=== PATIENT | female | born 1950 | race Caucasian/White ===

== ENCOUNTER 2019-09-24 10:23 | Outpatient (CLI) | payer MEDICARE, SELFPAY | END 2019-09-24 10:24 | disposition home or self-care (01) | LOC: ANHSURGERY 10:26 | PROVIDERS: PCP Internal Medicine; Visit Provider Urology | DX: N30.10 Interstitial cystitis (chronic) without hematuria (principal) | CPT/HCPCS: 87086; 87088 ==

== ENCOUNTER 2019-09-30 00:21 | Outpatient (CLI) | payer MEDICARE, SELFPAY ==
[2019-09-30 17:43] LABS: SARS-CoV-2 RNA PCR Negative
== END 2019-09-30 00:22 | disposition home or self-care (01) ==
LOC: ANHCOVIDDT 00:22
PROVIDERS: Visit Provider Urology
DX: Z01.818 Encounter for other preprocedural examination (principal); Z11.59 Encounter for screening for other viral diseases
CPT/HCPCS: 87635; C9803; U0003

== ENCOUNTER 2019-10-02 00:59 | Day surgery (SDC) | payer MEDICARE, SELFPAY ==
[2019-09-22 13:19] VITALS: BMI 44.9
[2019-10-02 07:16] VITALS: BP 134/63; PULSE 82; RESP 20; TEMP 36.8; O2SAT 99
--- NOTE | 2019-10-02 07:19 | WPDHPUPDATE1 ---
History and Physical Update Update Date/Time: 10/02/19 07:19 History and Physical has been reviewed, including an updated exam of the patient. There are NO changes in the patient's condition. Risks, benefits, and alternatives have been discussed and questions answered. Patient agrees to proceed with procedure.
[2019-10-02] MEDS: LACTATED RINGERS 1,000 ML 30 ML IV CONT (07:45)
--- NOTE | 2019-10-02 07:49 | P.PNAN_ITS ---
Anes - Initial Pre Proc Eval Procedure: Operation Date: 10/02/19 09:00 Proposed Procedures p Cystoscopy Bladder Biopsy With Steroid Injection - Damián Fox MD Date/Time: 10/02/19 07:49 Surgeon: Damián Fox MD Pre Op Diagnosis: Og's Ulcer Patient Data Age: 69 Gender: F Height: 5 ft Weight: 106.3 kg Last Vital Signs Temp 98.2 F 10/02/19 07:16 Pulse 82 10/02/19 07:16 Resp 20 10/02/19 07:16 BP 134/63 10/02/19 07:16 Pulse Ox 99 10/02/19 07:16 Allergies Allergy/AdvReac Type Severity Reaction Status Date / Time propoxyphene Allergy Mild Nausea Verified 10/02/19 07:28 cefdinir AdvReac Intermediate DIZZINESS, Verified 10/02/19 07:28 DIARRHEA ciprofloxacin AdvReac Mild Muscle Pain Verified 10/02/19 07:28 Home Medications Medication Instructions Recorded Confirmed Type antiarthritic combination no.2 900 900 mg PO DAILY 03/25/19 10/02/19 History mg tablet cyclobenzaprine 10 mg tablet 10 mg PO .hs PRN tablet 03/25/19 10/02/19 History fexofenadine 180 mg tablet 180 mg PO DAILY 03/25/19 10/02/19 History levothyroxine 50 mcg tablet 50 mcg PO DAILY 03/25/19 10/02/19 History mirabegron 50 mg tablet,extended 50 mg PO DAILY 03/25/19 10/02/19 History release 24 hr naproxen 500 mg tablet 500 mg PO BID #180 tablet 05/01/19 10/02/19 Rx Patient hx anesthesia problems: none Family hx anesthesia problems: none [facility] Past Medical History Medical History (Updated 10/02/19 @ 07:49 by Jack Garcia MD) Gastro-esophageal reflux disease without esophagitis Hypothyroidism Morbid obesity Social History Social History Smoking status: Never smoker Second hand tobacco smoke exposure: No Alcohol intake: never Anes - Eval Final PreProcedure Day of Procedure 10/02/19 07:49 Patient weight: morbidly obese Heart: regular rate and rhythm Lungs: clear to auscultation Airway: Mallampati scale class III Neurological: alert and oriented Last oral intake: >/= 8 hours ASA classification: III Emergent: no Anesthetic plan: proceed Anesthesia type and monitoring: general LMA and standard monitoring Informed Consent: The patient's anesthetic plan and its attendant risks and benefits were discussed with the patient/family/POA. Questions were solicited and answers provided to the satisfaction of the patient/family/POA.
[2019-10-02] MEDS: MIDAZOLAM HCL 2 MG/2 ML VIAL 1 MG IV PUSH (07:55)
[2019-10-02] MEDS: levoFLOXacin 500 MG/D5W 100 ML 500 MG/100 ML BAG 100 MG IVPB (08:21)
--- NOTE | 2019-10-02 08:21 | WPDHPUPDATE1 ---
History and Physical Update Update Date/Time: 10/02/19 08:21 History and Physical has been reviewed, including an updated exam of the patient. There are NO changes in the patient's condition. Risks, benefits, and alternatives have been discussed and questions answered. Patient agrees to proceed with procedure. Will perform a bladder bx as well
[2019-10-02] MEDS: LIDOCAINE HCL 2% GEL UROJET 10 ML PKG MUCOUS MEM (08:38)
[2019-10-02] MEDS: TRIAMCINOLONE ACET INJ 40 MG/ML VIAL IM (08:39)
--- NOTE | 2019-10-02 08:55 | PM.PROC ---
Procedure Note - Detailed Date of procedure: 10/02/19 Pre-op diagnosis: Og's Ulcer Hunner's ulcer Post-op diagnosis: same Procedure performed: Cystoscopy with bladder biopsy and injection of steroid Description of procedure: After anesthesia was induced the patient was correctly identified and informed consent was obtained. They are placed in the dorsal lithotomy position. There prepped and draped in a sterile fashion. A time-out performed. I performed cystoscopy. She had a very dysmorphic bladder. It was diffusely reddened. There were intense spots of reddened areas and Hunner's ulcers on the posterior wall. She has evidence of a duplicated system on the left with wide open ureters consistent with reflux. I was unable to identify the ureter on the right. I biopsied the area of Hunner's ulceration on the posterior wall the bladder remote from the ureteral orifices. This was biopsied was fulgurated. I then injected Kenalog at a dose of 40 milligrams/mL. I injected 5 cc total. There was minimal bleeding from the injection sites. The bladder was examined under low insufflation pressures and there was no active bleeding. The bladder was drained. The awakened and transferred to the PACU in stable condition. Implants: None Anesthesia: MAC Surgeon: Damián Fox MD Estimated blood loss (mL): 5 Drains: No Packing: No Pathology: yes (Bladder biopsy) Complications: No immediate complications Condition: stable Disposition: PACU
[2019-10-02 09:00] VITALS: BP 90/55; PULSE 94; RESP 18; O2SAT 94
[2019-10-02 09:30] VITALS: BP 119/65; PULSE 78; RESP 14
[2019-10-02 10:00] VITALS: BP 149/66; PULSE 73; RESP 14
== END 2019-10-02 10:05 | disposition home or self-care (01) ==
PROVIDERS: Visit Provider Urology
PROC: 0TBB8ZX Excision of Bladder, Via Natural or Artificial Opening Endoscopic, Diagnostic (ICD-10-PCS; CPT 52204; principal; 2019-10-02 09:00)
DX: N30.10 Interstitial cystitis (chronic) without hematuria (principal); K21.9 Gastro-esophageal reflux disease without esophagitis; E03.9 Hypothyroidism, unspecified; E66.01 Morbid (severe) obesity due to excess calories; Z68.42 Body mass index [BMI] 45.0-49.9, adult
CPT/HCPCS: 52204; 52283; 87635; 88305; A9270; C9803; J1956; J2250; J2704; J3301; J7120; U0003

== ENCOUNTER → 2020-08-19 13:12 | Outpatient (CLI) | payer MEDICARE, SELFPAY ==
--- NOTE | ~2020-08-19 | MM_ITS ---
EXAMINATION: MM screening ceferino BI w vitaly HISTORY: Screening mammogram TECHNIQUE: Craniocaudal and mediolateral oblique 3-D tomosynthesis images were obtained and synthetic 2-D images were generated. CAD analysis was submitted and interpreted. COMPARISON: 03/03/2019, 10/21/2018, 03/17/2018, 02/27/2018 BREAST PARENCHYMAL COMPOSITION: There are scattered areas of fibroglandular density. FINDINGS: Scattered benign-appearing calcifications are present. There is no evidence of suspicious m ass, calcification, or architectural distortion to suggest malignancy in either breast. There has bee n no suspicious interval change. IMPRESSION: 1. No mammographic evidence of malignancy. 2. Recommend routine screening mammography in one year. BI-RADS Category 2: Benign finding(s). Reviewed, dictated and finalized at location A.
== END ==
PROVIDERS: PCP Internal Medicine; Visit Provider Internal Medicine
DX: Z12.31 Encounter for screening mammogram for malignant neoplasm of breast (principal)
CPT/HCPCS: 77063; 77067

== ENCOUNTER → 2020-11-15 13:39 | Outpatient (CLI) | payer MEDICARE, SELFPAY ==
--- NOTE | ~2020-11-15 | XR_ITS ---
XR knee RT 3V DATE: 11/15/2020 15:30 INDICATION: Right knee pain TECHNIQUE: Ai and standing AP and lateral views COMPARISON: None FINDINGS: There is diffuse osteopenia. There is severe tricompartment osteoarthritis. Prominent periarticular spurring is noted in all 3 com partments. There is virtual obliteration of medial lateral compartment joint spaces. There is promine nt lateral subluxation at the femoral tibial joint. No fracture or dislocation or significant joint effusion is evident. No periosteal reaction or bone d estruction. IMPRESSION: Severe tricompartment osteoarthritis Prominent lateral subluxation of the femoral tibial joint Osteopenia Reviewed, dictated and finalized at location A.
--- NOTE | ~2020-11-15 | XR_ITS ---
XR knee LT 3V DATE: 11/15/2020 15:30 INDICATION: Right knee pain TECHNIQUE: [place] and standing AP and lateral views COMPARISON: None FINDINGS: There is severe tricompartment osteoarthritic arthritis, most pronounced at the medial comp artment with virtual obliteration of the joint spaces and eburnation of the apposing articular surfac es of the femoral condyle and medial tibial plateau. There is lateral subluxation at the femoral tibi al joint. There is varus deformity of the knee. There is prominent periarticular spurring at the patellofemoral compartment and lateral compartment. Diffuse osteopenia. No fracture or dislocation is evident. Mild to moderate knee joint effusion is suggested. No periosteal reaction or bone destruction. No radiopaque intra-articular loose body or chondrocalcinosis is detected. IMPRESSION: Severe tricompartment osteoarthritis Diffuse osteopenia Joint effusion Reviewed, dictated and finalized at location A.
== END ==
PROVIDERS: PCP Internal Medicine; Visit Provider Internal Medicine
DX: M85.861 Other specified disorders of bone density and structure, right lower leg (principal); M17.0 Bilateral primary osteoarthritis of knee; M85.862 Other specified disorders of bone density and structure, left lower leg
CPT/HCPCS: 73562

== ENCOUNTER 2020-12-15 10:20 | Outpatient (CLI) | payer MEDICARE, SELFPAY | END 2020-12-15 10:21 | disposition home or self-care (01) | LOC: ANHSURGERY 10:22 | PROVIDERS: PCP Internal Medicine; Visit Provider Urology | DX: N30.10 Interstitial cystitis (chronic) without hematuria (principal) | CPT/HCPCS: 87077; 87086; 87088; 87186 ==

== ENCOUNTER 2020-12-23 00:19 | Day surgery (SDC) | payer MEDICARE, SELFPAY ==
[2020-12-09 15:55] VITALS: BMI 44.3
--- NOTE | 2020-12-18 18:37 | P.HP_ITS ---
H&P: HPI History of Present Illness Date/Time: 12/18/20 18:37 70 yo with recurrent Hunner's ulcers Chief Complaint: Hunner Ulcer Review of Systems Review of Systems: All systems reviewed & are unremarkable except as noted in HPI and below [facility] Past Medical History Medical History (Updated 12/18/20 @ 18:39 by Damián Fox MD) Abnormal mammogram of left breast Eosinophilic cystitis Gastro-esophageal reflux disease without esophagitis History of recurrent UTI (urinary tract infection) Hunner's ulcer Hyperglycemia Hypothyroidism Iron deficiency anemia Morbid obesity Obesity Surgical History Surgical History (Updated 11/24/20 @ 09:53 by Hayley Miller MA) History of cholecystectomy History of hysterectomy History of meniscectomy of left knee History of meniscectomy of right knee Family History Family History Mother Hypertension Family history of diabetes mellitus in first degree relative Father Patient's father is , Onset Age: 93 Family history of respiratory disorder Social History Social History Smoking status: Never smoker Second hand tobacco smoke exposure: No Alcohol intake: never Spiritual care concerns: No Meds Home Medications and Allergies Home Medications Medication Instructions Recorded Confirmed Type antiarthritic combination no.2 900 900 mg PO DAILY 03/25/19 12/09/20 History mg tablet fexofenadine 180 mg tablet 180 mg PO DAILY 03/25/19 12/09/20 History naproxen 500 mg tablet 500 mg PO BID #180 tablet 09/02/20 12/09/20 Rx levothyroxine 50 mcg tablet 50 mcg PO DAILY #90 tablet 11/14/20 12/09/20 Rx [id number]-[id number] 333 mg-133 1 tablet PO BID tablet 11/24/20 12/09/20 History mg-5 mg tablet magnesium 250 mg tablet 250 mg PO DAILY 11/24/20 12/09/20 History potassium chloride 10 mEq 10 meq PO DAILY 11/24/20 12/09/20 History capsule,extended release Allergies Allergy/AdvReac Type Severity Reaction Status Date / Time propoxyphene Allergy Mild Nausea Verified 12/09/20 15:35 cefdinir AdvReac Intermediate DIZZINESS, Verified 12/09/20 15:35 DIARRHEA ciprofloxacin AdvReac Mild Muscle Pain Verified 12/09/20 15:35 Exam Const: General: cooperative and healthy appearing HENMT: Head: normal to inspection Eyes: General: appearance normal, both eyes and all related structures Neck: Neck: normal visual inspection Resp: Effort & Inspection: normal respiratory effort and able to speak in complete sentences : General: Yes bimanual renal exam normal bilaterally Skin: General skin exam: normal color Assessment and Plan Assessment and plan (1) Hunner's ulcer: Code(s): N30.10 - Interstitial cystitis (chronic) without hematuria Status: Acute Assessment and Plan: cysto/biopsy/steroid injection
--- NOTE | 2020-12-22 11:56 | WPDANESEPPF ---
Anes - Initial Pre Proc Eval Procedure: Operation Date: 12/23/20 08:15 Proposed Procedures p Cystoscopy, Bladder Biopsy with Steroid Injection - Damián Fox MD Date/Time: 12/22/20 11:56 Surgeon: Damián Fox MD Pre Op Diagnosis: hunners ulcer Patient Data Age: 70 Gender: F Height: 1.52 m Weight: 102.98 kg Allergies Allergy/AdvReac Type Severity Reaction Status Date / Time propoxyphene Allergy Mild Nausea Verified 12/23/20 06:55 cefdinir AdvReac Intermediate DIZZINESS, Verified 12/23/20 06:55 DIARRHEA ciprofloxacin AdvReac Mild Muscle Pain Verified 12/23/20 06:55 Home Medications Medication Instructions Recorded Confirmed Type antiarthritic combination no.2 900 900 mg PO DAILY 03/25/19 12/23/20 History mg tablet fexofenadine 180 mg tablet 180 mg PO DAILY 03/25/19 12/23/20 History naproxen 500 mg tablet 500 mg PO BID #180 tablet 09/02/20 12/23/20 Rx levothyroxine 50 mcg tablet 50 mcg PO DAILY #90 tablet 11/14/20 12/23/20 Rx pxseirp-dlkvmtkwq-kgoy 333 mg-133 1 tablet PO BID tablet 11/24/20 12/23/20 History mg-5 mg tablet magnesium 250 mg tablet 250 mg PO DAILY 11/24/20 12/23/20 History potassium chloride 10 mEq 10 meq PO DAILY 11/24/20 12/23/20 History capsule,extended release amoxicillin-pot clavulanate 1 tablet PO BID 12/23/20 12/23/20 History tramadol 50 mg PO Q6H PRN #10 tablet 12/23/20 Rx Patient hx anesthesia problems: none Family hx anesthesia problems: none [facility] Past Medical History Medical History (Updated 12/18/20 @ 18:39 by Damián Fox MD) Abnormal mammogram of left breast Eosinophilic cystitis Gastro-esophageal reflux disease without esophagitis History of recurrent UTI (urinary tract infection) Hunner's ulcer Hyperglycemia Hypothyroidism Iron deficiency anemia Morbid obesity Obesity Surgical History Surgical History (Updated 11/24/20 @ 09:53 by Hayley Miller MA) History of cholecystectomy History of hysterectomy History of meniscectomy of left knee History of meniscectomy of right knee Family History Family History Mother Hypertension Family history of diabetes mellitus in first degree relative Father Patient's father is , Onset Age: 93 Family history of respiratory disorder Social History Social History Smoking status: Never smoker Second hand tobacco smoke exposure: No Alcohol intake: never Living arrangements: with family Spiritual care concerns: No Anes - Eval Final PreProcedure Day of Procedure 12/22/20 11:56 Patient weight: morbidly obese Heart: regular rate and rhythm Lungs: clear to auscultation and normal air movement Airway: Mallampati scale class II Neurological: alert and oriented Last oral intake: >/= 8 hours ASA classification: III Emergent: no Anesthetic plan: proceed Anesthesia type and monitoring: general GIVS and standard monitoring Informed Consent: The patient's anesthetic plan and its attendant risks and benefits were discussed with the patient/family/POA. Questions were solicited and answers provided to the satisfaction of the patient/family/POA.
[2020-12-23 06:37] VITALS: BP 146/75; PULSE 81; RESP 16; TEMP 36.6; O2SAT 99
[2020-12-23] MEDS: LACTATED RINGERS 1,000 ML 30 ML IV CONT (07:10)
--- NOTE | 2020-12-23 07:22 | WPDHPUPDATE1 ---
History and Physical Update Update Date/Time: 12/23/20 07:22 History and Physical has been reviewed, including an updated exam of the patient. There are NO changes in the patient's condition. Risks, benefits, and alternatives have been discussed and questions answered. Patient agrees to proceed with procedure.
[2020-12-23] MEDS: TRIAMCINOLONE ACET INJ 40 MG/ML VIAL 200 MG XX (08:33)
[2020-12-23] MEDS: LIDOCAINE HCL 2% GEL UROJET 10 ML PKG MUCOUS MEM (08:36)
--- NOTE | 2020-12-23 08:44 | W.PM.PROC2 ---
Procedure Note - Detailed Date of Procedure 12/23/20 Pre-op Diagnosis hunners ulcer Post-op Diagnosis same Procedure Performed Cystoscopy, bladder biopsy, injection of steroid Surgeon Damián Fox MD Anesthesia MAC Indications She has recurrent Hunner's ulcer variety interstitial cystitis. 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 Signs of vesicoureteral reflux Description of Procedure She was correctly identified. Informed consent obtained. She from the operating room. She was given MAC anesthesia. She was prepped and draped in a sterile fashion. She was on appropriate antibiotics. A time-out performed. Examination of her bladder revealed multiple areas of Hunner's ulceration on the back wall of her bladder. She had a complete duplication on the left with signs of reflux. A single ureteral orifice on the right. I biopsy 1 of these inflamed areas. I generously fulgurated all ulcers. I injected Kenalog. 200 mg total into the ulcerated areas. I again performed a full your a judge of the ulcerated areas. There was no bleeding under low insufflation pressures. She was awakened and transferred to PACU in stable condition. Estimated Blood Loss 1 Drains No Packing No Pathology yes (Bladder biopsy) Complications No immediate complications Condition stable Disposition PACU
[2020-12-23 08:46] VITALS: BP 111/63; PULSE 71; RESP 16; O2SAT 99
[2020-12-23 09:00] VITALS: BP 137/59; PULSE 80; RESP 16
[2020-12-23 09:15] VITALS: BP 136/80; PULSE 75; RESP 16
== END 2020-12-23 09:28 | disposition home or self-care (01) ==
PROVIDERS: PCP Internal Medicine; Visit Provider Urology
PROC: 0TBB8ZX Excision of Bladder, Via Natural or Artificial Opening Endoscopic, Diagnostic (ICD-10-PCS; CPT 52204; principal; 2020-12-23 08:15)
DX: N30.10 Interstitial cystitis (chronic) without hematuria (principal); E03.9 Hypothyroidism, unspecified; R73.9 Hyperglycemia, unspecified; D50.9 Iron deficiency anemia, unspecified; E66.9 Obesity, unspecified; Z68.41 Body mass index [BMI] 40.0-44.9, adult
CPT/HCPCS: 52204; 52283; 88305; A9270; J1100; J2405; J2704; J3010; J3301; J7120

== ENCOUNTER 2021-02-02 10:48 | Inpatient (IN) | payer MEDICARE, SELFPAY ==
[2021-02-02] VITALS (43 sets, daily range): BP systolic 98–140; BP diastolic 47–84; PULSE 82–100; RESP 13–19; TEMP 36.4–37; O2SAT 93–100
--- NOTE | ~2021-02-02 | US_ITS ---
EXAMINATION: US renal BI DATE: 02/03/2021 14:31 INDICATION: Acute kidney injury. TECHNIQUE: Multiple ultrasound grayscale images of the kidneys were obtained. COMPARISON: CT abdomen and pelvis 02/02/2021 FINDINGS: The right kidney measures 10.5 x 3.7 x 5.1 cm. The left kidney measures 9.9 x 4.8 x 6.5 cm. The left kidney is not well-visualized. The kidneys demonstrate normal parenchymal echogenicity. There is mode rate right and mild left hydronephrosis. The bladder is normal. IMPRESSION: 1. Moderate right and mild left hydronephrosis. Normal kidney sizes. Reviewed, dictated and finalized at location A.
--- NOTE | ~2021-02-02 | CT_ITS ---
EXAMINATION: CT abdomen pelvis wo con DATE: 02/02/2021 14:21 INDICATION: Abdominal pain. Bladder infection. Hematuria. TECHNIQUE: Computed tomography (CT) of the abdomen and pelvis was performed without intravenous contr ast. Automated exposure control and iterative reconstruction technique were employed. Exam dose: 148 0.87 mGy-cm total exam DLP. COMPARISON: 11/03/2018 left retrograde pyelogram 10/08/2018 CT abdomen pelvis FINDINGS: There is focal atelectasis at the base of the middle lobe with air bronchograms. There is d iscoid atelectasis and/or scarring of both lower lobes. Cardiomegaly. No pericardial or pleural effusion. Small sliding hiatal hernia. 2.1 x 2.9 cm right adrenal hypoattenuating lesion with attenuation of approximately -2 [place] uni ts, likely an adrenal adenoma. Normal morphology of the left adrenal gland. Status post cholecystectomy. No bile duct or pancreatic duct dilatation. No hepatic, splenic, pancreatic space-occupying mass lesion. Moderately prominent right hydroureteronephrosis without any apparent obstructing urinary tract calcu vernon Mild left hydronephrosis. Probable left renal 2.8 cm cyst. Additional left or right cysts or mass lesions are difficult to excl ude on this limited noncontrast examination. Normal caliber of the abdominal aorta. No intraperitoneal or retroperitoneal or pelvic mass lesion or adenopathy. There is mild free fluid in the anterior lower abdomen and pelvis. There is moderate diffuse thickening of the urinary bladder wall. Status post hysterectomy. No bowel obstruction or intraperitoneal free air. Small fat-containing umbilical hernia. Scoliosis and prominent degenerative changes of the thoracic and lumbar spine. Grade 2 anterolisthesis at L4-5 due to degenerative change at the apophyseal joints. There is severe degenerative disc disease of the lumbar interspaces, sparing L5-S1. IMPRESSION: Nonspecific mild free fluid in the lower anterior abdomen and pelvis Status post hysterectomy Moderate diffuse thickening of the urinary bladder wall, consistent with clinical history of bladder infection Bilateral hydronephrosis, greater on the right, without obstructing calculus Probable left renal 2.8 cm cyst. Additional renal cyst or mass lesion on either side is not definitiv bay excluded on this limited noncontrast examination. Focal atelectasis at the base of the middle lobe and discoid atelectasis and/or scarring of both lowe r lobes Cardiomegaly Small sliding hiatal hernia 2.1 x 2.9 cm right adrenal adenoma Status post cholecystectomy Reviewed, dictated and finalized at [facility]. Reviewed, dictated and finalized at [facility]. IMPRESSION: Nonspecific mild free fluid in the lower anterior abdomen and pelv is Status post hysterectomy Moderate diffuse thickening of the urinary bladder wall, consistent with clinic al history of bladder infection Bilateral hydronephrosis, greater on the right, without obstructing calculus Probable left renal 2.8 cm cyst. Additional renal cyst or mass lesion on either side is not definitively excluded on this limited noncontrast examination. Focal atelectasis at the base of the middle lobe and discoid atelectasis and/or scarring of both lower lobes Cardiomegaly Small sliding hiatal hernia 2.1 x 2.9 cm right adrenal adenoma Status post cholecystectomy
--- NOTE | ~2021-02-02 | XR_ITS ---
EXAMINATION: XR chest 1V portable DATE: 02/07/2021 10:19 INDICATION: Leukocytosis. TECHNIQUE: A single frontal view of the chest was obtained. COMPARISON: CT abdomen and pelvis 02/02/21 FINDINGS: There is mild atelectasis in the lower lung zones. There is mild scarring at the lung apice s. No pleural effusion or pneumothorax. Cardiomegaly is noted. IMPRESSION: 1. Mild atelectasis in the lower lung zones. 2. Cardiomegaly. Reviewed, dictated and finalized at [facility].
[2021-02-02 12:03] LABS: Hematocrit 29.7 % (37.0-47.0); Hemoglobin 8.8 g/dL (12.0-15.0); Mean Corpuscular HGB Conc 29.6 g/dl (32-36); Mean Corpuscular Volume 81.1 fl (80-100); Mean Platelet Volume 9.7 fl (7.4-10.4); Platelet Count Result 258 k/mm3 (150-375); Red Blood Count 3.66 M/mm3 (4.2-5.4); White Blood Count 11.5 K/mm3 (4.5-10.0)
[2021-02-02 12:25] LABS: Band Neutrophils Percent 24 % (0-6); Eosinophils Absolute Manual 0.11 K/mm3 (0.02-0.5); Eosinophils Percent Manual 1 % (0-4); Lymphocytes Absolute Manual 0.23 K/mm3 (1.1-4.5); Monocytes Absolute Manual 0.11 K/mm3 (0.1-0.90); Monocytes Percent Manual 1 % (3-9); Neutrophils Absolute Manual 11.04 K/mm3 (1.7-7.2); Neutrophils Percent Manual 72 % (46-73); Total Cells Counted 100
[2021-02-02 12:26] LABS: Burr Cells 1+ (NORMAL); Ovalocytes 1+ (NORMAL); Platelet Estimate Adequate (Adequate)
[2021-02-02 13:14] LABS: Alanine Aminotransferase 20 U/L (4-35); Albumin Level 3.3 g/dL (3.5-5.1); Alkaline Phosphatase 149 U/L (38-126); Anion Gap 13 mmol/L (8-16); Aspartate Amino Transferase 28 U/L (14-36); Bilirubin,Total 1.1 mg/dL (0.2-1.3); Blood Urea Nitrogen 62 mg/dL (7-17); Calcium 9.2 mg/dL (8.4-10.2); Carbon Dioxide 18 mmol/L (22-30); Chloride 103 mmol/L (98-107); Estimated CRCL calculation 14 ml/min; Estimated Glomerular Filt Rate 12; Glucose 123 mg/dL (65-110); Lipase 291 U/L (23-300); Potassium 4.7 mmol/L (3.4-5.0); Sodium 134 mmol/L (137-145)
[2021-02-02 14:30] LABS: Add Urine Microscopic? YES; Appearance Urine Turbid (Clear); Bacteria Urine 3+ /hpf; Bilirubin Urine Negative (Negative); Blood Urine 2+ (Negative); Color Urine Amber (Yellow); Glucose Urine UA Negative (Negative); Ketones Urine Negative (Negative); Leukocyte Esterase Ur 2+ LEU/UL (Negative); Mucus Urine Heavy /lpf; Nitrate Urine Positive (Negative); Protein Urine 3+ mg/dL (Negative); RBC Urine >75 /hpf (0-2); Specific Grav Ur 1.012 (1.001-1.035); Squamous Epithelial Cell Urine Many /hpf (Few); WBC Urine >75 /hpf
--- NOTE | 2021-02-02 15:59 | ED.ABDPAIN ---
HPI - Abdominal Pain General Chief Complaint: Abdominal Pain Stated Complaint: abd pain Time Seen by Provider: 02/02/21 11:34 Source: patient and family Mode of arrival: ambulatory Limitations: no limitations History of Present Illness HPI narrative: 70-year-old with a history of Hunner ulcer on the bladder here with complaints of abdominal pain with some nausea for past few days. Patient states that she was on vacation few days ago distracted and started having abdominal pain. While she was on vacation she started having blood in the urine which is nothing uncommon for her. She states she sees Dr. Fox for her bladder problems. Patient states that she barely drinks water when she is out of town. No history of fever or chills. She denies any vomiting or diarrhea. MD elicited complaint: abdominal pain Pertinent past history: none Onset (ago): day(s) (1) Pain Consistency: constant Location: epigastric Quality: aching Radiation: LUQ and epigastric Migration to: no migration Relieving factors: nothing Related Data Home Medications Medication Instructions Recorded Confirmed antiarthritic combination no.2 900 900 mg PO DAILY 03/25/19 12/23/20 mg tablet fexofenadine 180 mg tablet 180 mg PO DAILY 03/25/19 12/23/20 [id number]-[id number] 333 mg-133 1 tablet PO BID tablet 11/24/20 12/23/20 mg-5 mg tablet magnesium 250 mg tablet 250 mg PO DAILY 11/24/20 12/23/20 potassium chloride 10 mEq 10 meq PO DAILY 11/24/20 12/23/20 capsule,extended release amoxicillin-pot clavulanate 1 tablet PO BID 12/23/20 12/23/20 Allergies Allergy/AdvReac Type Severity Reaction Status Date / Time propoxyphene Allergy Mild Nausea Verified 02/02/21 11:31 cefdinir AdvReac Intermediate DIZZINESS, Verified 02/02/21 11:31 DIARRHEA ciprofloxacin AdvReac Mild Muscle Pain Verified 02/02/21 11:31 Review of Systems Review of Systems: All systems reviewed & are unremarkable except as noted in HPI and below Constitutional: Constitutional: Reports no additional constitutional complaints Eyes: Eyes: Reports no additional eye complaints ENT: Reports system reviewed and no additional complaints, except as documented Cardiovascular: Cardiovascular: Reports no additional cardiovascular complaints Respiratory: Respiratory: Reports no additional respiratory complaints Gastrointestinal: Gastrointestinal: Reports as per HPI Musculoskeletal: Musculoskeletal: Reports no additional musculoskeletal complaints PMFSH Past Medical History Medical History Abnormal mammogram of left breast Eosinophilic cystitis Gastro-esophageal reflux disease without esophagitis History of recurrent UTI (urinary tract infection) Hunner's ulcer Hyperglycemia Hypothyroidism Iron deficiency anemia Morbid obesity Obesity Surgical History Surgical History History of cholecystectomy History of hysterectomy History of meniscectomy of left knee History of meniscectomy of right knee Family History Family History Mother Hypertension Family history of diabetes mellitus in first degree relative Father Patient's father is , Onset Age: 93 Family history of respiratory disorder Social History Social History Smoking status: Never smoker Second hand tobacco smoke exposure: No Alcohol intake: never Spiritual care concerns: No Exam Narrative: GENERAL: Well-appearing, well-nourished, pale and in no acute distress. HEAD: Normocephalic, atraumatic. EYES: PERRLA and EOMI. NECK: Supple. CHEST: Clear to auscultation. No respiratory distress. HEART: Regular rate and rhythm. No murmur heard. Normal peripheral pulses. ABDOMEN: Soft, tende in the epigastric area and LUQ , nondistended, normal active bowel sounds. EXTREMITIES: Nor
[2021-02-02] MEDS: SODIUM CHLORIDE 0.9% IV 1,000 ML 150 ML IV CONT (16:20)
--- NOTE | 2021-02-02 17:59 | PM.IMHP ---
H&P: HPI History of Present Illness Date/Time: 02/02/21 17:59 this is a 70-year-old female patient who has a history of having frequent UTIs with hunners ulcer in the bladder. The patient came in today with complaints of abdominal pain and nausea for the last several days. She is also somewhat confused. The patient recently went on vacation to [facility] and she was barely drinking any water while she was out of town. No fever chills. The patient stated that she saw her doctor on Saturday and was diagnosed with the UTI and was started on Macrobid. The patient stated she is very fatigued today and is having difficulty concentrating. Her daughter was at the bedside helping her with the questions. White count 11.5. H&H is 8.8 and 29.7 which appears to be her baseline. She was positive for UTI. Patient denies any history of any kidney problems only bladder problems. Today her BUN was 62 and creatinine is 3.8 with a GFR of 12. Abdominal pelvis CT was read as Nonspecific mild free fluid in the lower anterior abdomen and pelvis Status post hysterectomy Moderate diffuse thickening of the urinary bladder wall, consistent with clinical history of bladder infection Bilateral hydronephrosis, greater on the right, without obstructing calculus Probable left renal 2.8 cm cyst. Additional renal cyst or mass lesion on either side is not definitively excluded on this limited noncontrast examination. Focal atelectasis at the base of the middle lobe and discoid atelectasis and/or scarring of both lower lobes Cardiomegaly Small sliding hiatal hernia 2.1 x 2.9 cm right adrenal adenoma Status post cholecystectomy The patient was started on Primaxin and IV fluids. The patient is being admitted to observation status on the date of service of 02/02/2021 Chief Complaint: Abdominal pain Review of Systems Review of Systems: All systems reviewed & are unremarkable except as noted in HPI and below Constitutional: Constitutional: Reports as per HPI and Reports no additional constitutional complaints Eyes: Eyes: Reports as per HPI and Reports no additional eye complaints ENT: Reports system reviewed and no additional complaints, except as documented and Reports Normal hearing present Cardiovascular: Cardiovascular: Reports no additional cardiovascular complaints Respiratory: Respiratory: Reports no additional respiratory complaints and Reports no additional respiratory complaints Gastrointestinal: Gastrointestinal: Reports as per HPI and Reports no additional gastrointestinal complaints Musculoskeletal: Musculoskeletal: Reports no additional musculoskeletal complaints Integumentary/Breasts: Skin/Breast: Reports system reviewed and no additional complaints, except as docu and Reports as per HPI Neurologic: Reports system reviewed and no additional complaints, except as documented, Reports as per HPI and Reports Normal hearing present Psychiatric: Psychiatric: Reports no additional psychiatric complaints and Reports as per HPI Endocrine: Endocrine: Reports no additional endocrine complaints Hematologic/Lymphatic: Hematologic/Lymphatic: Reports no additional hematologic/lymphatic complaints Allergic/Immunologic: Allergic/Immunologic: Reports no additional allergic/immunologic complaints [facility] Past Medical History Medical History Abnormal mammogram of left breast Eosinophilic cystitis Gastro-esophageal reflux disease without esophagitis History of recurrent UTI (urinary tract infection) Hunner's ulcer Hyperglycemia Hypothyroidism Iron deficiency anemia Morbid obesity Obesity Surgical History Surgical History History of cholecystectomy History of hysterectomy History of meniscectomy of left knee History of meniscectomy of right knee Family History Family History Mother Hypertension
[2021-02-02] MEDS: MORPHINE SULFATE (*CRX) 4 MG/ML INJ IV PUSH (18:28)
--- NOTE | 2021-02-02 19:59 | ADMGEN ---
This patient, Candace Eid, was admitted to [facility] Surg Room 311-01. Patient/family oriented to hospital policies and general routines including ID bracelet, bed and alarms, visiting hours, pain management, procedures, bathroom and other care routines, personal items, smoking policy, room service/diet, and visiting hours. Information on how to activate the Rapid Response Team has been discussed. Patient/Family are encouraged to report perceived risks to care and to ask questions if they do not understand what they are told or what they should do.
[2021-02-02] MEDS: SODIUM CHLORIDE 0.9% IV 1,000 ML 125 ML IV CONT (20:00)
[2021-02-03 01:13] VITALS: PULSE 79; O2SAT 94
[2021-02-03] MEDS: SODIUM CHLORIDE 0.9% IV 1,000 ML 75 ML IV CONT (02:38)
[2021-02-03 06:00] VITALS: BP 111/53; PULSE 93; RESP 16; TEMP 36.3; O2SAT 94
[2021-02-03 06:52] LABS: Basophils Absolute Auto 0.1 K/mm3 (0.0-0.1); Basophils Percent Auto 0.8 % (0.2-1.2); Eosinophils Percent Auto 0.2 % (0-4.4); Hematocrit 26.2 % (37.0-47.0); Hemoglobin 7.9 g/dL (12.0-15.0); Immature Granulocyte Absolute 0.14 K/mm3 (0.00-0.031); Immature Granulocyte Percent A 1.4 % (0-0.5); Lymphocytes Absolute Auto 0.32 K/mm3 (0.9-3.2); Lymphocytes Percent Auto 3.2 % (18.3-44.2); Mean Corpuscular HGB Conc 30.2 g/dl (32-36); Mean Corpuscular Hemoglobin 24.2 pg (26-34); Mean Corpuscular Volume 80.1 fl (80-100); Mean Platelet Volume 9.1 fl (7.4-10.4); Monocytes Absolute Auto 0.3 K/mm3 (0.1-0.6); Monocytes Percent Auto 2.7 % (2.6-8.5); Neutrophils Absolute Auto 9.1 K/mm3 (1.3-6.7); Neutrophils Percent Auto 91.7 % (45.5-73.1); Platelet Count Result 217 k/mm3 (150-375); Red Blood Count 3.27 M/mm3 (4.2-5.4); Red Cell Distribution Width 18.1 % (11.5-14.5)
[2021-02-03] MEDS: LEVOTHYROXINE SODIUM 50 MCG TABLET PO (06:54)
[2021-02-03 07:07] LABS: Anion Gap 11 mmol/L (8-16); Blood Urea Nitrogen 69 mg/dL (7-17); Calcium 8.6 mg/dL (8.4-10.2); Carbon Dioxide 17 mmol/L (22-30); Chloride 106 mmol/L (98-107); Estimated CRCL calculation 15 ml/min; Estimated Glomerular Filt Rate 13; Glucose 111 mg/dL (65-110); Lactate Dehydrogenase 395 U/L (313-618); Magnesium 2.2 mg/dL (1.6-2.3); Potassium 5.1 mmol/L (3.4-5.0); Sodium 134 mmol/L (137-145)
[2021-02-03] MEDS: LORATADINE 10 MG TABLET PO (09:20)
[2021-02-03] MEDS: MAGNESIUM OXIDE 200 MG TABLET PO (09:20)
[2021-02-03 10:37] VITALS: BMI 47.7
--- NOTE | 2021-02-03 12:37 | WPDURCON ---
Assessment and Plan Assessment and plan (1) Hunner's ulcer: Code(s): N30.10 - Interstitial cystitis (chronic) without hematuria Status: Acute Assessment and Plan: Managed in the office with steroid injections via Cystscope by Dr. Fox. (2) MARIBEL (acute kidney injury): Code(s): N17.9 - Acute kidney failure, unspecified Status: Acute Assessment and Plan: Baseline creatinine is unknown as there are no previous labs to compare to. Would recommend obtaining previous labs from PCP if any available. It is likely that her creatinine is chronically elevated d/t chronic hydronephrosis. (3) UTI (urinary tract infection): Code(s): N39.0 - Urinary tract infection, site not specified Status: Acute Assessment and Plan: Continue IV antibiotics, tailor to culture results. (4) Hydronephrosis: Code(s): N13.30 - Unspecified hydronephrosis Status: Acute Assessment and Plan: This is a chronic condition, which as been worked up by our group in the recent past. She has Vesicoureteral reflux and a dysfunctional bladder d/t Hunner's Ulcers. No intervention is needed. Ok to discharge home when clinically stable. Urology Consult Note HPI Date Seen: 02/03/21 Requesting Physician: Angel Chisholm MD Primary Care Provider: Porter Aggarwal DO Consult Narrative Narrative: Candace Eid is a 70 year old female who was seen in the ER yesterday for acute onset, nausea, confusion, abdominal pain and gross hematuria that developed over a week ago but has worsened. She was seen in the office on 01/31/2021 by myself for a UTI, her UA at that time suggested a UTI, therefore she was treated empirically with Nitrofurantoin, her culture is still pending. She is a longtime patient of Dr. Fox'guy with a history of UTI's, gross hematuria associated with Hunner's Ulcers in her bladder and chronic bilateral hydronephrosis. Her WBC is improved to 10 today, creatinine is also slightly improved today to 3.6. She had a non contrast CT showing Moderate diffuse thickening of the urinary bladder wall, consistent with clinical history of bladder infection, Bilateral hydronephrosis, greater on the right, without obstructing calculus, a probable left renal 2.8 cm cyst. She has a urine and blood culture pending at this time. She is afebrile and otherwise stable, pain is more controlled today. Review of Systems Cardiovascular: Cardiovascular: Denies chest pain Respiratory: Respiratory: Reports no additional respiratory complaints Gastrointestinal: Gastrointestinal: Denies abdominal pain, Denies nausea and Denies vomiting Genitourinary: Genitourinary: Reports hematuria, Reports dysuria and Reports urinary urgency [facility] Past Medical History Medical History Abnormal mammogram of left breast Eosinophilic cystitis Gastro-esophageal reflux disease without esophagitis History of recurrent UTI (urinary tract infection) Hunner's ulcer Hyperglycemia Hypothyroidism Iron deficiency anemia Morbid obesity Obesity Surgical History Surgical History History of cholecystectomy History of hysterectomy History of meniscectomy of left knee History of meniscectomy of right knee Family History Family History Mother Hypertension Family history of diabetes mellitus in first degree relative Father Patient's father is , Onset Age: 93 Family history of respiratory disorder Social History Social History Social History: The patient is and lives with her and her mother who is in her 90s. Her is a durable power immigration attorney for healthcare. Patient is a full code. 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 Patient is lifelong nonsmoker. No alcohol
[2021-02-03 14:00] VITALS: BP 107/49; PULSE 99; RESP 16; TEMP 36.3; O2SAT 96
--- NOTE | 2021-02-03 14:15 | PM.CNNEP ---
Assessment and Plan Assessment and plan (1) MARIBEL (acute kidney injury): Code(s): N17.9 - Acute kidney failure, unspecified Status: Acute Assessment and Plan: the patient has a h igher than baseline creatinine. she has hydronephrosis. to see about whether this is significant or not. she has pyuria. not sure if this is chronic from her IC or acute from a UTI. she did get macrobid but this doesn't work well lwith low gfr so she is on imipenem now. this could affect the kidneys as well. she could be dehydrated. she is getting ivfs. she was on naprosyn which can make renal issues worse with dehydration. GN is unlikely in this clinical scenario but will keep it in mind. AIN is unlikely since she wasnt on any new meds will check ultrasound and urine 'lytes. (2) Stage 3b chronic kidney disease: Code(s): N18.32 - Chronic kidney disease, stage 3b Status: Acute Assessment and Plan: etiology unclear. possibly due to recurrent obstruction? will evaluate lab marks. (3) Anemia: Qualifiers: Anemia type: iron deficiency Iron deficiency anemia type: unspecified iron deficiency Qualified Code(s): D50.9 - Iron deficiency anemia, unspecified Code(s): D64.9 - Anemia, unspecified Status: Acute Assessment and Plan: hb is low. will start epo. n o need for iron since she is on atbs. (4) Hunner's ulcer: Code(s): N30.10 - Interstitial cystitis (chronic) without hematuria Status: Acute Assessment and Plan: per (5) Arthritis of both knees: Code(s): M17.0 - Bilateral primary osteoarthritis of knee Status: Acute Assessment and Plan: stay away from NSAIDs (6) Hypothyroidism: Code(s): E03.9 - Hypothyroidism, unspecified Status: Acute Assessment and Plan: on supplement History of Present Illness Reason for Consult Consult date: 02/03/21 Chief Complaint Chief complaint: maribel History of Present Illness Narrative: aCndace is a very p[leasant 70 yo female with interstitial cystitis,Gastro-esophageal reflux disease without esophagitis,History of recurrent UTI (urinary tract infection),Hunner's ulcer,Hyperglycemia,Hypothyroidism, andCKD with a baseline creatinine of 1.7, Iron deficiency anemia. She was in [place] and had hematuria and mild flank and abdominal pain. she drove home and the sx progressed. She saw her PCP who gave h er macrobid. then she became confused so she came to the ER. In the ER she was evaluated. her urine had blood and wbcs. she was cultured, admitted, and given antibiotics and fluids. Her creatinine was higher than baseline on admission so a renal consult was requested. she has a history of UTI, obstruction , and interstitial cystitis. she has baseline CKD but the patient is not aware of this. she has never seen a regulatory lead. she denies diabetes or hypertension . Review of Systems Constitutional: Constitutional: Reports no additional constitutional complaints Eyes: Eyes: Reports no additional eye complaints ENT: Reports system reviewed and no additional complaints, except as documented Cardiovascular: Cardiovascular: Reports no additional cardiovascular complaints Respiratory: Respiratory: Reports no additional respiratory complaints Gastrointestinal: Gastrointestinal: Reports no additional gastrointestinal complaints Genitourinary: Genitourinary: Reports no additional female genitourinary complaints Musculoskeletal: Musculoskeletal: Reports no additional musculoskeletal complaints Integumentary/Breasts: Skin/Breast: Reports system reviewed and no additional complaints, except as docu Neurologic: Reports system reviewed and no additional complaints, except as documented Psychiatric: Psychiatric: Reports no additional psychiatric complaints Endocrine: Endocrine: Reports no additional endocrine complaints PMFSH Past Medical History Medical History (Update
[2021-02-03 16:00] LABS: Creatine Kinase 136 U/L (30-135)
[2021-02-03 16:17] LABS: Parathyroid Intact 40.8 pg/mL (7.5-53.5)
--- NOTE | 2021-02-03 16:40 | PM.IMPN ---
Progress Note: A&P Assessment and Plan (1) MARIBEL (acute kidney injury): Code(s): N17.9 - Acute kidney failure, unspecified Status: Acute Assessment and Plan: CT abdomen with bilateral hydronephrosis noted right more than left baseline creatinine around 1.6 currently at 3.8 on gentle IV fluids 0 might need to hold this off Urology consultation Nephrology already on board Avoid nephrotoxic medicine (2) UTI (urinary tract infection): Code(s): N39.0 - Urinary tract infection, site not specified Status: Acute Assessment and Plan: The patient stated that she was taking Macrobid since Saturday. However her urine is still positive for UTI. The patient's last culture in November was resistant to Macrobid. The patient was started on Primaxin. Urine and blood cultures are pending (3) Hypothyroidism: Code(s): E03.9 - Hypothyroidism, unspecified Status: Acute Assessment and Plan: Check thyroid level and continue levothyroxine. (4) Hunner's ulcer: Code(s): N30.10 - Interstitial cystitis (chronic) without hematuria Status: Acute Assessment and Plan: The patient sees urology for this. She had a cystoscopy with a biopsy and injection of steroid Neurology consultation again (5) Anemia: Qualifiers: Anemia type: iron deficiency Iron deficiency anemia type: unspecified iron deficiency Qualified Code(s): D50.9 - Iron deficiency anemia, unspecified Code(s): D64.9 - Anemia, unspecified Status: Acute Assessment and Plan: Appears to be stable continue to monitor. Subjective Date/time seen: 02/03/21 16:40 Interval history: HPI:this is a 70-year-old female patient who has a history of having frequent UTIs with hunners ulcer in the bladder. The patient came in today with complaints of abdominal pain and nausea for the last several days. She is also somewhat confused. The patient recently went on vacation to [facility] and she was barely drinking any water while she was out of town. No fever chills. The patient stated that she saw her doctor on Saturday and was diagnosed with the UTI and was started on Macrobid. The patient stated she is very fatigued today and is having difficulty concentrating. Her daughter was at the bedside helping her with the questions. White count 11.5. H&H is 8.8 and 29.7 which appears to be her baseline. She was positive for UTI. Patient denies any history of any kidney problems only bladder problems. Today her BUN was 62 and creatinine is 3.8 with a GFR of 12. Abdominal pelvis CT was read as Nonspecific mild free fluid in the lower anterior abdomen and pelvis Status post hysterectomy Moderate diffuse thickening of the urinary bladder wall, consistent with clinical history of bladder infection Bilateral hydronephrosis, greater on the right, without obstructing calculus Probable left renal 2.8 cm cyst. Additional renal cyst or mass lesion on either side is not definitively excluded on this limited noncontrast examination. Focal atelectasis at the base of the middle lobe and discoid atelectasis and/or scarring of both lower lobes Cardiomegaly Small sliding hiatal hernia 2.1 x 2.9 cm right adrenal adenoma Status post cholecystectomy The patient was started on Primaxin and IV fluids. The patient is being admitted to observation status on the date of service of 02/02/2021 Interval history: Continues to remain confused but feels somewhat better she states. Denies any fever or chills. She states she is not bleeding in her urine any more today. Denies any abdominal pain Review of Systems Review of Systems: All systems reviewed & are unremarkable except as noted in HPI and below Exam Narrative: GENERAL: The patient is well developed, not in acute distress slightly confused HEENT: Nonicteric sclerae, PERRLA, EOMI. Oropharynx clear. Moist mucous membranes. Conjunctivae appear well perfused. CHEST: Chest wall is nontender.
[2021-02-03 16:51] LABS: Complement C3 122 mg/dL (88-165)
[2021-02-03 16:55] LABS: Erythrocyte Sedimentation Rate > 140 mm/hr (0-20)
[2021-02-03] MEDS: EPOETIN ALFA-EPBX 10,000 UNITS/ML VIAL 10000 UNITS SUB-Q (17:04)
[2021-02-03 17:34] LABS: Creatinine Urine 29.1 mg/dL; Total Protein Urine Random 186 mg/dL; Ur Ttl Prot Creatinine Ratio 6.39 mg/mg (0-0.20)
[2021-02-03 18:09] LABS: Sodium Urine Random 73 meq/L
[2021-02-03 19:12] LABS: Creatine Kinase 134 U/L (30-135)
[2021-02-03 20:00] VITALS: PULSE 99; RESP 16; O2SAT 96
[2021-02-03 22:00] VITALS: BP 117/60; PULSE 88; RESP 20; TEMP 36.7; O2SAT 97
[2021-02-04] MEDS: SODIUM CHLORIDE 0.9% IV 1,000 ML 75 ML IV CONT ×2 (00:17→15:59)
[2021-02-04] MEDS: LEVOTHYROXINE SODIUM 50 MCG TABLET PO (05:13)
[2021-02-04 06:00] VITALS: BP 110/55; PULSE 83; RESP 20; TEMP 36.9; O2SAT 98
[2021-02-04 06:26] LABS: Basophils Percent Auto 0.2 % (0.2-1.2); Eosinophils Absolute Auto 0.1 K/mm3 (0-0.3); Eosinophils Percent Auto 0.7 % (0-4.4); Hematocrit 24.6 % (37.0-47.0); Hemoglobin 7.5 g/dL (12.0-15.0); Immature Granulocyte Absolute 0.48 K/mm3 (0.00-0.031); Lymphocytes Absolute Auto 0.41 K/mm3 (0.9-3.2); Lymphocytes Percent Auto 3.5 % (18.3-44.2); Mean Corpuscular HGB Conc 30.5 g/dl (32-36); Mean Corpuscular Hemoglobin 23.7 pg (26-34); Mean Corpuscular Volume 77.6 fl (80-100); Mean Platelet Volume 9.1 fl (7.4-10.4); Monocytes Absolute Auto 0.3 K/mm3 (0.1-0.6); Monocytes Percent Auto 2.7 % (2.6-8.5); Neutrophils Absolute Auto 10.6 K/mm3 (1.3-6.7); Neutrophils Percent Auto 88.9 % (45.5-73.1); Platelet Count Result 226 k/mm3 (150-375); Red Blood Count 3.17 M/mm3 (4.2-5.4); Red Cell Distribution Width 17.9 % (11.5-14.5); White Blood Count 11.9 K/mm3 (4.5-10.0)
[2021-02-04 06:56] LABS: Alanine Aminotransferase 15 U/L (4-35); Albumin Level 2.6 g/dL (3.5-5.1); Alkaline Phosphatase 118 U/L (38-126); Anion Gap 11 mmol/L (8-16); Aspartate Amino Transferase 28 U/L (14-36); Blood Urea Nitrogen 81 mg/dL (7-17); Calcium 8.3 mg/dL (8.4-10.2); Carbon Dioxide 16 mmol/L (22-30); Chloride 108 mmol/L (98-107); Estimated CRCL calculation 19 ml/min; Estimated Glomerular Filt Rate 16; Glucose 111 mg/dL (65-110); Phosphorus 5.5 mg/dL (2.5-4.5); Sodium 135 mmol/L (137-145)
[2021-02-04 07:43] LABS: Burr Cells 1+ (NORMAL); Hypochromasia 1+ (NORMAL); Ovalocytes 1+ (NORMAL); Platelet Estimate Adequate (Adequate)
[2021-02-04] MEDS: MAGNESIUM OXIDE 200 MG TABLET PO (09:08)
[2021-02-04] MEDS: LORATADINE 10 MG TABLET PO (09:09)
--- NOTE | 2021-02-04 11:22 | PM.PNNEP ---
Progress Note: A&P Assessment and Plan (1) MARIBEL (acute kidney injury): Code(s): N17.9 - Acute kidney failure, unspecified Status: Acute Assessment and Plan: the patient has a higher than baseline creatinine. Urine electrolytes non pre renal she has hydronephrosis. Urology felt that this was chronic. Etiology most likely related to infection and dehydration as well as being on Naprosyn as an outpatient. she has pyuria. Her cultures are positive. She is on imipenem. She is off her Naprosyn. she is getting ivfs. Her creatinine is improving. Her bicarbonate level is still low. Will add bicarb tablets (2) Stage 3b chronic kidney disease: Code(s): N18.32 - Chronic kidney disease, stage 3b Status: Acute Assessment and Plan: etiology unclear. possibly due to recurrent obstruction? Baseline creatinine is 1.7. Evaluation underway (3) Anemia: Qualifiers: Anemia type: iron deficiency Iron deficiency anemia type: unspecified iron deficiency Qualified Code(s): D50.9 - Iron deficiency anemia, unspecified Code(s): D64.9 - Anemia, unspecified Status: Acute Assessment and Plan: hb is low. On epo. n o need for iron since she is on atbs. (4) Hunner's ulcer: Code(s): N30.10 - Interstitial cystitis (chronic) without hematuria Status: Acute Assessment and Plan: per (5) Arthritis of both knees: Code(s): M17.0 - Bilateral primary osteoarthritis of knee Status: Acute Assessment and Plan: stay away from NSAIDs (6) Hypothyroidism: Code(s): E03.9 - Hypothyroidism, unspecified Status: Acute Assessment and Plan: on supplement Subjective Date/time seen: 02/04/21 11:22 Interval history: Candace feels much better today but not 100%. Her mentation is much better today. She denies chest pain or shortness of breath. Review of Systems Cardiovascular: Cardiovascular: Reports no additional cardiovascular complaints Respiratory: Respiratory: Reports no additional respiratory complaints Gastrointestinal: Gastrointestinal: Reports no additional gastrointestinal complaints Genitourinary: Genitourinary: Reports no additional female genitourinary complaints Exam Narrative: WDWN in NAD skin no rash head ncat lungs clear cor reg no rub abd BS+ nontender and soft ext trace edema. Objective Data Vital Signs Vital Signs: Vital Signs - 24 hr 02/03/21 14:00 02/03/21 20:00 02/03/21 22:00 Temperature 36.3 C L 36.7 C Pulse Rate 99 99 88 Respiratory Rate 16 16 20 Blood Pressure 107/49 L 117/60 Pulse Oximetry 96 96 97 02/04/21 06:00 Temperature 36.9 C Pulse Rate 83 Respiratory Rate 20 Blood Pressure 110/55 L Pulse Oximetry 98 Intake/Output Intake/Output: Intake & Output 02/01/21 02/02/21 02/03/21 02/04/21 23:59 23:59 23:59 23:59 Intake Total 100 1820 500 Output Total 350 1900 Balance 100 1470 -1400 Meds/Results Medications: Active Medications Generic Name Dose Route Start Last Admin Trade Name Freq PRN Reason Stop Dose Admin Acetaminophen 650 mg 02/02/21 15:13 Acetaminophen 325 Mg Tablet PO Q4H PRN Mild Pain (1-3) or Fever Epoetin Dmitriy-epbx 10,000 units 02/03/21 14:35 02/03/21 17:04 Epoetin Dmitriy-Epbx 10,000 Units/Ml Vial SUB-Q 10,000 units MoWeFr@0900 AZAEL Administration Imipenem/Cilastatin Sodium 200 100 mls @ 300 mls/hr 02/03/21 00:00 02/04/21 05:09 mg/ Dextrose IVPB 125 mls/hr Q6HR AZAEL Administration Sodium Chloride 1,000 mls @ 75 mls/hr 02/03/21 01:15 02/04/21 00:17 Normal Saline Iv IV CONT 75 mls/hr .[id number] AZAEL Administration Levothyroxine Sodium 50 mcg 02/03/21 06:30 02/04/21 05:13 Levothyroxine Sodium 50 Mcg Tablet PO 50 mcg DAILY@0630 AZAEL Administration Loratadine 10 mg 02/03/21 09:00 02/04/21 09:09 Loratadine 10 Mg Tablet PO 10 mg QAM AZAEL Administration Magnesium
--- NOTE | 2021-02-04 13:45 | PM.IMPN ---
Progress Note: A&P Assessment and Plan (1) MARIBEL (acute kidney injury): Code(s): N17.9 - Acute kidney failure, unspecified Status: Acute Assessment and Plan: CT abdomen with bilateral hydronephrosis noted right more than left baseline creatinine around 1.6 currently at 3.8 on gentle IV fluids 0 might need to hold this off Urology consultation appreciate the recommendation apparently hydronephrosis bilateral is chronic finding Nephrology already on board Avoid nephrotoxic medicine Renal failure has been improving down to 2.9 today with lower extremity swelling will slow down her fluid to 50 cc an hour (2) UTI (urinary tract infection): Code(s): N39.0 - Urinary tract infection, site not specified Status: Acute Assessment and Plan: The patient stated that she was taking Macrobid since Saturday. However her urine is still positive for UTI. The patient's last culture in November was resistant to Macrobid. The patient was started on Primaxin. Urine culture is positive for E coli sensitive to ceftriaxone Will switch her Primaxin to ceftriaxone She had allergy listed to cefdinir however does not think she has allergy listed to cefdinir but experience more of side effect Discussed with her and will start ceftriaxone (3) Hypothyroidism: Code(s): E03.9 - Hypothyroidism, unspecified Status: Acute Assessment and Plan: Thyroid level normal and continue levothyroxine. (4) Hunner's ulcer: Code(s): N30.10 - Interstitial cystitis (chronic) without hematuria Status: Acute Assessment and Plan: The patient sees urology for this. She had a cystoscopy with a biopsy and injection of steroid Urology consultation again appreciate the recommendation (5) Anemia: Qualifiers: Anemia type: iron deficiency Iron deficiency anemia type: unspecified iron deficiency Qualified Code(s): D50.9 - Iron deficiency anemia, unspecified Code(s): D64.9 - Anemia, unspecified Status: Acute Assessment and Plan: Appears to be stable continue to monitor. Continue to monitor Subjective Date/time seen: 02/04/21 13:45 Interval history: HPI:this is a 70-year-old female patient who has a history of having frequent UTIs with hunners ulcer in the bladder. The patient came in today with complaints of abdominal pain and nausea for the last several days. She is also somewhat confused. The patient recently went on vacation to [place] and she was barely drinking any water while she was out of town. No fever chills. The patient stated that she saw her doctor on Saturday and was diagnosed with the UTI and was started on Macrobid. The patient stated she is very fatigued today and is having difficulty concentrating. Her daughter was at the bedside helping her with the questions. White count 11.5. H&H is 8.8 and 29.7 which appears to be her baseline. She was positive for UTI. Patient denies any history of any kidney problems only bladder problems. Today her BUN was 62 and creatinine is 3.8 with a GFR of 12. Abdominal pelvis CT was read as Nonspecific mild free fluid in the lower anterior abdomen and pelvis Status post hysterectomy Moderate diffuse thickening of the urinary bladder wall, consistent with clinical history of bladder infection Bilateral hydronephrosis, greater on the right, without obstructing calculus Probable left renal 2.8 cm cyst. Additional renal cyst or mass lesion on either side is not definitively excluded on this limited noncontrast examination. Focal atelectasis at the base of the middle lobe and discoid atelectasis and/or scarring of both lower lobes Cardiomegaly Small sliding hiatal hernia 2.1 x 2.9 cm right adrenal adenoma Status post cholecystectomy The patient was started on Primaxin and IV fluids. The patient is being admitted to observation status on the date of service of 02/02/2021 Interval history: No overnight events. She states she is much more wit
[2021-02-04 14:00] VITALS: BP 106/44; PULSE 87; RESP 20; TEMP 36.9; O2SAT 96
--- NOTE | 2021-02-04 15:20 | PCOTNOTE ---
Attempted occupational therapy evaluation, patient declined at this time and wants to try tomorrow, patient states, PT did not go well and I do not have the strength right now. Will attempt again on 02/05.
[2021-02-04] MEDS: SODIUM BICARBONATE TAB 650 MG TABLET 1300 MG PO (16:01)
[2021-02-04] MEDS: DOCUSATE SODIUM 100 MG CAPSULE PO (20:23)
[2021-02-04 20:30] VITALS: PULSE 87; RESP 18; O2SAT 97
[2021-02-04 22:00] VITALS: BP 112/59; PULSE 87; RESP 18; TEMP 36.6; O2SAT 97
[2021-02-04] MEDS: traMADol HCL (*CRX) 50 MG TABLET PO (22:47)
[2021-02-05 06:00] VITALS: BP 136/64; PULSE 79; RESP 18; TEMP 36.3; O2SAT 99
[2021-02-05 06:23] LABS: Basophils Absolute Auto 0.1 K/mm3 (0.0-0.1); Basophils Percent Auto 0.7 % (0.2-1.2); Eosinophils Absolute Auto 0.2 K/mm3 (0-0.3); Hematocrit 25.2 % (37.0-47.0); Hemoglobin 7.8 g/dL (12.0-15.0); Immature Granulocyte Absolute 1.22 K/mm3 (0.00-0.031); Lymphocytes Absolute Auto 0.56 K/mm3 (0.9-3.2); Lymphocytes Percent Auto 3.7 % (18.3-44.2); Mean Corpuscular Hemoglobin 24.5 pg (26-34); Mean Platelet Volume 9.6 fl (7.4-10.4); Monocytes Absolute Auto 0.5 K/mm3 (0.1-0.6); Monocytes Percent Auto 2.9 % (2.6-8.5); Neutrophils Absolute Auto 12.8 K/mm3 (1.3-6.7); Neutrophils Percent Auto 83.7 % (45.5-73.1); Nucleated Red Blood Cells Perc 0.1 % (0.0-0.2); Platelet Count Result 230 k/mm3 (150-375); Red Blood Count 3.19 M/mm3 (4.2-5.4); Red Cell Distribution Width 17.9 % (11.5-14.5); White Blood Count 15.3 K/mm3 (4.5-10.0)
[2021-02-05 06:37] LABS: Albumin Level 2.6 g/dL (3.5-5.1); Anion Gap 5 mmol/L (8-16); Blood Urea Nitrogen 73 mg/dL (7-17); Calcium 8.5 mg/dL (8.4-10.2); Carbon Dioxide 17 mmol/L (22-30); Chloride 110 mmol/L (98-107); Estimated CRCL calculation 21 ml/min; Estimated Glomerular Filt Rate 18; Glucose 107 mg/dL (65-110); Phosphorus 4.1 mg/dL (2.5-4.5); Potassium 4.4 mmol/L (3.4-5.0); Sodium 132 mmol/L (137-145)
[2021-02-05] MEDS: LEVOTHYROXINE SODIUM 50 MCG TABLET PO (06:39)
[2021-02-05 08:10] VITALS: BMI 10.0
[2021-02-05] MEDS: polyethylene glycoL 3350 17 GM POWD.PACK PO (09:43)
[2021-02-05] MEDS: MAGNESIUM OXIDE 200 MG TABLET PO (09:44)
[2021-02-05] MEDS: SODIUM BICARBONATE TAB 650 MG TABLET 1300 MG PO ×2 (09:44→17:45)
[2021-02-05] MEDS: LORATADINE 10 MG TABLET PO (09:44)
[2021-02-05] MEDS: DOCUSATE SODIUM 100 MG CAPSULE PO ×2 (09:44→20:26)
--- NOTE | 2021-02-05 13:00 | PM.PNNEP ---
Progress Note: A&P Assessment and Plan (1) MARIBEL (acute kidney injury): Code(s): N17.9 - Acute kidney failure, unspecified Status: Acute Assessment and Plan: the patient has a higher than baseline creatinine. Urine electrolytes non pre renal she has hydronephrosis. Urology felt that this was chronic. Etiology most likely related to infection and dehydration as well as being on Naprosyn as an outpatient. she has pyuria. Her cultures are positive. She is on imipenem. She is off her Naprosyn. Her creatinine is improving. She is eating well so I think we can stop her IV fluid (2) Stage 3b chronic kidney disease: Code(s): N18.32 - Chronic kidney disease, stage 3b Status: Acute Assessment and Plan: etiology unclear. possibly due to recurrent obstruction? Baseline creatinine is 1.7. Evaluation underway (3) Anemia: Qualifiers: Anemia type: iron deficiency Iron deficiency anemia type: unspecified iron deficiency Qualified Code(s): D50.9 - Iron deficiency anemia, unspecified Code(s): D64.9 - Anemia, unspecified Status: Acute Assessment and Plan: hb is low. On epo. no need for iron since she is on atbs. (4) Hunner's ulcer: Code(s): N30.10 - Interstitial cystitis (chronic) without hematuria Status: Acute Assessment and Plan: per (5) Arthritis of both knees: Code(s): M17.0 - Bilateral primary osteoarthritis of knee Status: Acute Assessment and Plan: stay away from NSAIDs (6) Hypothyroidism: Code(s): E03.9 - Hypothyroidism, unspecified Status: Acute Assessment and Plan: on supplement Subjective Date/time seen: 02/05/21 13:00 Interval history: Candace feels much better today Eating well. Exam Narrative: WDWN in NAD skin no rash head ncat lungs clear cor reg no rub abd BS+ nontender and soft ext trace edema. Objective Data Vital Signs Vital Signs: Vital Signs - 24 hr 02/04/21 14:00 02/04/21 20:30 02/04/21 22:00 Temperature 36.9 C 36.6 C Pulse Rate 87 87 87 Respiratory Rate 20 18 18 Blood Pressure 106/44 L 112/59 L Pulse Oximetry 96 97 97 02/05/21 06:00 Temperature 36.3 C L Pulse Rate 79 Respiratory Rate 18 Blood Pressure 136/64 Pulse Oximetry 99 Intake/Output Intake/Output: Intake & Output 02/02/21 02/03/21 02/04/21 02/05/21 23:59 23:59 23:59 23:59 Intake Total 100 1820 2250 770 Output Total 350 4200 1650 Balance 100 5753 -5975 -352 Meds/Results Medications: Active Medications Generic Name Dose Route Start Last Admin Trade Name Freq PRN Reason Stop Dose Admin Acetaminophen 650 mg 02/02/21 15:13 Acetaminophen 325 Mg Tablet PO Q4H PRN Mild Pain (1-3) or Fever Docusate Sodium 100 mg 02/04/21 21:00 02/05/21 09:44 Docusate Sodium 100 Mg Capsule PO 100 mg Q12HR AZAEL Administration Epoetin Dmitriy-epbx 10,000 units 02/03/21 14:35 02/03/21 17:04 Epoetin Dmitriy-Epbx 10,000 Units/Ml Vial SUB-Q 10,000 units MoWeFr@0900 AZAEL Administration Sodium Chloride 1,000 mls @ 50 mls/hr 02/03/21 01:15 02/04/21 15:59 Normal Saline Iv IV CONT 75 mls/hr .Q20H AZAEL Administration Ceftriaxone Sodium/Dextrose 1 gm in 50 mls @ 100 mls/hr 02/04/21 14:00 02/04/21 15:05 Rocephin 1 Gm/D5w 50 Ml IVPB Infused Q24H AZAEL Infusion Levothyroxine Sodium 50 mcg 02/03/21 06:30 02/05/21 06:39 Levothyroxine Sodium 50 Mcg Tablet PO 50 mcg DAILY@0630 AZAEL Administration Loratadine 10 mg 02/03/21 09:00 02/05/21 09:44 Loratadine 10 Mg Tablet PO 10 mg QAM AZAEL Administration Magnesium Oxide 200 mg 02/03/21 09:00 02/05/21 09:44 Magnesium Oxide 200 Mg Tablet PO 200 mg DAILY AZAEL Administration Morphine Sulfate 4 mg 02/02/21 15:13 Morphine Sulfate (*Crx) 4 Mg/Ml Inj IV PUSH Q2H PRN Pain Rated 7-10 Ondansetron HCl 4 mg 02/02/21 15:13 Ondansetron Inj 4 Mg/2 Ml Vial IV PUS
[2021-02-05 14:00] VITALS: BP 127/58; PULSE 96; RESP 20; TEMP 37.1; O2SAT 96
--- NOTE | 2021-02-05 14:11 | PM.IMPN ---
Progress Note: A&P Assessment and Plan (1) MARIBEL (acute kidney injury): Code(s): N17.9 - Acute kidney failure, unspecified Status: Acute Assessment and Plan: CT abdomen with bilateral hydronephrosis noted right more than left baseline creatinine around 1.6 currently at 3.8 on gentle IV fluids 0 might need to hold this off Urology consultation appreciate the recommendation apparently hydronephrosis bilateral is chronic finding Nephrology already on board Avoid nephrotoxic medicine Renal failure slowly improving down to to 2.6 today admission creatinine of 3.8 baseline creatinine of 1.6 Stop IV fluid today (2) UTI (urinary tract infection): Code(s): N39.0 - Urinary tract infection, site not specified Status: Acute Assessment and Plan: The patient stated that she was taking Macrobid since Saturday. However her urine is still positive for UTI. The patient's last culture in November was resistant to Macrobid. The patient was started on Primaxin. Urine culture is positive for E coli sensitive to ceftriaxone Will switch her Primaxin to ceftriaxone She had allergy listed to cefdinir however does not think she has allergy listed to cefdinir but experience more of side effect Discussed with her and will start ceftriaxone Continue ceftriaxone leukocytosis noted will keep an eye on it and recheck tomorrow (3) Hypothyroidism: Code(s): E03.9 - Hypothyroidism, unspecified Status: Acute Assessment and Plan: Thyroid level normal and continue levothyroxine. (4) Hunner's ulcer: Code(s): N30.10 - Interstitial cystitis (chronic) without hematuria Status: Acute Assessment and Plan: The patient sees urology for this. She had a cystoscopy with a biopsy and injection of steroid Urology consultation again appreciate the recommendation (5) Anemia: Qualifiers: Anemia type: iron deficiency Iron deficiency anemia type: unspecified iron deficiency Qualified Code(s): D50.9 - Iron deficiency anemia, unspecified Code(s): D64.9 - Anemia, unspecified Status: Acute Assessment and Plan: Appears to be stable continue to monitor. Continue to monitor Subjective Date/time seen: 02/05/21 14:11 Interval history: HPI:this is a 70-year-old female patient who has a history of having frequent UTIs with hunners ulcer in the bladder. The patient came in today with complaints of abdominal pain and nausea for the last several days. She is also somewhat confused. The patient recently went on vacation to [facility] and she was barely drinking any water while she was out of town. No fever chills. The patient stated that she saw her doctor on Saturday and was diagnosed with the UTI and was started on Macrobid. The patient stated she is very fatigued today and is having difficulty concentrating. Her daughter was at the bedside helping her with the questions. White count 11.5. H&H is 8.8 and 29.7 which appears to be her baseline. She was positive for UTI. Patient denies any history of any kidney problems only bladder problems. Today her BUN was 62 and creatinine is 3.8 with a GFR of 12. Abdominal pelvis CT was read as Nonspecific mild free fluid in the lower anterior abdomen and pelvis Status post hysterectomy Moderate diffuse thickening of the urinary bladder wall, consistent with clinical history of bladder infection Bilateral hydronephrosis, greater on the right, without obstructing calculus Probable left renal 2.8 cm cyst. Additional renal cyst or mass lesion on either side is not definitively excluded on this limited noncontrast examination. Focal atelectasis at the base of the middle lobe and discoid atelectasis and/or scarring of both lower lobes Cardiomegaly Small sliding hiatal hernia 2.1 x 2.9 cm right adrenal adenoma Status post cholecystectomy The patient was started on Primaxin and IV fluids. The patient is being admitted to observation status on the date of service
[2021-02-05 20:40] VITALS: PULSE 77; RESP 18; O2SAT 95
[2021-02-05 21:27] VITALS: BP 98/37; PULSE 77; RESP 18; TEMP 36; O2SAT 95
[2021-02-06] MEDS: traMADol HCL (*CRX) 50 MG TABLET PO (00:52)
[2021-02-06 06:00] VITALS: BP 135/65; PULSE 86; RESP 18; TEMP 36.4; O2SAT 96
[2021-02-06] MEDS: LEVOTHYROXINE SODIUM 50 MCG TABLET PO (06:13)
[2021-02-06 06:26] LABS: Hematocrit 23.7 % (37.0-47.0); Hemoglobin 7.3 g/dL (12.0-15.0); Mean Corpuscular HGB Conc 30.8 g/dl (32-36); Mean Corpuscular Hemoglobin 23.8 pg (26-34); Mean Corpuscular Volume 77.2 fl (80-100); Mean Platelet Volume 9.1 fl (7.4-10.4); Platelet Count Result 258 k/mm3 (150-375); Red Blood Count 3.07 M/mm3 (4.2-5.4); Red Cell Distribution Width 17.5 % (11.5-14.5); White Blood Count 14.6 K/mm3 (4.5-10.0)
[2021-02-06 06:28] LABS: Anion Gap 8 mmol/L (8-16); Blood Urea Nitrogen 64 mg/dL (7-17); Calcium 8.4 mg/dL (8.4-10.2); Carbon Dioxide 19 mmol/L (22-30); Chloride 110 mmol/L (98-107); Estimated CRCL calculation 30 ml/min; Estimated Glomerular Filt Rate 28; Glucose 106 mg/dL (65-110); Magnesium 2.2 mg/dL (1.6-2.3); Potassium 4.1 mmol/L (3.4-5.0); Sodium 137 mmol/L (137-145)
[2021-02-06 06:34] LABS: Albumin Level 2.6 g/dL (3.5-5.1); Anion Gap 9 mmol/L (8-16); Blood Urea Nitrogen 65 mg/dL (7-17); Calcium 8.3 mg/dL (8.4-10.2); Carbon Dioxide 18 mmol/L (22-30); Chloride 110 mmol/L (98-107); Estimated CRCL calculation 30 ml/min; Estimated Glomerular Filt Rate 28; Glucose 105 mg/dL (65-110); Phosphorus 3.6 mg/dL (2.5-4.5); Potassium 4.1 mmol/L (3.4-5.0); Sodium 137 mmol/L (137-145)
--- NOTE | 2021-02-06 08:20 | WPDUROPN2 ---
Progress Note: A&P Assessment and Plan (1) Hydronephrosis: Code(s): N13.30 - Unspecified hydronephrosis Status: Acute Assessment and Plan: Not obstructive. This is due to bilateral reflux from a dysfunctional bladder. Okay to remove catheter before discharge (2) MARIBEL (acute kidney injury): Code(s): N17.9 - Acute kidney failure, unspecified Status: Acute Assessment and Plan: Improving (3) UTI (urinary tract infection): Code(s): N39.0 - Urinary tract infection, site not specified Status: Acute Assessment and Plan: Treat with culture specific antibiotics Subjective Subjective Date/Time Seen: 02/06/21 08:20 Feeling much better. Creatinine has improved. Urine culture shows E coli. Exam Narrative: She is in no acute distress. She appears comfortable. Christian catheter is in place. Objective Data Vital Signs Vital Signs: Vital Signs - 24 hr 02/05/21 14:00 02/05/21 20:40 02/05/21 21:27 Temperature 98.7 F 96.8 F L Pulse Rate 96 77 77 Respiratory Rate 20 18 18 Blood Pressure 127/58 L 98/37 L Pulse Oximetry 96 95 95 02/06/21 06:00 Temperature 97.6 F Pulse Rate 86 Respiratory Rate 18 Blood Pressure 135/65 Pulse Oximetry 96 Intake/Output Intake/Output: Intake & Output 02/03/21 02/04/21 02/05/21 02/06/21 23:59 23:59 23:59 23:59 Intake Total 1820 2250 2060 300 Output Total 350 4200 3725 1600 Balance 0200 1950 -4085 -1300 Meds/Results Medications: Active Medications Generic Name Dose Route Start Last Admin Trade Name Freq PRN Reason Stop Dose Admin Acetaminophen 650 mg 02/02/21 15:13 Acetaminophen 325 Mg Tablet PO Q4H PRN Mild Pain (1-3) or Fever Docusate Sodium 100 mg 02/04/21 21:00 02/05/21 20:26 Docusate Sodium 100 Mg Capsule PO 100 mg Q12HR AZAEL Administration Epoetin Dmitriy-epbx 10,000 units 02/03/21 14:35 02/03/21 17:04 Epoetin Dmitriy-Epbx 10,000 Units/Ml Vial SUB-Q 10,000 units MoWeFr@0900 AZAEL Administration Ceftriaxone Sodium/Dextrose 1 gm in 50 mls @ 100 mls/hr 02/04/21 14:00 02/05/21 14:05 Rocephin 1 Gm/D5w 50 Ml IVPB Infused Q24H AZAEL Infusion Levothyroxine Sodium 50 mcg 02/03/21 06:30 02/06/21 06:13 Levothyroxine Sodium 50 Mcg Tablet PO 50 mcg DAILY@0630 AZAEL Administration Loratadine 10 mg 02/03/21 09:00 02/05/21 09:44 Loratadine 10 Mg Tablet PO 10 mg QAM AZAEL Administration Magnesium Oxide 200 mg 02/03/21 09:00 02/05/21 09:44 Magnesium Oxide 200 Mg Tablet PO 200 mg DAILY AZAEL Administration Morphine Sulfate 4 mg 02/02/21 15:13 Morphine Sulfate (*Crx) 4 Mg/Ml Inj IV PUSH Q2H PRN Pain Rated 7-10 Ondansetron HCl 4 mg 02/02/21 15:13 Ondansetron Inj 4 Mg/2 Ml Vial IV PUSH Q4H PRN Nausea Polyethylene Glycol 17 gm 02/04/21 12:25 02/05/21 09:43 Polyethylene Glycol 3350 17 Gm Powd.Pack PO 17 gm DAILY PRN Administration Constipation Sodium Bicarbonate 1,300 mg 02/04/21 17:00 02/05/21 17:45 Sodium Bicarbonate Tab 650 Mg Tablet PO 1,300 mg BID AZAEL Administration Tramadol HCl 50 mg 02/02/21 21:59 02/06/21 00:52 Tramadol Hcl (*Crx) 50 Mg Tablet PO 50 mg Q6H PRN Administration Pain Rated 4-6 Radiology Results: ITS Impressions Abdomen/Pelvis CT 02/02/21 14:28 IMPRESSION: Nonspecific mild free fluid in the lower anterior abdomen and pelvis Status post hysterectomy Moderate diffuse thickening of the urinary bladder wall, consistent with clinical history of bladder infection Bilateral hydronephrosis, greater on the right, without obstructing calculus Probable left renal 2.8 cm cyst. Additional renal cyst or mass lesion on either side is not definitively excluded on this limited noncontrast examination. Focal atelectasis at the base of the middle lobe and discoid atelectasis and/or scarring of both lower lobes Cardiomegaly Small sliding hiatal hernia 2.1 x 2.9 cm right adrena
[2021-02-06] MEDS: SODIUM BICARBONATE TAB 650 MG TABLET 1300 MG PO ×2 (09:00→17:15)
[2021-02-06] MEDS: EPOETIN ALFA-EPBX 10,000 UNITS/ML VIAL 10000 UNITS SUB-Q (09:00)
[2021-02-06] MEDS: polyethylene glycoL 3350 17 GM POWD.PACK PO (09:00)
[2021-02-06] MEDS: DOCUSATE SODIUM 100 MG CAPSULE PO ×2 (09:00→20:18)
[2021-02-06] MEDS: LORATADINE 10 MG TABLET PO (09:01)
[2021-02-06] MEDS: MAGNESIUM OXIDE 200 MG TABLET PO (09:01)
--- NOTE | 2021-02-06 12:46 | PM.IMPN ---
Progress Note: A&P Assessment and Plan (1) MARIBEL (acute kidney injury): Code(s): N17.9 - Acute kidney failure, unspecified Status: Acute Assessment and Plan: CT abdomen with bilateral hydronephrosis noted right more than left baseline creatinine around 1.6 currently at 3.8 on gentle IV fluids 0 might need to hold this off Urology consultation appreciate the recommendation apparently hydronephrosis bilateral is chronic finding Nephrology already on board Avoid nephrotoxic medicine Renal failure slowly improving down to to 2.6 today admission creatinine of 3.8 baseline creatinine of 1.6 Stopped IV fluid 02/05/2021 Creatinine continues to improve down to 1.8 almost at baseline. (2) UTI (urinary tract infection): Code(s): N39.0 - Urinary tract infection, site not specified Status: Acute Assessment and Plan: The patient stated that she was taking Macrobid since Saturday. However her urine is still positive for UTI. The patient's last culture in November was resistant to Macrobid. The patient was started on Primaxin. Urine culture is positive for E coli sensitive to ceftriaxone Will switch her Primaxin to ceftriaxone She had allergy listed to cefdinir however does not think she has allergy listed to cefdinir but experience more of side effect Discussed with her and will start ceftriaxone Continue ceftriaxone leukocytosis noted will keep an eye on it and recheck tomorrow New ceftriaxone while inpatient switch it to oral if still needs at the time of discharge Will remove Christian catheter today (3) Hypothyroidism: Code(s): E03.9 - Hypothyroidism, unspecified Status: Acute Assessment and Plan: Thyroid level normal and continue levothyroxine. (4) Hunner's ulcer: Code(s): N30.10 - Interstitial cystitis (chronic) without hematuria Status: Acute Assessment and Plan: The patient sees urology for this. She had a cystoscopy with a biopsy and injection of steroid Urology consultation again appreciate the recommendation (5) Anemia: Qualifiers: Anemia type: iron deficiency Iron deficiency anemia type: unspecified iron deficiency Qualified Code(s): D50.9 - Iron deficiency anemia, unspecified Code(s): D64.9 - Anemia, unspecified Status: Acute Assessment and Plan: Appears to be stable continue to monitor. Continue to monitor No acute signs of bleeding. Continue to monitor Additional Plan Deconditioning from all above has but also takes care of their mom. Discussed rehab placement reviewed PT OT reviewed notes and evaluation. Suggested she may need short-term rehabilitation. Will consult care coordination for hospital placement loss he is not thrilled about this she is open to this option in touch which he needs. Advised continue to working with physical therapy here to gain some of the strength back. # Lower extremity edema some of these are chronic will give Juan Jose christianson Subjective Date/time seen: 02/06/21 12:46 Interval history: HPI:this is a 70-year-old female patient who has a history of having frequent UTIs with hunners ulcer in the bladder. The patient came in today with complaints of abdominal pain and nausea for the last several days. She is also somewhat confused. The patient recently went on vacation to [facility] and she was barely drinking any water while she was out of town. No fever chills. The patient stated that she saw her doctor on Saturday and was diagnosed with the UTI and was started on Macrobid. The patient stated she is very fatigued today and is having difficulty concentrating. Her daughter was at the bedside helping her with the questions. White count 11.5. H&H is 8.8 and 29.7 which appears to be her baseline. She was positive for UTI. Patient denies any history of any kidney problems only bladder problems. Today her BUN was 62 and creatinine is 3.8 with a GFR of 12. Abdominal pelvis CT was read as Nonspecific mild
[2021-02-06 14:00] VITALS: BP 130/74; PULSE 85; RESP 18; TEMP 36.7; O2SAT 98
--- NOTE | 2021-02-06 15:35 | PM.PNNEP ---
Progress Note: A&P Assessment and Plan (1) MARIBEL (acute kidney injury): Code(s): N17.9 - Acute kidney failure, unspecified Status: Acute Assessment and Plan: multifactorial etiology: - infection - deyhydration - outpatient NSAID use imaging noted (chronic changes, no acute findings) urine electrolytes non-prenal continue supportive therapy (2) Stage 3b chronic kidney disease: Code(s): N18.32 - Chronic kidney disease, stage 3b Status: Acute Assessment and Plan: etiology not clear but suspect due to recurrent obstruction(?) baseline creatinien runs around 1.7mg/dl (3) Anemia: Qualifiers: Anemia type: iron deficiency Iron deficiency anemia type: unspecified iron deficiency Qualified Code(s): D50.9 - Iron deficiency anemia, unspecified Code(s): D64.9 - Anemia, unspecified Status: Acute Assessment and Plan: H/H low on Epogen follow trend (4) Hunner's ulcer: Code(s): N30.10 - Interstitial cystitis (chronic) without hematuria Status: Acute Assessment and Plan: therapy/treatment as per Urology continue supportive therapy Will continue to follow. Subjective Date/time seen: 02/06/21 15:35 Chart reviewed - assuming care from Dr. Farley; no apparent distress voiced on my visit; no issues/events overnight or earlier this AM; no apparent distress noted. Exam Narrative: General: WD/WN female in NAD Heart: normal S1 and S2; no rub Lungs: clear to auscultation Abdomen: soft, nontender, nondistended, positive bowel sounds Extremities: no cyanosis or clubbing; trace - 1+edema Skin: warm and dry Objective Data Vital Signs Vital Signs: Vital Signs - 24 hr 02/05/21 20:40 02/05/21 21:27 02/06/21 06:00 Temperature 36.0 C L 36.4 C Pulse Rate 77 77 86 Respiratory Rate 18 18 18 Blood Pressure 98/37 L 135/65 Pulse Oximetry 95 95 96 02/06/21 14:00 Temperature 36.7 C Pulse Rate 85 Respiratory Rate 18 Blood Pressure 130/74 Pulse Oximetry 98 Intake/Output Intake/Output: Intake & Output 02/03/21 02/04/21 02/05/21 02/06/21 23:59 23:59 23:59 23:59 Intake Total 1820 2250 2059 2019 Output Total 350 4200 3724 4000 Balance 1470 -1950 -1665 -1980 Meds/Results Medications: Active Medications Generic Name Dose Route Start Last Admin Trade Name Freq PRN Reason Stop Dose Admin Acetaminophen 650 mg 02/02/21 15:13 Acetaminophen 325 Mg Tablet PO Q4H PRN Mild Pain (1-3) or Fever Docusate Sodium 100 mg 02/04/21 21:00 02/06/21 09:00 Docusate Sodium 100 Mg Capsule PO 100 mg Q12HR AZAEL Administration Epoetin Dmitriy-epbx 10,000 units 02/03/21 14:35 02/06/21 09:00 Epoetin Dmitriy-Epbx 10,000 Units/Ml Vial SUB-Q 10,000 units MoWeFr@0900 AZAEL Administration Ceftriaxone Sodium/Dextrose 1 gm in 50 mls @ 100 mls/hr 02/04/21 14:00 02/06/21 15:05 Rocephin 1 Gm/D5w 50 Ml IVPB Infused Q24H AZAEL Infusion Levothyroxine Sodium 50 mcg 02/03/21 06:30 02/06/21 06:13 Levothyroxine Sodium 50 Mcg Tablet PO 50 mcg DAILY@0630 AZAEL Administration Loratadine 10 mg 02/03/21 09:00 02/06/21 09:01 Loratadine 10 Mg Tablet PO 10 mg QAM AZAEL Administration Magnesium Oxide 200 mg 02/03/21 09:00 02/06/21 09:01 Magnesium Oxide 200 Mg Tablet PO 200 mg DAILY AZAEL Administration Morphine Sulfate 4 mg 02/02/21 15:13 Morphine Sulfate (*Crx) 4 Mg/Ml Inj IV PUSH Q2H PRN Pain Rated 7-10 Ondansetron HCl 4 mg 02/02/21 15:13 Ondansetron Inj 4 Mg/2 Ml Vial IV PUSH Q4H PRN Nausea Polyethylene Glycol 17 gm 02/04/21 12:25 02/06/21 09:00 Polyethylene Glycol 3350 17 Gm Powd.Pack PO 17 gm DAILY PRN Administration Constipation Sodium Bicarbonate 1,300 mg 02/04/21 17:00 02/06/21 17:15 Sodium Bicarbonate Tab 650 Mg Tablet PO 1,300 mg BID AZAEL Administration Tramadol HCl 50 mg
--- NOTE | 2021-02-06 15:35 | P.PNNP_ITS ---
Progress Note: A&P Assessment and Plan (1) MARIBEL (acute kidney injury): Code(s): N17.9 - Acute kidney failure, unspecified Status: Acute Assessment and Plan: * multifactorial etiology: - infection - deyhydration - outpatient NSAID use * imaging noted (chronic changes, no acute findings) * urine electrolytes non-prenal * continue supportive therapy (2) Stage 3b chronic kidney disease: Code(s): N18.32 - Chronic kidney disease, stage 3b Status: Acute Assessment and Plan: * etiology not clear but suspect due to recurrent obstruction(?) * baseline creatinien runs around 1.7mg/dl (3) Anemia: Qualifiers: Anemia type: iron deficiency Iron deficiency anemia type: unspecified iron deficiency Qualified Code(s): D50.9 - Iron deficiency anemia, unspecified Code(s): D64.9 - Anemia, unspecified Status: Acute Assessment and Plan: * H/H low * on Epogen * follow trend (4) Hunner's ulcer: Code(s): N30.10 - Interstitial cystitis (chronic) without hematuria Status: Acute Assessment and Plan: * therapy/treatment as per Urology * continue supportive therapy Will continue to follow. Subjective Date/time seen: 02/06/21 15:35 Chart reviewed - assuming care from Dr. Farley; no apparent distress voiced on my visit; no issues/events overnight or earlier this AM; no apparent distress noted. Exam Narrative: General: WD/WN female in NAD Heart: normal S1 and S2; no rub Lungs: clear to auscultation Abdomen: soft, nontender, nondistended, positive bowel sounds Extremities: no cyanosis or clubbing; trace - 1+edema Skin: warm and dry Objective Data Vital Signs Vital Signs: Vital Signs - 24 hr 02/05/21 20:40 02/05/21 21:27 02/06/21 06:00 Temperature 36.0 C L 36.4 C Pulse Rate 77 77 86 Respiratory Rate 18 18 18 Blood Pressure 98/37 L 135/65 Pulse Oximetry 95 95 96 02/06/21 14:00 Temperature 36.7 C Pulse Rate 85 Respiratory Rate 18 Blood Pressure 130/74 Pulse Oximetry 98 Intake/Output Intake/Output: Intake & Output 02/03/21 02/04/21 02/05/21 02/06/21 23:59 23:59 23:59 23:59 Intake Total 1820 2250 2059 2019 Output Total 350 4200 3724 4000 Balance 5968 -3903 -1665 -0144 Meds/Results Medications: Active Medications Generic Name Dose Route Start Last Admin Trade Name Freq PRN Reason Stop Dose Admin Acetaminophen 650 mg 02/02/21 15:13 Acetaminophen 325 Mg Tablet PO Q4H PRN Mild Pain (1-3) or Fever Docusate Sodium 100 mg 02/04/21 21:00 02/06/21 09:00 Docusate Sodium 100 Mg Capsule PO 100 mg Q12HR [facility] Administration Epoetin Dmitriy-epbx 10,000 units 02/03/21 14:35 02/06/21 09:00 Epoetin Dmitriy-Epbx 10,000 Units/Ml Vial SUB-Q 10,000 units MoWeFr@0900 [facility] Administration Ceftriaxone Sodium/Dextrose 1 gm in 50 mls @ 100 mls/hr 02/04/21 14:00 03/19 15:05 Rocephin 1 Gm/D5w 50 Ml IVPB Infused Q24H [facility] Infusion Levothyroxine Sodium 50 mcg 02/03/21 06:30 02/06/21 06:13 Levothyroxine Sodium 50 Mcg Tablet PO 50 mcg DAILY@0630 [facility] Administratio
[2021-02-06 20:15] VITALS: PULSE 85; RESP 20; O2SAT 98
[2021-02-06] MEDS: ACETAMINOPHEN 325 MG TABLET 650 MG PO (20:21)
[2021-02-06 21:29] VITALS: BP 118/52; PULSE 94; RESP 18; TEMP 36.6; O2SAT 98
[2021-02-07] MEDS: LEVOTHYROXINE SODIUM 50 MCG TABLET PO (05:41)
[2021-02-07 06:00] VITALS: BP 103/53; PULSE 89; RESP 18; TEMP 36.4; O2SAT 99
[2021-02-07 06:48] LABS: Anion Gap 10 mmol/L (8-16); Blood Urea Nitrogen 58 mg/dL (7-17); Calcium 8.5 mg/dL (8.4-10.2); Carbon Dioxide 20 mmol/L (22-30); Chloride 107 mmol/L (98-107); Estimated CRCL calculation 30 ml/min; Estimated Glomerular Filt Rate 28; Glucose 148 mg/dL (65-110); Potassium 4.2 mmol/L (3.4-5.0); Sodium 137 mmol/L (137-145)
[2021-02-07 06:49] LABS: Hematocrit 25.6 % (37.0-47.0); Hemoglobin 7.8 g/dL (12.0-15.0); Mean Corpuscular HGB Conc 30.5 g/dl (32-36); Mean Corpuscular Hemoglobin 23.4 pg (26-34); Mean Corpuscular Volume 76.6 fl (80-100); Mean Platelet Volume 9.2 fl (7.4-10.4); Platelet Count Result 299 k/mm3 (150-375); Red Blood Count 3.34 M/mm3 (4.2-5.4); Red Cell Distribution Width 17.3 % (11.5-14.5)
[2021-02-07] MEDS: MAGNESIUM OXIDE 200 MG TABLET PO (08:19)
[2021-02-07] MEDS: SODIUM BICARBONATE TAB 650 MG TABLET 1300 MG PO ×2 (08:19→16:14)
[2021-02-07] MEDS: LORATADINE 10 MG TABLET PO (08:20)
[2021-02-07] MEDS: DOCUSATE SODIUM 100 MG CAPSULE PO ×2 (08:20→20:29)
[2021-02-07 08:34] LABS: Anisocytosis 2+ (NORMAL); Atypical Lymphocytes Present; Band Neutrophils Percent 28 % (0-6); Lymphocytes Absolute Manual 1.38 K/mm3 (1.1-4.5); Metamyelocytes Percent 2 %; Monocytes Absolute Manual 0.92 K/mm3 (0.1-0.90); Monocytes Percent Manual 4 % (3-9); Myelocytes Percent 1 %; Neutrophils Absolute Manual 20.01 K/mm3 (1.7-7.2); Neutrophils Percent Manual 59 % (46-73); Platelet Estimate Adequate (Adequate); Poikilocytosis 1+ (NORMAL); Total Cells Counted 100
--- NOTE | 2021-02-07 09:35 | PM.DS ---
DS: Admitting Diagnosis Discharge Date 02/07/2021 Admitting Diagnosis Confusion DS: Discharge Diagnosis Discharge Diagnosis (1) MARIBEL (acute kidney injury): Code(s): N17.9 - Acute kidney failure, unspecified Status: Acute Assessment and Plan: baseline creatinine around 1.6 admission creatinine of 3.8 started on gentle IV fluids CT abdomen with bilateral hydronephrosis noted right more than left Urology consultation appreciate the recommendation apparently hydronephrosis bilateral is chronic finding Nephrology consulted Avoid nephrotoxic medications particularly NSAIDs. She has been on naproxen at home on a regular basis which was discontinued on admission. Renal failure continue to improve down to 1.8 at the time of discharge which is not far away from her baseline. (2) UTI (urinary tract infection): Code(s): N39.0 - Urinary tract infection, site not specified Status: Acute Assessment and Plan: The patient stated that she was taking Macrobid since Saturday. However her urine was still positive for UTI. The patient's last culture in November was resistant to Macrobid. The patient was started on Primaxin on admission. Urine culture is positive for E coli sensitive to ceftriaxone Was switched to ceftriaxone during the rest of the hospital course. This is switch to cephalexin at the time of discharge for 3 more days. She had allergy listed to cefdinir however does not think she has allergy listed to cefdinir but experience more of side effect Discussed with her started on cephalexin for in which she tolerated okay (3) Hypothyroidism: Code(s): E03.9 - Hypothyroidism, unspecified Status: Acute Assessment and Plan: Thyroid level normal and continue levothyroxine. (4) Hunner's ulcer: Code(s): N30.10 - Interstitial cystitis (chronic) without hematuria Status: Acute Assessment and Plan: The patient sees urology for this. She had a cystoscopy with a biopsy and injection of steroid Urology consultation again appreciate the recommendation (5) Anemia: Qualifiers: Anemia type: iron deficiency Iron deficiency anemia type: unspecified iron deficiency Qualified Code(s): D50.9 - Iron deficiency anemia, unspecified Code(s): D64.9 - Anemia, unspecified Status: Acute Assessment and Plan: Appears to be stable continue to monitor. Continue to monitor No acute signs of bleeding. Continue to monitor (6) Physical deconditioning: Code(s): R53.81 - Other malaise Status: Acute Assessment and Plan: Evaluated by the PT OT and suggested she needs did further rehabilitation. riprap worker was consulted and arrangements were made for her to go to a rehabilitation center from here. DS: Summary Hospital Course Hospital Course: See above Time Spent with Patient Time attestation: Total time spent providing and/or coordinating discharge services: 45 minutes Exam Narrative: GENERAL: The patient is well developed, not in acute distress less confused today HEENT: Nonicteric sclerae, PERRLA, EOMI. Oropharynx clear. Moist mucous membranes. Conjunctivae appear well perfused. CHEST: Chest wall is nontender. HEART: Regular rate and rhythm without murmur, rubs, or gallops LUNGS: Clear to auscultation bilaterally. no respiratory distress ABDOMEN: Soft, positive bowel sounds, tender lower abdomen, no organomegaly. SKIN: No rash, no excessive bruising, petechiae, or purpura. NEUROLOGIC: Cranial nerves II-XII intact, alert and oriented x 3, no gross motor deficits but confused at times EXTREMITIES: no, cyanosis or clubbing, bilateral lower extremity edema noted 1 to 2+ which is chronic DS: Data Data Completed and Pending Labs on day of discharge: Labs from last 24 hours 02/07/21 02/07/21 05:49 05:49 WBC 23.0 H RBC 3.34 L Hgb 7.8 L Hct 25.6 L MCV 76.6 L MCH 23.4 L MCHC 30.5 L RDW 17.3 H Plt Count 299 MPV 9.2 Immatu
--- NOTE | 2021-02-07 09:47 | PM.IMPN ---
Progress Note: A&P Assessment and Plan (1) MARIBEL (acute kidney injury): Code(s): N17.9 - Acute kidney failure, unspecified Status: Acute Assessment and Plan: baseline creatinine around 1.6 admission creatinine of 3.8 started on gentle IV fluids CT abdomen with bilateral hydronephrosis noted right more than left Urology consultation appreciate the recommendation apparently hydronephrosis bilateral is chronic finding Nephrology consulted Avoid nephrotoxic medications particularly NSAIDs. She has been on naproxen at home on a regular basis which was discontinued on admission. Renal failure continue to improve down to 1.8 at the time of discharge which is not far away from her baseline. (2) UTI (urinary tract infection): Code(s): N39.0 - Urinary tract infection, site not specified Status: Acute Assessment and Plan: The patient stated that she was taking Macrobid since Saturday. However her urine was still positive for UTI. The patient's last culture in November was resistant to Macrobid. The patient was started on Primaxin on admission. Urine culture is positive for E coli sensitive to ceftriaxone Was switched to ceftriaxone during the rest of the hospital course. This is switch to cephalexin at the time of discharge for 3 more days. However leukocytosis worsened and hence held discharge. Will further evaluate with repeat blood culture urinalysis and chest x-ray She had allergy listed to cefdinir however does not think she has allergy listed to cefdinir but experience more of side effect Discussed with her started on ceftriaxone which she tolerated okay (3) Hypothyroidism: Code(s): E03.9 - Hypothyroidism, unspecified Status: Acute Assessment and Plan: Thyroid level normal and continue levothyroxine. (4) Hunner's ulcer: Code(s): N30.10 - Interstitial cystitis (chronic) without hematuria Status: Acute Assessment and Plan: The patient sees urology for this. She had a cystoscopy with a biopsy and injection of steroid Urology consultation again appreciate the recommendation (5) Anemia: Qualifiers: Anemia type: iron deficiency Iron deficiency anemia type: unspecified iron deficiency Qualified Code(s): D50.9 - Iron deficiency anemia, unspecified Code(s): D64.9 - Anemia, unspecified Status: Acute Assessment and Plan: Appears to be stable continue to monitor. Continue to monitor No acute signs of bleeding. Continue to monitor (6) Physical deconditioning: Code(s): R53.81 - Other malaise Status: Acute Assessment and Plan: Evaluated by the PT OT and suggested she needs did further rehabilitation. long term care social worker was consulted and arrangements were made for her to go to a rehabilitation center from here. (7) Leukocytosis: Code(s): D72.829 - Elevated white blood cell count, unspecified Status: Acute Assessment and Plan: Worsened today recheck labs Panculture Additional Plan # Deconditioning from all above has but also takes care of their mom. Discussed rehab placement reviewed PT OT reviewed notes and evaluation. Suggested she may need short-term rehabilitation. Will consult care coordination for hospital placement loss he is not thrilled about this she is open to this option in touch which he needs. Advised continue to working with physical therapy here to gain some of the strength back. Rehabilitation at discharge # Lower extremity edema some of these are chronic will give Juan Jose christianson Subjective Date/time seen: 02/07/21 09:47 Interval history: HPI:this is a 70-year-old female patient who has a history of having frequent UTIs with hunners ulcer in the bladder. The patient came in today with complaints of abdominal pain and nausea for the last several days. She is also somewhat confused. The patient recently went on vacation to [place] [facility] and she was barely drinking any water while she was
[2021-02-07 10:32] LABS: Hematocrit 27.1 % (37.0-47.0); Hemoglobin 8.3 g/dL (12.0-15.0); Mean Corpuscular HGB Conc 30.6 g/dl (32-36); Mean Corpuscular Hemoglobin 24.1 pg (26-34); Mean Corpuscular Volume 78.8 fl (80-100); Mean Platelet Volume 9.5 fl (7.4-10.4); Platelet Count Result 308 k/mm3 (150-375); Red Blood Count 3.44 M/mm3 (4.2-5.4); Red Cell Distribution Width 17.4 % (11.5-14.5); White Blood Count 26.4 K/mm3 (4.5-10.0)
--- NOTE | 2021-02-07 10:38 | PM.PNNEP ---
Progress Note: A&P Assessment and Plan (1) MARIBEL (acute kidney injury): Code(s): N17.9 - Acute kidney failure, unspecified Status: Acute Assessment and Plan: multifactorial etiology: - infection - deyhydration - outpatient NSAID use imaging noted (chronic changes, no acute findings) urine electrolytes non-prenal continue supportive therapy (2) Stage 3b chronic kidney disease: Code(s): N18.32 - Chronic kidney disease, stage 3b Status: Acute Assessment and Plan: etiology not clear but suspect due to recurrent obstruction(?) baseline creatinine runs around 1.7mg/dl (3) Anemia: Qualifiers: Anemia type: iron deficiency Iron deficiency anemia type: unspecified iron deficiency Qualified Code(s): D50.9 - Iron deficiency anemia, unspecified Code(s): D64.9 - Anemia, unspecified Status: Acute Assessment and Plan: H/H low on Epogen while hospitalized follow trend (4) Hunner's ulcer: Code(s): N30.10 - Interstitial cystitis (chronic) without hematuria Status: Acute Assessment and Plan: therapy/treatment as per Urology continue supportive therapy Will continue to follow. Subjective Date/time seen: 02/07/21 10:38 Appears to be doing reasonably well at the time of my visit; no issues/events overnight or earlier this morning; hoping for discharge today; no other acute complaints voiced at this time. Exam Narrative: General: WD/WN female in NAD Heart: normal S1 and S2; no rub Lungs: clear to auscultation Abdomen: soft, nontender, nondistended, positive bowel sounds Extremities: no cyanosis or clubbing; trace - 1+edema Skin: warm and intact Objective Data Vital Signs Vital Signs: Vital Signs Temp Pulse Resp BP Pulse Ox 02/07/21 06:00 36.4 C 89 18 103/53 L 99 02/06/21 21:29 36.6 C 94 18 118/52 L 98 02/06/21 20:15 85 20 98 02/06/21 14:00 36.7 C 85 18 130/74 98 Intake/Output Intake/Output: Intake & Output 02/04/21 02/05/21 02/06/21 02/07/21 23:59 23:59 23:59 23:59 Intake Total 2250 2060 2140 890 Output Total 4200 3725 4000 450 Balance -1950 -1665 -1860 440 Meds/Results Medications: Active Medications Generic Name Dose Route Start Last Admin Trade Name Freq PRN Reason Stop Dose Admin Acetaminophen 650 mg 02/02/21 15:13 02/06/21 20:21 Acetaminophen 325 Mg Tablet PO 650 mg Q4H PRN Administration Mild Pain (1-3) or Fever Docusate Sodium 100 mg 02/04/21 21:00 02/07/21 08:20 Docusate Sodium 100 Mg Capsule PO 100 mg Q12HR AZAEL Administration Epoetin Dmitriy-epbx 10,000 units 02/03/21 14:35 02/06/21 09:00 Epoetin Dmitriy-Epbx 10,000 Units/Ml Vial SUB-Q 10,000 units MoWeFr@0900 AZAEL Administration Ceftriaxone Sodium/Dextrose 1 gm in 50 mls @ 100 mls/hr 02/04/21 14:00 02/06/21 15:05 Rocephin 1 Gm/D5w 50 Ml IVPB Infused Q24H AZAEL Infusion Levothyroxine Sodium 50 mcg 02/03/21 06:30 02/07/21 05:41 Levothyroxine Sodium 50 Mcg Tablet PO 50 mcg DAILY@0630 AZAEL Administration Loratadine 10 mg 02/03/21 09:00 02/07/21 08:20 Loratadine 10 Mg Tablet PO 10 mg QAM AZAEL Administration Magnesium Oxide 200 mg 02/03/21 09:00 02/07/21 08:19 Magnesium Oxide 200 Mg Tablet PO 200 mg DAILY AZAEL Administration Morphine Sulfate 4 mg 02/02/21 15:13 Morphine Sulfate (*Crx) 4 Mg/Ml Inj IV PUSH Q2H PRN Pain Rated 7-10 Ondansetron HCl 4 mg 02/02/21 15:13 Ondansetron Inj 4 Mg/2 Ml Vial IV PUSH Q4H PRN Nausea Polyethylene Glycol 17 gm 02/04/21 12:25 02/06/21 09:00 Polyethylene Glycol 3350 17 Gm Powd.Pack PO 17 gm DAILY PRN Administration Constipation Sodium Bicarbonate 1,300 mg 02/04/21 17:00 02/07/21 08:19 Sodium Bicarbonate Tab 650 Mg Tablet PO 1,300 mg BID AZAEL Administration Tramadol HCl 50 mg 02/02/21 21:59 02/06/21 00:
[2021-02-07 10:58] LABS: Band Neutrophils Percent 14 % (0-6); Lymphocytes Absolute Manual 0.26 K/mm3 (1.1-4.5); Metamyelocytes Percent 5 %; Monocytes Absolute Manual 0.26 K/mm3 (0.1-0.90); Monocytes Percent Manual 1 % (3-9); Myelocytes Percent 1 %; Neutrophils Absolute Manual 24.28 K/mm3 (1.7-7.2); Neutrophils Percent Manual 78 % (46-73); Total Cells Counted 100
[2021-02-07 10:59] LABS: Large Platelets Present; Platelet Estimate Adequate (Adequate)
[2021-02-07 11:00] LABS: Anisocytosis 1+ (NORMAL); Ovalocytes 1+ (NORMAL)
[2021-02-07 11:01] LABS: Hypochromasia 1+ (NORMAL)
[2021-02-07 14:00] VITALS: BP 106/61; PULSE 90; RESP 16; TEMP 36.4; O2SAT 99
[2021-02-07 14:13] LABS: Complement Total CH50 >60 U/mL (31-60)
[2021-02-07 14:17] LABS: Kappa\\Lambda Light Chains 1.75 (0.26-1.65); Lambda Light Chain 26.9 mg/L (5.7-26.3)
[2021-02-07 21:19] LABS: Add Urine Microscopic? YES; Appearance Urine Cloudy (Clear); Bacteria Urine 1+ /hpf; Bilirubin Urine Negative (Negative); Blood Urine 3+ (Negative); Color Urine Yellow (Yellow); Glucose Urine UA 1+ mg/dL (Negative); Ketones Urine Negative (Negative); Leukocyte Esterase Ur 3+ LEU/UL (NEGATIVE); Nitrate Urine Negative (Negative); Protein Urine 2+ mg/dL (Negative); RBC Urine >75 /hpf (0-2); Specific Grav Ur 1.013 (1.001-1.035); Squamous Epithelial Cell Urine Many /hpf (Few); Urobilinogen Urine Negative mg/dL (<2.0); WBC Urine >75 /hpf (0-3)
[2021-02-07 22:00] VITALS: BP 115/55; PULSE 88; RESP 18; TEMP 37; O2SAT 99
[2021-02-08 05:58] VITALS: BP 100/57; PULSE 87; RESP 16; TEMP 36.8; O2SAT 97
[2021-02-08] MEDS: LEVOTHYROXINE SODIUM 50 MCG TABLET PO (06:02)
[2021-02-08 06:24] LABS: Hemoglobin 7.2 g/dL (12.0-15.0); Mean Corpuscular HGB Conc 31.3 g/dl (32-36); Mean Corpuscular Hemoglobin 24.2 pg (26-34); Mean Corpuscular Volume 77.4 fl (80-100); Mean Platelet Volume 9.6 fl (7.4-10.4); Platelet Count Result 329 k/mm3 (150-375); Red Blood Count 2.97 M/mm3 (4.2-5.4); White Blood Count 25.5 K/mm3 (4.5-10.0)
[2021-02-08 06:50] LABS: Anion Gap 7 mmol/L (8-16); Blood Urea Nitrogen 67 mg/dL (7-17); Calcium 8.4 mg/dL (8.4-10.2); Carbon Dioxide 21 mmol/L (22-30); Chloride 106 mmol/L (98-107); Estimated CRCL calculation 27 ml/min; Estimated Glomerular Filt Rate 25; Glucose 122 mg/dL (65-110); Potassium 4.2 mmol/L (3.4-5.0); Sodium 134 mmol/L (137-145)
[2021-02-08 07:27] LABS: Band Neutrophils Percent 23 % (0-6); Monocytes Absolute Manual 0.51 K/mm3 (0.1-0.90); Monocytes Percent Manual 2 % (3-9); Neutrophils Absolute Manual 24.99 K/mm3 (1.7-7.2); Neutrophils Percent Manual 75 % (46-73); Platelet Estimate Adequate (Adequate); Total Cells Counted 100
--- NOTE | 2021-02-08 09:26 | PM.IMPN ---
Progress Note: A&P Assessment and Plan (1) MARIBEL (acute kidney injury): Code(s): N17.9 - Acute kidney failure, unspecified Status: Acute Assessment and Plan: baseline creatinine around 1.6 admission creatinine of 3.8 started on gentle IV fluids CT abdomen with bilateral hydronephrosis noted right more than left Urology consultation appreciate the recommendation apparently hydronephrosis bilateral is chronic finding Nephrology consulted Avoid nephrotoxic medications particularly NSAIDs. She has been on naproxen at home on a regular basis which was discontinued on admission. Renal failure continue to improve down to 1.8 at the time of discharge which is not far away from her baseline. (2) UTI (urinary tract infection): Code(s): N39.0 - Urinary tract infection, site not specified Status: Acute Assessment and Plan: The patient stated that she was taking Macrobid since Saturday. However her urine was still positive for UTI. The patient's last culture in November was resistant to Macrobid. The patient was started on Primaxin on admission. Urine culture is positive for E coli sensitive to ceftriaxone Was switched to ceftriaxone during the rest of the hospital course. This is switch to cephalexin at the time of discharge for 3 more days. However leukocytosis worsened and hence held discharge. Will further evaluate with repeat blood culture urinalysis and chest x-ray She had allergy listed to cefdinir however does not think she has allergy listed to cefdinir but experience more of side effect Discussed with her started on ceftriaxone which she tolerated okay (3) Hypothyroidism: Code(s): E03.9 - Hypothyroidism, unspecified Status: Acute Assessment and Plan: Thyroid level normal and continue levothyroxine. (4) Hunner's ulcer: Code(s): N30.10 - Interstitial cystitis (chronic) without hematuria Status: Acute Assessment and Plan: The patient sees urology for this. She had a cystoscopy with a biopsy and injection of steroid Urology consultation again appreciate the recommendation (5) Anemia: Qualifiers: Anemia type: iron deficiency Iron deficiency anemia type: unspecified iron deficiency Qualified Code(s): D50.9 - Iron deficiency anemia, unspecified Code(s): D64.9 - Anemia, unspecified Status: Acute Assessment and Plan: Appears to be stable continue to monitor. Continue to monitor No acute signs of bleeding. Continue to monitor (6) Physical deconditioning: Code(s): R53.81 - Other malaise Status: Acute Assessment and Plan: Evaluated by the PT OT and suggested she needs did further rehabilitation. bull gang worker was consulted and arrangements were made for her to go to a rehabilitation center from here. (7) Leukocytosis: Code(s): D72.829 - Elevated white blood cell count, unspecified Status: Acute Assessment and Plan: Worsened today recheck labs Panculture Additional Plan Planning D/c yesterday however hgb 7.2. Noted she is chronically anemic. Plan for early am discharge so long as hgb holds. Subjective Date/time seen: 02/08/21 09:26 resting comfortably. asking when she can go home. Review of Systems Review of Systems: All systems reviewed & are unremarkable except as noted in HPI and below Exam Const: General: no acute distress Neck: Neck: no JVD Resp: Effort & Inspection: normal respiratory effort Auscultation: clear to auscultation bilaterally Cardio: Rate: regular rate Rhythm: regular rhythm GI: GI Palp: Yes Soft to palpation and No Tenderness to palpation present (GI) Objective Data Vital Signs Vital Signs: Vital Signs - 24 hr 02/07/21 14:00 02/07/21 22:00 02/08/21 05:58 Temperature 97.5 F L 98.6 F 98.2 F Pulse Rate 90 88 87 Respiratory Rate 16 18 16 Blood Pressure 106/61 115/55 L 100/57 L Pulse Oximetry 99 99 97 Intake/Output Intake/Output: Intake & Output
[2021-02-08] MEDS: MAGNESIUM OXIDE 200 MG TABLET PO (09:42)
[2021-02-08] MEDS: LORATADINE 10 MG TABLET PO (09:42)
[2021-02-08] MEDS: EPOETIN ALFA-EPBX 10,000 UNITS/ML VIAL 10000 UNITS SUB-Q (09:42)
[2021-02-08] MEDS: SODIUM BICARBONATE TAB 650 MG TABLET 1300 MG PO ×2 (09:42→17:09)
[2021-02-08] MEDS: DOCUSATE SODIUM 100 MG CAPSULE PO ×2 (09:42→20:39)
[2021-02-08 14:00] VITALS: BP 115/57; PULSE 92; RESP 18; TEMP 37; O2SAT 100
--- NOTE | 2021-02-08 16:51 | PM.PNNEP ---
Progress Note: A&P Assessment and Plan (1) MARIBEL (acute kidney injury): Code(s): N17.9 - Acute kidney failure, unspecified Status: Acute Assessment and Plan: multifactorial etiology: - infection - deyhydration - outpatient NSAID use imaging noted (chronic changes, no acute findings) urine electrolytes non-prenal continue supportive therapy (2) Stage 3b chronic kidney disease: Code(s): N18.32 - Chronic kidney disease, stage 3b Status: Acute Assessment and Plan: etiology not clear but suspect due to recurrent obstruction(?) baseline creatinine runs around 1.7mg/dl (3) UTI (urinary tract infection): Code(s): N39.0 - Urinary tract infection, site not specified Status: Acute Assessment and Plan: urine culture with E.coli was on imipenem but then switched to ceftriaxone given elevated WBC, switched back to imipenem follow repeat cultures (4) Anemia: Qualifiers: Anemia type: iron deficiency Iron deficiency anemia type: unspecified iron deficiency Qualified Code(s): D50.9 - Iron deficiency anemia, unspecified Code(s): D64.9 - Anemia, unspecified Status: Acute Assessment and Plan: H/H low on Epogen while hospitalized follow trend (5) Hunner's ulcer: Code(s): N30.10 - Interstitial cystitis (chronic) without hematuria Status: Acute Assessment and Plan: therapy/treatment as per Urology continue supportive therapy Will continue to follow. Subjective Date/time seen: 02/08/21 16:51 Discharge held due to concerning leukocytosis; anxious about discharge but was hoping to go to rehab; no other acute issues or problems voiced at the time of my visit. Exam Narrative: General: WD/WN female in NAD Heart: normal S1 and S2; no rub Lungs: clear to auscultation Abdomen: soft, nontender, nondistended, positive bowel sounds Extremities: no cyanosis or clubbing; trace - 1+edema Skin: warm and intact Objective Data Vital Signs Vital Signs: Vital Signs Temp Pulse Resp BP Pulse Ox 02/08/21 14:00 37.0 C 92 18 115/57 L 100 02/08/21 05:58 36.8 C 87 16 100/57 L 97 02/07/21 22:00 37.0 C 88 18 115/55 L 99 Intake/Output Intake/Output: Intake & Output 02/05/21 02/06/21 02/07/21 02/08/21 23:59 23:59 23:59 23:59 Intake Total 2060 2140 2120 850 Output Total 3725 4000 450 Balance -1665 -1860 1670 850 Meds/Results Medications: Active Medications Generic Name Dose Route Start Last Admin Trade Name Freq PRN Reason Stop Dose Admin Acetaminophen 650 mg 02/02/21 15:13 02/06/21 20:21 Acetaminophen 325 Mg Tablet PO 650 mg Q4H PRN Administration Mild Pain (1-3) or Fever Docusate Sodium 100 mg 02/04/21 21:00 02/08/21 09:42 Docusate Sodium 100 Mg Capsule PO 100 mg Q12HR AZAEL Administration Epoetin Dmitriy-epbx 10,000 units 02/03/21 14:35 02/08/21 09:42 Epoetin Dmitriy-Epbx 10,000 Units/Ml Vial SUB-Q 10,000 units MoWeFr@0900 AZAEL Administration Imipenem/Cilastatin Sodium 250 100 mls @ 300 mls/hr 02/07/21 13:00 02/08/21 17:09 mg/ Dextrose IVPB 300 mls/hr Q6HR AZAEL Administration Levothyroxine Sodium 50 mcg 02/03/21 06:30 02/08/21 06:02 Levothyroxine Sodium 50 Mcg Tablet PO 50 mcg DAILY@0630 AZAEL Administration Loratadine 10 mg 02/03/21 09:00 02/08/21 09:42 Loratadine 10 Mg Tablet PO 10 mg QAM AZAEL Administration Magnesium Oxide 200 mg 02/03/21 09:00 02/08/21 09:42 Magnesium Oxide 200 Mg Tablet PO 200 mg DAILY AZAEL Administration Morphine Sulfate 4 mg 02/02/21 15:13 Morphine Sulfate (*Crx) 4 Mg/Ml Inj IV PUSH Q2H PRN Pain Rated 7-10 Ondansetron HCl 4 mg 02/02/21 15:13 Ondansetron Inj 4 Mg/2 Ml Vial IV PUSH Q4H PRN Nausea Polyethylene Glycol 17 gm 02/04/21 12:25 02/06/21 09:00 Polyethylene Glycol 3350 17 Gm Powd.Pack P
[2021-02-08 22:00] VITALS: BP 107/55; PULSE 92; RESP 18; TEMP 36.4; O2SAT 99
[2021-02-09] MEDS: LEVOTHYROXINE SODIUM 50 MCG TABLET PO (05:33)
[2021-02-09 06:00] VITALS: BP 121/54; PULSE 80; RESP 20; TEMP 36.6; O2SAT 99
[2021-02-09 06:43] LABS: Basophils Absolute Auto 0.1 K/mm3 (0.0-0.1); Basophils Percent Auto 0.4 % (0.2-1.2); Eosinophils Absolute Auto 0.1 K/mm3 (0-0.3); Eosinophils Percent Auto 0.3 % (0-4.4); Hematocrit 24.5 % (37.0-47.0); Hemoglobin 7.4 g/dL (12.0-15.0); Immature Granulocyte Absolute 1.96 K/mm3 (0.00-0.031); Immature Granulocyte Percent A 7.2 % (0-0.5); Lymphocytes Absolute Auto 1.04 K/mm3 (0.9-3.2); Lymphocytes Percent Auto 3.8 % (18.3-44.2); Mean Corpuscular HGB Conc 30.2 g/dl (32-36); Mean Corpuscular Hemoglobin 24.1 pg (26-34); Mean Corpuscular Volume 79.8 fl (80-100); Mean Platelet Volume 9.5 fl (7.4-10.4); Monocytes Absolute Auto 0.5 K/mm3 (0.1-0.6); Monocytes Percent Auto 1.9 % (2.6-8.5); Neutrophils Absolute Auto 23.7 K/mm3 (1.3-6.7); Neutrophils Percent Auto 86.4 % (45.5-73.1); Nucleated Red Blood Cells Perc 0.1 % (0.0-0.2); Platelet Count Result 389 k/mm3 (150-375); Red Blood Count 3.07 M/mm3 (4.2-5.4); Red Cell Distribution Width 17.5 % (11.5-14.5); White Blood Count 27.4 K/mm3 (4.5-10.0)
[2021-02-09 07:24] LABS: Alanine Aminotransferase 13 U/L (4-35); Albumin Level 2.7 g/dL (3.5-5.1); Alkaline Phosphatase 228 U/L (38-126); Anion Gap 10 mmol/L (8-16); Aspartate Amino Transferase 22 U/L (14-36); Bilirubin,Total 0.9 mg/dL (0.2-1.3); Blood Urea Nitrogen 78 mg/dL (7-17); Calcium 8.4 mg/dL (8.4-10.2); Carbon Dioxide 20 mmol/L (22-30); Chloride 101 mmol/L (98-107); Estimated CRCL calculation 21 ml/min; Estimated Glomerular Filt Rate 18; Glucose 129 mg/dL (65-110); Magnesium 2.1 mg/dL (1.6-2.3); Phosphorus 5.2 mg/dL (2.5-4.5); Potassium 4.5 mmol/L (3.4-5.0); Sodium 131 mmol/L (137-145)
[2021-02-09 07:44] LABS: Platelet Estimate Adequate (Adequate)
[2021-02-09 07:45] LABS: Anisocytosis 2+ (NORMAL); Hypochromasia 1+ (NORMAL); Macrocytosis 1+ (NORMAL)
[2021-02-09 08:00] VITALS: PULSE 80; RESP 20; O2SAT 99
--- NOTE | 2021-02-09 09:01 | PM.IMPN ---
Progress Note: A&P Assessment and Plan (1) MARIBEL (acute kidney injury): Code(s): N17.9 - Acute kidney failure, unspecified Status: Acute Assessment and Plan: baseline creatinine around 1.6-2 CT abdomen with bilateral hydronephrosis noted right more than left Urology consultation appreciate the recommendation apparently hydronephrosis bilateral is chronic finding Nephrology consulted Avoid nephrotoxic medications particularly NSAIDs. She has been on naproxen at home on a regular basis which was discontinued on admission. Renal failure continue to improve down to 1.8 at the time of discharge which is not far away from her baseline. (2) UTI (urinary tract infection): Code(s): N39.0 - Urinary tract infection, site not specified Status: Acute Assessment and Plan: The patient stated that she was taking Macrobid since Saturday. However her urine was still positive for UTI. The patient's last culture in November was resistant to Macrobid. The patient was started on Primaxin on admission. Urine culture is positive for E coli sensitive to ceftriaxone Was switched to ceftriaxone during the rest of the hospital course. This is switch to cephalexin at the time of discharge for 3 more days. However leukocytosis worsened and hence held discharge. Will further evaluate with repeat blood culture urinalysis and chest x-ray She had allergy listed to cefdinir however does not think she has allergy listed to cefdinir but experience more of side effect Discussed with her started on ceftriaxone which she tolerated okay (3) Hypothyroidism: Code(s): E03.9 - Hypothyroidism, unspecified Status: Acute Assessment and Plan: Thyroid level normal and continue levothyroxine. (4) Hunner's ulcer: Code(s): N30.10 - Interstitial cystitis (chronic) without hematuria Status: Acute Assessment and Plan: The patient sees urology for this. She had a cystoscopy with a biopsy and injection of steroid Urology consultation again appreciate the recommendation (5) Anemia: Qualifiers: Anemia type: iron deficiency Iron deficiency anemia type: unspecified iron deficiency Qualified Code(s): D50.9 - Iron deficiency anemia, unspecified Code(s): D64.9 - Anemia, unspecified Status: Acute Assessment and Plan: Appears to be stable continue to monitor. Continue to monitor No acute signs of bleeding. Continue to monitor (6) Physical deconditioning: Code(s): R53.81 - Other malaise Status: Acute Assessment and Plan: Evaluated by the PT OT and suggested she needs did further rehabilitation. sheet metal layout worker was consulted and arrangements were made for her to go to a rehabilitation center from here. (7) Leukocytosis: Code(s): D72.829 - Elevated white blood cell count, unspecified Status: Acute Assessment and Plan: Worsened today recheck labs Panculture Additional Plan MARIBEL on CKD: Cr runs around 1.6-2, but 2.6 now, she is not eating and bun/cr ratio greater than 20, indicating prerenal. Will start infusion IVF at 100/hr. Leukocytosis worsening to 27.4, 25.5 yesterday. Patient not spiking fevers, or exhibiting any other infectious symptoms. Not clear where this leukocytosis is coming from. Continue Imipenem. Trend in AM, if still going up, may need ID on board. No signs of line infection, pneumonia. Detailed PE today looking for ulcers, none identified. Anemia related to ACKD, chronic and stable. trend and transfuse as necessary. Was hoping for discharge today, but leukocytosis and MARIBEL heading in wrong direction - will likely have to keep patient admitted another day. Time Spent With Patient Time with patient: less than 15 minutes Subjective Date/time seen: 02/09/21 09:01 no acute complaints resting comfortably no fevers or chills Review of Systems Review of Systems: All systems reviewed & are unremarkable except as noted in HPI and below Exam
[2021-02-09] MEDS: LORATADINE 10 MG TABLET PO (10:34)
[2021-02-09] MEDS: SODIUM BICARBONATE TAB 650 MG TABLET 1300 MG PO ×2 (10:34→16:58)
[2021-02-09] MEDS: MAGNESIUM OXIDE 200 MG TABLET PO (10:34)
[2021-02-09 10:45] VITALS: BP 132/72; O2SAT 99
--- NOTE | 2021-02-09 11:22 | PCOTNOTE ---
Attempted OT treatment, patient reports having pain in stomach and not feeling well, will attempt at later time, RN notified
--- NOTE | 2021-02-09 13:00 | P.PNNP_ITS ---
Progress Note: A&P Assessment and Plan (1) MARIBEL (acute kidney injury): Code(s): N17.9 - Acute kidney failure, unspecified Status: Acute Assessment and Plan: * creatinine rising again.... * multifactorial etiology with regard to initial insult: - infection - deyhydration - outpatient NSAID use * imaging noted (chronic changes, no acute findings) * urine electrolytes non-prenal * due to infection again (elevated WBC)? * continue supportive therapy (2) Stage 3b chronic kidney disease: Code(s): N18.32 - Chronic kidney disease, stage 3b Status: Acute Assessment and Plan: * etiology not clear but suspect due to recurrent obstruction(?) * baseline creatinine runs around 1.7mg/dl (3) UTI (urinary tract infection): Code(s): N39.0 - Urinary tract infection, site not specified Status: Acute Assessment and Plan: * urine culture with E.coli * was on imipenem but then switched to ceftriaxone * given elevated WBC, switched back to imipenem * follow repeat cultures (4) Anemia: Qualifiers: Anemia type: iron deficiency Iron deficiency anemia type: unspecified iron deficiency Qualified Code(s): D50.9 - Iron deficiency anemia, unspecified Code(s): D64.9 - Anemia, unspecified Status: Acute Assessment and Plan: * H/H low * on Epogen while hospitalized * follow trend (5) Hunner's ulcer: Code(s): N30.10 - Interstitial cystitis (chronic) without hematuria Status: Acute Assessment and Plan: * therapy/treatment as per Urology * continue supportive therapy Will continue to follow. Subjective Date/time seen: 02/09/21 13:00 No apparent distress voiced at time; still with elevated WBC and now creatinine starting to rise again; no issues/events overnight or earlier this morning; no other complaints or concerns to report. Exam Narrative: General: WD/WN female in NAD Heart: normal S1 and S2; no rub Lungs: clear to auscultation Abdomen: soft, nontender, nondistended, positive bowel sounds Extremities: no cyanosis or clubbing; trace - 1+edema Skin: warm and intact Objective Data Vital Signs Vital Signs: Vital Signs Temp Pulse Resp BP Pulse Ox 02/09/21 10:45 132/72 99 02/09/21 08:00 80 20 99 02/09/21 06:00 36.6 C 80 20 121/54 L 99 02/08/21 22:00 36.4 C 92 18 107/55 L 99 02/08/21 14:00 37.0 C 92 18 115/57 L 100 Intake/Output Intake/Output: Intake & Output 02/06/21 02/07/21 02/08/21 02/09/21 23:59 23:59 23:59 23:59 Intake Total 2140 2119 2049 600 Output Total 4000 450 200 Balance -1860 1670 2049 400 Meds/Results Medications: Active Medications Generic Name Dose Route Start Last Admin Trade Name Freq PRN Reason Stop Dose Admin Acetaminophen 650 mg 02/02/21 15:13 02/06/21 20:21 Acetaminophen 325 Mg Tablet PO 650 mg Q4H PRN Administration Mild Pain (1-3) or Fever Docusate Sodium 100 mg 02/04/21 21:00 02/09/21 10:35 Docusate Sodium 100 Mg Capsule PO Not Given Q12HR [facility] Epoetin Dmitriy-epbx 10,000 units 02/03/21 14:35 02/08/21 09:42 Epoetin Dmitriy-Epbx 10,000 Units/Ml Vial SUB-Q 10,000 units
--- NOTE | 2021-02-09 13:00 | PM.PNNEP ---
Progress Note: A&P Assessment and Plan (1) MARIBEL (acute kidney injury): Code(s): N17.9 - Acute kidney failure, unspecified Status: Acute Assessment and Plan: creatinine rising again.... multifactorial etiology with regard to initial insult: - infection - deyhydration - outpatient NSAID use imaging noted (chronic changes, no acute findings) urine electrolytes non-prenal due to infection again (elevated WBC)? continue supportive therapy (2) Stage 3b chronic kidney disease: Code(s): N18.32 - Chronic kidney disease, stage 3b Status: Acute Assessment and Plan: etiology not clear but suspect due to recurrent obstruction(?) baseline creatinine runs around 1.7mg/dl (3) UTI (urinary tract infection): Code(s): N39.0 - Urinary tract infection, site not specified Status: Acute Assessment and Plan: urine culture with E.coli was on imipenem but then switched to ceftriaxone given elevated WBC, switched back to imipenem follow repeat cultures (4) Anemia: Qualifiers: Anemia type: iron deficiency Iron deficiency anemia type: unspecified iron deficiency Qualified Code(s): D50.9 - Iron deficiency anemia, unspecified Code(s): D64.9 - Anemia, unspecified Status: Acute Assessment and Plan: H/H low on Epogen while hospitalized follow trend (5) Hunner's ulcer: Code(s): N30.10 - Interstitial cystitis (chronic) without hematuria Status: Acute Assessment and Plan: therapy/treatment as per Urology continue supportive therapy Will continue to follow. Subjective Date/time seen: 02/09/21 13:00 No apparent distress voiced at time; still with elevated WBC and now creatinine starting to rise again; no issues/events overnight or earlier this morning; no other complaints or concerns to report. Exam Narrative: General: WD/WN female in NAD Heart: normal S1 and S2; no rub Lungs: clear to auscultation Abdomen: soft, nontender, nondistended, positive bowel sounds Extremities: no cyanosis or clubbing; trace - 1+edema Skin: warm and intact Objective Data Vital Signs Vital Signs: Vital Signs Temp Pulse Resp BP Pulse Ox 02/09/21 10:45 132/72 99 02/09/21 08:00 80 20 99 02/09/21 06:00 36.6 C 80 20 121/54 L 99 02/08/21 22:00 36.4 C 92 18 107/55 L 99 02/08/21 14:00 37.0 C 92 18 115/57 L 100 Intake/Output Intake/Output: Intake & Output 02/06/21 02/07/21 02/08/21 02/09/21 23:59 23:59 23:59 23:59 Intake Total 2140 2120 2050 600 Output Total 4000 450 200 Balance -1860 1670 2050 400 Meds/Results Medications: Active Medications Generic Name Dose Route Start Last Admin Trade Name Freq PRN Reason Stop Dose Admin Acetaminophen 650 mg 02/02/21 15:13 02/06/21 20:21 Acetaminophen 325 Mg Tablet PO 650 mg Q4H PRN Administration Mild Pain (1-3) or Fever Docusate Sodium 100 mg 02/04/21 21:00 02/09/21 10:35 Docusate Sodium 100 Mg Capsule PO Not Given Q12HR [facility] Epoetin Dmitriy-epbx 10,000 units 02/03/21 14:35 02/08/21 09:42 Epoetin Dmitriy-Epbx 10,000 Units/Ml Vial SUB-Q 10,000 units MoWeFr@0900 AZAEL Administration Imipenem/Cilastatin Sodium 250 100 mls @ 300 mls/hr 02/07/21 13:00 02/09/21 12:23 mg/ Dextrose IVPB 300 mls/hr Q6HR AZAEL Administration Levothyroxine Sodium 50 mcg 02/03/21 06:30 02/09/21 05:33 Levothyroxine Sodium 50 Mcg Tablet PO 50 mcg DAILY@0630 AZAEL Administration Loratadine 10 mg 02/03/21 09:00 02/09/21 10:34 Loratadine 10 Mg Tablet PO 10 mg QAM AZAEL Administration Magnesium Oxide 200 mg 02/03/21 09:00 02/09/21 10:34 Magnesium Oxide 200 Mg Tablet PO 200 mg DAILY AZAEL Administration Morphine Sulfate 4 mg 02/02/21 15:13 Morphine Sulfate (*Crx) 4 Mg/Ml Inj IV PUSH Q2H PRN Pain Rated 7-10 Ondansetron HCl 4 mg 02/02/21 15:1
[2021-02-09 14:00] VITALS: BP 103/59; PULSE 99; RESP 18; TEMP 35.6; O2SAT 98
[2021-02-09] MEDS: traMADol HCL (*CRX) 50 MG TABLET PO ×2 (14:53→21:50)
[2021-02-09] MEDS: SODIUM CHLORIDE 0.9% IV 250 ML 100 ML IV CONT (14:53)
[2021-02-09 20:00] VITALS: PULSE 87; RESP 18; O2SAT 98
[2021-02-09] MEDS: DOCUSATE SODIUM 100 MG CAPSULE PO (21:44)
[2021-02-09 21:53] VITALS: BP 117/56; PULSE 87; RESP 18; TEMP 36.6; O2SAT 98
[2021-02-10] VITALS (10 sets, daily range): BP systolic 107–115; BP diastolic 54–65; PULSE 74–97; RESP 12–18; TEMP 36.3–36.7; O2SAT 94–100
[2021-02-10] MEDS: LEVOTHYROXINE SODIUM 50 MCG TABLET PO (06:29)
[2021-02-10 07:12] LABS: Mean Corpuscular HGB Conc 30.5 g/dl (32-36); Mean Corpuscular Hemoglobin 23.8 pg (26-34); Mean Platelet Volume 9.3 fl (7.4-10.4); Platelet Count Result 431 k/mm3 (150-375); Red Blood Count 2.82 M/mm3 (4.2-5.4); Red Cell Distribution Width 17.3 % (11.5-14.5); White Blood Count 25.4 K/mm3 (4.5-10.0)
[2021-02-10 07:42] LABS: Alanine Aminotransferase 12 U/L (4-35); Albumin Level 2.6 g/dL (3.5-5.1); Alkaline Phosphatase 255 U/L (38-126); Anion Gap 12 mmol/L (8-16); Aspartate Amino Transferase 27 U/L (14-36); Blood Urea Nitrogen 89 mg/dL (7-17); Calcium 8.3 mg/dL (8.4-10.2); Carbon Dioxide 18 mmol/L (22-30); Chloride 101 mmol/L (98-107); Estimated CRCL calculation 18 ml/min; Estimated Glomerular Filt Rate 15; Glucose 93 mg/dL (65-110); Magnesium 2.2 mg/dL (1.6-2.3); Phosphorus 6.5 mg/dL (2.5-4.5); Potassium 4.9 mmol/L (3.4-5.0); Sodium 131 mmol/L (137-145)
[2021-02-10 07:43] LABS: Hemoglobin 6.7 g/dL (12.0-15.0)
--- NOTE | 2021-02-10 08:09 | PM.IMPN ---
Progress Note: A&P Assessment and Plan (1) MARIBEL (acute kidney injury): Code(s): N17.9 - Acute kidney failure, unspecified Status: Acute Assessment and Plan: baseline creatinine around 1.6-2 CT abdomen with bilateral hydronephrosis noted right more than left Urology consultation appreciate the recommendation apparently hydronephrosis bilateral is chronic finding Nephrology consulted Avoid nephrotoxic medications particularly NSAIDs. She has been on naproxen at home on a regular basis which was discontinued on admission. Renal failure continue to improve down to 1.8 at the time of discharge which is not far away from her baseline. (2) UTI (urinary tract infection): Code(s): N39.0 - Urinary tract infection, site not specified Status: Acute Assessment and Plan: The patient stated that she was taking Macrobid since Saturday. However her urine was still positive for UTI. The patient's last culture in November was resistant to Macrobid. The patient was started on Primaxin on admission. Urine culture is positive for E coli sensitive to ceftriaxone Was switched to ceftriaxone during the rest of the hospital course. This is switch to cephalexin at the time of discharge for 3 more days. However leukocytosis worsened and hence held discharge. Will further evaluate with repeat blood culture urinalysis and chest x-ray She had allergy listed to cefdinir however does not think she has allergy listed to cefdinir but experience more of side effect Discussed with her started on ceftriaxone which she tolerated okay (3) Hypothyroidism: Code(s): E03.9 - Hypothyroidism, unspecified Status: Acute Assessment and Plan: Thyroid level normal and continue levothyroxine. (4) Hunner's ulcer: Code(s): N30.10 - Interstitial cystitis (chronic) without hematuria Status: Acute Assessment and Plan: The patient sees urology for this. She had a cystoscopy with a biopsy and injection of steroid Urology consultation again appreciate the recommendation (5) Anemia: Qualifiers: Anemia type: iron deficiency Iron deficiency anemia type: unspecified iron deficiency Qualified Code(s): D50.9 - Iron deficiency anemia, unspecified Code(s): D64.9 - Anemia, unspecified Status: Acute Assessment and Plan: Appears to be stable continue to monitor. Continue to monitor No acute signs of bleeding. Continue to monitor (6) Physical deconditioning: Code(s): R53.81 - Other malaise Status: Acute Assessment and Plan: Evaluated by the PT OT and suggested she needs did further rehabilitation. railroad worker was consulted and arrangements were made for her to go to a rehabilitation center from here. (7) Leukocytosis: Code(s): D72.829 - Elevated white blood cell count, unspecified Status: Acute Assessment and Plan: Worsened today recheck labs Panculture Additional Plan hgb dropped to 6.7 today - acute on chronic microcytic anemia; will need to transfuse one unit, and will discuss all possible sources of bleed with her Cr inc from 2.6 to 3. Continue IV hydration, obtain urine electrolytes. May need neuro consult if still cr still elevated. WBC count 25 despite broad spectrum abx for uti. As discussed in yesterday's note, no other obvious signs of infection. Will consult ID to help identify persistent leukocytosis cause. Subjective Date/time seen: 02/10/21 08:09 no acute complaints resting comfortably anxious about why lab values are not improving Review of Systems Review of Systems: All systems reviewed & are unremarkable except as noted in HPI and below Exam Const: General: no acute distress Neck: Neck: no JVD Resp: Effort & Inspection: normal respiratory effort Auscultation: clear to auscultation bilaterally Cardio: Rate: regular rate Rhythm: regular rhythm GI: GI Palp: Yes Soft to palpation and No Tenderness to palpation present
--- NOTE | 2021-02-10 08:10 | PC.NURSE ---
I received a call from Rebecca requesting an update on pt's status. I updated her on pt's labs which are trending in the wrong direction; and, that pt will not be discharged today as she most likely will be receiving a blood transfusion. Rebecca asked if I would call her this afternoon if there are any further updates.
[2021-02-10] MEDS: DOCUSATE SODIUM 100 MG CAPSULE PO ×2 (08:49→20:46)
[2021-02-10] MEDS: SODIUM CHLORIDE 0.9% IV 1,000 ML 100 ML IV CONT ×2 (08:49→17:46)
[2021-02-10] MEDS: LORATADINE 10 MG TABLET PO (08:49)
[2021-02-10] MEDS: SODIUM BICARBONATE TAB 650 MG TABLET 1300 MG PO ×2 (08:49→17:46)
[2021-02-10] MEDS: MAGNESIUM OXIDE 200 MG TABLET PO (08:49)
[2021-02-10] MEDS: EPOETIN ALFA-EPBX 10,000 UNITS/ML VIAL 10000 UNITS SUB-Q (09:15)
[2021-02-10 09:45] LABS: Band Neutrophils Percent 1 % (0-6); Lymphocytes Absolute Manual 0.25 K/mm3 (1.1-4.5); Monocytes Absolute Manual 0.25 K/mm3 (0.1-0.90); Monocytes Percent Manual 1 % (3-9); Neutrophils Absolute Manual 24.89 K/mm3 (1.7-7.2); Neutrophils Percent Manual 97 % (46-73); Platelet Estimate Increased (Adequate); Total Cells Counted 100
[2021-02-10 09:46] LABS: Hypochromasia 2+ (NORMAL); Ovalocytes 2+ (NORMAL)
--- NOTE | 2021-02-10 12:28 | P.PNNP_ITS ---
Progress Note: A&P Assessment and Plan (1) MARIBEL (acute kidney injury): Code(s): N17.9 - Acute kidney failure, unspecified Status: Acute Assessment and Plan: * creatinine rising again.... * multifactorial etiology with regard to initial insult: - infection - deyhydration - outpatient NSAID use * imaging noted (chronic changes, no acute findings) * urine electrolytes non-prenal * due to infection again (elevated WBC)? -- possible ATN? - Infectious Disease consultation * continue supportive therapy (2) Stage 3b chronic kidney disease: Code(s): N18.32 - Chronic kidney disease, stage 3b Status: Acute Assessment and Plan: * etiology not clear but suspect due to recurrent obstruction(?) * baseline creatinine runs around 1.7mg/dl (3) UTI (urinary tract infection): Code(s): N39.0 - Urinary tract infection, site not specified Status: Acute Assessment and Plan: * urine culture with E.coli * was on imipenem but then switched to ceftriaxone * given elevated WBC, switched back to imipenem * as WBC persists - Infectious Disease consulted * follow repeat cultures (4) Anemia: Qualifiers: Anemia type: iron deficiency Iron deficiency anemia type: unspecified iron deficiency Qualified Code(s): D50.9 - Iron deficiency anemia, unspecified Code(s): D64.9 - Anemia, unspecified Status: Acute Assessment and Plan: * H/H low and worsening as noted by AM labs * on Epogen while hospitalized * PRBC transfusion today * follow trend (5) Hunner's ulcer: Code(s): N30.10 - Interstitial cystitis (chronic) without hematuria Status: Acute Assessment and Plan: * therapy/treatment as per Urology * continue supportive therapy Will continue to follow. Subjective Date/time seen: 02/10/21 12:28 Despite current interventions, creatinine continues to worsen and WBC remains elevated; she is quite concerned/anxious about the fact her labs are not improving (if not worsening); no other issues/events overnight or earlier this morning. Exam Narrative: General: WD/WN female in NAD Heart: normal S1 and S2; no rub Lungs: clear to auscultation Abdomen: soft, nontender, nondistended, positive bowel sounds Extremities: no cyanosis or clubbing; trace - 1+edema Skin: no rash or nodules Objective Data Vital Signs Vital Signs: Vital Signs Temp Pulse Resp BP Pulse Ox 02/10/21 05:45 36.3 C L 74 18 107/59 L 96 02/09/21 21:53 36.6 C 87 18 117/56 L 98 02/09/21 20:00 87 18 98 02/09/21 14:00 35.6 C L 99 18 103/59 L 98 Intake/Output Intake/Output: Intake & Output 02/07/21 02/08/21 02/09/21 02/10/21 23:59 23:59 23:59 23:59 Intake Total 2119 2049 1650 1430 Output Total 450 200 Balance 1670 0 1450 1430 Meds/Results Medications: Active Medications Generic Name Dose Route Start Last Admin Trade Name Wesq PRN Reason Stop Dose Admin Acetaminophen 650 mg 02/02/21 15:13 02/06/21 20:21 Acetaminophen 325 Mg Tablet PO 650 mg Q4H PRN Administration Mild Pain (1-3) or Fever Docusate Sodium 100 mg 02/04/21 21:00 02/10/21 08:49 Docusate Sodium 100 Mg Capsule
--- NOTE | 2021-02-10 12:28 | PM.PNNEP ---
Progress Note: A&P Assessment and Plan (1) MARIBEL (acute kidney injury): Code(s): N17.9 - Acute kidney failure, unspecified Status: Acute Assessment and Plan: creatinine rising again.... multifactorial etiology with regard to initial insult: - infection - deyhydration - outpatient NSAID use imaging noted (chronic changes, no acute findings) urine electrolytes non-prenal due to infection again (elevated WBC)? -- possible ATN? - Infectious Disease consultation continue supportive therapy (2) Stage 3b chronic kidney disease: Code(s): N18.32 - Chronic kidney disease, stage 3b Status: Acute Assessment and Plan: etiology not clear but suspect due to recurrent obstruction(?) baseline creatinine runs around 1.7mg/dl (3) UTI (urinary tract infection): Code(s): N39.0 - Urinary tract infection, site not specified Status: Acute Assessment and Plan: urine culture with E.coli was on imipenem but then switched to ceftriaxone given elevated WBC, switched back to imipenem as WBC persists - Infectious Disease consulted follow repeat cultures (4) Anemia: Qualifiers: Anemia type: iron deficiency Iron deficiency anemia type: unspecified iron deficiency Qualified Code(s): D50.9 - Iron deficiency anemia, unspecified Code(s): D64.9 - Anemia, unspecified Status: Acute Assessment and Plan: H/H low and worsening as noted by AM labs on Epogen while hospitalized PRBC transfusion today follow trend (5) Hunner's ulcer: Code(s): N30.10 - Interstitial cystitis (chronic) without hematuria Status: Acute Assessment and Plan: therapy/treatment as per Urology continue supportive therapy Will continue to follow. Subjective Date/time seen: 02/10/21 12:28 Despite current interventions, creatinine continues to worsen and WBC remains elevated; she is quite concerned/anxious about the fact her labs are not improving (if not worsening); no other issues/events overnight or earlier this morning. Exam Narrative: General: WD/WN female in NAD Heart: normal S1 and S2; no rub Lungs: clear to auscultation Abdomen: soft, nontender, nondistended, positive bowel sounds Extremities: no cyanosis or clubbing; trace - 1+edema Skin: no rash or nodules Objective Data Vital Signs Vital Signs: Vital Signs Temp Pulse Resp BP Pulse Ox 02/10/21 05:45 36.3 C L 74 18 107/59 L 96 02/09/21 21:53 36.6 C 87 18 117/56 L 98 02/09/21 20:00 87 18 98 02/09/21 14:00 35.6 C L 99 18 103/59 L 98 Intake/Output Intake/Output: Intake & Output 02/07/21 02/08/21 02/09/21 02/10/21 23:59 23:59 23:59 23:59 Intake Total 2119 2049 1650 1430 Output Total 450 200 Balance 1670 0 1450 1430 Meds/Results Medications: Active Medications Generic Name Dose Route Start Last Admin Trade Name Freq PRN Reason Stop Dose Admin Acetaminophen 650 mg 02/02/21 15:13 02/06/21 20:21 Acetaminophen 325 Mg Tablet PO 650 mg Q4H PRN Administration Mild Pain (1-3) or Fever Docusate Sodium 100 mg 02/04/21 21:00 02/10/21 08:49 Docusate Sodium 100 Mg Capsule PO 100 mg Q12HR AZAEL Administration Epoetin Dmitriy-epbx 10,000 units 02/03/21 14:35 02/10/21 09:15 Epoetin Dmitriy-Epbx 10,000 Units/Ml Vial SUB-Q 10,000 units MoWeFr@0900 AZAEL Administration Sodium Chloride 250 mls @ 30 mls/hr 02/10/21 09:12 Normal Saline Iv IV CONT 02/10/21 17:31 .Q8H20M STA Imipenem/Cilastatin Sodium 250 100 mls @ 300 mls/hr 02/07/21 13:00 02/10/21 13:20 mg/ Dextrose IVPB 300 mls/hr Q6HR AZAEL Administration Sodium Chloride 1,000 mls @ 100 mls/hr 02/09/21 18:45 02/10/21 13:23 Normal Saline Iv IV CONT 0 mls/hr .Q10H AZAEL Infusion Levothyroxine Sodium 50 mcg 02/03/21 06:30 02/10/21 06:29 Levothyroxine Sodium 50 Mcg Tablet PO 50
--- NOTE | 2021-02-10 13:49 | WPDUROPN2 ---
Progress Note: A&P Assessment and Plan (1) Stage 3b chronic kidney disease: Code(s): N18.32 - Chronic kidney disease, stage 3b Status: Acute (2) Hunner's ulcer: Code(s): N30.10 - Interstitial cystitis (chronic) without hematuria Status: Acute (3) Hydronephrosis: Code(s): N13.30 - Unspecified hydronephrosis Status: Acute Assessment and Plan: Hydronephrosis is non-obstructive -> due to bilat. vesicoureteral reflux. Discussed with pt. - willing to have catheter placed to see if optimizing drainage/eliminating reflux helps with renal function. Subjective Subjective Date/Time Seen: 02/10/21 13:49 No specific complaints, just tired of being in hospital. Regression in creat. last 2 days noted. Review of Systems Cardiovascular: Cardiovascular: Denies chest pain, Denies lightheadedness, Denies palpitations and Denies dyspnea Respiratory: Respiratory: Denies dyspnea Gastrointestinal: Gastrointestinal: Denies diarrhea, Denies nausea and Denies vomiting Genitourinary: Genitourinary: Denies hematuria and Denies dysuria Endocrine: Endocrine: Denies palpitations Exam Const: General: no acute distress Resp: Effort & Inspection: normal respiratory effort GI: Inspection: non-distended GI Palp: No abdominal tenderness and No Guarding due to palpation present (GI) Auscultation: normal bowel sounds Objective Data Vital Signs Vital Signs: Vital Signs - 24 hr 02/09/21 14:00 02/09/21 20:00 02/09/21 21:53 Temperature 96.1 F L 97.8 F Pulse Rate 99 87 87 Respiratory Rate 18 18 18 Blood Pressure 103/59 L 117/56 L Pulse Oximetry 98 98 98 02/10/21 05:45 Temperature 97.3 F L Pulse Rate 74 Respiratory Rate 18 Blood Pressure 107/59 L Pulse Oximetry 96 Intake/Output Intake/Output: Intake & Output 02/07/21 02/08/21 02/09/21 02/10/21 23:59 23:59 23:59 23:59 Intake Total 2119 2049 1650 1430 Output Total 450 200 Balance 1670 0 1450 1430 Meds/Results Medications: Active Medications Generic Name Dose Route Start Last Admin Trade Name Freq PRN Reason Stop Dose Admin Acetaminophen 650 mg 02/02/21 15:13 02/06/21 20:21 Acetaminophen 325 Mg Tablet PO 650 mg Q4H PRN Administration Mild Pain (1-3) or Fever Docusate Sodium 100 mg 02/04/21 21:00 02/10/21 08:49 Docusate Sodium 100 Mg Capsule PO 100 mg Q12HR AZAEL Administration Epoetin Dmitriy-epbx 10,000 units 02/03/21 14:35 02/10/21 09:15 Epoetin Dmitriy-Epbx 10,000 Units/Ml Vial SUB-Q 10,000 units MoWeFr@0900 AZAEL Administration Sodium Chloride 250 mls @ 30 mls/hr 02/10/21 09:12 Normal Saline Iv IV CONT 02/10/21 17:31 .Q8H20M STA Imipenem/Cilastatin Sodium 250 100 mls @ 300 mls/hr 02/07/21 13:00 02/10/21 13:20 mg/ Dextrose IVPB 300 mls/hr Q6HR AZAEL Administration Sodium Chloride 1,000 mls @ 100 mls/hr 02/09/21 18:45 02/10/21 13:23 Normal Saline Iv IV CONT 0 mls/hr .Q10H AZAEL Infusion Levothyroxine Sodium 50 mcg 02/03/21 06:30 02/10/21 06:29 Levothyroxine Sodium 50 Mcg Tablet PO 50 mcg DAILY@0630 AZAEL Administration Loratadine 10 mg 02/03/21 09:00 02/10/21 08:49 Loratadine 10 Mg Tablet PO 10 mg QAM AZEAL Administration Magnesium Oxide 200 mg 02/03/21 09:00 02/10/21 08:49 Magnesium Oxide 200 Mg Tablet PO 200 mg DAILY AZAEL Administration Morphine Sulfate 4 mg 02/02/21 15:13 Morphine Sulfate (*Crx) 4 Mg/Ml Inj IV PUSH Q2H PRN Pain Rated 7-10 Ondansetron HCl 4 mg 02/02/21 15:13 Ondansetron Inj 4 Mg/2 Ml Vial IV PUSH Q4H PRN Nausea Polyethylene Glycol 17 gm 02/04/21 12:25 02/06/21 09:00 Polyethylene Glycol 3350 17 Gm Powd.Pack PO 17 gm DAILY PRN Administration Constipation Sodium Bicarbonate 1,300 mg 02/04/21 17:00 02/10/21 08:49 Sodium Bicarbonate Tab 650 Mg Tablet PO 1,300 mg BID AZAEL Administration Tramadol HCl 50 mg 02/02/21 21:59 02/09/21 21:50 Tra
--- NOTE | 2021-02-10 16:28 | WPDINFPN2 ---
Progress Note: A&P Assessment and Plan (1) Leukocytosis: Code(s): D72.829 - Elevated white blood cell count, unspecified Status: Acute Assessment and Plan: 1. Leukocytosis, no current infection identified. I think more likely reactive, e.g., acute blood loss 2. Chronic iron deficiency anemia, no explanation as to cause 3. Recent UTI, microbiologic cure 4. Interstitial cystitis 5. Antibiotic intolerances REC She has a new Christian (indication not available) and will send for new UA reflex culture. No empiric antibiotic. Follow WBC over time, getting blood now. Needs further investigation as to cause of her iron deficiency anemia. Persistent leukocytosis after hgb rises should lead to repeat CT of abdomen and pelvis, and would also add chest. Subjective Date/time seen: 02/10/21 16:28 Objective Data Vital Signs Vital Signs: Vital Signs - 24 hr 02/09/21 20:00 02/09/21 21:53 02/10/21 05:45 Temperature 36.6 C 36.3 C L Pulse Rate 87 87 74 Respiratory Rate 18 18 18 Blood Pressure 117/56 L 107/59 L Pulse Oximetry 98 98 96 02/10/21 14:00 02/10/21 14:50 02/10/21 15:08 Temperature 36.7 C 36.7 C 36.7 C Pulse Rate 89 91 91 Respiratory Rate 12 18 18 Blood Pressure 110/60 109/59 L 108/57 L Pulse Oximetry 98 98 98 02/10/21 16:08 Temperature 36.7 C Pulse Rate 92 Respiratory Rate 18 Blood Pressure 110/54 L Pulse Oximetry 100 Intake/Output Intake/Output: Intake & Output 02/07/21 02/08/21 02/09/21 02/10/21 23:59 23:59 23:59 23:59 Intake Total 2119 2049 1650 1890 Output Total 450 200 Balance 1669 2049 1450 1890 Meds/Results Medications: Active Medications Generic Name Dose Route Start Last Admin Trade Name Freq PRN Reason Stop Dose Admin Acetaminophen 650 mg 02/02/21 15:13 02/06/21 20:21 Acetaminophen 325 Mg Tablet PO 650 mg Q4H PRN Administration Mild Pain (1-3) or Fever Docusate Sodium 100 mg 02/04/21 21:00 02/10/21 08:49 Docusate Sodium 100 Mg Capsule PO 100 mg Q12HR AZAEL Administration Epoetin Dmitriy-epbx 10,000 units 02/03/21 14:35 02/10/21 09:15 Epoetin Dmitriy-Epbx 10,000 Units/Ml Vial SUB-Q 10,000 units MoWeFr@0900 AZAEL Administration Sodium Chloride 250 mls @ 30 mls/hr 02/10/21 09:12 Normal Saline Iv IV CONT 02/10/21 17:31 .Q8H20M STA Imipenem/Cilastatin Sodium 250 100 mls @ 300 mls/hr 02/07/21 13:00 02/10/21 13:45 mg/ Dextrose IVPB Infused Q6HR AZAEL Infusion Sodium Chloride 1,000 mls @ 100 mls/hr 02/09/21 18:45 02/10/21 13:23 Normal Saline Iv IV CONT 0 mls/hr .Q10H AZAEL Infusion Levothyroxine Sodium 50 mcg 02/03/21 06:30 02/10/21 06:29 Levothyroxine Sodium 50 Mcg Tablet PO 50 mcg DAILY@0630 AZAEL Administration Loratadine 10 mg 02/03/21 09:00 02/10/21 08:49 Loratadine 10 Mg Tablet PO 10 mg QAM AZAEL Administration Magnesium Oxide 200 mg 02/03/21 09:00 02/10/21 08:49 Magnesium Oxide 200 Mg Tablet PO 200 mg DAILY AZAEL Administration Morphine Sulfate 4 mg 02/02/21 15:13 Morphine Sulfate (*Crx) 4 Mg/Ml Inj IV PUSH Q2H PRN Pain Rated 7-10 Ondansetron HCl 4 mg 02/02/21 15:13 Ondansetron Inj 4 Mg/2 Ml Vial IV PUSH Q4H PRN Nausea Polyethylene Glycol 17 gm 02/04/21 12:25 02/06/21 09:00 Polyethylene Glycol 3350 17 Gm Powd.Pack PO 17 gm DAILY PRN Administration Constipation Sodium Bicarbonate 1,300 mg 02/04/21 17:00 02/10/21 08:49 Sodium Bicarbonate Tab 650 Mg Tablet PO 1,300 mg BID AZAEL Administration Tramadol HCl 50 mg 02/02/21 21:59 02/09/21 21:50 Tramadol Hcl (*Crx) 50 Mg Tablet PO 50 mg Q6H PRN Administration Pain Rated 4-6 Radiology Results: ITS Impressions Abdomen/Pelvis CT 02/02/21 14:28 IMPRESSION: Nonspecific mild free fluid in the lower anterior abdomen and pelvis Status post hysterectomy Moderate diffuse thickening of the urinary bladder wall, consistent with clinical history of bladder infecti
[2021-02-10 17:24] LABS: Mean Corpuscular HGB Conc 30.4 g/dl (32-36); Mean Corpuscular Hemoglobin 25.3 pg (26-34); Mean Corpuscular Volume 83.4 fl (80-100); Mean Platelet Volume 9.1 fl (7.4-10.4); Platelet Count Result 291 k/mm3 (150-375); Red Blood Count 2.17 M/mm3 (4.2-5.4); Red Cell Distribution Width 18.7 % (11.5-14.5); White Blood Count 18.8 K/mm3 (4.5-10.0)
[2021-02-10 17:31] LABS: Alanine Aminotransferase 8 U/L (4-35); Albumin Level 1.6 g/dL (3.5-5.1); Alkaline Phosphatase 179 U/L (38-126); Anion Gap 6 mmol/L (8-16); Aspartate Amino Transferase 17 U/L (14-36); Bilirubin,Total 0.6 mg/dL (0.2-1.3); Blood Urea Nitrogen 62 mg/dL (7-17); Calcium 5.1 mg/dL (8.4-10.2); Carbon Dioxide 13 mmol/L (22-30); Chloride 117 mmol/L (98-107); Estimated CRCL calculation 27 ml/min; Estimated Glomerular Filt Rate 25; Glucose 70 mg/dL (65-110); Potassium 3.1 mmol/L (3.4-5.0); Sodium 136 mmol/L (137-145)
[2021-02-10 18:18] LABS: Add Urine Microscopic? YES; Appearance Urine Turbid (Clear); Bacteria Urine 3+ /hpf; Bilirubin Urine Negative (Negative); Blood Urine 3+ (Negative); Color Urine Yellow (Yellow); Glucose Urine UA 1+ mg/dL (Negative); Ketones Urine Trace mg/dL (Negative); Leukocyte Esterase Ur 3+ LEU/UL (Negative); Nitrate Urine Negative (Negative); Protein Urine 2+ mg/dL (Negative); RBC Urine >75 /hpf (0-2); Specific Grav Ur 1.013 (1.001-1.035); WBC Clumps Urine Present /HPF; WBC Urine >75 /hpf
[2021-02-10 18:39] LABS: Hematocrit 18.1 % (37.0-47.0); Hemoglobin 5.5 g/dL (12.0-15.0)
[2021-02-10 18:46] LABS: Band Neutrophils Percent 5 % (0-6); Lymphocytes Absolute Manual 0.56 K/mm3 (1.1-4.5); Monocytes Absolute Manual 0.37 K/mm3 (0.1-0.90); Monocytes Percent Manual 2 % (3-9); Neutrophils Absolute Manual 17.86 K/mm3 (1.7-7.2); Neutrophils Percent Manual 90 % (46-73); Total Cells Counted 100
[2021-02-10 18:48] LABS: Burr Cells 1+ (NORMAL); Ovalocytes 1+ (NORMAL); Platelet Estimate Adequate (Adequate)
--- NOTE | 2021-02-10 19:44 | PC.NURSE ---
Pt's daughters called claiming to want an update. However, immediately upon answering the phone, they informed me that a friend of their brother knows about ICU therefore they know that pt is not receiving adequate care and they want her transferred to [facility] immediately. I informed that is their perrogative but they will be hard pressed to find an available bed to which the one sister stated, oh, I thought we could just have one if we said we wanted to transfer her. she was not being sarcastic about it. I answered the remaining questions including providing them with the lab values that they requested. During this time, they informed me that no doctors have come to see their mother in 9 days, and the infectious disease doctor removed her from antibiotics. Additionally, they informed me that she was not receiving nursing care and was being left alone all of the time. I informed them that several doctors have come to see her with multiple doctors seeing her today alone and that I personally spent most of the day in her room with her taking care of her today to which they replied, Oh, I didn't know.
--- NOTE | 2021-02-10 21:41 | CONS_ITS ---
DATE OF CONSULTATION: 02/10/2021 REASON FOR CONSULTATION: Leukocytosis. HISTORY OF PRESENT ILLNESS: 70-year-old female with interstitial cystitis, eosinophilic variety, biopsy-proven. She has received 3 Kenalog injections into the bladder since diagnosis with symptomatic relief for up to a year. The patient is on no systemic immunosuppressants at home and has not received any acutely in recent weeks. She also has been on no antibiotics in recent weeks for any purpose. She reports to me past UTIs, but the full details on diagnostic certainty are not available. While on vacation, she developed abdominal pain with nausea. She had a urine specimen collected 2 days prior to admission, which was abnormal and was started on nitrofurantoin, had fatigue and presented to the emergency room on February 02 and was admitted. She has been on imipenem followed by ceftriaxone followed by oral antibiotics changed back to imipenem 3 days ago, and consultation requested today. She has not required any operative intervention while here. Her hospital course has been complicated by acute renal failure in the setting of chronic renal insufficiency, anemia. She has just had a Christian catheter placed. Yesterday, she developed new onset of pain over the right clavicle, radiation down the right anterior chest and into the mid paraspinous area bilaterally. No aggravating or relieving factors. ALLERGIES: CEFDINIR CAUSED DIZZINESS AND DIARRHEA. CIPROFLOXACIN, MYALGIAS. PROPOXYPHENE, NAUSEA. PRESENT MEDICATIONS: List reviewed. No immunosuppressants. HABITS: Nonsmoker. No alcohol. Illicit drugs, marijuana. PAST MEDICAL HISTORY: In addition to the above, chronic iron deficiency anemia. She has had upper and lower endoscopy which were apparently normal, done about 2 years ago. She is unaware of any further investigation as to cause of her iron deficiency anemia, has never received iron injections. She has had bilateral meniscus surgery in the knees, hysterectomy, cholecystectomy, stage 3 chronic renal insufficiency, obesity, hypothyroidism, GERD, abnormal mammogram. Details are not listed in the record. REVIEW OF SYSTEMS: I reviewed her past CBCs, which do not indicate chronic leukocytosis. Her hemoglobin is typically between 8 and 9 as an outpatient. She bruises easily while here in the hospital. She has had some malaise and weakness, dyspnea on exertion while here. Appetite fair. 14-point review otherwise negative. FAMILY HISTORY: Diabetes, hypertension, respiratory disease. SOCIAL HISTORY: She is . Does not work outside the home. Lives locally. Four children. PHYSICAL EXAMINATION: GENERAL: Elderly female, appears younger than her actual age. No acute distress. VITAL SIGNS: 110/54, 92, 18, 100% on room air, afebrile. Since arrival, she has been afebrile. SKIN: Ecchymoses consistent with phlebotomy and superficial trauma. Does not appear to have pathologic ecchymoses. Elsewhere, skin is warm and dry. She has no rashes. She has some mild stasis erythema over the left distal tibia area. NODES: She has no axillary, cervical, or occipital adenopathy. EENT: Conjunctivae are normal. Pupils equal, round, reactive to light. The oropharynx, oral mucosa normal. Teeth in good repair. NECK: No masses, thyromegaly or meningismus. LUNGS: Clear to auscultation and percussion. BACK: No CVAT. CARDIAC: Regular rate and rhythm. No murmur, gallop, or rub. ABDOMEN: No mass, distention, tenderness, or organomegaly. She has no ascites. She has normal bowel sounds. No bruits. She has a new Christian catheter draining clear yellow urine. EXTREMITIES: 1+ nonpitting edema, distal ankles. No clubbing. No cyanosis. She has no venous varicosities. No evidence of cellulitis.
[2021-02-10] MEDS: SODIUM CHLORIDE 0.9% IV 250 ML 30 ML IV CONT (22:01)
[2021-02-10] MEDS: traMADol HCL (*CRX) 50 MG TABLET PO (23:30)
[2021-02-11 00:42] VITALS: BP 118/66; PULSE 88; RESP 18; TEMP 36.7; O2SAT 100
[2021-02-11 03:34] LABS: Hematocrit 27.7 % (37.0-47.0); Hemoglobin 8.6 g/dL (12.0-15.0); Mean Corpuscular Hemoglobin 25.4 pg (26-34); Mean Corpuscular Volume 81.7 fl (80-100); Mean Platelet Volume 8.7 fl (7.4-10.4); Platelet Count Result 420 k/mm3 (150-375); Red Blood Count 3.39 M/mm3 (4.2-5.4); Red Cell Distribution Width 18.3 % (11.5-14.5); White Blood Count 17.2 K/mm3 (4.5-10.0)
[2021-02-11 03:55] LABS: Alanine Aminotransferase 11 U/L (4-35); Albumin Level 2.6 g/dL (3.5-5.1); Alkaline Phosphatase 292 U/L (38-126); Anion Gap 12 mmol/L (8-16); Aspartate Amino Transferase 35 U/L (14-36); Blood Urea Nitrogen 77 mg/dL (7-17); Calcium 8.2 mg/dL (8.4-10.2); Carbon Dioxide 18 mmol/L (22-30); Chloride 105 mmol/L (98-107); Estimated CRCL calculation 20 ml/min; Estimated Glomerular Filt Rate 17; Glucose 93 mg/dL (65-110); Magnesium 2.2 mg/dL (1.6-2.3); Phosphorus 5.8 mg/dL (2.5-4.5); Potassium 4.3 mmol/L (3.4-5.0); Sodium 135 mmol/L (137-145)
[2021-02-11 05:31] VITALS: BP 121/56; PULSE 83; RESP 18; TEMP 36.4; O2SAT 97
[2021-02-11] MEDS: LEVOTHYROXINE SODIUM 50 MCG TABLET PO (06:13)
[2021-02-11 06:21] LABS: Anisocytosis 1+ (NORMAL); Band Neutrophils Percent 6 % (0-6); Eosinophils Absolute Manual 0.51 K/mm3 (0.02-0.5); Eosinophils Percent Manual 3 % (0-4); Hypochromasia 2+ (NORMAL); Lymphocytes Absolute Manual 1.03 K/mm3 (1.1-4.5); Monocytes Absolute Manual 0.51 K/mm3 (0.1-0.90); Monocytes Percent Manual 3 % (3-9); Neutrophils Absolute Manual 15.13 K/mm3 (1.7-7.2); Neutrophils Percent Manual 82 % (46-73); Platelet Estimate Increased (Adequate); Total Cells Counted 100
[2021-02-11 06:22] LABS: Ovalocytes 1+ (NORMAL)
--- NOTE | 2021-02-11 09:05 | PM.IMPN ---
Progress Note: A&P Assessment and Plan (1) MARIBEL (acute kidney injury): Code(s): N17.9 - Acute kidney failure, unspecified Status: Acute Assessment and Plan: baseline creatinine around 1.6-2 CT abdomen with bilateral hydronephrosis noted right more than left Urology consultation appreciate the recommendation apparently hydronephrosis bilateral is chronic finding Nephrology consulted Avoid nephrotoxic medications particularly NSAIDs. She has been on naproxen at home on a regular basis which was discontinued on admission. Renal failure continue to improve down to 1.8 at the time of discharge which is not far away from her baseline. (2) UTI (urinary tract infection): Code(s): N39.0 - Urinary tract infection, site not specified Status: Acute Assessment and Plan: The patient stated that she was taking Macrobid since Saturday. However her urine was still positive for UTI. The patient's last culture in November was resistant to Macrobid. The patient was started on Primaxin on admission. Urine culture is positive for E coli sensitive to ceftriaxone Was switched to ceftriaxone during the rest of the hospital course. This is switch to cephalexin at the time of discharge for 3 more days. However leukocytosis worsened and hence held discharge. Will further evaluate with repeat blood culture urinalysis and chest x-ray She had allergy listed to cefdinir however does not think she has allergy listed to cefdinir but experience more of side effect Discussed with her started on ceftriaxone which she tolerated okay (3) Hypothyroidism: Code(s): E03.9 - Hypothyroidism, unspecified Status: Acute Assessment and Plan: Thyroid level normal and continue levothyroxine. (4) Hunner's ulcer: Code(s): N30.10 - Interstitial cystitis (chronic) without hematuria Status: Acute Assessment and Plan: The patient sees urology for this. She had a cystoscopy with a biopsy and injection of steroid Urology consultation again appreciate the recommendation (5) Anemia: Qualifiers: Anemia type: iron deficiency Iron deficiency anemia type: unspecified iron deficiency Qualified Code(s): D50.9 - Iron deficiency anemia, unspecified Code(s): D64.9 - Anemia, unspecified Status: Acute Assessment and Plan: Appears to be stable continue to monitor. Continue to monitor No acute signs of bleeding. Continue to monitor (6) Physical deconditioning: Code(s): R53.81 - Other malaise Status: Acute Assessment and Plan: Evaluated by the PT OT and suggested she needs did further rehabilitation. cardroom worker was consulted and arrangements were made for her to go to a rehabilitation center from here. (7) Leukocytosis: Code(s): D72.829 - Elevated white blood cell count, unspecified Status: Acute Assessment and Plan: Worsened today recheck labs Panculture Additional Plan Acute on chronic normocytic anemia: now at baseline, but not clear why she had that acute drop in hemoglobin to 5.5-6.5 on 02/10. No external bleeding. May need GI evaluation. Postrenal MARIBEL on CKD 3B: bilateral vesicoureteral reflux, hydronephrosis, seen by urology, agreed to catheter placement. Possible ATN per nephrology. Continue IV hydration. WBC count down to 17 following blood transfusion. ID service saw her yesterday, believe this is largely reactive to anemia. Will therefor no longer continue empiric antibiotics for UTI. If persistently high following resolution of hemoglobin, would need CT abdomen/pelvis in addition to Chest CT. Noted family considering transfer for higher level of care. Will discuss reasons with them and then possibly initiate transfer. Time Spent With Patient Time with patient: less than 15 minutes Subjective Date/time seen: 02/11/21 09:05 patient has no objective complaints, willing to stay a few days, and wants to consider leaving Saturday. Review of Syste
[2021-02-11] MEDS: SODIUM CHLORIDE 0.9% IV 1,000 ML 100 ML IV CONT ×2 (10:14→21:58)
[2021-02-11] MEDS: SODIUM BICARBONATE TAB 650 MG TABLET 1300 MG PO ×2 (10:15→16:38)
[2021-02-11] MEDS: DOCUSATE SODIUM 100 MG CAPSULE PO (10:15)
[2021-02-11] MEDS: LORATADINE 10 MG TABLET PO (10:15)
[2021-02-11] MEDS: MAGNESIUM OXIDE 200 MG TABLET PO (10:15)
--- NOTE | 2021-02-11 10:26 | PC.NURSE ---
while doing an assessment of pt, she stated that she feels stronger today. She also was encouraged by the improvement in her lab values.
--- NOTE | 2021-02-11 12:24 | P.PNNP_ITS ---
Progress Note: A&P Assessment and Plan (1) MARIBEL (acute kidney injury): Code(s): N17.9 - Acute kidney failure, unspecified Status: Acute Assessment and Plan: * improvememt noted by AM labs along with stable/good urine output - due to new copeland catheter placement it would seem * multifactorial etiology with regard to initial insult: - infection - deyhydration - outpatient NSAID use * imaging noted (chronic changes, no acute findings) * urine electrolytes non-prenal * continue supportive therapy (2) Stage 3b chronic kidney disease: Code(s): N18.32 - Chronic kidney disease, stage 3b Status: Acute Assessment and Plan: * etiology not clear but suspect due to recurrent obstruction(?) * baseline creatinine runs around 1.7mg/dl (3) UTI (urinary tract infection): Code(s): N39.0 - Urinary tract infection, site not specified Status: Acute Assessment and Plan: * urine culture with E.coli * was on imipenem but then switched to ceftriaxone * given elevated WBC, switched back to imipenem * as WBC persists - Infectious Disease recommendations noted - WBC better today * follow repeat cultures (4) Anemia: Qualifiers: Anemia type: iron deficiency Iron deficiency anemia type: unspecified iron deficiency Qualified Code(s): D50.9 - Iron deficiency anemia, unspecified Code(s): D64.9 - Anemia, unspecified Status: Acute Assessment and Plan: * H/H better s/p PRBC transfusion * on Epogen while hospitalized * PRBC transfusion on 02/10/21 * follow trend of H/H (5) Hunner's ulcer: Code(s): N30.10 - Interstitial cystitis (chronic) without hematuria Status: Acute Assessment and Plan: * therapy/treatment as per Urology * continue supportive therapy Will continue to follow. Subjective Date/time seen: 02/11/21 12:24 In better spirits given improvement in her labs this AM; Urology replaced copeland catheter yesterday afternoon with resultant improvement in urine output as well as renal function/creatinine; no apparent distress noted; hoping for discharge soon. Exam Narrative: General: WD/WN female in NAD Heart: normal S1 and S2; no rub Lungs: clear to auscultation Abdomen: soft, nontender, nondistended, positive bowel sounds Extremities: no cyanosis or clubbing; trace edema Skin: warm and dry Objective Data Vital Signs Vital Signs: Vital Signs Temp Pulse Resp BP Pulse Ox 02/11/21 05:31 36.4 C 83 18 121/56 L 97 02/11/21 00:42 36.7 C 88 18 118/66 100 02/10/21 23:42 36.4 C 97 16 112/62 94 02/10/21 22:42 36.7 C 83 16 108/56 L 98 02/10/21 22:22 36.6 C 84 16 107/65 98 02/10/21 22:00 36.4 C L 87 18 115/58 L 99 02/10/21 19:50 83 16 98 02/10/21 16:08 36.7 C 92 18 110/54 L 100 Intake/Output Intake/Output: Intake & Output 02/08/21 02/09/21 02/10/21 02/11/21 23:59 23:59 23:59 23:59 Intake Total 2050 1650 4480 1770 Output Total 200 2400 Balance 2050 1450 4480 -630 Meds/Results Medications: Active Medications Generic Name Dose Route Start Last Admin Trade Name Freq PRN Reason Stop Dose Admin Acetaminophen 650 mg
--- NOTE | 2021-02-11 12:24 | PM.PNNEP ---
Progress Note: A&P Assessment and Plan (1) MARIBEL (acute kidney injury): Code(s): N17.9 - Acute kidney failure, unspecified Status: Acute Assessment and Plan: improvememt noted by AM labs along with stable/good urine output - due to new copeland catheter placement it would seem multifactorial etiology with regard to initial insult: - infection - deyhydration - outpatient NSAID use imaging noted (chronic changes, no acute findings) urine electrolytes non-prenal continue supportive therapy (2) Stage 3b chronic kidney disease: Code(s): N18.32 - Chronic kidney disease, stage 3b Status: Acute Assessment and Plan: etiology not clear but suspect due to recurrent obstruction(?) baseline creatinine runs around 1.7mg/dl (3) UTI (urinary tract infection): Code(s): N39.0 - Urinary tract infection, site not specified Status: Acute Assessment and Plan: urine culture with E.coli was on imipenem but then switched to ceftriaxone given elevated WBC, switched back to imipenem as WBC persists - Infectious Disease recommendations noted - WBC better today follow repeat cultures (4) Anemia: Qualifiers: Anemia type: iron deficiency Iron deficiency anemia type: unspecified iron deficiency Qualified Code(s): D50.9 - Iron deficiency anemia, unspecified Code(s): D64.9 - Anemia, unspecified Status: Acute Assessment and Plan: H/H better s/p PRBC transfusion on Epogen while hospitalized PRBC transfusion on 02/10/21 follow trend of H/H (5) Hunner's ulcer: Code(s): N30.10 - Interstitial cystitis (chronic) without hematuria Status: Acute Assessment and Plan: therapy/treatment as per Urology continue supportive therapy Will continue to follow. Subjective Date/time seen: 02/11/21 12:24 In better spirits given improvement in her labs this AM; Urology replaced copeland catheter yesterday afternoon with resultant improvement in urine output as well as renal function/creatinine; no apparent distress noted; hoping for discharge soon. Exam Narrative: General: WD/WN female in NAD Heart: normal S1 and S2; no rub Lungs: clear to auscultation Abdomen: soft, nontender, nondistended, positive bowel sounds Extremities: no cyanosis or clubbing; trace edema Skin: warm and dry Objective Data Vital Signs Vital Signs: Vital Signs Temp Pulse Resp BP Pulse Ox 02/11/21 05:31 36.4 C 83 18 121/56 L 97 02/11/21 00:42 36.7 C 88 18 118/66 100 02/10/21 23:42 36.4 C 97 16 112/62 94 02/10/21 22:42 36.7 C 83 16 108/56 L 98 02/10/21 22:22 36.6 C 84 16 107/65 98 02/10/21 22:00 36.4 C L 87 18 115/58 L 99 02/10/21 19:50 83 16 98 02/10/21 16:08 36.7 C 92 18 110/54 L 100 Intake/Output Intake/Output: Intake & Output 02/08/21 02/09/21 02/10/21 02/11/21 23:59 23:59 23:59 23:59 Intake Total 2050 1650 4480 1770 Output Total 200 2400 Balance 2050 1450 4480 -630 Meds/Results Medications: Active Medications Generic Name Dose Route Start Last Admin Trade Name Freq PRN Reason Stop Dose Admin Acetaminophen 650 mg 02/02/21 15:13 02/06/21 20:21 Acetaminophen 325 Mg Tablet PO 650 mg Q4H PRN Administration Mild Pain (1-3) or Fever Benzocaine 1 lozenge 02/11/21 06:00 Benzocaine/Menthol (*Bkc) 18 Ea Lozenge PO PRN PRN Sore Throat Docusate Sodium 100 mg 02/04/21 21:00 02/11/21 10:15 Docusate Sodium 100 Mg Capsule PO 100 mg Q12HR AZAEL Administration Epoetin Dmitriy-epbx 10,000 units 02/03/21 14:35 02/10/21 09:15 Epoetin Dmitriy-Epbx 10,000 Units/Ml Vial SUB-Q 10,000 units MoWeFr@0900 AZAEL Administration Sodium Chloride 1,000 mls @ 100 mls/hr 02/09/21 18:45 02/11/21 10:14 Normal Saline Iv IV CONT 100 mls/hr .Q10H AZAEL Administration Levothyroxine Sodium
--- NOTE | 2021-02-11 14:22 | PC.NURSE ---
Pt's daughter, Rebecca, called asking for an update on pt's status. I answered her questions. She apologized for her sister's rude behavior last night towards me. I assured her that I, and everyone else, was doing our best to care for her mother and would continue to do so. She stated that the pt does not want to transfer at this time therefore she and her sister will hold off on pushing for a transfer right now.
[2021-02-11 16:08] VITALS: BP 145/92; PULSE 75; RESP 16; TEMP 36.9; O2SAT 100
[2021-02-11 19:22] LABS: Albumin 22 %; Measured Kappa Chains 3.39 mg/dL (<2.00); Measured Lambda Chains 1.86 mg/dL (<2.00); Pro/Creat Ratio 3735 mg/g creat (<=114); Total Kappa Chains 105.09 mg/24 h; Total Lambda Chains 57.66 mg/24 h
[2021-02-11 20:00] VITALS: PULSE 75; RESP 16; O2SAT 100
[2021-02-11 22:00] VITALS: BP 123/63; PULSE 104; RESP 16; TEMP 36.5; O2SAT 97
[2021-02-12 06:00] VITALS: BP 135/72; PULSE 87; RESP 20; TEMP 36.4; O2SAT 98
[2021-02-12] MEDS: LEVOTHYROXINE SODIUM 50 MCG TABLET PO (06:16)
[2021-02-12 06:37] LABS: Basophils Absolute Auto 0.1 K/mm3 (0.0-0.1); Basophils Percent Auto 0.6 % (0.2-1.2); Eosinophils Absolute Auto 0.2 K/mm3 (0-0.3); Eosinophils Percent Auto 1.5 % (0-4.4); Hematocrit 28.4 % (37.0-47.0); Hemoglobin 8.9 g/dL (12.0-15.0); Immature Granulocyte Absolute 0.67 K/mm3 (0.00-0.031); Immature Granulocyte Percent A 5.3 % (0-0.5); Lymphocytes Absolute Auto 0.76 K/mm3 (0.9-3.2); Mean Corpuscular HGB Conc 31.3 g/dl (32-36); Mean Corpuscular Hemoglobin 25.5 pg (26-34); Mean Corpuscular Volume 81.4 fl (80-100); Mean Platelet Volume 8.9 fl (7.4-10.4); Monocytes Absolute Auto 0.6 K/mm3 (0.1-0.6); Neutrophils Absolute Auto 10.4 K/mm3 (1.3-6.7); Neutrophils Percent Auto 81.6 % (45.5-73.1); Nucleated Red Blood Cells Absolute Auto 0.1 K/mm3 (0.0-0.012); Nucleated Red Blood Cells Perc 0.4 % (0.0-0.2); Platelet Count Result 478 k/mm3 (150-375); Red Blood Count 3.49 M/mm3 (4.2-5.4); Red Cell Distribution Width 18.3 % (11.5-14.5); White Blood Count 12.7 K/mm3 (4.5-10.0)
[2021-02-12] MEDS: SODIUM CHLORIDE 0.9% IV 1,000 ML 100 ML IV CONT ×2 (06:45→17:21)
[2021-02-12 07:00] LABS: Alanine Aminotransferase 9 U/L (4-35); Albumin Level 2.5 g/dL (3.5-5.1); Alkaline Phosphatase 276 U/L (38-126); Anion Gap 9 mmol/L (8-16); Aspartate Amino Transferase 23 U/L (14-36); Bilirubin,Total 0.7 mg/dL (0.2-1.3); Blood Urea Nitrogen 44 mg/dL (7-17); Calcium 8.2 mg/dL (8.4-10.2); Carbon Dioxide 18 mmol/L (22-30); Chloride 111 mmol/L (98-107); Estimated CRCL calculation 36 ml/min; Estimated Glomerular Filt Rate 34; Glucose 108 mg/dL (65-110); Magnesium 2.1 mg/dL (1.6-2.3); Phosphorus 3.9 mg/dL (2.5-4.5); Potassium 3.7 mmol/L (3.4-5.0); Sodium 138 mmol/L (137-145)
[2021-02-12 07:30] LABS: Band Neutrophils Percent 5 % (0-6); Eosinophils Absolute Manual 0.12 K/mm3 (0.02-0.5); Eosinophils Percent Manual 1 % (0-4); Lymphocytes Absolute Manual 1.14 K/mm3 (1.1-4.5); Monocytes Percent Manual 4 % (3-9); Neutrophils Absolute Manual 10.92 K/mm3 (1.7-7.2); Neutrophils Percent Manual 81 % (46-73); Platelet Estimate Adequate (Adequate); Total Cells Counted 100
[2021-02-12 07:32] LABS: Crenated RBC 1+ (NORMAL); Ovalocytes 1+ (NORMAL)
[2021-02-12] MEDS: MAGNESIUM OXIDE 200 MG TABLET PO (08:15)
[2021-02-12] MEDS: SODIUM BICARBONATE TAB 650 MG TABLET 1300 MG PO ×2 (08:15→16:43)
[2021-02-12] MEDS: LORATADINE 10 MG TABLET PO (08:16)
--- NOTE | 2021-02-12 09:02 | PM.IMPN ---
Progress Note: A&P Assessment and Plan (1) MARIBEL (acute kidney injury): Code(s): N17.9 - Acute kidney failure, unspecified Status: Acute Assessment and Plan: baseline creatinine around 1.6-2 CT abdomen with bilateral hydronephrosis noted right more than left Urology consultation appreciate the recommendation apparently hydronephrosis bilateral is chronic finding Nephrology consulted Avoid nephrotoxic medications particularly NSAIDs. She has been on naproxen at home on a regular basis which was discontinued on admission. Renal failure continue to improve down to 1.8 at the time of discharge which is not far away from her baseline. (2) UTI (urinary tract infection): Code(s): N39.0 - Urinary tract infection, site not specified Status: Acute Assessment and Plan: The patient stated that she was taking Macrobid since Saturday. However her urine was still positive for UTI. The patient's last culture in November was resistant to Macrobid. The patient was started on Primaxin on admission. Urine culture is positive for E coli sensitive to ceftriaxone Was switched to ceftriaxone during the rest of the hospital course. This is switch to cephalexin at the time of discharge for 3 more days. However leukocytosis worsened and hence held discharge. Will further evaluate with repeat blood culture urinalysis and chest x-ray She had allergy listed to cefdinir however does not think she has allergy listed to cefdinir but experience more of side effect Discussed with her started on ceftriaxone which she tolerated okay (3) Hypothyroidism: Code(s): E03.9 - Hypothyroidism, unspecified Status: Acute Assessment and Plan: Thyroid level normal and continue levothyroxine. (4) Hunner's ulcer: Code(s): N30.10 - Interstitial cystitis (chronic) without hematuria Status: Acute Assessment and Plan: The patient sees urology for this. She had a cystoscopy with a biopsy and injection of steroid Urology consultation again appreciate the recommendation (5) Anemia: Qualifiers: Anemia type: iron deficiency Iron deficiency anemia type: unspecified iron deficiency Qualified Code(s): D50.9 - Iron deficiency anemia, unspecified Code(s): D64.9 - Anemia, unspecified Status: Acute Assessment and Plan: Appears to be stable continue to monitor. Continue to monitor No acute signs of bleeding. Continue to monitor (6) Physical deconditioning: Code(s): R53.81 - Other malaise Status: Acute Assessment and Plan: Evaluated by the PT OT and suggested she needs did further rehabilitation. hired worker was consulted and arrangements were made for her to go to a rehabilitation center from here. (7) Leukocytosis: Code(s): D72.829 - Elevated white blood cell count, unspecified Status: Acute Assessment and Plan: Worsened today recheck labs Panculture Additional Plan Acute on chronic normocytic anemia: now at baseline, but not clear why she had that acute drop in hemoglobin to 5.5-6.5 on 02/10. No external bleeding. May need GI evaluation. Iron studies indicate she is not likely to beenefit from IV iron. Postrenal MARIBEL on CKD 3B: bilateral vesicoureteral reflux, hydronephrosis, seen by urology, agreed to catheter placement. Possible ATN per nephrology. Continue IV hydration. Improved close to baseline at this time. [place] acidosis probably related to CKD. Leukocytosis down to 12.7 today. ID service believes this is largely reactive to anemia. Will therefor no longer continue empiric antibiotics for UTI. If persistently high following resolution of hemoglobin, would need CT abdomen/pelvis in addition to Chest CT. Family and patient amenable to keeping patient until Saturday. Subjective Date/time seen: 02/12/21 09:02 no acute complaints, agreeable to staying in hospital till saturday to see if symptoms improve Review of Systems Review of Systems: All
[2021-02-12 10:11] LABS: Immature Reticulocyte Fraction 41.1 % (3.0-15.9); Reticulocyte Hemoglobin Conten 25.4 pg (28.2-35.7); Reticulocyte Percent 1.96 % (0.7-4.3); Reticulocytes Absolute 0.07 B/L (32.2-175.7)
--- NOTE | 2021-02-12 10:17 | P.PNNP_ITS ---
Progress Note: A&P Assessment and Plan (1) MARIBEL (acute kidney injury): Code(s): N17.9 - Acute kidney failure, unspecified Status: Acute Assessment and Plan: * improvememt noted in last 24 - 48 hours along with stable/good urine output - due to new copeland catheter placement done on 02/10/21 it would seem * multifactorial etiology with regard to initial insult: - infection - deyhydration - outpatient NSAID use * imaging noted (chronic changes, no acute findings) * urine electrolytes non-prenal * continue supportive therapy (2) Stage 3b chronic kidney disease: Code(s): N18.32 - Chronic kidney disease, stage 3b Status: Acute Assessment and Plan: * etiology not clear but suspect due to recurrent obstruction(?) * baseline creatinine runs around 1.7mg/dl (3) UTI (urinary tract infection): Code(s): N39.0 - Urinary tract infection, site not specified Status: Acute Assessment and Plan: * urine culture with E.coli * received adequate treatment * Infectious Disease recommendations noted - WBC better today * follow repeat cultures (4) Anemia: Qualifiers: Anemia type: iron deficiency Iron deficiency anemia type: unspecified iron deficiency Qualified Code(s): D50.9 - Iron deficiency anemia, unspecified Code(s): D64.9 - Anemia, unspecified Status: Acute Assessment and Plan: * H/H better s/p PRBC transfusion * on Epogen while hospitalized * PRBC transfusion on 02/10/21 * follow trend of H/H (5) Hunner's ulcer: Code(s): N30.10 - Interstitial cystitis (chronic) without hematuria Status: Acute Assessment and Plan: * therapy/treatment as per Urology * continue supportive therapy Will continue to follow. Subjective Date/time seen: 02/12/21 10:17 Overall, seems to be feeling/doing better today; no apparent issues voiced at this time; hoping for discharge tomorrow if thing continue to improve; no events overnight or earlier this AM. Exam Narrative: General: WD/WN female in NAD Heart: normal S1 and S2; no rub Lungs: clear to auscultation Abdomen: soft, nontender, nondistended, positive bowel sounds Extremities: no cyanosis or clubbing; trace edema Skin: warm and intact Objective Data Vital Signs Vital Signs: Vital Signs Temp Pulse Resp BP Pulse Ox 10/17/21 06:00 36.4 C 87 20 135/72 98 02/11/21 22:00 36.5 C 104 H 16 123/63 97 02/11/21 20:00 75 16 100 02/11/21 16:08 36.9 C 75 16 145/92 H 100 Intake/Output Intake/Output: Intake & Output 02/09/21 02/10/21 02/11/21 02/12/21 23:59 23:59 23:59 23:59 Intake Total 1650 4480 3010 1550 Output Total 200 3000 1600 Balance 1450 4480 10 -50 Meds/Results Medications: Active Medications Generic Name Dose Route Start Last Admin Trade Name Freq PRN Reason Stop Dose Admin Acetaminophen 650 mg 02/02/21 15:13 02/06/21 20:21 Acetaminophen 325 Mg Tablet PO 650 mg Q4H PRN Administration Mild Pain (1-3) or Fever Benzocaine 1 lozenge 02/11/21 06:00 Benzocaine/Menthol (*Bkc) 18 Ea Lozenge PO PRN PRN Sore Throat Docusate S
--- NOTE | 2021-02-12 10:17 | PM.PNNEP ---
Progress Note: A&P Assessment and Plan (1) MARIBEL (acute kidney injury): Code(s): N17.9 - Acute kidney failure, unspecified Status: Acute Assessment and Plan: improvememt noted in last 24 - 48 hours along with stable/good urine output - due to new copeland catheter placement done on 02/10/21 it would seem multifactorial etiology with regard to initial insult: - infection - deyhydration - outpatient NSAID use imaging noted (chronic changes, no acute findings) urine electrolytes non-prenal continue supportive therapy (2) Stage 3b chronic kidney disease: Code(s): N18.32 - Chronic kidney disease, stage 3b Status: Acute Assessment and Plan: etiology not clear but suspect due to recurrent obstruction(?) baseline creatinine runs around 1.7mg/dl (3) UTI (urinary tract infection): Code(s): N39.0 - Urinary tract infection, site not specified Status: Acute Assessment and Plan: urine culture with E.coli received adequate treatment Infectious Disease recommendations noted - WBC better today follow repeat cultures (4) Anemia: Qualifiers: Anemia type: iron deficiency Iron deficiency anemia type: unspecified iron deficiency Qualified Code(s): D50.9 - Iron deficiency anemia, unspecified Code(s): D64.9 - Anemia, unspecified Status: Acute Assessment and Plan: H/H better s/p PRBC transfusion on Epogen while hospitalized PRBC transfusion on 02/10/21 follow trend of H/H (5) Hunner's ulcer: Code(s): N30.10 - Interstitial cystitis (chronic) without hematuria Status: Acute Assessment and Plan: therapy/treatment as per Urology continue supportive therapy Will continue to follow. Subjective Date/time seen: 02/12/21 10:17 Overall, seems to be feeling/doing better today; no apparent issues voiced at this time; hoping for discharge tomorrow if thing continue to improve; no events overnight or earlier this AM. Exam Narrative: General: WD/WN female in NAD Heart: normal S1 and S2; no rub Lungs: clear to auscultation Abdomen: soft, nontender, nondistended, positive bowel sounds Extremities: no cyanosis or clubbing; trace edema Skin: warm and intact Objective Data Vital Signs Vital Signs: Vital Signs Temp Pulse Resp BP Pulse Ox 02/12/21 06:00 36.4 C 87 20 135/72 98 10/16/21 22:00 36.5 C 104 H 16 123/63 97 02/11/21 20:00 75 16 100 02/11/21 16:08 36.9 C 75 16 145/92 H 100 Intake/Output Intake/Output: Intake & Output 02/09/21 02/10/21 02/11/21 02/12/21 23:59 23:59 23:59 23:59 Intake Total 1650 4480 3010 1550 Output Total 200 3000 1600 Balance 1450 4480 10 -50 Meds/Results Medications: Active Medications Generic Name Dose Route Start Last Admin Trade Name Freq PRN Reason Stop Dose Admin Acetaminophen 650 mg 02/02/21 15:13 02/06/21 20:21 Acetaminophen 325 Mg Tablet PO 650 mg Q4H PRN Administration Mild Pain (1-3) or Fever Benzocaine 1 lozenge 02/11/21 06:00 Benzocaine/Menthol (*Bkc) 18 Ea Lozenge PO PRN PRN Sore Throat Docusate Sodium 100 mg 02/04/21 21:00 02/12/21 08:14 Docusate Sodium 100 Mg Capsule PO Not Given Q12HR AZAEL Epoetin Dmitriy-epbx 10,000 units 02/03/21 14:35 02/10/21 09:15 Epoetin Dmitriy-Epbx 10,000 Units/Ml Vial SUB-Q 10,000 units MoWeFr@0900 AZAEL Administration Sodium Chloride 1,000 mls @ 100 mls/hr 02/09/21 18:45 02/12/21 06:45 Normal Saline Iv IV CONT 100 mls/hr .Q10H AZAEL Administration Levothyroxine Sodium 50 mcg 02/03/21 06:30 02/12/21 06:16 Levothyroxine Sodium 50 Mcg Tablet PO 50 mcg DAILY@0630 AZAEL Administration Loratadine 10 mg 02/03/21 09:00 02/12/21 08:16 Loratadine 10 Mg Tablet PO 10 mg QAM AZAEL Administration Magnesium Oxide 200 mg 02/03/21 09:00 02/12/21 08:15 Magn
[2021-02-12 10:47] LABS: Iron 36 ug/dL (37-170)
[2021-02-12 10:58] LABS: Transferrin 171 mg/dL (206-381)
[2021-02-12 11:01] LABS: Percent Iron Saturation 14 % (20-50)
[2021-02-12 12:01] LABS: Vitamin B12 > 1000.0 pg/mL (239-931)
--- NOTE | 2021-02-12 14:22 | WPDUROPN2 ---
Progress Note: A&P Assessment and Plan (1) Hydronephrosis: Code(s): N13.30 - Unspecified hydronephrosis Status: Acute Assessment and Plan: Chronic in nature. Due to vesicoureteral reflux. This is nonobstructive (2) Eosinophilic cystitis: Code(s): N30.80 - Other cystitis without hematuria; D72.18 - Eosinophilia in diseases classified elsewhere Status: Acute Assessment and Plan: She has a in stage type bladder. She has of small capacity contracted bladder with bilateral hydronephrosis due to reflux. Her bladder has multiple inflammatory lesions which are biopsy proven eosinophilic cystitis. Will likely require long-term catheterization in some form. She should keep the current indwelling Christian catheter. She can't even be discharged home with the Christian catheter. Once her strength and conditioning improves we can teach her intermittent catheterization in the office. (3) MARIBEL (acute kidney injury): Code(s): N17.9 - Acute kidney failure, unspecified Status: Acute Subjective Subjective Date/Time Seen: 02/12/21 14:22 Patient is resting comfortably. I did not awake her for the interview. I examined her Christian catheter. The urine is clear. Her creatinine is improved with Christian catheter placement Exam Narrative: Resting comfortably. Christian catheter in place with clear yellow urine Objective Data Vital Signs Vital Signs: Vital Signs - 24 hr 02/11/21 16:08 02/11/21 20:00 02/11/21 22:00 Temperature 98.4 F 97.7 F Pulse Rate 75 75 104 H Respiratory Rate 16 16 16 Blood Pressure 145/92 H 123/63 Pulse Oximetry 100 100 97 02/12/21 06:00 Temperature 97.6 F Pulse Rate 87 Respiratory Rate 20 Blood Pressure 135/72 Pulse Oximetry 98 Intake/Output Intake/Output: Intake & Output 02/09/21 02/10/21 02/11/21 02/12/21 23:59 23:59 23:59 23:59 Intake Total 1650 4480 3010 1790 Output Total 200 3000 1600 Balance 1450 4480 10 190 Meds/Results Medications: Active Medications Generic Name Dose Route Start Last Admin Trade Name Freq PRN Reason Stop Dose Admin Acetaminophen 650 mg 02/02/21 15:13 02/06/21 20:21 Acetaminophen 325 Mg Tablet PO 650 mg Q4H PRN Administration Mild Pain (1-3) or Fever Benzocaine 1 lozenge 02/11/21 06:00 Benzocaine/Menthol (*Bkc) 18 Ea Lozenge PO PRN PRN Sore Throat Bisacodyl 10 mg 02/12/21 15:00 Bisacodyl 5 Mg Tablet Ec PO 02/13/21 03:01 0300,1500,2100 AZAEL Docusate Sodium 100 mg 02/04/21 21:00 02/12/21 08:14 Docusate Sodium 100 Mg Capsule PO Not Given Q12HR AZAEL Epoetin Dmitriy-epbx 10,000 units 02/03/21 14:35 02/10/21 09:15 Epoetin Dmitriy-Epbx 10,000 Units/Ml Vial SUB-Q 10,000 units MoWeFr@0900 AZAEL Administration Sodium Chloride 1,000 mls @ 100 mls/hr 02/09/21 18:45 02/12/21 06:45 Normal Saline Iv IV CONT 100 mls/hr .Q10H AZAEL Administration Levothyroxine Sodium 50 mcg 02/03/21 06:30 02/12/21 06:16 Levothyroxine Sodium 50 Mcg Tablet PO 50 mcg DAILY@0630 AZAEL Administration Loratadine 10 mg 02/03/21 09:00 02/12/21 08:16 Loratadine 10 Mg Tablet PO 10 mg QAM AZAEL Administration Magnesium Oxide 200 mg 02/03/21 09:00 02/12/21 08:15 Magnesium Oxide 200 Mg Tablet PO 200 mg DAILY AZAEL Administration Morphine Sulfate 4 mg 02/02/21 15:13 Morphine Sulfate (*Crx) 4 Mg/Ml Inj IV PUSH Q2H PRN Pain Rated 7-10 Ondansetron HCl 4 mg 02/02/21 15:13 Ondansetron Inj 4 Mg/2 Ml Vial IV PUSH Q4H PRN Nausea Polyethylene Glycol 238 gm 02/12/21 15:00 Polyethylene Glycol 3350 238 Gm Bottle PO 02/12/21 15:01 ONCE ONE Polyethylene Glycol 17 gm 02/04/21 12:25 02/06/21 09:00 Polyethylene Glycol 3350 17 Gm Powd.Pack PO 17 gm DAILY PRN Administration Constipation Sodium Bicarbonate 1,300 mg 02/04/21 17:00 02/12/21 08:15 Sodium Bicarbonate Tab 650 Mg Tablet PO 1,300 mg BID AZAEL Administration Tra
[2021-02-12 14:41] VITALS: BP 128/67; PULSE 86; RESP 14; TEMP 36.7; O2SAT 99
[2021-02-12] MEDS: BISACODYL 5 MG TABLET EC 10 MG PO ×2 (16:04→20:15)
[2021-02-12] MEDS: polyethylene glycoL 3350 238 GM BOTTLE PO (16:07)
[2021-02-12] MEDS: DOCUSATE SODIUM 100 MG CAPSULE PO (20:15)
[2021-02-12 20:30] VITALS: PULSE 86; RESP 14; O2SAT 99
[2021-02-12 22:00] VITALS: BP 112/48; PULSE 98; RESP 18; TEMP 36.4; O2SAT 95
[2021-02-13] VITALS (7 sets, daily range): BP systolic 74–127; BP diastolic 31–66; PULSE 78–93; RESP 18–23; TEMP 36.2–36.9; O2SAT 96–100
[2021-02-13] MEDS: BISACODYL 5 MG TABLET EC 10 MG PO (02:50)
[2021-02-13] MEDS: SODIUM CHLORIDE 0.9% IV 1,000 ML 100 ML IV CONT ×2 (06:35→20:57)
[2021-02-13 06:39] LABS: Basophils Absolute Auto 0.1 K/mm3 (0.0-0.1); Basophils Percent Auto 0.8 % (0.2-1.2); Eosinophils Absolute Auto 0.1 K/mm3 (0-0.3); Eosinophils Percent Auto 1.3 % (0-4.4); Hematocrit 26.9 % (37.0-47.0); Hemoglobin 8.6 g/dL (12.0-15.0); Immature Granulocyte Absolute 0.57 K/mm3 (0.00-0.031); Immature Granulocyte Percent A 5.3 % (0-0.5); Lymphocytes Absolute Auto 0.89 K/mm3 (0.9-3.2); Lymphocytes Percent Auto 8.2 % (18.3-44.2); Mean Corpuscular Hemoglobin 26.2 pg (26-34); Monocytes Absolute Auto 0.8 K/mm3 (0.1-0.6); Monocytes Percent Auto 6.9 % (2.6-8.5); Neutrophils Absolute Auto 8.4 K/mm3 (1.3-6.7); Neutrophils Percent Auto 77.5 % (45.5-73.1); Nucleated Red Blood Cells Perc 0.4 % (0.0-0.2); Platelet Count Result 451 k/mm3 (150-375); Red Blood Count 3.28 M/mm3 (4.2-5.4); Red Cell Distribution Width 18.7 % (11.5-14.5); White Blood Count 10.8 K/mm3 (4.5-10.0)
[2021-02-13 06:55] LABS: Alanine Aminotransferase 9 U/L (4-35); Albumin Level 2.4 g/dL (3.5-5.1); Alkaline Phosphatase 214 U/L (38-126); Anion Gap 7 mmol/L (8-16); Aspartate Amino Transferase 22 U/L (14-36); Bilirubin,Total 0.6 mg/dL (0.2-1.3); Blood Urea Nitrogen 27 mg/dL (7-17); Carbon Dioxide 17 mmol/L (22-30); Chloride 113 mmol/L (98-107); Estimated CRCL calculation 48 ml/min; Estimated Glomerular Filt Rate 49; Glucose 127 mg/dL (65-110); Magnesium 1.9 mg/dL (1.6-2.3); Phosphorus 3.3 mg/dL (2.5-4.5); Potassium 3.3 mmol/L (3.4-5.0); Sodium 137 mmol/L (137-145)
--- NOTE | 2021-02-13 06:56 | WPDGICN ---
Assessment and Plan Assessment and plan (1) Anemia: Qualifiers: Anemia type: iron deficiency Iron deficiency anemia type: unspecified iron deficiency Qualified Code(s): D50.9 - Iron deficiency anemia, unspecified Code(s): D64.9 - Anemia, unspecified Status: Acute Assessment and Plan: although there was no evidence of gastrointestinal bleed. This sudden drop in her hemoglobin suggest acute blood loss. She will be scheduled for EGD and colonoscopy to be done today. I discussed the procedures with the patient including the use of sedation, the possible risks such as bleeding or perforation or the possibility of cardiopulm (2) Hydronephrosis: Code(s): N13.30 - Unspecified hydronephrosis Status: Acute Assessment and Plan: this is a chronic condition. She has stage 3 chronic kidney disease which has been followed closely by her [facility]. (3) Leukocytosis: Code(s): D72.829 - Elevated white blood cell count, unspecified Status: Acute Assessment and Plan: Marked leukocytosis on admission has resolved after antibiotics. Infectious Disease has seen her and determined that she does not need further antibiotics at this time GI Consult Note Consult date/time: 02/13/21 06:56 HPI: Candace Eid is a 70 year old female with this severe drop in her blood counts over the last few days. She does have chronic kidney disease and hemoglobin runs around 8.8 or 9. On Saturday it dropped to 5.5. She required transfusion. She has not had any obvious evidence of bleeding such as bloody stools or even black tarry stools. She denies nausea or vomiting. She was hospitalized with a urinary tract infection. She has had several of these in the past and is plagued with chronic bilateral hydronephrosis. She has been under the care of a [facility]. She denies abdominal pain. She states that she was told in the past she was anemic and has iron deficiency but had not been started on iron although she and her primary care physician have discussed that in the past she has been bruising easily lately on admission she had a marked leukocytosis which has resolved. CT scan reveals cardiomegaly, hiatal hernia, adrenal adenoma, bilateral hydronephrosis and evidence of previous cholecystectomy. She states that she had a colonoscopy in the past that was normal. Review of Systems Review of Systems: All systems reviewed & are unremarkable except as noted in HPI and below PMFSH Past Medical History Medical History Abnormal mammogram of left breast Eosinophilic cystitis Gastro-esophageal reflux disease without esophagitis History of recurrent UTI (urinary tract infection) Hunner's ulcer Hyperglycemia Hypothyroidism Iron deficiency anemia Morbid obesity Obesity Stage 3b chronic kidney disease Surgical History Surgical History History of cholecystectomy History of hysterectomy History of meniscectomy of left knee History of meniscectomy of right knee Family History Family History Mother Hypertension Family history of diabetes mellitus in first degree relative Father Patient's father is , Onset Age: 93 Family history of respiratory disorder Social History Social History Social History: The patient is and lives with her and her mother who is in her 90s. Her is a durable power trademark attorney for healthcare. Patient is a full code. 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 Patient is lifelong nonsmoker. No alcohol marijuana or illicit drugs. Smoking status: Never smoker Second hand tobacco smoke exposure: No Alcohol intake: former Substance use: never Spiritual care concerns: No Meds Home Medications and Allergie
[2021-02-13] MEDS: EPOETIN ALFA-EPBX 10,000 UNITS/ML VIAL 10000 UNITS SUB-Q (09:07)
--- NOTE | 2021-02-13 09:29 | PM.IMPN ---
Progress Note: A&P Assessment and Plan (1) MARIBEL (acute kidney injury): Code(s): N17.9 - Acute kidney failure, unspecified Status: Acute Assessment and Plan: baseline creatinine around 1.6-2 CT abdomen with bilateral hydronephrosis noted right more than left Urology consultation appreciate the recommendation apparently hydronephrosis bilateral is chronic finding Nephrology consulted Avoid nephrotoxic medications particularly NSAIDs. She has been on naproxen at home on a regular basis which was discontinued on admission. Renal failure continue to improve down to 1.8 at the time of discharge which is not far away from her baseline. (2) UTI (urinary tract infection): Code(s): N39.0 - Urinary tract infection, site not specified Status: Acute (3) Hypothyroidism: Code(s): E03.9 - Hypothyroidism, unspecified Status: Acute Assessment and Plan: Thyroid level normal and continue levothyroxine. (4) Hunner's ulcer: Code(s): N30.10 - Interstitial cystitis (chronic) without hematuria Status: Acute Assessment and Plan: The patient sees urology for this. She had a cystoscopy with a biopsy and injection of steroid Urology consultation again appreciate the recommendation (5) Anemia: Qualifiers: Anemia type: iron deficiency Iron deficiency anemia type: unspecified iron deficiency Qualified Code(s): D50.9 - Iron deficiency anemia, unspecified Code(s): D64.9 - Anemia, unspecified Status: Acute Assessment and Plan: Appears to be stable continue to monitor. Continue to monitor No acute signs of bleeding. Continue to monitor (6) Physical deconditioning: Code(s): R53.81 - Other malaise Status: Acute Assessment and Plan: Evaluated by the PT OT and suggested she needs did further rehabilitation. first calender worker was consulted and arrangements were made for her to go to a rehabilitation center from here. (7) Leukocytosis: Code(s): D72.829 - Elevated white blood cell count, unspecified Status: Acute Additional Plan Acute on chronic normocytic anemia: now at baseline, but not clear why she had that acute drop in hemoglobin to 5.5-6.5 on 02/10. No external bleeding. Iron studies indicate she is not likely to beenefit from IV iron. GI on board for EGD & colonoscopy today. Postrenal MARIBEL, resolved. on CKD 3B: bilateral vesicoureteral reflux, hydronephrosis, seen by urology, agreed to catheter placement. Possible ATN per nephrology. Continue IV hydration. Improved close to baseline at this time. [place] acidosis probably related to CKD. Leukocytosis, resolved. ID service believes this was largely reactive to anemia. Will therefor no longer continue empiric antibiotics for UTI. If persistently high following resolution of hemoglobin, would need CT abdomen/pelvis in addition to Chest CT, however does not seem likely to need this at this time. Patient medically ready to go today, but she prefers to stay another day as she says she would feel more comfortable staying an additional day. Plan for discharge tomorrow. Time Spent With Patient Time with patient: less than 15 minutes Subjective Date/time seen: 02/13/21 09:29 no acute complaints asking about discharge timeline still on the fence regarding transfer to another facility Review of Systems Review of Systems: All systems reviewed & are unremarkable except as noted in HPI and below Exam Const: General: no acute distress Neck: Neck: no JVD Resp: Effort & Inspection: normal respiratory effort Auscultation: clear to auscultation bilaterally Cardio: Rate: regular rate Rhythm: regular rhythm GI: GI Palp: Yes Soft to palpation and No Tenderness to palpation present (GI) Objective Data Vital Signs Vital Signs: Vital Signs - 24 hr 02/12/21 14:41 02/12/21 20:30 02/12/21 22:00 Temperature 98.0 F 97.6 F Pulse Rate 86 86 98 Respiratory Rate 14 14 18 Blood Pressure 128
--- NOTE | 2021-02-13 10:51 | PCNWS ---
Weekly nutritional screen. Patient is tolerating current diet with adequate intake. No weight loss reported. No nutritional needs at this time.
[2021-02-13] MEDS: LACTATED RINGERS 1,000 ML 150 ML IV CONT (11:13)
--- NOTE | 2021-02-13 11:27 | WPDANESEPPF ---
Anes - Initial Pre Proc Eval Procedure: Operation Date: 02/13/21 13:00 Proposed Procedures p Esophagogastroduodenoscopy & Colonoscopy - Josue Mckenna MD Date/Time: 02/13/21 11:27 Surgeon: Angel Chisholm MD Pre Op Diagnosis: cruzito Patient Data Age: 70 Gender: F Height: 1.52 m Weight: 110.8 kg Last Vital Signs Temp 36.2 C L 02/13/21 11:12 Pulse 93 02/13/21 11:12 Resp 22 H 02/13/21 11:12 BP 124/60 02/13/21 11:12 Pulse Ox 100 02/13/21 11:12 Allergies Allergy/AdvReac Type Severity Reaction Status Date / Time propoxyphene Allergy Mild Nausea Verified 02/13/21 11:10 cefdinir AdvReac Intermediate DIZZINESS, Verified 02/13/21 11:10 DIARRHEA ciprofloxacin AdvReac Mild Muscle Pain Verified 02/13/21 11:10 Home Medications Medication Instructions Recorded Confirmed Type fexofenadine 180 mg tablet 180 mg PO DAILY 03/25/19 02/02/21 History naproxen 500 mg tablet 500 mg PO BID #180 tablet 09/02/20 02/02/21 Rx levothyroxine 50 mcg tablet 50 mcg PO DAILY #90 tablet 11/14/20 02/02/21 Rx magnesium 250 mg tablet 250 mg PO DAILY 11/24/20 02/02/21 History potassium chloride 10 mEq 10 meq PO EVERY OTHER DAY 11/24/20 02/02/21 History capsule,extended release tramadol 50 mg PO Q6H PRN #10 tablet 12/23/20 02/02/21 Rx Laboratory Tests 02/12/21 02/12/21 02/13/21 10:02 10:02 05:54 WBC 10.8 K/mm3 H K/mm3 (4.5-10.0) RBC 3.28 M/mm3 L M/mm3 (4.2-5.4) Hgb 8.6 g/dL L g/dL (12.0-15.0) Hct 26.9 % L % (37.0-47.0) MCV 82.0 fl fl (80-100) MCH 26.2 pg pg (26-34) MCHC 32.0 g/dl g/dl (32-36) RDW 18.7 % H % (11.5-14.5) Plt Count 451 k/mm3 H k/mm3 (150-375) MPV 9.0 fl fl (7.4-10.4) Immature Gran % (Auto) 5.3 % H % (0-0.5) Neut % (Auto) 77.5 % H % (45.5-73.1) Lymph % (Auto) 8.2 % L % (18.3-44.2) [place] % (Auto) 6.9 % % (2.6-8.5) Eos % (Auto) 1.3 % % (0-4.4) Baso % (Auto) 0.8 % % (0.2-1.2) Lymph # (Auto) 0.89 K/mm3 L K/mm3 (0.9-3.2) [place] # (Auto) 0.8 K/mm3 H K/mm3 (0.1-0.6) Eos # (Auto) 0.1 K/mm3 K/mm3 (0-0.3) Baso # (Auto) 0.1 K/mm3 K/mm3 (0.0-0.1) Abs Immat Gran (auto) 0.57 K/mm3 H K/mm3 (0.00-0.031) Absolute Neuts (auto) 8.4 K/mm3 H K/mm3 (1.3-6.7) Absolute Nucleated RBC 0.0 K/mm3 K/mm3 (0.0-0.012) Nucleated RBC % 0.4 % H % (0.0-0.2) Sodium Potassium Chloride Carbon Dioxide Anion Gap BUN Creatinine Estim Creat Clear Calc Estimated GFR Glucose Calcium Phosphorus Magnesium % Saturation 14 % L % (20-50) Total Bilirubin AST ALT Alkaline Phosphatase Total Protein Albumin Vitamin B12 > 1000.0 pg/mL H pg/mL (239-931) Folate 10.0 ng/mL ng/mL (2.76->20) 02/13/21 05:54 WBC RBC Hgb Hct MCV MCH MCHC RDW Plt Count MPV Immature Gran % (Auto) Neut % (Auto) Lymph % (Auto) [place] % (Auto) Eos % (Auto) Baso % (Auto) Lymph # (Auto) [place] # (Auto) Eos # (Auto) Baso # (Auto) Abs Immat Gran (auto) Absolute Neuts (auto) Absolute Nucleated RBC Nucleated RBC % Sodium 137 mmol/L mmol/L (137-145) Potassium 3.3 mmol/L L mmol/L (3.4-5.0) Chloride 113 mmol/L H mmol/L (98-107) Carbon Dioxide 17 mmol/L L mmol/L (22-30) Anion Gap 7 mmol/L L mmol/L (8-16) BUN 27 mg/dL H D mg/dL (7-17) Creatinine 1.10 mg/dL H mg/dL (0.7-1.0) Estim Creat Clear Calc 48 ml/min ml/min Estimated GFR 49 L (
[2021-02-13] MEDS: BENZOCAINE (*SP) 60 ML SPRAY CAN (HURRICAINE) 1 SPRAY MUCOUS MEM (12:02)
--- NOTE | 2021-02-13 12:30 | SUR.OPER ---
EGD START TIME 1206; END TIME 1210. COLONOSCOPY START TIME 1216; END TIME 1227.
[2021-02-13] MEDS: SODIUM BICARBONATE TAB 650 MG TABLET 1300 MG PO (16:07)
[2021-02-13] MEDS: SUCRALFATE 1 GM TABLET PO ×2 (16:07→20:53)
[2021-02-13] MEDS: POLYSACCHARIDE IRON COMPLEX 150 MG CAPSULE PO (16:07)
--- NOTE | 2021-02-13 16:20 | PM.PNNEP ---
Progress Note: A&P Assessment and Plan (1) MARIBEL (acute kidney injury): Code(s): N17.9 - Acute kidney failure, unspecified Status: Acute Assessment and Plan: improvememt noted in last 24 - 48 hours along with stable/good urine output - due to new copeland catheter placement done on 02/10/21 it would seem multifactorial etiology with regard to initial insult: - infection, anemia - deyhydration - outpatient NSAID use imaging noted (chronic changes, no acute findings) urine electrolytes non-prenal Now that she is hydrated and hemoglobin is better, her creatinine has come down to almost normal values. (2) Stage 3b chronic kidney disease: Code(s): N18.32 - Chronic kidney disease, stage 3b Status: Acute Assessment and Plan: etiology not clear but suspect due to recurrent obstruction(?) baseline creatinine runs around 1.7mg/dl Currently the creatinine is 1.1. This may be lower because of her bed rest while in the hospital leading to decrease creatinine production. (3) UTI (urinary tract infection): Code(s): N39.0 - Urinary tract infection, site not specified Status: Acute Assessment and Plan: urine culture with E.coli received adequate treatment Infectious Disease recommendations noted - WBC continues to improve Repeat urine culture on the was negative (4) Anemia: Qualifiers: Anemia type: iron deficiency Iron deficiency anemia type: unspecified iron deficiency Qualified Code(s): D50.9 - Iron deficiency anemia, unspecified Code(s): D64.9 - Anemia, unspecified Status: Acute Assessment and Plan: H/H better s/p PRBC transfusion on Epogen while hospitalized PRBC transfusion on 02/10/21 EGD and colonoscopy negative. 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 Subjective Date/time seen: 02/13/21 16:21 Interval history: Candace is feeling better. She had a colonoscopy an EGD which turned out okay. She is eating okay. Exam Narrative: General: WD/WN female in NAD Heart: normal S1 and S2; no rub Lungs: clear Abdomen: soft, nontender, nondistended, positive bowel sounds Extremities: no cyanosis or clubbing; trace edema Skin: No rash Objective Data Vital Signs Vital Signs: Vital Signs - 24 hr 02/12/21 20:30 02/12/21 22:00 02/13/21 06:00 Temperature 36.4 C 36.2 C L Pulse Rate 86 98 82 Respiratory Rate 14 18 18 Blood Pressure 112/48 L 127/59 L Pulse Oximetry 99 95 96 02/13/21 11:12 02/13/21 12:33 02/13/21 12:43 Temperature 36.2 C L Pulse Rate 93 78 81 Respiratory Rate 22 H 23 H 21 H Blood Pressure 124/60 74/31 L 116/41 L Pulse Oximetry 100 100 99 02/13/21 12:53 02/13/21 14:00 Temperature 36.4 C Pulse Rate 91 91 Respiratory Rate 19 18 Blood Pressure 107/66 124/61 Pulse Oximetry 98 99 Intake/Output Intake/Output: Intake & Output 02/10/21 02/11/21 02/12/21 02/13/21 23:59 23:59 23:59 23:59 Intake Total 4480 3010 4920 1750 Output Total 3000 2950 1000 Balance 4480 10 1970 750 Meds/Results Medications: Active Medications Generic Name Dose Route Start Last Admin Trade Name Freq PRN Reason Stop Dose Admin Acetaminophen 650 mg 02/02/21 15:13 02/06/21 20:21 Acetaminophen 325 Mg Tablet PO 650 mg Q4H PRN Administration Mild Pain (1-3) or Fever Benzocaine 1 lozenge 02/11/21 06:00 Benzocaine/Menthol (*Bkc) 18 Ea Lozenge PO PRN PRN Sore Throat Docusate Sodium 100 mg 02/04/21 21:00 02/13/21 07:45 Docusate Sodium 100 Mg Capsule PO Not Given Q12HR AZAEL Epoetin Dmitriy-epbx 10,000 units 02/03/21 14:35 02/13/21 09:07 Epoetin Dmitriy-Epbx 10,000 Units/Ml
--- NOTE | 2021-02-13 17:00 | WPDUROPN2 ---
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 She will need long-term catheterization. Christian catheter for now. She can go to rehab with the Christian catheter. Eventually she will need to be taught intermittent self catheterization. (2) Hydronephrosis: Code(s): N13.30 - Unspecified hydronephrosis Status: Acute Assessment and Plan: Due to bilateral vesicoureteral reflux Subjective Subjective Date/Time Seen: 02/13/21 17:00 Renal function has improved with catheter placement. She will need long-term bladder drainage. I discussed this with the patient Exam Const: General: cooperative HENMT: Head: normal to inspection Eyes: General: appearance normal, both eyes and all related structures Resp: Effort & Inspection: normal respiratory effort and able to speak in complete sentences Urinary Catheter: Urinary Catheter: patent and draining and urine clear Skin: General skin exam: normal color Neuro: General: oriented to person, oriented to place and oriented to time Objective Data Vital Signs Vital Signs: Vital Signs - 24 hr 02/12/21 20:30 02/12/21 22:00 02/13/21 06:00 Temperature 97.6 F 97.2 F L Pulse Rate 86 98 82 Respiratory Rate 14 18 18 Blood Pressure 112/48 L 127/59 L Pulse Oximetry 99 95 96 02/13/21 11:12 02/13/21 12:33 02/13/21 12:43 Temperature 97.1 F L Pulse Rate 93 78 81 Respiratory Rate 22 H 23 H 21 H Blood Pressure 124/60 74/31 L 116/41 L Pulse Oximetry 100 100 99 02/13/21 12:53 02/13/21 14:00 Temperature 97.6 F Pulse Rate 91 91 Respiratory Rate 19 18 Blood Pressure 107/66 124/61 Pulse Oximetry 98 99 Intake/Output Intake/Output: Intake & Output 02/10/21 02/11/21 02/12/21 02/13/21 23:59 23:59 23:59 23:59 Intake Total 4480 3010 4920 1750 Output Total 3000 2950 1000 Balance 4480 10 1970 750 Meds/Results Medications: Active Medications Generic Name Dose Route Start Last Admin Trade Name Freq PRN Reason Stop Dose Admin Acetaminophen 650 mg 02/02/21 15:13 02/06/21 20:21 Acetaminophen 325 Mg Tablet PO 650 mg Q4H PRN Administration Mild Pain (1-3) or Fever Benzocaine 1 lozenge 02/11/21 06:00 Benzocaine/Menthol (*Bkc) 18 Ea Lozenge PO PRN PRN Sore Throat Docusate Sodium 100 mg 02/04/21 21:00 02/13/21 07:45 Docusate Sodium 100 Mg Capsule PO Not Given Q12HR AZAEL Epoetin Dmitriy-epbx 10,000 units 02/03/21 14:35 02/13/21 09:07 Epoetin Dmitriy-Epbx 10,000 Units/Ml Vial SUB-Q 10,000 units MoWeFr@0900 AZAEL Administration Sodium Chloride 1,000 mls @ 100 mls/hr 02/09/21 18:45 02/13/21 06:35 Normal Saline Iv IV CONT 100 mls/hr .Q10H AZAEL Administration Levothyroxine Sodium 50 mcg 02/03/21 06:30 02/13/21 05:43 Levothyroxine Sodium 50 Mcg Tablet PO Not Given DAILY@0630 AZAEL Loratadine 10 mg 02/03/21 09:00 02/13/21 07:45 Loratadine 10 Mg Tablet PO Not Given QAM [facility] Magnesium Oxide 200 mg 02/03/21 09:00 02/13/21 07:45 Magnesium Oxide 200 Mg Tablet PO Not Given DAILY AZAEL Ondansetron HCl 4 mg 02/02/21 15:13 Ondansetron Inj 4 Mg/2 Ml Vial IV PUSH Q4H PRN Nausea Pantoprazole Sodium 40 mg 02/14/21 09:00 Pantoprazole 40 Mg Tablet PO QAM AZAEL Polyethylene Glycol 17 gm 02/04/21 12:25 02/06/21 09:00 Polyethylene Glycol 3350 17 Gm Powd.Pack PO 17 gm DAILY PRN Administration Constipation Polysaccharide Iron Complex 150 mg 02/13/21 17:00 02/13/21 16:07 Polysaccharide Iron Complex 150 Mg Capsule PO 150 mg BIDWM AZAEL Administration Sodium Bicarbonate 1,300 mg 02/04/21 17:00 02/13/21 16:07 Sodium Bicarbonate Tab 650 Mg Tablet PO 1,300 mg BID AZAEL Administration Sucralfate 1
[2021-02-13 20:27] LABS: IFOB Positive Control Positive; Immunochemical Fecal Occult Bl Positive (N)
[2021-02-13] MEDS: DOCUSATE SODIUM 100 MG CAPSULE PO (20:53)
[2021-02-14 06:00] VITALS: BP 118/55; PULSE 88; RESP 16; TEMP 36.9; O2SAT 97
[2021-02-14] MEDS: LEVOTHYROXINE SODIUM 50 MCG TABLET PO (06:28)
[2021-02-14] MEDS: SUCRALFATE 1 GM TABLET PO ×2 (06:28→12:15)
[2021-02-14 06:54] LABS: Hematocrit 27.9 % (37.0-47.0); Hemoglobin 8.5 g/dL (12.0-15.0); Mean Corpuscular HGB Conc 30.5 g/dl (32-36); Mean Corpuscular Hemoglobin 25.5 pg (26-34); Mean Corpuscular Volume 83.8 fl (80-100); Mean Platelet Volume 8.6 fl (7.4-10.4); Platelet Count Result 413 k/mm3 (150-375); Red Blood Count 3.33 M/mm3 (4.2-5.4); Red Cell Distribution Width 19.2 % (11.5-14.5); White Blood Count 7.7 K/mm3 (4.5-10.0)
[2021-02-14 07:13] LABS: Alanine Aminotransferase 10 U/L (4-35); Albumin Level 2.3 g/dL (3.5-5.1); Alkaline Phosphatase 181 U/L (38-126); Anion Gap 6 mmol/L (8-16); Aspartate Amino Transferase 24 U/L (14-36); Bilirubin,Total 0.5 mg/dL (0.2-1.3); Blood Urea Nitrogen 16 mg/dL (7-17); Carbon Dioxide 20 mmol/L (22-30); Chloride 114 mmol/L (98-107); Estimated CRCL calculation 48 ml/min; Estimated Glomerular Filt Rate 49; Glucose 98 mg/dL (65-110); Magnesium 1.8 mg/dL (1.6-2.3); Phosphorus 2.9 mg/dL (2.5-4.5); Potassium 3.2 mmol/L (3.4-5.0); Sodium 140 mmol/L (137-145)
--- NOTE | 2021-02-14 07:15 | WPDGIPROGNO ---
Progress Note: A&P Assessment and Plan (1) Anemia: Qualifiers: Anemia type: iron deficiency Iron deficiency anemia type: unspecified iron deficiency Qualified Code(s): D50.9 - Iron deficiency anemia, unspecified Code(s): D64.9 - Anemia, unspecified Status: Acute Assessment and Plan: 02/13 although there was no evidence of gastrointestinal bleed. This sudden drop in her hemoglobin suggest acute blood loss. She will be scheduled for EGD and colonoscopy to be done today. I discussed the procedures with the patient including the use of sedation, the possible risks such as bleeding or perforation or the possibility of cardiopulmonary issues. 02/14 I reviewed with her the results of her endoscopy, the petechial, hemorrhagic gastritis. This should respond quickly to pantoprazole and Carafate. Biopsies were negative for H pylori. I added that what I saw would not explain her drop in blood counts, given the fact that there was no blood in her stools, and yesterday her colon had light brown stool remaining as she had not taken all of her prep. But there was no black stool or blood in the colon to suggest that she had had an acute bleed. From my perspective she can be transferred or discharged today (2) Hydronephrosis: Code(s): N13.30 - Unspecified hydronephrosis Status: Acute Assessment and Plan: this is a chronic condition. She has stage 3 chronic kidney disease which has been followed closely by her information technology program manager. (3) Leukocytosis: Code(s): D72.829 - Elevated white blood cell count, unspecified Status: Acute Assessment and Plan: Marked leukocytosis on admission has resolved after antibiotics. Infectious Disease has seen her and determined that she does not need further antibiotics at this time Subjective Date/time seen: 02/14/21 07:15 She is feeling well this morning. Denies nausea vomiting or any bloody or abnormal stools. Denies abdominal pain. During the night, her mother at the patient's house. She is trying to help her makes arrangements. Also she is anticipating being moved to the rehabilitation unit today Review of Systems Review of Systems: All systems reviewed & are unremarkable except as noted in HPI and below Exam Const: General: alert Orientation/consciousness: patient oriented x3 Resp: Auscultation: clear to auscultation bilaterally Cardio: Rhythm: regular rhythm GI: GI Palp: Yes Soft to palpation and No Tenderness to palpation present (GI) Neuro: General: patient oriented x3 Objective Data Vital Signs Vital Signs: Vital Signs - 24 hr 02/13/21 11:12 02/13/21 12:33 02/13/21 12:43 Temperature 36.2 C L Pulse Rate 93 78 81 Respiratory Rate 22 H 23 H 21 H Blood Pressure 124/60 74/31 L 116/41 L Pulse Oximetry 100 100 99 02/13/21 12:53 02/13/21 14:00 02/13/21 21:58 Temperature 36.4 C 36.9 C Pulse Rate 91 91 90 Respiratory Rate 19 18 18 Blood Pressure 107/66 124/61 123/64 Pulse Oximetry 98 99 97 Intake/Output Intake/Output: Intake & Output 02/11/21 02/12/21 02/13/21 02/14/21 23:59 23:59 23:59 23:59 Intake Total 3010 4920 3120 Output Total 3000 2950 1900 Balance 10 1970 1220 Meds/Results Medications: Active Medications Generic Name Dose Route Start Last Admin Trade Name Freq PRN Reason Stop Dose Admin Acetaminophen 650 mg 02/02/21 15:13 02/06/21 20:21 Acetaminophen 325 Mg Tablet PO 650 mg Q4H PRN Administration Mild Pain (1-3) or Fever Benzocaine 1 lozenge 02/11/21 06:00 Benzocaine/Menthol (*Bkc) 18 Ea Lozenge PO PRN PRN Sore Throat Docusate Sodium 100 mg 02/04/21 21:00 02/13/21 20:53 Docusate Sodium 100 Mg Capsule PO 100 mg Q12HR AZAEL Administration Epoetin Dmitriy-epbx 10,000 units 02/03/21 14:35 02/13/21 09:07 Epoetin Dmitriy-Epbx 10,000 Units/Ml Vial SUB-Q 10,000 units MoWeFr@0900 AZAEL Administration Sodium Chl
[2021-02-14 07:32] LABS: Band Neutrophils Percent 8 % (0-6); Basophils Absolute Manual 0.07 K/mm3 (0.0-0.1); Basophils Percent Manual 1 % (0-1); Lymphocytes Absolute Manual 0.77 K/mm3 (1.1-4.5); Monocytes Percent Manual 4 % (3-9); Neutrophils Absolute Manual 6.54 K/mm3 (1.7-7.2); Neutrophils Percent Manual 77 % (46-73); Nucleated Red Blood Cells 2 %; Total Cells Counted 100
[2021-02-14 07:43] LABS: Platelet Estimate Increased (Adequate)
[2021-02-14 07:44] LABS: Hypochromasia 2+ (NORMAL); Poikilocytosis 1+ (NORMAL)
--- NOTE | 2021-02-14 08:01 | P.PNNP_ITS ---
Progress Note: A&P Assessment and Plan (1) MARIBEL (acute kidney injury): Code(s): N17.9 - Acute kidney failure, unspecified Status: Acute Assessment and Plan: * improvememt noted in last 24 - 48 hours along with stable/good urine output - due to new copeland catheter placement done on 02/10/21 it would seem * multifactorial etiology with regard to initial insult: - infection, anemia - deyhydration - outpatient NSAID use * imaging noted (chronic changes, no acute findings) * creatinine has returned to just about normal. (2) Stage 3b chronic kidney disease: Code(s): N18.32 - Chronic kidney disease, stage 3b Status: Acute Assessment and Plan: * etiology not clear but suspect due to recurrent obstruction(?) * Currently the creatinine is 1.1. * As good is this is, we will view from a distance. (3) UTI (urinary tract infection): Code(s): N39.0 - Urinary tract infection, site not specified Status: Acute Assessment and Plan: * urine culture with E.coli * received adequate treatment * Infectious Disease recommendations noted - WBC continues to improve * Repeat urine culture on the was negative (4) Anemia: Qualifiers: Anemia type: iron deficiency Iron deficiency anemia type: unspecified iron deficiency Qualified Code(s): D50.9 - Iron deficiency anemia, unspecified Code(s): D64.9 - Anemia, unspecified Status: Acute Assessment and Plan: * H/H better s/p PRBC transfusion * on Epogen while hospitalized * PRBC transfusion on 02/10/21 * EGD and colonoscopy negative. * follow trend of H/H (5) Hunner's ulcer: Code(s): N30.10 - Interstitial cystitis (chronic) without hematuria Status: Acute Assessment and Plan: * therapy/treatment as per Urology * continue supportive therapy Will continue to follow. Subjective Date/time seen: 02/14/21 08:01 Interval history: Candace is feeling better. Just weak. She hates the food but says that she would eat well if she got what she asked for. Exam Narrative: General: WD/WN female in NAD Heart: normal S1 and S2; no rub Lungs: clear bilaterally Abdomen: soft, nontender, nondistended, positive bowel sounds Extremities: no cyanosis or clubbing; trace edema Skin: No rash Objective Data Vital Signs Vital Signs: Vital Signs - 24 hr 02/13/21 11:12 02/13/21 12:33 02/13/21 12:43 Temperature 36.2 C L Pulse Rate 93 78 81 Respiratory Rate 22 H 23 H 21 H Blood Pressure 124/60 74/31 L 116/41 L Pulse Oximetry 100 100 99 02/13/21 12:53 02/13/21 14:00 02/13/21 21:58 Temperature 36.4 C 36.9 C Pulse Rate 91 91 90 Respiratory Rate 19 18 18 Blood Pressure 107/66 124/61 123/64 Pulse Oximetry 98 99 97 02/14/21 06:00 Temperature 36.9 C Pulse Rate 88 Respiratory Rate 16 Blood Pressure 118/55 L Pulse Oximetry 97 Intake/Output Intake/Output: Intake & Output 02/11/21 02/12/21 02/13/21 02/14/21 23:59 23:59 23:59 23:59 Intake Total 3010 4920 3120 300 Output Total 3000 2950 1900 700 Balance [facility] 1220 -400 Meds/Results Medications:
--- NOTE | 2021-02-14 08:01 | PM.PNNEP ---
Progress Note: A&P Assessment and Plan (1) MARIBEL (acute kidney injury): Code(s): N17.9 - Acute kidney failure, unspecified Status: Acute Assessment and Plan: improvememt noted in last 24 - 48 hours along with stable/good urine output - due to new copeland catheter placement done on 02/10/21 it would seem multifactorial etiology with regard to initial insult: - infection, anemia - deyhydration - outpatient NSAID use imaging noted (chronic changes, no acute findings) creatinine has returned to just about normal. (2) Stage 3b chronic kidney disease: Code(s): N18.32 - Chronic kidney disease, stage 3b Status: Acute Assessment and Plan: etiology not clear but suspect due to recurrent obstruction(?) Currently the creatinine is 1.1. As good is this is, we will view from a distance. (3) UTI (urinary tract infection): Code(s): N39.0 - Urinary tract infection, site not specified Status: Acute Assessment and Plan: urine culture with E.coli received adequate treatment Infectious Disease recommendations noted - WBC continues to improve Repeat urine culture on the was negative (4) Anemia: Qualifiers: Anemia type: iron deficiency Iron deficiency anemia type: unspecified iron deficiency Qualified Code(s): D50.9 - Iron deficiency anemia, unspecified Code(s): D64.9 - Anemia, unspecified Status: Acute Assessment and Plan: H/H better s/p PRBC transfusion on Epogen while hospitalized PRBC transfusion on 02/10/21 EGD and colonoscopy negative. 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 Subjective Date/time seen: 02/14/21 08:01 Interval history: Candace is feeling better. Just weak. She hates the food but says that she would eat well if she got what she asked for. Exam Narrative: General: WD/WN female in NAD Heart: normal S1 and S2; no rub Lungs: clear bilaterally Abdomen: soft, nontender, nondistended, positive bowel sounds Extremities: no cyanosis or clubbing; trace edema Skin: No rash Objective Data Vital Signs Vital Signs: Vital Signs - 24 hr 02/13/21 11:12 02/13/21 12:33 02/13/21 12:43 Temperature 36.2 C L Pulse Rate 93 78 81 Respiratory Rate 22 H 23 H 21 H Blood Pressure 124/60 74/31 L 116/41 L Pulse Oximetry 100 100 99 02/13/21 12:53 02/13/21 14:00 02/13/21 21:58 Temperature 36.4 C 36.9 C Pulse Rate 91 91 90 Respiratory Rate 19 18 18 Blood Pressure 107/66 124/61 123/64 Pulse Oximetry 98 99 97 02/14/21 06:00 Temperature 36.9 C Pulse Rate 88 Respiratory Rate 16 Blood Pressure 118/55 L Pulse Oximetry 97 Intake/Output Intake/Output: Intake & Output 02/11/21 02/12/21 02/13/21 02/14/21 23:59 23:59 23:59 23:59 Intake Total 3010 4920 3120 300 Output Total 3000 2950 1900 700 Balance 10 1970 1220 -400 Meds/Results Medications: Active Medications Generic Name Dose Route Start Last Admin Trade Name Freq PRN Reason Stop Dose Admin Acetaminophen 650 mg 02/02/21 15:13 02/06/21 20:21 Acetaminophen 325 Mg Tablet PO 650 mg Q4H PRN Administration Mild Pain (1-3) or Fever Benzocaine 1 lozenge 02/11/21 06:00 Benzocaine/Menthol (*Bkc) 18 Ea Lozenge PO PRN PRN Sore Throat Docusate Sodium 100 mg 02/04/21 21:00 02/13/21 20:53 Docusate Sodium 100 Mg Capsule PO 100 mg Q12HR AZAEL Administration Epoetin Dmitriy-epbx 10,000 units 02/03/21 14:35 02/13/21 09:07 Epoetin Dmitriy-Epbx 10,000 Units/Ml Vial SUB-Q 10,000 units MoWeFr@0900 AZAEL Administration Sodium Chloride 1,000 mls @ 100 mls/hr 02/09/21 18:45 02/13/21 20:57 Normal Saline Iv IV CONT
[2021-02-14] MEDS: DOCUSATE SODIUM 100 MG CAPSULE PO (08:59)
[2021-02-14] MEDS: POLYSACCHARIDE IRON COMPLEX 150 MG CAPSULE PO (08:59)
[2021-02-14] MEDS: SODIUM BICARBONATE TAB 650 MG TABLET 1300 MG PO (09:00)
[2021-02-14] MEDS: PANTOPRAZOLE 40 MG TABLET PO (09:00)
[2021-02-14] MEDS: MAGNESIUM OXIDE 200 MG TABLET PO (09:00)
[2021-02-14] MEDS: LORATADINE 10 MG TABLET PO (09:00)
--- NOTE | 2021-02-14 12:56 | PM.DS ---
DS: Admitting Diagnosis Discharge Date 02/14/21 Admitting Diagnosis (1) MARIBEL (acute kidney injury): Code(s): N17.9 - Acute kidney failure, unspecified Status: Acute Assessment and Plan: Will do a renal ultrasound and consult Nephrology. Continue with IV fluids. Hold nephrotoxic medicines. (2) UTI (urinary tract infection): Code(s): N39.0 - Urinary tract infection, site not specified Status: Acute Assessment and Plan: The patient stated that she was taking Macrobid since Saturday. However her urine is still positive for UTI. The patient's last culture in November was resistant to Macrobid. The patient was started on Primaxin. Urine and blood cultures are pending (3) Hypothyroidism: Code(s): E03.9 - Hypothyroidism, unspecified Status: Acute Assessment and Plan: Check thyroid level and continue levothyroxine. (4) Hunner's ulcer: Code(s): N30.10 - Interstitial cystitis (chronic) without hematuria Status: Acute Assessment and Plan: The patient sees urology for this. She had a cystoscopy with a biopsy and injection of steroid (5) Anemia: Qualifiers: Anemia type: iron deficiency Iron deficiency anemia type: unspecified iron deficiency Qualified Code(s): D50.9 - Iron deficiency anemia, unspecified Code(s): D64.9 - Anemia, unspecified Status: Acute Assessment and Plan: Appears to be stable continue to monitor. DS: Discharge Diagnosis Discharge Diagnosis (1) Eosinophilic cystitis: Code(s): N30.80 - Other cystitis without hematuria; D72.18 - Eosinophilia in diseases classified elsewhere Status: Acute (2) Hydronephrosis: Code(s): N13.30 - Unspecified hydronephrosis Status: Acute (3) Leukocytosis: Code(s): D72.829 - Elevated white blood cell count, unspecified Status: Acute (4) Physical deconditioning: Code(s): R53.81 - Other malaise Status: Acute (5) Stage 3b chronic kidney disease: Code(s): N18.32 - Chronic kidney disease, stage 3b Status: Acute (6) Hydronephrosis: Code(s): N13.30 - Unspecified hydronephrosis Status: Acute (7) MARIBEL (acute kidney injury): Code(s): N17.9 - Acute kidney failure, unspecified Status: Acute (8) Anemia: Qualifiers: Anemia type: iron deficiency Iron deficiency anemia type: unspecified iron deficiency Qualified Code(s): D50.9 - Iron deficiency anemia, unspecified Code(s): D64.9 - Anemia, unspecified Status: Acute (9) Hunner's ulcer: Code(s): N30.10 - Interstitial cystitis (chronic) without hematuria Status: Acute (10) UTI (urinary tract infection): Code(s): N39.0 - Urinary tract infection, site not specified Status: Acute (11) Hypothyroidism: Code(s): E03.9 - Hypothyroidism, unspecified Status: Acute (12) Chronic pain of both knees: Code(s): M25.561 - Pain in right knee; M25.562 - Pain in left knee; G89.29 - Other chronic pain Status: Acute DS: Summary Hospital Course Reason for hospitalization: Abdominal pain and nausea with mild confusion Hospital Course: 70-year-old female with recurrent history of UTIs presented to the hospital with chief complaint of abdominal pain and nausea with mild confusion. She was diagnosed with MARIBEL secondary to dehydration and started on Primaxin and IV fluids. Urology was consulted which confirmed that she has had several years of nonobstructive hydronephrosis extensively worked up in the outpatient setting. Infectious Disease was consulted due to her elevated wbc's and Nephrology. MARIBEL was considered to be multifactorial secondary to dehydration, outpatient use of NSAIDs, as well as, ATN secondary to acute infection. Dr. alexandre was consulted from Infectious Disease and recommended discontinuation of empiric antibiotics, culture of urine, CT chest abdomen and pelvis if wbc's did not improve. CT chest a
== END 2021-02-14 14:37 | DRG 682 ==
LOC: ANHED 16:05 → ANH3MEDSUR 02-03 09:15
PROVIDERS: Internal Medicine; Internal Medicine Gastroenterology; Internal Medicine Infectious Disease; Internal Medicine Nephrology; Nurse Practitioner; Admitting Provider Internal Medicine; Emergency Provider Family Medicine; PCP Internal Medicine; Visit Provider Hospitalist
PROC: 0DJ08ZZ Inspection of Upper Intestinal Tract, Via Natural or Artificial Opening Endoscopic (ICD-10-PCS; CPT 43235; principal; 2021-02-13 13:00)
DX: N17.9 Acute kidney failure, unspecified (principal); K29.71 Gastritis, unspecified, with bleeding; K29.81 Duodenitis with bleeding; N39.0 Urinary tract infection, site not specified; N13.30 Unspecified hydronephrosis; N30.80 Other cystitis without hematuria; D72.18 Eosinophilia in diseases classified elsewhere; N18.32 Chronic kidney disease, stage 3b; N14.1 Nephropathy induced by other drugs, medicaments and biological substances; T39.395A Adverse effect of other nonsteroidal anti-inflammatory drugs [NSAID], initial encounter; E86.0 Dehydration; Z23 Encounter for immunization; K21.00 Gastro-esophageal reflux disease with esophagitis, without bleeding; K63.5 Polyp of colon; D50.0 Iron deficiency anemia secondary to blood loss (chronic); D63.1 Anemia in chronic kidney disease; B96.20 Unspecified Escherichia coli [E. coli] as the cause of diseases classified elsewhere; E03.9 Hypothyroidism, unspecified; K21.9 Gastro-esophageal reflux disease without esophagitis; K44.9 Diaphragmatic hernia without obstruction or gangrene; R53.81 Other malaise; M17.0 Bilateral primary osteoarthritis of knee; M25.562 Pain in left knee; M25.561 Pain in right knee; G89.29 Other chronic pain; Z79.899 Other long term (current) drug therapy
CPT/HCPCS: 36415; 36430; 71045; 74176; 76775; 80048; 80053; 80069; 81001; 82274; 82550; 82570; 82607; 82728; 82746; 83540; 83550; 83615; 83690; 83735; 83883; 83970; 84100; 84156; 84300; 84443; 84466; 85025; 85027; 85046; 85652; 86038; 86160; 86162; 86334; 86335; 86850; 86900; 86901; 86920; 87040; 87077; 87081; 87086; 87088; 87186; 88305; 90471; 90653; 96361; 96365; 96366; 96367; 96372; 96375; 96376; 97110; 97116; 97163; 97166; 97530; 97535; 99285; A9270; G0008; G0378; J0696; J0743; J2270; J7030; J7050; J7120; P9016; Q5105

== ENCOUNTER 2021-03-04 19:27 | Inpatient (IN) | payer MEDICARE, SELFPAY ==
[2021-03-04] VITALS (9 sets, daily range): BP systolic 87–101; BP diastolic 45–90; PULSE 77–93; RESP 18–21; TEMP 37.1–37.2; O2SAT 92–100
--- NOTE | ~2021-03-04 | XR_ITS ---
XR chest 1V portable DATE: 03/04/2021 19:58 INDICATION: Cough TECHNIQUE: Portable AP chest on 03/04/2021 at 1952 hours COMPARISON: 02/15/2021 portable AP chest FINDINGS: There is mild bibasilar infiltrate and/or atelectasis. Heart size appears within normal range. Aortic arch calcification. No pleural effusion or pulmonary v ascular congestion or pneumothorax. Osteopenia. Dextro scoliosis and degenerative spurring of the thoracic and lumbar spine. Status post cholecystectomy. IMPRESSION: Mild bibasilar infiltrate and/or atelectasis Reviewed, dictated and finalized at location A.
--- NOTE | ~2021-03-04 | CT_ITS ---
EXAMINATION: CT abdomen pelvis w con DATE: 03/04/2021 20:44 INDICATION: Abdominal wall abscess TECHNIQUE: Computed tomography (CT) of the abdomen and pelvis was performed with 100 cc Omnipaque 350 intravenous contrast. Automated exposure control and iterative reconstruction technique were employe d. Exam dose: 1551.79 mGy-cm total exam DLP. COMPARISON: 02/02/2021 CT abdomen pelvis FINDINGS: There is extensive irregular abnormal air and fluid collection along the mid and left anter ior abdominal wall, beginning near midline well above the umbilicus and continuing into the anterolat eral left lower abdominal wall, measuring in excess of 24 cm transverse and up to 4 cm anteroposterio r dimension. There is surrounding fat stranding of the subcutaneous tissues of the left abdominal wal l. Borderline heart size. Trace pericardial fluid. There is minimal bilateral lower lobe dependent atelectasis. Status post cholecystectomy. The liver, spleen, pancreas are unremarkable. Chronic right adrenal mass, measuring up to 3 cm, stable since 04/24/2015 2.7 cm lower pole right left renal cyst. Bilateral renal cortical irregularity likely due to chronic pyelonephritis. Normal caliber of the abdominal aorta. No intraperitoneal or retroperitoneal or pelvic mass lesion or adenopathy or ascites. There is a Christian catheter in the evacuated urinary bladder. There is bladder wall thickening and corrine cystic fat stranding; cystitis is not excluded. No bowel obstruction, bowel wall thickening, pneumatosis or intraperitoneal free air. There is degenerative change of the thoracic spine and lumbar spine, including severe degenerative di sease at all lumbar interspaces, relatively sparing the L5-S1. There is very prominent degenerative c hange at the apophyseal joints with associated grade 2 anterolisthesis at L4-5. IMPRESSION: Very large abscess extending from above the umbilicus in the midline down into the anter olateral lower left abdominal wall Reviewed, dictated and finalized at [facility]. Reviewed, dictated and finalized at location A. IMPRESSION: Very large abscess extending from above the umbilicus in the midli ne down into the anterolateral lower left abdominal wall
--- NOTE | ~2021-03-04 | XR_ITS ---
EXAMINATION: XR chest PICC line DATE: 03/04/2021 22:25 INDICATION: PICC line placement TECHNIQUE: frontal view of the chest was obtained. COMPARISON: Chest radiograph dated 03/04/2021 at 7:52 PM FINDINGS: Interval placement of a right internal jugular central venous catheter with distal tip near the super ior cavoatrial junction. No evident PICC line. Mild bibasilar atelectasis. Pulmonary edema, pleural e ffusion or pneumothorax. Borderline heart size accounting for AP technique. IMPRESSION: 1. Right internal jugular central venous catheter tip near the superior cavoatrial junction. 2. Mild bibasilar atelectasis and borderline heart size. Reviewed, dictated and finalized at location A. SELING DIRECTOR IMPRESSION: 1. Right internal jugular central venous catheter tip near the superior cavoatr ial junction. 2. Mild bibasilar atelectasis and borderline heart size.
--- NOTE | 2021-03-04 19:44 | ECG_ITS ---
Measurements Intervals [place] Rate: 85 P: 13 ID: 158 QRS: -8 QRSD: 96 T: 30 QT: 383 QTc: 457 Interpretive Statements SINUS RHYTHM LOW QRS VOLTAGE IN PRECORDIAL LEADS BORDERLINE T WAVE ABNORMALITY- INFERIOR LEADS BASELINE ARTIFACT- I, II, III, AVR, AVL, V1-V2, V4-V6 BORDERLINE ECG Electronically Signed On 03-05-2021 6:58:43 DITCH REPAIRER by Tushar Muñoz D.O.
[2021-03-04 20:01] LABS: Hemoglobin 8.7 g/dL (12.0-15.0); Mean Corpuscular HGB Conc 31.1 g/dl (32-36); Mean Corpuscular Hemoglobin 25.5 pg (26-34); Mean Corpuscular Volume 82.1 fl (80-100); Platelet Count Result 257 k/mm3 (150-375); Red Blood Count 3.41 M/mm3 (4.2-5.4); Red Cell Distribution Width 18.8 % (11.5-14.5); White Blood Count 13.2 K/mm3 (4.5-10.0)
[2021-03-04] MEDS: SODIUM CHLORIDE 0.9% IV 1,000 ML 999 ML IV CONT (20:01)
--- NOTE | 2021-03-04 20:02 | ED.GENADULT ---
HPI - General Adult General Chief complaint: Unspecified Stated complaint: hypotensive, febrile Time Seen by Provider: 03/04/21 19:42 Source: RN notes reviewed History of Present Illness HPI narrative: Patient presents emergency department from [facility] via EMS for abdominal wall abscess. History is per the staff at the facility which was called as well as the patient patient questionably had a temperature of the facility today and was noted to have low blood pressures patient is noted to have a large draining abscess over the left abdominal wall facility states that was not there approximately a week ago and is unsure when it initially began. Patient states she has been feeling generally weak she does have a history of a chronic indwelling Christian and has recurrent issues with interstitial cystitis for which she is followed by urology she denies any chest pain shortness of breath or any other symptoms Related Data Home Medications Medication Instructions Recorded Confirmed fexofenadine 180 mg tablet 180 mg PO DAILY 03/25/19 02/02/21 magnesium 250 mg tablet 250 mg PO DAILY 11/24/20 02/02/21 Allergies Allergy/AdvReac Type Severity Reaction Status Date / Time propoxyphene Allergy Mild Nausea Verified 02/13/21 11:10 cefdinir AdvReac Intermediate DIZZINESS, Verified 02/13/21 11:10 DIARRHEA ciprofloxacin AdvReac Mild Muscle Pain Verified 02/13/21 11:10 Review of Systems Review of Systems: Gen.: Reports subjective fever ENT: Denies congestion Respiratory: Denies shortness of breath or cough CV: Denies chest pain or palpitations GI: Denies abdominal pain nausea, emesis or diarrhea d reports chronic indwelling Christian with interstitial cystitis Musculoskeletal: Denies back pain or muscle pain Neuro: Denies numbness, tingling, weakness or focal weakness Skin: See HPI Except as documented, all other systems reviewed and negative PEND[facility] TO [facility] Past Medical History Medical History Abnormal mammogram of left breast Anemia Chronic pain of both knees Eosinophilic cystitis Eosinophilic cystitis Gastro-esophageal reflux disease without esophagitis History of recurrent UTI (urinary tract infection) Hunner's ulcer Hyperglycemia Hypothyroidism Iron deficiency anemia Leukocytosis Morbid obesity Obesity Stage 3b chronic kidney disease Surgical History Surgical History History of cholecystectomy History of hysterectomy History of meniscectomy of left knee History of meniscectomy of right knee Family History Family History Mother Hypertension Family history of diabetes mellitus in first degree relative Father Patient's father is , Onset Age: 93 Family history of respiratory disorder Social History Social History Social History: The patient is and lives with her and her mother who is in her 90s. Her is a durable power assistant county attorney for healthcare. Patient is a full code. 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 Patient is lifelong nonsmoker. No alcohol marijuana or illicit drugs. Smoking status: Never smoker Second hand tobacco smoke exposure: No Alcohol intake: former Substance use: never Spiritual care concerns: No Exam Narrative: APPEARANCE: No acute distress, nontoxic, resting in bed HEENT: Normocephalic, atraumatic, OMM RESPIRATORY: No respiratory distress, clear to auscultation bilaterally with no rhonchi wheezing or rales CARDIOVASCULAR: RRR s murmur ABDOMINAL: Soft nondistended tender palpation left upper quadrant left lower quadrant no rebound or guarding MUSCULOSKELETAl: Moves all extremities. No clubbing, cyanosis or edema. NEURO: Awake and alert. Following commands, speech normal, no focal deficits SKIN:: Warm, dry. Normal Color PSYCHIATRIC: Normal affe
[2021-03-04 20:12] LABS: Add Urine Microscopic? YES; Appearance Urine Turbid (Clear); Bacteria Urine 2+ /hpf; Bilirubin Urine Negative (Negative); Blood Urine 3+ (Negative); Color Urine Yellow (Yellow); Glucose Urine UA Negative (Negative); Ketones Urine Negative (Negative); Leukocyte Esterase Ur 3+ LEU/UL (Negative); Nitrate Urine Negative (Negative); Protein Urine 2+ mg/dL (Negative); Specific Grav Ur 1.014 (1.001-1.035); Urobilinogen Urine Negative mg/dL (<2.0); WBC Urine >75 /hpf
[2021-03-04 20:17] LABS: Alanine Aminotransferase 13 U/L (4-35); Albumin Level 2.6 g/dL (3.5-5.1); Alkaline Phosphatase 104 U/L (38-126); Anion Gap 11 mmol/L (8-16); Aspartate Amino Transferase 19 U/L (14-36); Bilirubin,Total 1.2 mg/dL (0.2-1.3); Blood Urea Nitrogen 38 mg/dL (7-17); Calcium 7.8 mg/dL (8.4-10.2); Carbon Dioxide 22 mmol/L (22-30); Chloride 100 mmol/L (98-107); Estimated CRCL calculation 42 ml/min; Estimated Glomerular Filt Rate 40; Glucose 114 mg/dL (65-110); INR 1.3; Potassium 3.1 mmol/L (3.4-5.0); Prothrombin Time 16.2 Seconds (11.1-14.7); Sodium 133 mmol/L (137-145)
[2021-03-04 20:18] LABS: Lactic Acid Reflex 1.6 mmol/L (0.7-2.1)
[2021-03-04 20:25] LABS: Magnesium 1.9 mg/dL (1.6-2.3)
[2021-03-04 20:28] LABS: Band Neutrophils Percent 44 % (0-6); Lymphocytes Absolute Manual 0.66 K/mm3 (1.1-4.5); Monocytes Absolute Manual 0.52 K/mm3 (0.1-0.90); Monocytes Percent Manual 4 % (3-9); Neutrophils Absolute Manual 12.01 K/mm3 (1.7-7.2); Neutrophils Percent Manual 47 % (46-73); Nucleated Red Blood Cells 2 %; Total Cells Counted 100
[2021-03-04 20:29] LABS: Ovalocytes 2+ (NORMAL); Platelet Estimate Adequate (Adequate)
--- NOTE | 2021-03-04 21:50 | PC.NURSE ---
EDP at bedside for central line placement
--- NOTE | 2021-03-04 21:55 | WPDANESEPP ---
Anes - Eval Pre Procedure Procedure: I and D abscess Date/Time: 03/04/21 21:55 Preop Diagnosis: Abdominal abscess Pre Op Diagnosis: hypotensive, febrile Patient Data Age: 70 Gender: F Height: 1.65 m Weight: 99.5 kg Last Vital Signs Temp 98.9 F 03/04/21 19:26 Pulse 86 03/04/21 21:49 Resp 19 03/04/21 21:49 BP 95/51 L 03/04/21 21:49 Pulse Ox 94 03/04/21 21:49 Allergies Allergy/AdvReac Type Severity Reaction Status Date / Time propoxyphene Allergy Mild Nausea Verified 02/13/21 11:10 cefdinir AdvReac Intermediate DIZZINESS, Verified 02/13/21 11:10 DIARRHEA ciprofloxacin AdvReac Mild Muscle Pain Verified 02/13/21 11:10 Home Medications Medication Instructions Recorded Confirmed Type fexofenadine 180 mg tablet 180 mg PO DAILY 03/25/19 02/02/21 History levothyroxine 50 mcg tablet 50 mcg PO DAILY #90 tablet 11/14/20 02/02/21 Rx magnesium 250 mg tablet 250 mg PO DAILY 11/24/20 02/02/21 History tramadol 50 mg PO Q6H PRN #10 tablet 12/23/20 02/02/21 Rx acetaminophen [Mapap 650 mg PO Q4H PRN #30 tablet 02/07/21 Rx (acetaminophen)] docusate sodium 100 mg PO Q12HR PRN #30 cap 02/07/21 Rx pantoprazole 40 mg PO QAM 30 Days #30 tablet 02/14/21 Rx polysaccharide iron complex 150 mg PO BIDWM #14 cap 02/14/21 Rx sodium bicarbonate 1,300 mg PO BID 30 Days #120 tablet 02/14/21 Rx sucralfate 1 g PO ACHS 30 Days #120 tablet 02/14/21 Rx Laboratory Tests 03/04/21 03/04/21 03/04/21 19:50 19:50 19:50 WBC 13.2 K/mm3 H K/mm3 (4.5-10.0) RBC 3.41 M/mm3 L M/mm3 (4.2-5.4) Hgb 8.7 g/dL L g/dL (12.0-15.0) Hct 28.0 % L % (37.0-47.0) MCV 82.1 fl fl (80-100) MCH 25.5 pg L pg (26-34) MCHC 31.1 g/dl L g/dl (32-36) RDW 18.8 % H % (11.5-14.5) Plt Count 257 k/mm3 k/mm3 (150-375) MPV 9.0 fl fl (7.4-10.4) Immature Gran % (Auto) Not Reportable Neut % (Auto) Not Reportable Lymph % (Auto) Not Reportable [place] % (Auto) Not Reportable Eos % (Auto) Not Reportable Baso % (Auto) Not Reportable Lymph # (Auto) Not Reportable [place] # (Auto) Not Reportable Eos # (Auto) Not Reportable Baso # (Auto) Not Reportable Abs Immat Gran (auto) Not Reportable Absolute Neuts (auto) Not Reportable Absolute Nucleated RBC Not Reportable Total Counted 100 Neutrophils % (Manual) 47 % % (46-73) Band Neutrophils % 44 % H % (0-6) Lymphocytes % (Manual) 5.0 % L % (18-44) Monocytes % (Manual) 4 % % (3-9) Nucleated RBC % Not Reportable Abs Neuts (Manual) 12.01 K/mm3 H K/mm3 (1.7-7.2) Abs Lymphs (Manual) 0.66 K/mm3 L K/mm3 (1.1-4.5) Abs Monocytes (Manual) 0.52 K/mm3 K/mm3 (0.1-0.90) Nucleated RBCs 2 % % Platelet Estimate Adequate (Adequate) Ovalocytes 2+ (NORMAL) PT 16.2 Seconds H Seconds (11.1-14.7) INR 1.3 APTT 28.0 SECONDS SECONDS (22.3-36.8) Sodium Potassium Chloride Carbon Dioxide Anion Gap BUN Creatinine Estim Creat Clear Calc Estimated GFR Glucose Lactic Acid Calcium Magnesium Total Bilirubin AST ALT Alkaline Phosphatase Total Protein Albumin Urine Color Yellow (Yellow) Urine Appearance Turbid H (Clear) Urine pH 6.0 (5.0-9.0) Ur Specific [place] 1.014 (1.001-1.035) Urine Protein 2+ mg/dL H mg/dL (Negative) Urine Glucose (UA) Negative mg/dL mg/dL (Negative) Urine Ketones Negative mg/dL mg/dL
--- NOTE | 2021-03-04 22:27 | PM.CNGS ---
Assessment and Plan Assessment and plan (1) Abdominal wall abscess: Code(s): L02.211 - Cutaneous abscess of abdominal wall Status: Acute Assessment and Plan: severe infection, given sepsis will take to OR emergently for debridement and drainage, cont IV abx (2) Sepsis: Code(s): A41.9 - Sepsis, unspecified organism Status: Acute Assessment and Plan: IV abx, cx taken and await sensitivities, will need ICU monitoring History of Present Illness Consult details Consult date: 03/04/21 Reason for consult: wound care Requesting physician: Toshia Lawson DO Narrative: Pt is a 70 y/o F presenting to the ED from rehab facility with fevers, hypotension, abdominal wall abscess. Pt reports area has been present over last few days but began to really become painful today. Pt reports skin has began to breakdown in the area and it has been draining foul smelling fluid. Pt found to be hypotensive in ED despite resuscitation of 3 L. Review of Systems Constitutional: Constitutional: Reports body ache(s), Reports chills, Reports fatigue, Reports fever(s), Reports malaise, Reports poor appetite and Reports weakness Eyes: Eyes: Reports no additional eye complaints ENT: Reports system reviewed and no additional complaints, except as documented Cardiovascular: Cardiovascular: Reports no additional cardiovascular complaints Respiratory: Respiratory: Reports no additional respiratory complaints Gastrointestinal: Gastrointestinal: Reports abdominal pain, Denies change in stool character, Reports nausea and Denies vomiting Genitourinary: Comments: h/o indwelling catheter Musculoskeletal: Musculoskeletal: Reports as per HPI Integumentary/Breasts: Skin/Breast: Reports as per HPI Neurologic: Reports system reviewed and no additional complaints, except as documented Psychiatric: Psychiatric: Reports no additional psychiatric complaints Endocrine: Endocrine: Reports no additional endocrine complaints Hematologic/Lymphatic: Hematologic/Lymphatic: Reports no additional hematologic/lymphatic complaints Allergic/Immunologic: Allergic/Immunologic: Reports no additional allergic/immunologic complaints [facility] Past Medical History Medical History Abnormal mammogram of left breast Anemia Chronic pain of both knees Eosinophilic cystitis Eosinophilic cystitis Gastro-esophageal reflux disease without esophagitis History of recurrent UTI (urinary tract infection) Hunner's ulcer Hyperglycemia Hypothyroidism Iron deficiency anemia Leukocytosis Morbid obesity Obesity Stage 3b chronic kidney disease Surgical History Surgical History History of cholecystectomy History of hysterectomy History of meniscectomy of left knee History of meniscectomy of right knee Family History Family History Mother Hypertension Family history of diabetes mellitus in first degree relative Father Patient's father is , Onset Age: 93 Family history of respiratory disorder Social History Social History Social History: The patient is and lives with her and her mother who is in her 90s. Her is a durable power trade mark attorney for healthcare. Patient is a full code. 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 Patient is lifelong nonsmoker. No alcohol marijuana or illicit drugs. Smoking status: Never smoker Second hand tobacco smoke exposure: No Alcohol intake: former Substance use: never Spiritual care concerns: No Meds Home Medications and Allergies Home Medications Medication Instructions Recorded Confirmed Type fexofenadine 180 mg tablet 180 mg PO DAILY 03/25/19 02/02/21 History levothyroxine 50 mcg tablet 50 mcg PO DAILY #90 tablet 11/14/20 02/02/21 Rx magnes
[2021-03-04] MEDS: SODIUM CHLORIDE 0.9% IV 1,000 ML 125 ML IV CONT (22:36)
--- NOTE | 2021-03-04 22:43 | WPDHPUPDATE1 ---
History and Physical Update Update Date/Time: 03/04/21 22:43 History and Physical has been reviewed, including an updated exam of the patient. There are NO changes in the patient's condition. Risks, benefits, and alternatives have been discussed and questions answered. Patient agrees to proceed with procedure.
[2021-03-04 23:17] LABS: CRP 27.8 mg/dL (<1.0)
--- NOTE | 2021-03-04 23:23 | P.OP_ITS ---
Procedure Note - Detailed Date of Procedure 03/04/21 Pre-op Diagnosis Necrotizing abdominal wall infection, abscess Post-op Diagnosis same Procedure Performed Debridement of necrotizing wound infection including skin and subcutaneous tiss ue, complex drainage of abdominal wall abscess measuring approximately 30 by 15 by 10 cm Surgeon Leni Calvillo MD Anesthesia general Indications Patient is a 70-year-old female presenting to the emergency department with abdominal wall infection, sepsis. Findings Necrotizing abdominal wall infection measuring approximately 30 x 15 x 10 cm, copious amount of foul-smelling purulent fluid of 1 L Description of Procedure The patient was taken the operating room and placed in the supine position. After adequate induction of general anesthesia, the patient was prepped and d raped in the normal sterile fashion. A time-out was then done to verify the patient's identity, as well as the procedure being performed. I began by debriding the necrotic tissue in the left lower abdomen that measured approximately 7 x 5 cm, this necrotic tissue was noted to encompass the dermis as well as subcutaneous fat. Once into the cavity, a large amount of foul- smelling purulent drainage was noted. Using the suction, we were able to suction approximately 1 L of purulent drainage. Once the area was completely drained, I used the suction as well as my hand to break up further loculations and get the cavity completely open and drain. Once this was achieved, the cavity measured approximately 30 by 15 x 10 cm. I then copiously washed out this cavity. I debrided some further liquified fat. I then packed the cavity with Betadine-soaked Kerlix x2. Sterile dressing was then placed. Patient was extubated in the operating room postoperatively and will be transferred to the recovery in critical condition. Implants Betadine soaked Kerlix x2 Estimated Blood Loss 10 Drains No Packing Yes Pathology none sent Complications No immediate complications Condition critical Disposition ICU
[2021-03-04] MEDS: LACTATED RINGERS 1,000 ML 30 ML IV CONT (23:32)
[2021-03-05] VITALS (27 sets, daily range): BP systolic 87–137; BP diastolic 45–83; PULSE 70–101; RESP 16–27; TEMP 27.2–37.1; O2SAT 84–100; BMI 34.9
--- NOTE | 2021-03-05 01:06 | PM.IMHP ---
H&P: HPI History of Present Illness Date/Time: 03/04/21 22:10 Chief Complaint: Low blood pressure, abdominal wound Narrative: 70-year-old female with a past medical history of eosinophilic cystitis with chronic indwelling Christian catheter, Hunners ulcers of the bladder, obesity and hypothyroidism who presented to the ER from [facility] via EMS due to abdominal wound and low blood pressures. Source of information is patient report and patient's 's report. The patient reported that she has been having some abdominal pain for few days. Her reported that she developed some erythema over the left lower abdomen yesterday. He reports that the skin was tight and shiny red. When she woke up this morning she had a necrotic appearing wound in that same area. The wound was large draining and foul smelling. The referring facility stated the patient had a fever. The patient reports feeling generally more fatigued than usual and was lethargic at the time of my evaluation. She was alert and oriented x3. She denies any nausea or vomiting. She has a chronic indwelling Christian catheter that has been draining without difficulty. As far as I can tell her catheter was last exchanged during her hospitalization in January between the and the . Contrasted CT scan of the abdomen pelvis demonstrated very large abscess extending from above the umbilicus down the midline into the anterior lateral left lower abdominal wall. The LRINEC score was 8 indicating high risk for necrotizing fasciitis. The wound in the left lower abdominal wall appeared to be necrotic in appearance. The patient had profound bandemia on CBC with 44% bands. Subsequently the patient being taken directly to no OR for surgical debridement. In the OR 1 L of purulent material was debrided from the wound with final dimensions of 30 x 15 x 10 cm. Intraoperatively patient received 100 mcg of phenylephrine. The patient's blood pressures on arrival to the ICU for 93/45 with a map between 60 and 65. Review of Systems Review of Systems: Review of systems limited to page critical condition. The patient was taken urgently to the OR limiting my evaluation. [facility] Past Medical History Medical History (Updated 03/05/21 @ 01:52 CDT by Toshia Lawson DO) Abnormal mammogram of left breast Anemia Chronic pain of both knees Eosinophilic cystitis Gastro-esophageal reflux disease without esophagitis History of recurrent UTI (urinary tract infection) Hunner's ulcer Hyperglycemia Hypothyroidism Iron deficiency anemia Morbid obesity Stage 3b chronic kidney disease Surgical History Surgical History (Reviewed 03/05/21 @ 01:35 CDT by Toshia Lawson DO) History of cholecystectomy History of hysterectomy History of meniscectomy of left knee History of meniscectomy of right knee Family History Family History (Reviewed 03/05/21 @ 01:35 CDT by Toshia Lawson DO) Mother Hypertension Family history of diabetes mellitus in first degree relative Father Patient's father is , Onset Age: 93 Family history of respiratory disorder Social History Social History (Reviewed 03/05/21 @ 01:35 CDT by Toshia Lawson DO) Social History: The patient is and lives with her and her mother who is in her 90s. Her is a durable power regulatory attorney for healthcare. Patient is a full code. 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 Patient is lifelong nonsmoker. No alcohol marijuana or illicit drugs. Smoking status: Never smoker Second hand tobacco smoke exposure: No Alcohol intake: never Substance use: never Substance use type: does not use Spiritual care concerns: No Meds Home Medications and Allergies Home Medications Medication Instructions Recorded Confirmed Type fexofenadine 180 mg tablet 180 mg PO DAILY 03/25/19 02/02/21 History levothyroxine 50 mcg tablet 50 mcg PO DAILY #90 tablet 11/14/20 02/02/21 Rx mag
--- NOTE | 2021-03-05 01:09 | ADMIMU ---
This patient, Candace Eid, was admitted to IMU status, and placed in Intensive Care Unit-1 03/05/21 at 0030. Patient/family oriented to hospital policies and general routines including ID bracelet, bed and alarms, visiting hours, pain management, procedures, bathroom and other care routines, personal items, smoking policy, room service/diet, and visiting hours. Valuables list has been completed. Information on how to activate the Rapid Response Team has been discussed. Patient/Family are encouraged to report perceived risks to care and to ask questions if they do not understand what they are told or what they should do.
[2021-03-05] MEDS: SODIUM CHLORIDE 0.9% IV 500 ML 999 ML IV CONT ×2 (01:25→02:00)
[2021-03-05] MEDS: NOREPINEPHRINE 8 MG/D5W 250 ML 8 MG/250 ML BAG 9.38 MG IV CONT (01:52)
[2021-03-05] MEDS: SODIUM CHLORIDE 0.9% IV 1,000 ML 125 ML IV CONT ×3 (02:00→18:02)
--- NOTE | 2021-03-05 02:43 | PC.NURSE ---
Daylight Savings Time For Daylight Savings Time Ending in the Fall - Clocks are moved back. For Daylight Savings Time Beginning in the Spring - Clocks are moved ahead. For [facility], the time of change occurs at 0200 hrs. Time is taken from the server assistant. This entry on the patient's chart recognizes the change in time reflected during documentation. Example: 2 entries for vital signs may be charted for 0200 hrs.
--- NOTE | 2021-03-05 05:26 | PC.NURSE ---
0430 03/05/21 top layer of super sponge removed per Dr Calvillo and dressing reinforced. Erythema extends to 4 in lateral from incision.
[2021-03-05] MEDS: HEPARIN SODIUM 5,000 UNITS/ML VIAL 5000 UNITS SUB-Q ×3 (06:03→20:27)
[2021-03-05 06:04] LABS: Hematocrit 24.9 % (37.0-47.0); Hemoglobin 7.8 g/dL (12.0-15.0); Mean Corpuscular HGB Conc 31.3 g/dl (32-36); Mean Corpuscular Hemoglobin 25.2 pg (26-34); Mean Corpuscular Volume 80.6 fl (80-100); Mean Platelet Volume 8.7 fl (7.4-10.4); Platelet Count Result 252 k/mm3 (150-375); Red Blood Count 3.09 M/mm3 (4.2-5.4); White Blood Count 16.5 K/mm3 (4.5-10.0)
[2021-03-05 06:25] LABS: Alanine Aminotransferase 12 U/L (4-35); Albumin Level 2.2 g/dL (3.5-5.1); Alkaline Phosphatase 95 U/L (38-126); Anion Gap 6 mmol/L (8-16); Aspartate Amino Transferase 19 U/L (14-36); Bilirubin,Total 1.1 mg/dL (0.2-1.3); Blood Urea Nitrogen 29 mg/dL (7-17); Calcium 7.3 mg/dL (8.4-10.2); Carbon Dioxide 21 mmol/L (22-30); Chloride 106 mmol/L (98-107); Estimated CRCL calculation 48 ml/min; Estimated Glomerular Filt Rate 49; Glucose 148 mg/dL (65-110); Magnesium 1.8 mg/dL (1.6-2.3); Sodium 133 mmol/L (137-145)
[2021-03-05 07:20] LABS: CRP 27.8 mg/dL (<1.0)
[2021-03-05 07:30] LABS: Band Neutrophils Percent 8 % (0-6); Lymphocytes Absolute Manual 0.66 K/mm3 (1.1-4.5); Metamyelocytes Percent 1 %; Monocytes Absolute Manual 0.16 K/mm3 (0.1-0.90); Monocytes Percent Manual 1 % (3-9); Neutrophils Absolute Manual 15.51 K/mm3 (1.7-7.2); Neutrophils Percent Manual 86 % (46-73); Platelet Estimate Adequate (Adequate); Total Cells Counted 100
[2021-03-05 07:32] LABS: Ovalocytes 1+ (NORMAL)
[2021-03-05 08:35] LABS: NT Pro B Type Natriuretic Pept 2390 pg/mL (5-100)
[2021-03-05] MEDS: CALCIUM GLUC 2,000 MG/NS 100ML 2,000 MG/100 ML BAG 100 MG IVPB (08:47)
[2021-03-05] MEDS: POTASSIUM CHLORIDE 20 MEQ PACKET (FOR LIQUID) 40 MEQ PO (08:47)
[2021-03-05] MEDS: MAGNESIUM SULF 1 GM/D5W 100 ML 1 GM/100 ML BAG IVPB (08:51)
--- NOTE | 2021-03-05 09:50 | WPDCNINT ---
Assessment and Plan Assessment and plan (1) Septic shock: Code(s): A41.9 - Sepsis, unspecified organism; R65.21 - Severe sepsis with septic shock Status: Acute Assessment and Plan: Patient received 3 L of IV fluid bolus and is on IV fluids infusion She is also on Levophed to maintain her map She is overall volume overloaded as evidenced by lower extremity edema I will add 25% albumin to improve and cardiac pressure to try to get her off of vasopressors (2) Abdominal wall abscess: Code(s): L02.211 - Cutaneous abscess of abdominal wall Status: Acute Assessment and Plan: Patient was found to be having necrotizing abdominal wall infection with large abscess Pt underwent Debridement of necrotizing wound infection including skin and subcutaneous tissue, complex drainage of abdominal wall abscess measuring approximately 30 by 15 by 10 cm last night General surgery is following and managing Continue Zosyn antibiotic Blood cultures have been sent and are pending Continue local wound care dressing changes as per surgery recommendation. She may need wound VAC Clear liquid diet (3) MARIBEL (acute kidney injury): Code(s): N17.9 - Acute kidney failure, unspecified Status: Acute Assessment and Plan: Present with slightly elevated creatinine which was likely prerenal and improved with fluids. Creatinine today is 1.1 which is the lowest recorded in her chart. Continue IV fluids monitor urine output and creatinine along with electrolytes (4) Hypothyroidism: Code(s): E03.9 - Hypothyroidism, unspecified Status: Acute Assessment and Plan: Resume levothyroxine Check TSH (5) Lower extremity edema: Code(s): R60.0 - Localized edema Status: Acute Assessment and Plan: Check BNP and echo (6) Anemia: Code(s): D64.9 - Anemia, unspecified Status: Acute Assessment and Plan: Patient appears to have chronic anemia Will transfuse if hemoglobin is less than 7 monitor (7) Electrolyte abnormality: Code(s): E87.8 - Other disorders of electrolyte and fluid balance, not elsewhere classified Status: Acute Assessment and Plan: Replace low potassium and calcium Additional Plan DVT prophylaxis -subcu heparin Stress ulcer prophylaxis -resume PPI as patient is on PPI at home Nutrition -clear liquid diet Code Status - Full Code Discussed case with Dr. Calvillo with General surgery Total Critical Care Time - 35 minutes Due to a high probability of clinically significant, life threatening deterioration, the patient required my highest level of preparedness to intervene emergently and I personally spent this critical care time directly and personally managing the patient. This critical care time included obtaining a history; examining the patient; pulse oximetry; ordering and review of studies; arranging urgent treatment with development of a management plan; evaluation of patient's response to treatment; frequent reassessment; and discussions with other providers. It was exclusive of separately billable procedures and treating other patients and teaching time. 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 Patient is a poor historian and reported that she has been having some abdominal pain for few days. On presentation, Her reported that she developed some erythema over the left lower abdomen yesterday. He reports that the skin was tight and shiny red. When she woke up this morning she had a necrotic appearin
--- NOTE | 2021-03-05 09:55 | PM.PNGS ---
Progress Note: A&P Assessment and Plan (1) Abdominal wall abscess: Code(s): L02.211 - Cutaneous abscess of abdominal wall Status: Acute Assessment and Plan: local wound care, abx, follow cx (2) Septic shock: Code(s): A41.9 - Sepsis, unspecified organism; R65.21 - Severe sepsis with septic shock Status: Acute Assessment and Plan: see above, wean pressors as tolerated Subjective Subjective Date/Time Seen: 03/05/21 09:55 feels a little better this am Review of Systems Review of Systems: All systems reviewed & are unremarkable except as noted in HPI and below Exam Const: General: cooperative, awake, acute distress moderate and ill appearing Nutritional Appearance: obese Orientation/consciousness: patient oriented x3 Resp: Effort & Inspection: normal respiratory effort Auscultation: diminished lung sounds Cardio: Rate: regular rate Rhythm: regular rhythm GI: Inspection: normal to inspection and non-distended GI Palp: Yes Tenderness to palpation present (GI), No Guarding due to palpation present (GI) and No Rigid due to palpation Other: wound - draining some serous fluid Objective Data Vital Signs Vital Signs: Vital Signs - 24 hr 03/04/21 19:26 03/04/21 21:00 03/04/21 21:14 Temperature 37.2 C Pulse Rate 93 82 Respiratory Rate 20 19 Blood Pressure 97/52 L 97/45 L 101/90 Pulse Oximetry 93 93 03/04/21 21:49 03/04/21 22:00 03/04/21 22:40 Temperature Pulse Rate 86 86 82 Respiratory Rate 19 21 H 20 Blood Pressure 95/51 L 97/50 L 91/49 L Pulse Oximetry 94 92 93 03/04/21 23:32 03/04/21 23:45 03/04/21 23:55 Temperature 37.1 C Pulse Rate 79 77 Respiratory Rate 20 18 Blood Pressure 87/50 L 100/48 L Pulse Oximetry 100 100 97 03/05/21 00:00 03/05/21 00:15 03/05/21 00:26 Temperature Pulse Rate 78 80 81 Respiratory Rate 20 16 20 Blood Pressure 97/48 L 92/49 L 93/45 L Pulse Oximetry 94 93 93 03/05/21 00:45 03/05/21 00:46 03/05/21 01:00 HOSPITAL TELEVISION RENTAL CLERK Temperature 36.7 C Pulse Rate 81 82 82 Respiratory Rate 24 H 20 18 Blood Pressure 97/49 L Pulse Oximetry 84 L 85 L 95 03/05/21 01:01 HOSPITAL TELEVISION RENTAL CLERK 03/05/21 01:52 HOSPITAL TELEVISION RENTAL CLERK 03/05/21 02:00 Temperature Pulse Rate 78 71 70 Respiratory Rate 19 22 H Blood Pressure 100/47 L 87/46 L 91/57 L Pulse Oximetry 96 100 03/05/21 04:00 03/05/21 04:35 03/05/21 04:52 Temperature Pulse Rate 94 100 95 Respiratory Rate 23 H Blood Pressure 114/83 122/62 Pulse Oximetry 97 03/05/21 05:05 03/05/21 06:00 03/05/21 06:06 Temperature 36.9 C Pulse Rate 94 100 100 Respiratory Rate 19 Blood Pressure 92/49 L 118/61 118/61 Pulse Oximetry 96 03/05/21 08:57 Temperature Pulse Rate Respiratory Rate Blood Pressure Pulse Oximetry 92 Intake/Output Intake/Output: Intake & Output 03/02/21 03/03/21 03/04/21 03/05/21 23:59 23:59 23:59 22:59 Intake Total 1050 2450 Output Total 700 Balance 1050 1750 Meds/Results Medications: Active Medications Generic Name Dose Route Start Last Admin Trade Name Freq PRN Reason Stop Dose Admin Heparin Sodium (Porcine) 5,000 units 03/05/21 06:00 03/05/21 06:03 Heparin Sodium 5,000 Units/Ml Vial SUB-Q 5,000 units Q8HR AZAEL Administration Piperacillin/Tazobactam/Dextrose 3.375 gm in 50 mls @ 100 mls/hr 03/05/21 03:00 03/05/21 08:46 Zosyn 3.375 Gm/D5w 50ml Pm IVPB 100 mls/hr Q6H AZAEL Administration Vancomycin HCl 1,500 mg in 500 mls @ 333.333 mls/hr 03/05/21 16:00 Vancomycin 1,500 Mg/D5w 500 Ml IVPB Q18H AZAEL Sodium Chloride 1,000 mls @ 125 mls/hr 03/05/21 02:00 03/05/21 09:05 Normal Saline Iv IV CONT 125 mls/hr .Q8H AZAEL Administration Norepinephrine Bitartrate 8 mg in 250 mls @ 5.625 mls/hr 03/05/21 01:25 HOSPITAL TELEVISION RENTAL CLERK 03/05/21 06:06 Levophed 8 Mg/D5w 250 Ml IV CONT 3 mcg/min .[id number] AZAEL 5.63 mls/hr Titration Protocol 3 MCG/MIN Potassium Chloride 100 mls @ 25 mls/hr 03/05/21 07:52 03/05/21
[2021-03-05] MEDS: CENTRAL LINE FLUSH 10 ML IV PUSH ×4 (13:37→20:28)
[2021-03-05] MEDS: TOLNAFTATE 1% POWDER 45 GM BTL 1 APPLIC TOPICAL ×2 (13:53→20:26)
[2021-03-05] MEDS: ALBUMIN HUMAN 25% 25 GM/100 ML 100 ML IVPB ×3 (13:53→23:54)
[2021-03-05] MEDS: PANTOPRAZOLE 40 MG TABLET PO (13:53)
--- NOTE | 2021-03-05 20:54 | PC.NURSE ---
Patient refusing to move much. Patient encouraged to move and do deep breathing exercises. Patient was pulled up in bed, lateral rotation put on, heels off bed, and was reinforced that she needs to move her extremities some. Some passive RoM done with BLE upper and Lower extremities.
[2021-03-06] VITALS (21 sets, daily range): BP systolic 112–148; BP diastolic 54–76; PULSE 66–81; RESP 15–33; TEMP 36.3–36.9; O2SAT 91–95
--- NOTE | 2021-03-06 | ECHO_ITS ---
Patient Info Name: Candace Eid Age: 70 years : 1950 Gender: Female Ht: 65 in Wt: 207 lbs BSA: 2.11 m2 HR: 78 bpm BP: 123 / 67 mmHg Exam Date: 03/06/2021 8:38 AM Exam Location: [facility] Patient Status: Inpatient Admit Date: 03/04/2021 Staff Ordering Physician: Toney Hughes MD Service Attendant: Ethan Kaur RDCS, RT Attending Provider: Leni Calvillo MD Exam Type: CA echo doppler color flow Study Info Complete two-dimensional, color flow and Doppler transthoracic echocardiogram is performed. Strain analysis performed. Summary 1. Complete two-dimensional, color flow and Doppler transthoracic echocardiogram is performed. 2. Left ventricular chamber dimension is normal. 3. Left ventricular systolic function is normal, estimated at 60-65%. 4. The left ventricular diastolic function is grade I diastolic dysfunction. 5. E/e' 12 is mildly elevated. 6. Global longitudinal strain is normal at -19.9%. 7. Left atrial chamber dimension is moderately enlarged. 8. Right atrial chamber dimension is mildly enlarged. 9. There is moderate aortic valve sclerosis. 10. The mitral valve has mildly calcified annulus. 11. There is trace mitral valve regurgitation. 12. There is mild to moderate tricuspid valve regurgitation. 13. Moderate pulmonary hypertension, estimated pulmonary arterial systolic pressure is 59 mmHg. 14. There is trace pulmonic regurgitation. 15. Dilated inferior vena cava with <50% collapse upon inspiration consistent with significantly elevated right atrial pressure, 15 mmHg. Left Ventricle E/e' 12 is mildly elevated. Global longitudinal strain is normal at -19.9%. Left ventricular chamber dimension is normal. Left ventricular systolic function is normal, estimated at 60-65%. The left ventricular diastolic function is grade I diastolic dysfunction. Right Ventricle Right ventricular chamber dimension is normal. Right ventricular systolic function is normal. Left Atria Left atrial chamber dimension is moderately enlarged. Right Atria Right atrial chamber dimension is mildly enlarged. Aortic Valve The aortic valve is trileaflet. There is moderate aortic valve sclerosis. There is no aortic valve stenosis. There is no aortic valve regurgitation. Pulmonic Valve There is trace pulmonic regurgitation. Mitral Valve The mitral valve has mildly calcified annulus. There is no mitral valve stenosis. There is trace mitral valve regurgitation. Tricuspid Valve There is mild to moderate tricuspid valve regurgitation. Moderate pulmonary hypertension, estimated pulmonary arterial systolic pressure is 59 mmHg. Pericardium/Pleural There is no pericardial effusion. Inferior Vena Cava Dilated inferior vena cava with <50% collapse upon inspiration consistent with significantly elevated right atrial pressure, 15 mmHg. Aorta The aortic root size at the sinus of Valsalva is normal. Left Ventricular Outflow Tract Name Value Normal LVOT 2D LVOT Diameter 2.2 cm LVOT Doppler LVOT Peak Gradient 4 mmHg LVOT Mean Gradient 2 mmHg L
[2021-03-06] MEDS: SODIUM CHLORIDE 0.9% IV 1,000 ML 125 ML IV CONT (02:02)
--- NOTE | 2021-03-06 02:14 | PC.NURSE ---
Patient demanding that she be able to talk to her . However she is unable to dial the phone. Phone was dialed for her, voicemail received and message left to call back. Oral care provided including lip moisturizer. Patient states she hasn't had anything to drink in days. Patient reminded that she is in the ICU at [facility] and not [facility] and that she has a procedure preformed. Patient has call light in reach and reinforced on how to use it again. Bed controls also in reach and reinforced on how to use it.
[2021-03-06] MEDS: ALBUMIN HUMAN 25% 25 GM/100 ML 100 ML IVPB ×4 (05:49→23:18)
[2021-03-06] MEDS: CENTRAL LINE FLUSH 10 ML IV PUSH ×4 (05:55→20:26)
[2021-03-06] MEDS: HEPARIN SODIUM 5,000 UNITS/ML VIAL 5000 UNITS SUB-Q (05:55)
[2021-03-06 06:16] LABS: Mean Corpuscular Hemoglobin 25.4 pg (26-34); Mean Corpuscular Volume 84.7 fl (80-100); Mean Platelet Volume 9.2 fl (7.4-10.4); Platelet Count Result 179 k/mm3 (150-375); Red Blood Count 2.48 M/mm3 (4.2-5.4); Red Cell Distribution Width 18.9 % (11.5-14.5)
[2021-03-06 06:25] LABS: Hemoglobin 6.3 g/dL (12.0-15.0)
[2021-03-06 06:40] LABS: Alanine Aminotransferase 9 U/L (4-35); Albumin Level 2.6 g/dL (3.5-5.1); Alkaline Phosphatase 69 U/L (38-126); Anion Gap 7 mmol/L (8-16); Aspartate Amino Transferase 15 U/L (14-36); Blood Urea Nitrogen 20 mg/dL (7-17); Calcium 7.9 mg/dL (8.4-10.2); Carbon Dioxide 20 mmol/L (22-30); Chloride 112 mmol/L (98-107); Estimated CRCL calculation 44 ml/min; Estimated Glomerular Filt Rate 44; Glucose 92 mg/dL (65-110); Magnesium 2.2 mg/dL (1.6-2.3); Potassium 2.8 mmol/L (3.4-5.0); Sodium 139 mmol/L (137-145)
[2021-03-06 07:53] LABS: Basophils Percent Auto 0.2 % (0.2-1.2); Eosinophils Absolute Auto 0.1 K/mm3 (0-0.3); Eosinophils Percent Auto 0.8 % (0-4.4); Immature Granulocyte Absolute 0.33 K/mm3 (0.00-0.031); Immature Granulocyte Percent A 5.5 % (0-0.5); Lymphocytes Absolute Auto 0.59 K/mm3 (0.9-3.2); Lymphocytes Percent Auto 9.8 % (18.3-44.2); Mean Corpuscular HGB Conc 30.1 g/dl (32-36); Mean Corpuscular Hemoglobin 24.9 pg (26-34); Mean Corpuscular Volume 82.7 fl (80-100); Mean Platelet Volume 8.9 fl (7.4-10.4); Monocytes Absolute Auto 0.3 K/mm3 (0.1-0.6); Neutrophils Absolute Auto 4.7 K/mm3 (1.3-6.7); Neutrophils Percent Auto 78.7 % (45.5-73.1); Platelet Count Result 166 k/mm3 (150-375); Red Blood Count 2.49 M/mm3 (4.2-5.4); Red Cell Distribution Width 19.1 % (11.5-14.5)
[2021-03-06 08:10] LABS: INR 1.3; Prothrombin Time 16.4 Seconds (11.1-14.7)
[2021-03-06 08:39] LABS: Hemoglobin 6.2 g/dL (12.0-15.0)
[2021-03-06 08:40] LABS: Hematocrit 20.6 % (37.0-47.0)
[2021-03-06 08:50] LABS: Hypochromasia 1+ (NORMAL); Rouleaux 1+ (NORMAL)
[2021-03-06 08:51] LABS: Ovalocytes 1+ (NORMAL); Platelet Estimate Adequate (Adequate)
[2021-03-06] MEDS: LEVOTHYROXINE SODIUM 50 MCG TABLET PO (09:02)
[2021-03-06] MEDS: SUCRALFATE 1 GM TABLET PO ×3 (09:02→20:26)
[2021-03-06] MEDS: TOLNAFTATE 1% POWDER 45 GM BTL 1 APPLIC TOPICAL ×2 (09:03→20:25)
--- NOTE | 2021-03-06 09:35 | WPDINTPN ---
Progress Note: A&P Assessment and Plan (1) Septic shock: Code(s): A41.9 - Sepsis, unspecified organism; R65.21 - Severe sepsis with septic shock Status: Acute Assessment and Plan: Septic shock likely related to abdominal wall abscess -continue Levophed and maintain mean arterial pressures > 65 mmHg -patient has received adequate amount of fluids, will decreased maintenance IV fluids -urine output has been adequate -patient albumin improved cardiac output and to get her off the pressors (2) Abdominal wall abscess: Code(s): L02.211 - Cutaneous abscess of abdominal wall Status: Acute Assessment and Plan: Patient was found to be having necrotizing abdominal wall infection with large abscess Pt underwent Debridement of necrotizing wound infection including skin and subcutaneous tissue, complex drainage of abdominal wall abscess measuring approximately 30 by 15 by 10 cm on 03/04/2021 General surgery is following and managing Continue Zosyn and vancomycin Blood cultures-1/2 bottles. Urine cultures are pending Continue local wound care dressing changes as per surgery recommendation. She may need wound VAC Clear liquid diet (3) MARIBEL (acute kidney injury): Code(s): N17.9 - Acute kidney failure, unspecified Status: Acute Assessment and Plan: Presented with slightly elevated creatinine which was likely prerenal and improved with fluids. Creatinine stable with adequate urine output Continue maintenance IV fluids and albumin monitor urine output, renal function and electrolytes (4) Hypothyroidism: Code(s): E03.9 - Hypothyroidism, unspecified Status: Acute Assessment and Plan: Will switch levothyroxine to IV (5) Lower extremity edema: Code(s): R60.0 - Localized edema Status: Acute Assessment and Plan: Echocardiogram has been obtained and pending report -BNP is elevated, -will decrease maintenance IV fluids (6) Anemia: Code(s): D64.9 - Anemia, unspecified Status: Acute Assessment and Plan: Patient appears to have chronic anemia 03/06/2021: Patient dropped her hemoglobin to 6.3, will transfuse a unit of packed RBCs -patient's heart rate and blood pressures have been stable -will recheck CBC post transfusion (7) Electrolyte abnormality: Code(s): E87.8 - Other disorders of electrolyte and fluid balance, not elsewhere classified Status: Acute Assessment and Plan: Replace low potassium Additional Plan DVT prophylaxis -will hold subcu heparin due to hemoglobin drop/anemia. Ordered SCDs Stress ulcer prophylaxis -continue PPI Nutrition -clear liquid diet, will have speech evaluate for swallow test Code Status - Full Code Discussed case with Dr. Calvillo with General surgery Total Critical Care Time - 33 minutes Due to a high probability of clinically significant, life threatening deterioration, the patient required my highest level of preparedness to intervene emergently and I personally spent this critical care time directly and personally managing the patient. This critical care time included obtaining a history; examining the patient; pulse oximetry; ordering and review of studies; arranging urgent treatment with development of a management plan; evaluation of patient's response to treatment; frequent reassessment; and discussions with other providers. It was exclusive of separately billable procedures and treating other patients and teaching time. Please see Assessment and Plan section and the rest of the note for further information on patient assessment and treatment Subjective Date/time seen: 03/06/21 09:35 Interval history: Septic shock, abdominal wall abscess status post debridement of necrotizing wound infection including skin and subcutaneous tissue, complex drainage of abdominal wall abscess on 03/04/2020 03/06/2021: Patient seen and examined in the ICU, is awake alert oriented. Dropped hemoglobin to
--- NOTE | 2021-03-06 10:32 | PCSTNOTE ---
Please refer to the Bedside Swallow Evaluation in the EMR. Please note, silent aspiration cannot be ruled out at bedside.
[2021-03-06] MEDS: LACTATED RINGERS 1,000 ML 75 ML IV CONT ×2 (10:53→23:17)
[2021-03-06] MEDS: PANTOPRAZOLE 40 MG TABLET PO (10:58)
[2021-03-06] MEDS: SODIUM CHLORIDE 0.9% IV 250 ML 30 ML IV CONT (10:58)
[2021-03-06] MEDS: MORPHINE SULFATE (*CRX) 2 MG/ML INJ IV PUSH ×2 (12:11→20:33)
--- NOTE | 2021-03-06 14:37 | PM.PNGS ---
Progress Note: A&P Assessment and Plan (1) Abdominal wall abscess: Code(s): L02.211 - Cutaneous abscess of abdominal wall Status: Acute Assessment and Plan: POD2 and improving. Wound care consulted to assess for wound VAC. Will defer for now due to significant tunneling of the abscess cavity. Instead will start BID packing with Dakin's soaked kerlex gauze. Continue with local wound care and will see how this progresses over the next few days. Still having a significant amount of purulent drainage that is draining adequately at this time. Hgb dropped to 6.3 from 7.8 yesterday and 8.7 pre-op. No signs of active bleeding on exam today. Receiving 2 units PRBCs. Continue to monitor. Continue IV antibiotics. (2) Sepsis: Code(s): A41.9 - Sepsis, unspecified organism Status: Acute Assessment and Plan: Secondary to above. Continue IV abx. Improving. Vasopressors off since yesterday. Hemodynamically stable. WBC normal today. Blood cx pending. Plan to move out of ICU today. Monitor labs. Additional Plan I have discussed the patient's case and plan of care with Dr. Calvillo. Subjective Subjective Date/Time Seen: 03/06/21 12:37 Post Op day: 2 (Excisional debridement of necrotizing wound infection including skin and subcutaneous tissue, complex drainage of abdominal wall abscess) Patient reports: no new complaints and afebrile Interval history: This is a 70 yo F who was admitted with an abdominal wall abscess, sepsis, hypotension requiring vasopressor support, bacteriuria, and hypokalemia. She was taken to the OR on the night of 03/04/21 and underwent an excisional debridement of necrotizing wound infection including skin and subcutaneous tissue, complex drainage of abdominal wall abscess by Dr. Calvillo. She was on vasopressors in the ICU. Chart was reviewed. She is seen in the ICU today with Renu, the wound care nurse. She has now been off vasopressors since yesterday. Since surgery, the packing placed during surgery has not been removed. They have been changing the overlying dressing (ABD pads) as needed when soiled. The nurse reports large amounts of drainage saturating the pads and linens after soaking through the dressing that has already been changed once on her shift today. The patient is seen with her at the bedside. She is oriented x 3. She denies any pain while at rest in bed. No other acute complaints at this time. Review of Systems Review of Systems: All systems reviewed & are unremarkable except as noted in HPI and below Exam Const: General: no acute distress, alert and ill appearing Nutritional Appearance: obese Orientation/consciousness: patient oriented x3 Resp: Effort & Inspection: normal respiratory effort Auscultation: clear to auscultation bilaterally Cardio: Rate: regular rate Rhythm: regular rhythm GI: GI Palp: Yes Tenderness to palpation present (GI) (entire lower abdomen, worse from midline extending left laterally) and No Guarding due to palpation present (GI) Auscultation: Hypoactive bowel sounds present Other: LLQ dressing removed revealing an open wound on the lateral aspect of the left lower abdomen. Large amount of packing was removed that was 2 tied together kerlex gauze packing. After packing was removed, there was copious amounts of foul-smelling greenwood brown drainage coming from the wound. This was 8 cm in direct depth at the opening of the wound. This tunneled medially towards the umbilicus far enough that I was unable to palpate the end of the wound bed that extended medially. This is a large open cavity. No active bleeding or oozing noted during the dressing change. About 50% of the exposed wound bed in the LLQ appears dusky with multiple areas of some debri and necrotic tissue. Some areas of pink tissue as well. There is a small 1 x 1 cm of a dark area of skin that is intact but non-blanchable just medial to the open wound. Some scattered areas of erythema and induration extending from
[2021-03-06] MEDS: SOD HYPOCHLORITE 1/4 STRENGTH 473 ML 1 APPLIC TOPICAL (20:25)
[2021-03-07] VITALS (12 sets, daily range): BP systolic 142–153; BP diastolic 67–76; PULSE 60–75; RESP 16–18; TEMP 36.6–36.8; O2SAT 92–96; BMI 10.0
[2021-03-07] MEDS: MORPHINE SULFATE (*CRX) 2 MG/ML INJ IV PUSH ×2 (02:32→10:26)
[2021-03-07 03:54] LABS: Alanine Aminotransferase 10 U/L (4-35); Albumin Level 3.3 g/dL (3.5-5.1); Alkaline Phosphatase 62 U/L (38-126); Anion Gap 11 mmol/L (8-16); Aspartate Amino Transferase 17 U/L (14-36); Bilirubin,Total 2.5 mg/dL (0.2-1.3); Blood Urea Nitrogen 15 mg/dL (7-17); Calcium 8.1 mg/dL (8.4-10.2); Carbon Dioxide 19 mmol/L (22-30); Chloride 112 mmol/L (98-107); Estimated CRCL calculation 50 ml/min; Estimated Glomerular Filt Rate 49; Glucose 98 mg/dL (65-110); Lactic Acid Reflex 0.9 mmol/L (0.7-2.1); Phosphorus 2.5 mg/dL (2.5-4.5); Potassium 2.9 mmol/L (3.4-5.0); Sodium 142 mmol/L (137-145)
[2021-03-07 04:28] LABS: Hematocrit 26.7 % (37.0-47.0); Hemoglobin 8.5 g/dL (12.0-15.0); Mean Corpuscular HGB Conc 31.8 g/dl (32-36); Mean Corpuscular Hemoglobin 27.3 pg (26-34); Mean Corpuscular Volume 85.9 fl (80-100); Platelet Count Result 172 k/mm3 (150-375); Red Blood Count 3.11 M/mm3 (4.2-5.4); Red Cell Distribution Width 18.1 % (11.5-14.5)
[2021-03-07] MEDS: CENTRAL LINE FLUSH 10 ML IV PUSH ×4 (04:32→21:34)
[2021-03-07] MEDS: LEVOTHYROXINE SODIUM INJ 100 MCG/5 ML VIAL 25 MCG IV PUSH (04:32)
[2021-03-07 05:27] LABS: Anisocytosis 2+ (NORMAL); Band Neutrophils Percent 13 % (0-6); Eosinophils Absolute Manual 0.07 K/mm3 (0.02-0.5); Eosinophils Percent Manual 1 % (0-4); Lymphocytes Absolute Manual 0.56 K/mm3 (1.1-4.5); Metamyelocytes Percent 1 %; Microcytosis 1+ (NORMAL); Monocytes Absolute Manual 0.28 K/mm3 (0.1-0.90); Monocytes Percent Manual 4 % (3-9); Myelocytes Percent 1 %; Neutrophils Absolute Manual 5.95 K/mm3 (1.7-7.2); Neutrophils Percent Manual 72 % (46-73); Platelet Estimate Adequate (Adequate); Total Cells Counted 100
[2021-03-07 05:28] LABS: Atypical Lymphocytes Present; Hypochromasia 2+ (NORMAL)
--- NOTE | 2021-03-07 05:48 | PC.NURSE ---
Report given to Ellie BLANKENSHIP, all belongings gathered, all medications gathered. to room 347
--- NOTE | 2021-03-07 05:54 | PC.NURSE ---
Received by transfer from ICU per bed. Telemetry applied showing NSR. K rider infusing, Rt IJ dressing dry and intact. Abd. dressing intact, redness noted around umbilical area and lower abdomen.
[2021-03-07] MEDS: SUCRALFATE 1 GM TABLET PO ×3 (06:01→16:51)
[2021-03-07] MEDS: ALBUMIN HUMAN 25% 25 GM/100 ML 100 ML IVPB ×4 (06:02→23:09)
[2021-03-07] MEDS: PANTOPRAZOLE 40 MG TABLET PO (08:32)
[2021-03-07] MEDS: TOLNAFTATE 1% POWDER 45 GM BTL 1 APPLIC TOPICAL ×2 (08:33→20:42)
[2021-03-07] MEDS: SOD HYPOCHLORITE 1/4 STRENGTH 473 ML 1 APPLIC TOPICAL (08:33)
[2021-03-07 09:59] LABS: Potassium 3.7 mmol/L (3.4-5.0)
--- NOTE | 2021-03-07 10:03 | PM.PNGS ---
Progress Note: A&P Assessment and Plan (1) Abdominal wall abscess: Code(s): L02.211 - Cutaneous abscess of abdominal wall Status: Acute Assessment and Plan: POD3 and clinically improving. Wound drainage appears to be slowing down. Continue local wound care with BID packing with Dakin's soaked kerlex gauze. Hgb stable at 8.5 today. Transfused with 2 units yesterday. Still no active bleeding noted on exam. Continue IV antibiotics. (2) Sepsis: Code(s): A41.9 - Sepsis, unspecified organism Status: Acute Assessment and Plan: Secondary to above. Continue IV abx. Improving. Vasopressors off since 03/05. Remains hemodynamically stable. WBC remains normal. Blood cx with E. coli growth from aerobic bottle only, pending. Management per Hospitalist. Additional Plan I have discussed the plan of care with Dr. Calvillo. Subjective Subjective Date/Time Seen: 03/07/21 10:03 Post Op day: 3 (Excisional debridement of necrotizing wound infection including skin and subcutaneous tissue, complex drainage of abdominal wall abscess) Patient reports: no new complaints, feels better and afebrile Interval history: Patient seen and examined this morning. No acute events overnight or new complaints. No complaints of pain while at rest. Per the nurse, she has not changed the abdominal wound dressing yet this morning. Review of Systems Review of Systems: All systems reviewed & are unremarkable except as noted in HPI and below Exam Const: General: no acute distress, alert and awake Orientation/consciousness: patient oriented x3 GI: Inspection: normal to inspection and non-distended GI Palp: Yes Firmness to palpation present (GI) (LLQ with swelling and induration) and Yes Tenderness to palpation present (GI) (mid to left lower abdomen) Auscultation: normal bowel sounds Other: LLQ dressing removed revealing an open wound on the lateral aspect of the left lower abdomen. Still a moderate amount of foul-smelling greenwood brown drainage flowing from the wound, but decreased from yesterday. Skin erythema and induration around umbilicus and extending to LLQ unchanged. Small 1 x 1 cm area medial to the open wound that now appears to be a superficial wound with greenwood slough, no drainage. Skin: General skin exam: normal color Neuro: General: moves all extremities and no focal motor deficits Extrem: Right lower extremity: edema Details: pitting and 2+ Left lower extremity: edema Details: pitting and 2+ Psych: Appearance: grossly normal Insight: Fair insight present (Psych) Judgement: Fair judgement present (Psych) Objective Data Vital Signs Vital Signs: Vital Signs - 24 hr 03/06/21 10:45 03/06/21 11:00 03/06/21 12:00 Temperature 98.2 F 98.4 F 97.8 F Pulse Rate 75 75 70 Respiratory Rate 17 22 H 20 Blood Pressure 134/63 138/67 137/76 Pulse Oximetry 91 94 95 03/06/21 13:00 03/06/21 13:33 03/06/21 13:49 Temperature 97.3 F L 97.8 F 97.9 F Pulse Rate 70 68 74 Respiratory Rate 20 27 H 19 Blood Pressure 137/76 142/74 H 135/70 Pulse Oximetry 95 93 94 03/06/21 14:00 03/06/21 14:05 03/06/21 15:05 Temperature 98.5 F 98.5 F Pulse Rate 67 75 76 Respiratory Rate 26 H 26 H Blood Pressure 140/72 144/68 H Pulse Oximetry 93 94 03/06/21 16:00 03/06/21 16:05 03/06/21 16:56 Temperature 98.5 F 98.5 F 98.5 F Pulse Rate 66 71 73 Respiratory Rate 24 H 26 H 27 H Blood Pressure 143/70 H 143/70 H 143/70 H Pulse Oximetry 93 93 93 03/06/21 18:00 03/06/21 20:00 03/06/21 22:00 Temperature 98.3 F Pulse Rate 71 71 68 Respiratory Rate 20 Blood Pressure 148/75 H Pulse Oximetry 92 03/07/21 00:00 03/07/21 02:00 03/07/21 04:00 Temperature 98.1 F Pulse Rate 64 67 72 Respiratory Rate 18 17 Blood Pressure 143/67 H 142/68 H Pulse Oximetry 92 93 03/07/21 05:52 03/07/21 08:00 03/07/21 09:33 Temperature 97.9 F Pulse Rate 66 75 73 Respiratory Rate 18 Blood Pressure 153/72 H Pulse Oximetry 95 In
--- NOTE | 2021-03-07 13:11 | PM.IMPN ---
Progress Note: A&P Assessment and Plan (1) Septic shock: Code(s): A41.9 - Sepsis, unspecified organism; R65.21 - Severe sepsis with septic shock Status: Resolved Assessment and Plan: Septic shock likely related to abdominal wall abscess - Pt is transferred out of icu as bp was corrected (2) Abdominal wall abscess: Code(s): L02.211 - Cutaneous abscess of abdominal wall Status: Acute Assessment and Plan: Patient was found to be having necrotizing abdominal wall infection with large abscess Pt underwent Debridement of necrotizing wound infection including skin and subcutaneous tissue, complex drainage of abdominal wall abscess measuring approximately 30 by 15 by 10 cm on 03/04/2021 General surgery is following Continue Zosyn and vancomycin Continue follow BC and UC pt found to have pressure sores today wound care consulted (3) MARIBEL (acute kidney injury): Code(s): N17.9 - Acute kidney failure, unspecified Status: Acute Assessment and Plan: Presented with slightly elevated creatinine continue iv fluids (4) Hypothyroidism: Code(s): E03.9 - Hypothyroidism, unspecified Status: Acute Assessment and Plan: Will switch levothyroxine to IV (5) Lower extremity edema: Code(s): R60.0 - Localized edema Status: Acute Assessment and Plan: Echocardiogram has been obtained (6) Anemia: Code(s): D64.9 - Anemia, unspecified Status: Acute Assessment and Plan: Patient appears to have chronic anemia, hb is 8.5, cont to follow (7) Electrolyte abnormality: Code(s): E87.8 - Other disorders of electrolyte and fluid balance, not elsewhere classified Status: Acute Assessment and Plan: Replace low potassium, potassium is 3.7, cont to follow Subjective Date/time seen: 03/07/21 13:11 Interval history: Pt admitted with septic shock, abdominal wall abscess status post debridement of necrotizing wound infection including skin and subcutaneous tissue, complex drainage of abdominal wall abscess on 03/04/2020 Pt seen by surgery had dressing changed earlier today, pt transferred to the medical floor, looks tired Review of Systems Review of Systems: All systems reviewed & are unremarkable except as noted in HPI and below Exam Const: General: other (tired appearing ) Nutritional Appearance: overweight Orientation/consciousness: oriented to person HENMT: Head: normal to inspection Resp: Effort & Inspection: no respiratory distress Auscultation: no rhonchi and no wheezes Cardio: Rate: regular rate Rhythm: regular rhythm GI: Inspection: normal to inspection and other (wound on left side ) GI Palp: No abdominal tenderness, No Guarding due to palpation present (GI) and No Hepatomegaly present Auscultation: normal bowel sounds Neuro: General: oriented to person Objective Data Vital Signs Vital Signs: Vital Signs - 24 hr 03/06/21 13:33 03/06/21 13:49 03/06/21 14:00 Temperature 36.6 C 36.6 C Pulse Rate 68 74 67 Respiratory Rate 27 H 19 Blood Pressure 142/74 H 135/70 Pulse Oximetry 93 94 03/06/21 14:05 03/06/21 15:05 03/06/21 16:00 Temperature 36.9 C 36.9 C 36.9 C Pulse Rate 75 76 66 Respiratory Rate 26 H 26 H 24 H Blood Pressure 140/72 144/68 H 143/70 H Pulse Oximetry 93 94 93 03/06/21 16:05 03/06/21 16:56 03/06/21 18:00 Temperature 36.9 C 36.9 C Pulse Rate 71 73 71 Respiratory Rate 26 H 27 H Blood Pressure 143/70 H 143/70 H Pulse Oximetry 93 93 03/06/21 20:00 03/06/21 22:00 03/07/21 00:00 Temperature 36.8 C Pulse Rate 71 68 64 Respiratory Rate 20 18 Blood Pressure 148/75 H 143/67 H Pulse Oximetry 92 92 03/07/21 02:00 03/07/21 04:00 03/07/21 05:52 Temperature 36.7 C Pulse Rate 67 72 66 Respiratory Rate 17 Blood Pressure 142/68 H Pulse Oximetry 93 03/07/21 08:00 03/07/21 09:33 03/07/21 12:00 Temperature 36.6 C Pulse Rate 75 73 70 Respira
--- NOTE | 2021-03-07 13:13 | PCOTNOTE ---
Attempted to see for evaluation, pt. currently getting wounds dressed by nursing, will follow up when available
[2021-03-07] MEDS: SUCRALFATE SUSP 100 MG/ML 10 ML UDC 1000 MG PO (20:42)
[2021-03-07] MEDS: LACTATED RINGERS 1,000 ML 50 ML IV CONT (23:10)
[2021-03-08] VITALS (8 sets, daily range): BP systolic 138–151; BP diastolic 73–82; PULSE 69–80; RESP 16–20; TEMP 35.8–36.6; O2SAT 94–96
[2021-03-08] MEDS: ALBUMIN HUMAN 25% 25 GM/100 ML 100 ML IVPB ×4 (05:02→23:06)
[2021-03-08] MEDS: CENTRAL LINE FLUSH 10 ML IV PUSH ×4 (05:02→20:25)
[2021-03-08] MEDS: CENTRAL LINE FLUSH 20 ML IV PUSH (05:49)
[2021-03-08] MEDS: LEVOTHYROXINE SODIUM INJ 100 MCG/5 ML VIAL 25 MCG IV PUSH (05:49)
[2021-03-08] MEDS: SUCRALFATE SUSP 100 MG/ML 10 ML UDC 1000 MG PO ×4 (05:49→20:15)
[2021-03-08 06:01] LABS: Hematocrit 27.7 % (37.0-47.0); Hemoglobin 8.5 g/dL (12.0-15.0); Mean Corpuscular HGB Conc 30.7 g/dl (32-36); Mean Corpuscular Hemoglobin 26.8 pg (26-34); Mean Corpuscular Volume 87.4 fl (80-100); Mean Platelet Volume 9.5 fl (7.4-10.4); Platelet Count Result 155 k/mm3 (150-375); Red Blood Count 3.17 M/mm3 (4.2-5.4); Red Cell Distribution Width 18.6 % (11.5-14.5); White Blood Count 8.1 K/mm3 (4.5-10.0)
[2021-03-08 06:17] LABS: Alanine Aminotransferase 10 U/L (4-35); Albumin Level 3.6 g/dL (3.5-5.1); Alkaline Phosphatase 61 U/L (38-126); Anion Gap 8 mmol/L (8-16); Aspartate Amino Transferase 17 U/L (14-36); Bilirubin,Total 2.1 mg/dL (0.2-1.3); Blood Urea Nitrogen 13 mg/dL (7-17); Calcium 8.4 mg/dL (8.4-10.2); Carbon Dioxide 20 mmol/L (22-30); Chloride 111 mmol/L (98-107); Estimated CRCL calculation 50 ml/min; Estimated Glomerular Filt Rate 49; Glucose 97 mg/dL (65-110); Magnesium 1.9 mg/dL (1.6-2.3); Potassium 3.1 mmol/L (3.4-5.0); Sodium 139 mmol/L (137-145)
[2021-03-08] MEDS: PANTOPRAZOLE 40 MG TABLET PO (08:23)
[2021-03-08] MEDS: CITALOPRAM HYDROBROMIDE 20 MG TABLET PO (08:23)
[2021-03-08] MEDS: TOLNAFTATE 1% POWDER 45 GM BTL 1 APPLIC TOPICAL ×2 (08:24→20:15)
--- NOTE | 2021-03-08 08:56 | PCOTNOTE ---
Edited pt. frequency of services from 5-7x/week to 2-3x/week due to error in initial entry
[2021-03-08] MEDS: MORPHINE SULFATE (*CRX) 2 MG/ML INJ IV PUSH ×2 (09:50→21:33)
[2021-03-08] MEDS: SOD HYPOCHLORITE 1/4 STRENGTH 473 ML 1 APPLIC TOPICAL ×2 (09:55→20:15)
--- NOTE | 2021-03-08 12:37 | PM.PNGS ---
Progress Note: A&P Assessment and Plan (1) Abdominal wall abscess: Code(s): L02.211 - Cutaneous abscess of abdominal wall Status: Acute Assessment and Plan: POD3 and clinically improving. WBC normal and she remains afebrile. Cellulitis improving and wound drainage appears to be slowing down. Continue local wound care with BID packing with Dakin's soaked kerlex gauze. Continue IV antibiotics. Okay to switch to oral antibiotics on discharge (we would recommend a total of 14 day course of antibiotics). Okay from a surgical standpoint to start working on discharging the patient. Wound care nurses are working on scheduling a follow-up appointment with Dr. Calvillo in the wound clinic in 1-2 weeks. Antibiotic need can be re-evaluated at that time if longer course is needed. (2) Sepsis: Code(s): A41.9 - Sepsis, unspecified organism Status: Acute Assessment and Plan: Resolving. See plan above regarding abd wall abscess. Management per Hospitalist. Additional Plan I have discussed the patient's case and plan of care with Dr. Calvillo. Subjective Subjective Date/Time Seen: 03/08/21 09:37 Post Op day: 4 (Excisional debridement of necrotizing wound infection including skin and subcutaneous tissue, complex drainage of abdominal wall abscess) Patient reports: no new complaints, bowel movement and afebrile Interval history: Patient seen and examined today. She has not been having any pain, except with dressing changes. She denies getting out of bed since being in the hospital, but is working with PT/OT to increase her activity. No other complaints at this time. Review of Systems Review of Systems: All systems reviewed & are unremarkable except as noted in HPI and below Constitutional: Constitutional: Reports no additional constitutional complaints and Denies fever(s) Gastrointestinal: Gastrointestinal: Reports as per HPI and Reports no additional gastrointestinal complaints Exam Const: General: no acute distress, alert and awake Nutritional Appearance: obese Orientation/consciousness: patient oriented x3 GI: Inspection: non-distended GI Palp: Yes Soft to palpation and Yes Tenderness to palpation present (GI) (TTP over mide to left lower abdomen where wound and cellulitis are located) Auscultation: normal bowel sounds Other: LLQ dressing removed revealing an open wound on the lateral aspect of the left lower abdomen. Odor improving and drainage slowing down, only small amount of greenwood brown drainage noted today. Still saturating overlying dressing. Erythema of periumbilical skin extending left seems to be improving. Induration improving. Still a small 1 x 1 cm area medial to the open wound that now appears to be a superficial wound with intact greenwood slough, no drainage. Surrounding edema of the LLQ around wound is improving. Urinary Catheter: Urinary Catheter: patent and draining and urine clear Skin: General skin exam: normal color Neuro: General: moves all extremities and no focal motor deficits Extrem: Right lower extremity: edema Details: pitting and 2+ Left lower extremity: edema Details: pitting and 2+ Psych: Mental Status: mental status grossly normal Insight: Fair insight present (Psych) Judgement: Fair judgement present (Psych) Objective Data Vital Signs Vital Signs: Vital Signs - 24 hr 03/07/21 14:00 03/07/21 16:00 03/07/21 18:00 Temperature 98.0 F 98.3 F Pulse Rate 73 68 72 Respiratory Rate 16 16 Blood Pressure 145/69 H 149/75 H Pulse Oximetry 96 95 03/07/21 20:00 03/07/21 21:31 03/08/21 00:00 Temperature 97.8 F Pulse Rate 69 75 74 Respiratory Rate 18 Blood Pressure 153/76 H Pulse Oximetry 95 03/08/21 04:00 03/08/21 04:24 03/08/21 08:00 Temperature 97.9 F Pulse Rate 78 78 71 Respiratory Rate 20 Blood Pressure 151/82 H Pulse Oximetry 96 Intake/Output Intake/Output: Intake & Output 03/05/21 03/06/21 03/07/21 03/08/21 23:59 23:59 23:59 23:59
--- NOTE | 2021-03-08 15:27 | PM.IMPN ---
Progress Note: A&P Assessment and Plan (1) Septic shock: Code(s): A41.9 - Sepsis, unspecified organism; R65.21 - Severe sepsis with septic shock Status: Resolved Assessment and Plan: Septic shock likely related to abdominal wall abscess Pt is on iv zosyn and iv vancomycin (2) Abdominal wall abscess: Code(s): L02.211 - Cutaneous abscess of abdominal wall Status: Acute Assessment and Plan: Patient was found to be having necrotizing abdominal wall infection with large abscess Pt underwent Debridement of necrotizing wound infection including skin and subcutaneous tissue, complex drainage of abdominal wall abscess measuring approximately 30 by 15 by 10 cm on 03/04/2021 General surgery is following signed off from surgery point of view Continue Zosyn and Vancomycin 1st BC shows Ecoli Rpt BC awaiting Pt found to have pressure sores, wound care consulted (3) MARIBEL (acute kidney injury): Code(s): N17.9 - Acute kidney failure, unspecified Status: Acute Assessment and Plan: Presented with slightly elevated creatinine continue iv fluids (4) Hypothyroidism: Code(s): E03.9 - Hypothyroidism, unspecified Status: Acute Assessment and Plan: Will switch levothyroxine to IV (5) Lower extremity edema: Code(s): R60.0 - Localized edema Status: Acute Assessment and Plan: Echocardiogram has been obtained (6) Anemia: Code(s): D64.9 - Anemia, unspecified Status: Acute Assessment and Plan: Patient appears to have chronic anemia, hb is 8.5, cont to follow (7) Electrolyte abnormality: Code(s): E87.8 - Other disorders of electrolyte and fluid balance, not elsewhere classified Status: Acute Assessment and Plan: Replace low potassium, potassium is 3.1, continue to replace. Subjective Date/time seen: 03/08/21 15:27 Interval history: Pt admitted with septic shock, abdominal wall abscess status post debridement of necrotizing wound infection including skin and subcutaneous tissue, complex drainage of abdominal wall abscess on 03/04/2020 Pt seen by surgery, pt having daily dressing changes. Pt continues to look tired and unwell. Review of Systems Review of Systems: All systems reviewed & are unremarkable except as noted in HPI and below Exam Const: General: other (tired appearing looks depressed ) Nutritional Appearance: overweight Orientation/consciousness: oriented to person HENMT: Head: normal to inspection Resp: Effort & Inspection: no respiratory distress Auscultation: no rhonchi and no wheezes Cardio: Rate: regular rate Rhythm: regular rhythm GI: Inspection: normal to inspection and other (wound on left side ) Auscultation: normal bowel sounds Neuro: General: oriented to person Objective Data Vital Signs Vital Signs: Vital Signs - 24 hr 03/07/21 16:00 03/07/21 18:00 03/07/21 20:00 Temperature 36.8 C Pulse Rate 68 72 69 Respiratory Rate 16 Blood Pressure 149/75 H Pulse Oximetry 95 03/07/21 21:31 03/08/21 00:00 03/08/21 04:00 Temperature 36.6 C Pulse Rate 75 74 78 Respiratory Rate 18 Blood Pressure 153/76 H Pulse Oximetry 95 03/08/21 04:24 03/08/21 08:00 03/08/21 12:00 Temperature 36.6 C Pulse Rate 78 71 69 Respiratory Rate 20 Blood Pressure 151/82 H Pulse Oximetry 96 03/08/21 14:00 Temperature 35.8 C L Pulse Rate 73 Respiratory Rate 18 Blood Pressure 148/75 H Pulse Oximetry 94 Intake/Output Intake/Output: Intake & Output 03/05/21 03/06/21 03/07/21 03/08/21 23:59 23:59 23:59 23:59 Intake Total 3975 2390 875 Output Total 1100 750 250 Balance 7375 7468 656 Meds/Results Medications: Active Medications Generic Name Dose Route Start Last Admin Trade Name Freq PRN Reason Stop Dose Admin Hydrocodone Bitart/Acetaminophen 1 tab 03/07/21 11:56 Hydrocodone/Acetaminophen (*Crx) 5-325 Mg Tablet PO Q4H PRN
[2021-03-08] MEDS: POTASSIUM CHLORIDE 20 MEQ PACKET (FOR LIQUID) PO (16:26)
[2021-03-08] MEDS: HYDROcodone/acetaminophen (*CRX) 10-325 MG TABLET 1 TAB PO (20:15)
[2021-03-09] VITALS (9 sets, daily range): BP systolic 114–143; BP diastolic 71–77; PULSE 67–83; RESP 16–18; TEMP 36.4–36.9; O2SAT 93–97
[2021-03-09 04:46] LABS: Hematocrit 26.6 % (37.0-47.0); Hemoglobin 8.3 g/dL (12.0-15.0); Mean Corpuscular HGB Conc 31.2 g/dl (32-36); Mean Corpuscular Hemoglobin 26.2 pg (26-34); Mean Corpuscular Volume 83.9 fl (80-100); Mean Platelet Volume 8.6 fl (7.4-10.4); Platelet Count Result 142 k/mm3 (150-375); Red Blood Count 3.17 M/mm3 (4.2-5.4); Red Cell Distribution Width 18.6 % (11.5-14.5)
[2021-03-09 05:09] LABS: Alanine Aminotransferase 9 U/L (4-35); Albumin Level 3.6 g/dL (3.5-5.1); Alkaline Phosphatase 56 U/L (38-126); Anion Gap 10 mmol/L (8-16); Aspartate Amino Transferase 14 U/L (14-36); Bilirubin,Total 1.7 mg/dL (0.2-1.3); Blood Urea Nitrogen 11 mg/dL (7-17); Calcium 8.6 mg/dL (8.4-10.2); Carbon Dioxide 22 mmol/L (22-30); Chloride 110 mmol/L (98-107); Estimated CRCL calculation 49 ml/min; Estimated Glomerular Filt Rate 49; Glucose 106 mg/dL (65-110); Magnesium 2.1 mg/dL (1.6-2.3); Potassium 3.1 mmol/L (3.4-5.0); Sodium 142 mmol/L (137-145)
[2021-03-09] MEDS: ALBUMIN HUMAN 25% 25 GM/100 ML 100 ML IVPB ×4 (05:47→23:02)
[2021-03-09] MEDS: LEVOTHYROXINE SODIUM INJ 100 MCG/5 ML VIAL 25 MCG IV PUSH (05:51)
[2021-03-09] MEDS: SUCRALFATE SUSP 100 MG/ML 10 ML UDC 1000 MG PO ×4 (05:52→20:10)
[2021-03-09] MEDS: CENTRAL LINE FLUSH 10 ML IV PUSH ×4 (05:52→20:10)
[2021-03-09] MEDS: HYDROcodone/acetaminophen (*CRX) 10-325 MG TABLET 1 TAB PO ×2 (07:01→20:09)
[2021-03-09] MEDS: POTASSIUM CHLORIDE 20 MEQ TABLET 40 MEQ PO (08:30)
[2021-03-09] MEDS: SOD HYPOCHLORITE 1/4 STRENGTH 473 ML 1 APPLIC TOPICAL ×2 (08:30→20:10)
[2021-03-09] MEDS: PANTOPRAZOLE 40 MG TABLET PO (08:30)
[2021-03-09] MEDS: POTASSIUM CHLORIDE 20 MEQ PACKET (FOR LIQUID) PO ×2 (08:30→17:15)
[2021-03-09] MEDS: CITALOPRAM HYDROBROMIDE 20 MG TABLET PO (08:30)
[2021-03-09] MEDS: TOLNAFTATE 1% POWDER 45 GM BTL 1 APPLIC TOPICAL ×2 (08:31→20:10)
[2021-03-09 09:53] LABS: Vancomycin Trough 20.5 ug/mL (10.0-20.0)
[2021-03-09] MEDS: MORPHINE SULFATE (*CRX) 2 MG/ML INJ IV PUSH (14:21)
--- NOTE | 2021-03-09 16:17 | PM.PNGS ---
Progress Note: A&P Assessment and Plan (1) Abdominal wall abscess: Code(s): L02.211 - Cutaneous abscess of abdominal wall Status: Acute Assessment and Plan: POD5 and clinically improving. WBC normal and she remains afebrile. Cellulitis improving and no purulent drainage noted today. Continue local wound care with BID packing with Dakin's soaked kerlex gauze. Continue IV antibiotics. Okay to switch to oral antibiotics on discharge (we would recommend a total of 14 day course of antibiotics). I discussed with the Hospitalist trying to remove the right IJ. Nursing is working on getting peripheral IV access. Okay from a surgical standpoint to start working on discharging the patient. Wound care nurses are working on scheduling a follow-up appointment with Dr. Calvillo in the wound clinic in 1-2 weeks. Antibiotic need can be re-evaluated at that time if longer course is needed. (2) Sepsis: Code(s): A41.9 - Sepsis, unspecified organism Status: Acute Assessment and Plan: Resolving. See plan above regarding abd wall abscess. Management per Hospitalist. Additional Plan I have discussed the patient's case and plan of care with Dr. Calvillo. Subjective Subjective Date/Time Seen: 03/09/21 15:17 Post Op day: 5 (Excisional debridement of necrotizing wound infection including skin and subcutaneous tissue, complex drainage of abdominal wall abscess) Patient reports: no new complaints, feels better, tolerating a regular diet, flatus, bowel movement and afebrile Interval history: Patient seen this afternoon sitting in a chair. Her mentation seems to be improving daily and she appears even more alert today than yesterday. No new complaints. Has not had any pain throughout the day. Afebrile. Review of Systems Review of Systems: All systems reviewed & are unremarkable except as noted in HPI and below Exam Const: General: no acute distress, alert and awake Orientation/consciousness: patient oriented x3 GI: Inspection: non-distended and obesity GI Palp: Yes Soft to palpation, Yes Tenderness to palpation present (GI) (mid to lower abdomen overlying abscess and wound) and No Rebound tenderness present Auscultation: normal bowel sounds Other: LLQ dressing removed revealing an open wound on the lateral aspect of the left lower abdomen. No purulent drainage noted on exam today. Even more red granulation tissue with some oozing noted today on exam, improving well. Erythema of periumbilical skin extending left continues to be improve, and is now minimal. Still a small 1 x 1 cm area medial to the open wound that now appears to be a superficial wound with intact greenwood slough, no drainage. Surrounding edema of the LLQ around wound is improving. Urinary Catheter: Urinary Catheter: patent and draining and urine clear Neuro: General: moves all extremities and no focal motor deficits Extrem: Right lower extremity: edema Details: pitting and 2+ Left lower extremity: edema Details: pitting and 2+ Psych: Mental Status: mental status grossly normal Insight: Fair insight present (Psych) Judgement: Fair judgement present (Psych) Objective Data Vital Signs Vital Signs: Vital Signs - 24 hr 03/08/21 20:00 03/09/21 00:00 03/09/21 04:00 Temperature 97.6 F Pulse Rate 71 67 69 Respiratory Rate 16 Blood Pressure 138/73 Pulse Oximetry 94 03/09/21 04:40 03/09/21 08:00 03/09/21 12:00 Temperature 97.6 F Pulse Rate 72 70 76 Respiratory Rate 16 Blood Pressure 143/71 H Pulse Oximetry 93 03/09/21 14:59 03/09/21 16:00 Temperature 97.6 F Pulse Rate 83 70 Respiratory Rate 18 Blood Pressure 114/77 Pulse Oximetry 97 Intake/Output Intake/Output: Intake & Output 03/06/21 03/07/21 03/08/21 03/09/21 23:59 23:59 23:59 23:59 Intake Total 3975 2390 3015 620 Output Total 1100 750 250 750 Balance 2875 6970 2765 -130 Meds/Results Medications: Active Medications Generic Name Dose Route Start Last Admin
--- NOTE | 2021-03-09 17:54 | PM.IMPN ---
Progress Note: A&P Assessment and Plan (1) Septic shock: Code(s): A41.9 - Sepsis, unspecified organism; R65.21 - Severe sepsis with septic shock Status: Resolved Assessment and Plan: Septic shock likely related to abdominal wall abscess Pt is on iv zosyn and iv vancomycin 03/09/2021 today patient remains clinically stable has no new complaint, seen by surgery service the wound is healing seen by surgery service patient is okay to discharge will switch over to oral antibiotics for 14 days, will monitor patient overnight and discharge in the morning. (2) Abdominal wall abscess: Code(s): L02.211 - Cutaneous abscess of abdominal wall Status: Acute Assessment and Plan: Patient was found to be having necrotizing abdominal wall infection with large abscess Pt underwent Debridement of necrotizing wound infection including skin and subcutaneous tissue, complex drainage of abdominal wall abscess measuring approximately 30 by 15 by 10 cm on 03/04/2021 General surgery is following signed off from surgery point of view Continue Zosyn and Vancomycin 1st BC shows Ecoli Rpt BC awaiting Pt found to have pressure sores, wound care consulted (3) MARIBEL (acute kidney injury): Code(s): N17.9 - Acute kidney failure, unspecified Status: Acute Assessment and Plan: Presented with slightly elevated creatinine continue iv fluids (4) Hypothyroidism: Code(s): E03.9 - Hypothyroidism, unspecified Status: Acute Assessment and Plan: Will switch levothyroxine to IV (5) Lower extremity edema: Code(s): R60.0 - Localized edema Status: Acute Assessment and Plan: Echocardiogram has been obtained (6) Anemia: Code(s): D64.9 - Anemia, unspecified Status: Acute Assessment and Plan: Patient appears to have chronic anemia, hb is 8.5, cont to follow (7) Electrolyte abnormality: Code(s): E87.8 - Other disorders of electrolyte and fluid balance, not elsewhere classified Status: Acute Assessment and Plan: Replace low potassium, potassium is 3.1, continue to replace. Subjective Date/time seen: 03/09/21 17:54 Interval history: Pt admitted with septic shock, abdominal wall abscess status post debridement of necrotizing wound infection including skin and subcutaneous tissue, complex drainage of abdominal wall abscess on 03/04/2020 Pt seen by surgery, pt having daily dressing changes. Pt continues to look tired and unwell. 03/09/2021 today patient remains clinically stable has no new complaint, seen by surgery service the wound is healing seen by surgery service patient is okay to discharge will switch over to oral antibiotics for 14 days, will monitor patient overnight and discharge in the morning. Review of Systems Review of Systems: All systems reviewed & are unremarkable except as noted in HPI and below Exam Narrative: Patient is comfortable, NAD HEENT: eyes are clear and none icteric LUNGS: normal respiratory effort ABD: wound dressing Lower extremities: no edema SKIN: nonjaundiced Neuro: grossly intact. Objective Data Vital Signs Vital Signs: Vital Signs - 24 hr 03/08/21 20:00 03/09/21 00:00 03/09/21 04:00 Temperature 97.6 F Pulse Rate 71 67 69 Respiratory Rate 16 Blood Pressure 138/73 Pulse Oximetry 94 03/09/21 04:40 03/09/21 08:00 03/09/21 12:00 Temperature 97.6 F Pulse Rate 72 70 76 Respiratory Rate 16 Blood Pressure 143/71 H Pulse Oximetry 93 03/09/21 14:59 03/09/21 16:00 Temperature 97.6 F Pulse Rate 83 70 Respiratory Rate 18 Blood Pressure 114/77 Pulse Oximetry 97 Intake/Output Intake/Output: Intake & Output 03/06/21 03/07/21 03/08/21 03/09/21 23:59 23:59 23:59 23:59 Intake Total 3975 2390 3015 770 Output Total 1100 750 250 750 Balance 3946 4898 4435 20 Meds/Results Medications: Active Medications Generic Name Dose Route Start Last Admin
[2021-03-10] VITALS: PULSE 71
[2021-03-10 04:00] VITALS: PULSE 65
[2021-03-10] MEDS: CENTRAL LINE FLUSH 10 ML IV PUSH ×2 (05:05→12:35)
[2021-03-10] MEDS: CENTRAL LINE FLUSH 20 ML IV PUSH (05:05)
[2021-03-10] MEDS: ALBUMIN HUMAN 25% 25 GM/100 ML 100 ML IVPB ×2 (05:09→12:35)
[2021-03-10 05:15] LABS: Hemoglobin 8.2 g/dL (12.0-15.0); Mean Corpuscular HGB Conc 31.5 g/dl (32-36); Mean Corpuscular Hemoglobin 26.5 pg (26-34); Mean Corpuscular Volume 84.1 fl (80-100); Mean Platelet Volume 8.9 fl (7.4-10.4); Platelet Count Result 139 k/mm3 (150-375); Red Blood Count 3.09 M/mm3 (4.2-5.4); Red Cell Distribution Width 18.5 % (11.5-14.5); White Blood Count 6.7 K/mm3 (4.5-10.0)
[2021-03-10 05:31] LABS: Alanine Aminotransferase 8 U/L (4-35); Albumin Level 3.6 g/dL (3.5-5.1); Alkaline Phosphatase 55 U/L (38-126); Anion Gap 8 mmol/L (8-16); Aspartate Amino Transferase 15 U/L (14-36); Bilirubin,Total 1.5 mg/dL (0.2-1.3); Blood Urea Nitrogen 10 mg/dL (7-17); Calcium 8.9 mg/dL (8.4-10.2); Carbon Dioxide 23 mmol/L (22-30); Chloride 109 mmol/L (98-107); Estimated CRCL calculation 59 ml/min; Estimated Glomerular Filt Rate > 60; Glucose 106 mg/dL (65-110); Potassium 3.3 mmol/L (3.4-5.0); Sodium 140 mmol/L (137-145)
[2021-03-10 06:00] VITALS: BP 132/53; PULSE 71; RESP 18; TEMP 37.1; O2SAT 95
[2021-03-10] MEDS: LEVOTHYROXINE SODIUM INJ 100 MCG/5 ML VIAL 25 MCG IV PUSH (06:11)
[2021-03-10] MEDS: SUCRALFATE SUSP 100 MG/ML 10 ML UDC 1000 MG PO ×2 (06:12→11:58)
[2021-03-10 08:00] VITALS: PULSE 90
[2021-03-10] MEDS: POTASSIUM CHLORIDE 20 MEQ TABLET 40 MEQ PO (08:41)
[2021-03-10] MEDS: HYDROcodone/acetaminophen (*CRX) 10-325 MG TABLET 1 TAB PO ×2 (08:41→15:09)
[2021-03-10] MEDS: PANTOPRAZOLE 40 MG TABLET PO (08:42)
[2021-03-10] MEDS: POTASSIUM CHLORIDE 20 MEQ PACKET (FOR LIQUID) PO (08:42)
[2021-03-10] MEDS: CITALOPRAM HYDROBROMIDE 20 MG TABLET PO (08:42)
[2021-03-10] MEDS: TOLNAFTATE 1% POWDER 45 GM BTL 1 APPLIC TOPICAL (08:42)
[2021-03-10] MEDS: SOD HYPOCHLORITE 1/4 STRENGTH 473 ML 1 APPLIC TOPICAL (08:42)
--- NOTE | 2021-03-10 09:05 | PM.PNGS ---
Progress Note: A&P Assessment and Plan (1) Abdominal wall abscess: Code(s): L02.211 - Cutaneous abscess of abdominal wall Status: Acute Assessment and Plan: doing well, cont local wound care, abx, to ECF soon c cont wound care, abx Subjective Subjective Date/Time Seen: 03/10/21 09:05 doing well, feels much improved Review of Systems Review of Systems: All systems reviewed & are unremarkable except as noted in HPI and below Exam Resp: Effort & Inspection: normal respiratory effort Auscultation: clear to auscultation bilaterally Cardio: Rate: regular rate Rhythm: regular rhythm GI: Inspection: normal to inspection, non-distended and incision GI Palp: Yes Soft to palpation and Yes Tenderness to palpation present (GI) Other: wound - cellulitis improved, minimal drainage Objective Data Vital Signs Vital Signs: Vital Signs - 24 hr 03/09/21 12:00 03/09/21 14:59 03/09/21 16:00 Temperature 36.4 C Pulse Rate 76 83 70 Respiratory Rate 18 Blood Pressure 114/77 Pulse Oximetry 97 03/09/21 20:00 03/09/21 22:00 03/10/21 00:00 Temperature 36.9 C Pulse Rate 76 74 71 Respiratory Rate 18 Blood Pressure 138/71 Pulse Oximetry 95 03/10/21 04:00 03/10/21 06:00 Temperature 37.1 C Pulse Rate 65 71 Respiratory Rate 18 Blood Pressure 132/53 L Pulse Oximetry 95 Intake/Output Intake/Output: Intake & Output 03/07/21 03/08/21 03/09/21 03/10/21 23:59 23:59 23:59 23:59 Intake Total 2390 3015 1870 750 Output Total 166 509 5702 700 Balance 1640 2765 420 50 Meds/Results Medications: Active Medications Generic Name Dose Route Start Last Admin Trade Name Freq PRN Reason Stop Dose Admin Hydrocodone Bitart/Acetaminophen 1 tab 03/07/21 11:56 Hydrocodone/Acetaminophen (*Crx) 5-325 Mg Tablet PO Q4H PRN Pain Rated 4-6 Hydrocodone Bitart/Acetaminophen 1 tab 03/07/21 11:56 03/10/21 08:41 Hydrocodone/Acetaminophen (*Crx) 10-325 Mg Tablet PO 1 tab Q6H PRN Administration Pain Rated 7-10 Citalopram Hydrobromide 20 mg 03/08/21 09:00 03/10/21 08:42 Citalopram Hydrobromide 20 Mg Tablet PO 20 mg DAILY AZAEL Administration Heparin Sodium (Porcine) 5,000 units 03/05/21 06:00 03/06/21 05:55 Heparin Sodium 5,000 Units/Ml Vial SUB-Q 5,000 units Q8HR AZAEL Administration Piperacillin/Tazobactam/Dextrose 3.375 gm in 50 mls @ 100 mls/hr 03/05/21 03:00 03/10/21 08:41 Zosyn 3.375 Gm/D5w 50ml Pm IVPB 100 mls/hr Q6H AZAEL Administration Albumin Human 100 mls @ 60 mls/hr 03/05/21 18:00 03/10/21 06:50 Albutein IVPB Infused Q6HR AZAEL Infusion Vancomycin HCl 1,250 mg in 250 mls @ 200 mls/hr 03/09/21 21:00 03/09/21 22:11 Vancomycin 1,250 Mg/D5w 250 Ml IVPB Infused Q24H AZAEL Infusion Levothyroxine Sodium 50 mcg 03/06/21 06:30 03/06/21 09:02 Levothyroxine Sodium 50 Mcg Tablet PO 50 mcg DAILY@0630 AZAEL Administration Levothyroxine Sodium 25 mcg 03/06/21 09:45 03/10/21 06:11 Levothyroxine Sodium Inj 100 Mcg/5 Ml Vial IV PUSH 25 mcg DAILY@0630 AZAEL Administration Miconazole Nitrate 1 applic 03/07/21 09:00 03/10/21 08:42 Miconazole 2% Antifungal Ointment 56 Gm TOPICAL 1 applic Q12HR AZAEL Administration Morphine Sulfate 2 mg 03/05/21 14:15 03/09/21 14:21 Morphine Sulfate (*Crx) 2 Mg/Ml Inj IV PUSH 2 mg Q3H PRN Administration Pain Rated 7-10 Pantoprazole Sodium 40 mg 03/05/21 09:00 03/10/21 08:42 Pantoprazole 40 Mg Tablet PO 40 mg QAM AZAEL Administration Potassium Chloride 20 meq 03/08/21 17:00 03/10/21 08:42 Potassium Chloride 20 Meq Packet (For Liquid) PO 20 meq BID AZAEL Administration Sodium Chloride 10 ml 03/05/21 06:00 03/10/21 05:05 Central Line Flush IV PUSH 10 ml Q8HR AZAEL Administration Sodium Chloride 10 ml 03/05/21 18:00 03/09/21 17:20 Central Line Flush IV PUSH 10 ml DAILY@1800 AZAEL Administration Sodium Chloride 20 ml 03/04
[2021-03-10 12:00] VITALS: PULSE 74
[2021-03-10] MEDS: NEOMYCIN/POLYMYXIN/BACITRACIN OINTMENT PACKET 1 PACKET (15:11)
[2021-03-10 15:46] VITALS: BP 152/80; PULSE 71; RESP 16; TEMP 36.8; O2SAT 94
--- NOTE | 2021-04-07 09:51 | PM.DS ---
DS: Admitting Diagnosis Discharge Date 03/10/21 Admitting Diagnosis Chief Complaint: Low blood pressure, abdominal wound DS: Discharge Diagnosis Discharge Diagnosis (1) Septic shock: Code(s): A41.9 - Sepsis, unspecified organism; R65.21 - Severe sepsis with septic shock Status: Resolved Assessment and Plan: Septic shock likely related to abdominal wall abscess Pt is on iv zosyn and iv vancomycin 03/09/2021 today patient remains clinically stable has no new complaint, seen by surgery service the wound is healing seen by surgery service patient is okay to discharge will switch over to oral antibiotics for 14 days, will monitor patient overnight and discharge in the morning. (2) Abdominal wall abscess: Code(s): L02.211 - Cutaneous abscess of abdominal wall Status: Acute Assessment and Plan: Patient was found to be having necrotizing abdominal wall infection with large abscess Pt underwent Debridement of necrotizing wound infection including skin and subcutaneous tissue, complex drainage of abdominal wall abscess measuring approximately 30 by 15 by 10 cm on 03/04/2021 General surgery is following signed off from surgery point of view Continue Zosyn and Vancomycin 1st BC shows Ecoli Rpt BC awaiting Pt found to have pressure sores, wound care consulted (3) MARIBEL (acute kidney injury): Code(s): N17.9 - Acute kidney failure, unspecified Status: Acute Assessment and Plan: Presented with slightly elevated creatinine continue iv fluids (4) Hypothyroidism: Code(s): E03.9 - Hypothyroidism, unspecified Status: Acute Assessment and Plan: Will switch levothyroxine to IV (5) Lower extremity edema: Code(s): R60.0 - Localized edema Status: Acute Assessment and Plan: Echocardiogram has been obtained (6) Anemia: Code(s): D64.9 - Anemia, unspecified Status: Acute Assessment and Plan: Patient appears to have chronic anemia, hb is 8.5, cont to follow (7) Electrolyte abnormality: Code(s): E87.8 - Other disorders of electrolyte and fluid balance, not elsewhere classified Status: Acute Assessment and Plan: Replace low potassium, potassium is 3.1, continue to replace. DS: Summary Hospital Course Reason for hospitalization: Chief Complaint: Low blood pressure, abdominal wound Narrative: 70-year-old female with a past medical history of eosinophilic cystitis with chronic indwelling Christian catheter, Hunners ulcers of the bladder, obesity and hypothyroidism who presented to the ER from [facility] via EMS due to abdominal wound and low blood pressures. Source of information is patient report and patient's 's report. The patient reported that she has been having some abdominal pain for few days. Her reported that she developed some erythema over the left lower abdomen yesterday. He reports that the skin was tight and shiny red. When she woke up this morning she had a necrotic appearing wound in that same area. The wound was large draining and foul smelling. The referring facility stated the patient had a fever. The patient reports feeling generally more fatigued than usual and was lethargic at the time of my evaluation. She was alert and oriented x3. She denies any nausea or vomiting. She has a chronic indwelling Christian catheter that has been draining without difficulty. As far as I can tell her catheter was last exchanged during her hospitalization in January between the and the . Contrasted CT scan of the abdomen pelvis demonstrated very large abscess extending from above the umbilicus down the midline into the anterior lateral left lower abdominal wall. The LRINEC score was 8 indicating high risk for necrotizing fasciitis. The wound in the left lower abdominal wall appeared to be necrotic in appearance. The patient had profound bandemia on CBC with 44% bands. Subsequen
== END 2021-03-10 16:21 | DRG 854 ==
LOC: ANHED 20:34 → ANHSURGERY 21:55 → ANHICU 03-05 18:06 → ANH3MED 03-07 21:37 → ANHICU 03-14 10:44
PROVIDERS: Internal Medicine; Surgery; Admitting Provider Internal Medicine; Emergency Provider Emergency Medicine; PCP Internal Medicine; Visit Provider Family Medicine
PROC: 0JB80ZZ Excision of Abdomen Subcutaneous Tissue and Fascia, Open Approach (ICD-10-PCS; principal; 2021-03-04 23:00)
DX: A41.51 Sepsis due to Escherichia coli [E. coli] (principal); L02.211 Cutaneous abscess of abdominal wall; N17.9 Acute kidney failure, unspecified; N18.30 Chronic kidney disease, stage 3 unspecified; E03.9 Hypothyroidism, unspecified; D64.9 Anemia, unspecified; E87.8 Other disorders of electrolyte and fluid balance, not elsewhere classified; K21.9 Gastro-esophageal reflux disease without esophagitis; D50.9 Iron deficiency anemia, unspecified; E87.6 Hypokalemia; L89.90 Pressure ulcer of unspecified site, unspecified stage; E66.01 Morbid (severe) obesity due to excess calories; Z68.37 Body mass index [BMI] 37.0-37.9, adult; Z90.49 Acquired absence of other specified parts of digestive tract; Z90.710 Acquired absence of both cervix and uterus
CPT/HCPCS: 36415; 36430; 71045; 74177; 80053; 80202; 81001; 83605; 83735; 83880; 84100; 84132; 85025; 85027; 85610; 85730; 86140; 86850; 86900; 86901; 86920; 87040; 87077; 87086; 87088; 87186; 92610; 93005; 93306; 96361; 96365; 96366; 96367; 96372; 96375; 96376; 97110; 97162; 97167; 97530; 97535; 99291; A9270; C1751; G0378; J0330; J0610; J1100; J1644; J2270; J2405; J2543; J2704; J3370; J3475; J3480; J7030; J7040; J7050; J7120; P9016; P9047; Q9967

== ENCOUNTER 2021-05-25 09:36 | Emergency (ER) | payer MEDICARE, SELFPAY ==
--- NOTE | ~2021-05-25 | CT_ITS ---
EXAMINATION: CT abdomen pelvis wo con DATE: 05/25/2021 12:46 INDICATION: Left lower abdomen abscess. TECHNIQUE: Computed tomography (CT) of the abdomen and pelvis was performed without intravenous contr ast. Automated exposure control and iterative reconstruction technique were employed. The dose-length product was 950.86 mGy-cm. COMPARISON: CT abdomen and pelvis 03/04/2021, 10/08/2018 FINDINGS: The visualized portions of the lung bases demonstrates mild atelectasis. No pleural effusio n. The heart size is normal. There is a small pericardial effusion. The liver and spleen are normal. There are changes of cholecystectomy. The pancreas and left adrenal gland are normal. There is a 3.2 cm mass in right adrenal gland without change from 10/08/2018, likely an adenoma. There is cortical th inning of the kidneys. There is a 2.5 cm cyst in left kidney. There is mild bilateral hydronephrosis. The bladder is decompressed by a Christian catheter. There are no dilated loops of bowel. The appendix i s normal. There are no pathologically enlarged lymph nodes. There is no free intraperitoneal fluid. I n the subcutaneous fat in left anterior abdominal wall, there is a thick-walled cavity with packing m aterial and trace fluid. The fluid tracks superiorly between the abdominal wall musculature, which is thickened, consistent with myositis. At the inferomedial aspect of the cavity, there is a mass with 2.5 x 1.0 x 1.4 cm central area of relatively low attenuation, likely necrosis that may or may not be drainable. There is severe thoracic and lumbar spondylosis. Thoracolumbar dextroscoliosis is noted. IMPRESSION: 1. Subcutaneous abscess cavity in left anterior abdomen with packing material. At the inferomedial as pect of the cavity, there is a masslike area with 2.5 x 1.0 x 1.4 cm central area of necrosis that ma y or may not be drainable. 2. Small pericardial effusion. Reviewed, dictated and finalized at location A. TRAINER IMPRESSION: 1. Subcutaneous abscess cavity in left anterior abdomen with packing material. At the inferomedial aspect of the cavity, there is a masslike area with 2.5 x 1 .0 x 1.4 cm central area of necrosis that may or may not be drainable. 2. Small pericardial effusion.
[2021-05-25 09:49] VITALS: BP 102/62; PULSE 91; RESP 17; TEMP 35.9; O2SAT 100
--- NOTE | 2021-05-25 11:42 | ED.GENADULT ---
HPI - General Adult General Chief complaint: Wound/Laceration Stated complaint: wound on abdomen Time Seen by Provider: 05/25/21 11:09 Source: patient Mode of arrival: ambulatory Limitations: no limitations History of Present Illness HPI narrative: Patient is a 70-year-old female with present management of an abdominal wall ulcer that was debrided 03/04/2021 and found to be necrotizing. He has been doing dressing changes twice a day and she has been going to the wound clinic. Her became concerned about an area to the central abdomen and it was evaluated by Dr Calvillo yesterday in the wound clinic. He sent a prescription but the patient did not start it, not sure of the medication name. She states she was told if it worsened to come to the ER. She denies fever, chills, nausea, vomiting, neurological issues, or increased weakness. Related Data Home Medications Medication Instructions Recorded Confirmed fexofenadine 180 mg tablet 180 mg PO DAILY 03/25/19 05/23/21 magnesium 250 mg tablet 250 mg PO DAILY 11/24/20 05/23/21 Eucerin Original 1 applic TOPICAL BID 03/05/21 05/23/21 calcium carbonate 500 mg PO DAILY 03/05/21 05/23/21 ergocalciferol (vitamin D2) 1,250 mcg PO WEEKLY 03/05/21 05/23/21 [Vitamin D2] ferrous sulfate 325 mg PO BID 03/05/21 05/23/21 arginine 7 gram-glutamine 7 ea PO 04/24/21 05/23/21 gram-calcium HMB 1.5 gram oral powder pack Allergies Allergy/AdvReac Type Severity Reaction Status Date / Time cefdinir AdvReac Intermediate DIZZINESS, Verified 05/23/21 14:17 DIARRHEA ciprofloxacin AdvReac Mild Muscle Pain Verified 05/23/21 14:17 propoxyphene AdvReac Mild Nausea Verified 05/23/21 14:17 Review of Systems Review of Systems: CONSTITUTIONAL: Denies fever, chills, or sweats. EYES: Denies visual changes, redness, or discharge. ENT: Denies rhinorrhea, congestion, sore throat, or otalgia. CARDIOVASCULAR: Denies chest pain, palpitations, or edema. RESPIRATORY: Denies cough or dyspnea. GASTROINTESTINAL: Denies abdominal pain, nausea, vomiting, or diarrhea. GENITOURINARY: Denies dysuria or hematuria. SKIN: Reports wound denies rash or itching. MUSCULOSKELETAL: Denies back pain, joint pain, or myalgia. NEUROLOGIC: Denies headache, numbness, dizziness, or weakness. PSYCHIATRIC: Denies anxiety or depression. [facility] Past Medical History Medical History Abnormal mammogram of left breast Anemia Chronic pain of both knees Eosinophilic cystitis Gastro-esophageal reflux disease without esophagitis History of recurrent UTI (urinary tract infection) Hunner's ulcer Hyperglycemia Hypothyroidism Iron deficiency anemia Stage 3b chronic kidney disease Surgical History Surgical History History of abdominal surgery 03/04/21 - Excisional debridement of necrotizing wound infection of the left lower abdomen History of cholecystectomy History of hysterectomy History of meniscectomy of left knee History of meniscectomy of right knee Family History Family History Mother Family history of diabetes mellitus in first degree relative Hypertension Father Family history of respiratory disorder Patient's father is , Onset Age: 93 Congestive heart failure Social History Social History Social History: The patient is and lives with her and her mother who is in her 90s. Her is a durable power deputy prosecuting attorney for healthcare. Patient is a full code. 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 Patient is lifelong nonsmoker. No alcohol marijuana or illicit drugs. Smoking status: Never smoker Second hand tobacco smoke exposure: No Alcohol intake: never Substance use: never Substance use type: does not use Spiritual care concerns: No Exam Na
[2021-05-25 12:20] LABS: Basophils Absolute Auto 0.1 K/mm3 (0.0-0.1); Basophils Percent Auto 0.5 % (0.2-1.2); Eosinophils Absolute Auto 0.2 K/mm3 (0-0.3); Eosinophils Percent Auto 1.7 % (0-4.4); Hematocrit 29.8 % (37.0-47.0); Hemoglobin 9.3 g/dL (12.0-15.0); Immature Granulocyte Percent A 0.8 % (0-0.5); Lymphocytes Absolute Auto 1.52 K/mm3 (0.9-3.2); Mean Corpuscular HGB Conc 31.2 g/dl (32-36); Mean Corpuscular Hemoglobin 29.2 pg (26-34); Mean Corpuscular Volume 93.7 fl (80-100); Mean Platelet Volume 8.5 fl (7.4-10.4); Monocytes Absolute Auto 0.8 K/mm3 (0.1-0.6); Monocytes Percent Auto 6.5 % (2.6-8.5); Neutrophils Percent Auto 78.5 % (45.5-73.1); Platelet Count Result 430 k/mm3 (150-375); Red Blood Count 3.18 M/mm3 (4.2-5.4); Red Cell Distribution Width 14.6 % (11.5-14.5); White Blood Count 12.7 K/mm3 (4.5-10.0)
[2021-05-25 12:30] LABS: Alanine Aminotransferase 19 U/L (4-35); Albumin Level 3.7 g/dL (3.5-5.1); Alkaline Phosphatase 128 U/L (38-126); Anion Gap 6 mmol/L (8-16); Aspartate Amino Transferase 26 U/L (14-36); Bilirubin,Total 0.4 mg/dL (0.2-1.3); Blood Urea Nitrogen 25 mg/dL (7-17); Calcium 9.6 mg/dL (8.4-10.2); Carbon Dioxide 30 mmol/L (22-30); Chloride 100 mmol/L (98-107); Estimated Glomerular Filt Rate 37; Glucose 123 mg/dL (65-110); Sodium 136 mmol/L (137-145)
[2021-05-25 12:31] LABS: Lactic Acid Reflex 1.2 mmol/L (0.7-2.1)
[2021-05-25 12:50] VITALS: TEMP 36.9
[2021-05-25] MEDS: SODIUM CHLORIDE 0.9% IV 1,000 ML 999 ML IV CONT (12:56)
--- NOTE | 2021-05-25 13:03 | PM.CNGS ---
Assessment and Plan Assessment and plan (1) Open abdominal wall wound: Code(s): S31.109A - Unspecified open wound of abdominal wall, unspecified quadrant without penetration into peritoneal cavity, initial encounter Status: Acute Assessment and Plan: Dr. Calvillo has been following her open abdominal wound s/p excisional debridement of a necrotizing soft tissue infection of the LLQ of abdomen on 03/04/21. Initial infection healed and she has been dealing with a chronic wound with treatment of local wound care. She saw Dr. Calvillo yesterday and antibiotics were sent to the pharmacy, which she never started. Cellulitis has worsened just slightly since yesterday. Her abdominal wound is draining purulent fluid, but it appears to be open and draining well. We would recommend working her up and seeing what labs and CT scan of the abdomen/pelvis show and deciding further plan from there. If there is an extensive fluid collection that appears separate from the open draining wound, or if she has severe leukocytosis that may require IV antibiotics, then we could consider having the patient admitted. Although, if her labs and CT are unremarkable, then we could consider sending her home on oral antibiotics and continue local wound care with outpatient follow-up. Thank you for the consultation. (2) Cellulitis of abdominal wall: Code(s): L03.311 - Cellulitis of abdominal wall Status: Acute Assessment and Plan: Will need antibiotics for this as either an outpatient or inpatient depending on above mentioned results. (3) Obesity (BMI 30-39.9): Code(s): E66.9 - Obesity, unspecified Status: Acute Assessment and Plan: Encouraged continued weight loss and increase activity. She has lost weight since her last hospitalization and is slowly regaining strength. (4) Chronic indwelling Christian catheter: Code(s): Z97.8 - Presence of other specified devices Status: Acute Additional Plan I have discussed the patient's case and plan of care with Dr. Calvillo. History of Present Illness Consult details Consult date: 05/25/21 Reason for consult: other (LLQ abdominal wound infection, cellulitis) Requesting physician: Tristen Reynolds PA-C Narrative: This is a 70-year-old obese female who presented to the ER today with complaints of a LLQ abdominal wound, which we have been following as an outpatient. She is known to our service from a previous hospitalization when she was seen for a necrotizing LLQ abdominal wound, sepsis, and MARIBEL from 03/04/21 - 04/07/21. She was taken to the OR for an excisional debridement of the necrotizing soft tissue infection by Dr. Calvillo on 03/04/21. She was eventually discharged to a SNF and continued local wound care. She has slowly improved since discharge and was sent back home where she lives with her shortly before Jso[facility]. She was seen in follow-up in the wound clinic with Dr. Calvillo yesterday. She was found to have erythema and induration in the LLQ and purulent drainage coming from her wound. She was prescribed oral antibiotics, but never picked them up to start taking them. A line was drawn around the redness on her abdomen and she reports that since the redness had spread outside of that line today, she went to the ER for evaluation. When she presented, the ER provider consulted our service and I saw her in the ER today. She has not had any other recent changes. She actually denies any abdominal pain at this time. She reports it is only tender with dressing changes, which has been the case since surgery. No fever or chills. No other complaints at this time. Review of Systems Review of Systems: All systems reviewed & are unremarkable except as noted in HPI and below Constitutional: Constitutional: Reports as per HPI, Denies chills, Denies fatigue and Denies fever(s) Eyes: Eyes: Reports no additional eye complaints ENT: Reports system reviewed and no additional complaints, except as
[2021-05-25 15:20] VITALS: BP 115/68; PULSE 85; RESP 20; O2SAT 100
== END 2021-05-25 15:24 | disposition home or self-care (01) ==
PROVIDERS: Physician Assistant; Emergency Provider Emergency Medicine; PCP Internal Medicine
DX: L02.211 Cutaneous abscess of abdominal wall (principal); N17.9 Acute kidney failure, unspecified; D64.9 Anemia, unspecified; K21.9 Gastro-esophageal reflux disease without esophagitis; Z87.440 Personal history of urinary (tract) infections; E03.9 Hypothyroidism, unspecified
CPT/HCPCS: 36415; 74176; 80053; 83605; 85025; 87040; 96360; 96361; 99284; J7030

== ENCOUNTER 2021-06-19 15:41 | Emergency (ER) | payer MEDICARE, SELFPAY ==
[2021-06-19 16:12] VITALS: BP 106/70; PULSE 89; RESP 18; TEMP 36.6; O2SAT 99
[2021-06-19 17:07] VITALS: BP 127/77; PULSE 89; RESP 18; TEMP 37.2; O2SAT 100
--- NOTE | 2021-06-19 17:24 | ED.WOUNDLAC ---
HPI - Wound/Laceration General Chief Complaint: Wound/Laceration <Malina Da Silva PA-C - Last Filed: 06/19/21 20:23> Stated Complaint: abd wound draining <SOULEYMANE Hassan Last Filed: 06/19/21 20:23> Time Seen by Provider: 06/19/21 17:07 <Malina Da Silva PA-C - Last Filed: 06/19/21 20:23> Source: patient <SOULEYMANE Hassan Last Filed: 06/19/21 20:23> Mode of arrival: wheelchair <SOULEYMANE Hassan Last Filed: 06/19/21 20:23> Limitations: no limitations <SOULEYMANE Hassan Last Filed: 06/19/21 20:23> History of Present Illness HPI narrative: This is a 70-year-old female that presents to the emergency department for abdominal wound. Patient has history of abdominal wall abscess that was surgically drained by Dr. Calvillo in February of last year. She has been following with Dr. Calvillo and wound care since then. Reports her takes care of the wound. He noticed over the last day or 2 the area has become red. He noted some abnormal drainage today which prompted her to be evaluated. Denies fever, abdominal pain, or vomiting. <SOULEYMANE Hassan Last Filed: 06/19/21 20:23> Related Data Home Medications: Home Medications Medication Instructions Recorded Confirmed fexofenadine 180 mg tablet 180 mg PO DAILY 03/25/19 05/23/21 magnesium 250 mg tablet 250 mg PO DAILY 11/24/20 05/23/21 Eucerin Original 1 applic TOPICAL BID 03/05/21 05/23/21 calcium carbonate 500 mg PO DAILY 03/05/21 05/23/21 ergocalciferol (vitamin D2) 1,250 mcg PO WEEKLY 03/05/21 05/23/21 [Vitamin D2] ferrous sulfate 325 mg PO BID 03/05/21 05/23/21 arginine 7 gram-glutamine 7 ea PO 04/24/21 05/23/21 gram-calcium HMB 1.5 gram oral powder pack <SOULEYMANE Hassan Last Filed: 06/19/21 20:23> Allergies/Adverse Reactions: Allergies Allergy/AdvReac Type Severity Reaction Status Date / Time cefdinir AdvReac Intermediate DIZZINESS, Verified 05/23/21 14:17 DIARRHEA ciprofloxacin AdvReac Mild Muscle Pain Verified 05/23/21 14:17 propoxyphene AdvReac Mild Nausea Verified 05/23/21 14:17 <Malina Da Silva PA-C - Last Filed: 06/19/21 20:23> Review of Systems Review of Systems: CONSTITUTIONAL: Denies fever GASTROINTESTINAL: Denies abdominal pain, nausea, vomiting <Malina Da Silva PA-C - Last Filed: 06/19/21 20:23> All systems reviewed & are unremarkable except as noted in HPI and below <Malina Da Silva PA-C - Last Filed: 06/19/21 20:23> [facility] Past Medical History Medical History: Medical History Abnormal mammogram of left breast Anemia Chronic pain of both knees Eosinophilic cystitis Gastro-esophageal reflux disease without esophagitis History of recurrent UTI (urinary tract infection) Hunner's ulcer Hyperglycemia Hypothyroidism Iron deficiency anemia Stage 3b chronic kidney disease <Malina Da Silva PA-C - Last Filed: 06/19/21 20:23> Surgical History Surgical History: Surgical History History of abdominal surgery 03/04/21 - Excisional debridement of necrotizing wound infection of the left lower abdomen History of cholecystectomy History of hysterectomy History of meniscectomy of left knee History of meniscectomy of right knee <Malina Da Silva PA-C - Last Filed: 06/19/21 20:23> Family History Family History: Family History Mother Family history of diabetes mellitus in first degree relative Hypertension Father Family history of respiratory disorder Patient's father is , Onset Age: 93 Congestive heart failure <SOULEYMANE Hassan Last Filed: 06/19/21 20:23> Social History Social History: Social History Social History: The patient is and lives with her and her
[2021-06-19 18:00] LABS: Basophils Absolute Auto 0.1 K/mm3 (0.0-0.1); Basophils Percent Auto 0.7 % (0.2-1.2); Eosinophils Absolute Auto 0.4 K/mm3 (0-0.3); Eosinophils Percent Auto 4.6 % (0-4.4); Hematocrit 33.6 % (37.0-47.0); Hemoglobin 10.3 g/dL (12.0-15.0); Immature Granulocyte Absolute 0.02 K/mm3 (0.00-0.031); Immature Granulocyte Percent A 0.2 % (0-0.5); Lymphocytes Absolute Auto 1.36 K/mm3 (0.9-3.2); Lymphocytes Percent Auto 16.6 % (18.3-44.2); Mean Corpuscular HGB Conc 30.7 g/dl (32-36); Mean Corpuscular Hemoglobin 29.5 pg (26-34); Mean Corpuscular Volume 96.3 fl (80-100); Mean Platelet Volume 9.1 fl (7.4-10.4); Monocytes Absolute Auto 0.7 K/mm3 (0.1-0.6); Monocytes Percent Auto 8.4 % (2.6-8.5); Neutrophils Absolute Auto 5.7 K/mm3 (1.3-6.7); Neutrophils Percent Auto 69.5 % (45.5-73.1); Platelet Count Result 324 k/mm3 (150-375); Red Blood Count 3.49 M/mm3 (4.2-5.4); Red Cell Distribution Width 15.3 % (11.5-14.5); White Blood Count 8.2 K/mm3 (4.5-10.0)
[2021-06-19 18:12] LABS: INR 1.1; Prothrombin Time 13.8 Seconds (11.1-14.7)
[2021-06-19 18:13] LABS: Partial Thromboplastin Time 30.9 SECONDS (22.3-36.8)
[2021-06-19 18:19] LABS: Lactic Acid Reflex 0.7 mmol/L (0.7-2.1)
[2021-06-19 18:21] LABS: Alanine Aminotransferase 14 U/L (4-35); Albumin Level 3.9 g/dL (3.5-5.1); Alkaline Phosphatase 91 U/L (38-126); Anion Gap 8 mmol/L (8-16); Aspartate Amino Transferase 24 U/L (14-36); Bilirubin,Total 0.6 mg/dL (0.2-1.3); Blood Urea Nitrogen 28 mg/dL (7-17); CRP 8.5 mg/dL (<1.0); Calcium 9.5 mg/dL (8.4-10.2); Carbon Dioxide 27 mmol/L (22-30); Chloride 101 mmol/L (98-107); Estimated CRCL calculation 30 ml/min; Estimated Glomerular Filt Rate 34; Glucose 98 mg/dL (65-110); Potassium 3.9 mmol/L (3.4-5.0); Sodium 136 mmol/L (137-145)
[2021-06-19] MEDS: SODIUM CHLORIDE 0.9% IV 1,000 ML 500 ML IV CONT (18:30)
[2021-06-19 18:38] LABS: Erythrocyte Sedimentation Rate 98 mm/hr (0-20)
[2021-06-19 20:48] VITALS: BP 137/65; PULSE 80; RESP 16; TEMP 36.4; O2SAT 99
== END 2021-06-19 20:51 | disposition home or self-care (01) ==
PROVIDERS: Physician Assistant; Emergency Provider General Practice; PCP Internal Medicine
DX: L03.311 Cellulitis of abdominal wall (principal); N18.32 Chronic kidney disease, stage 3b; E03.9 Hypothyroidism, unspecified; K21.9 Gastro-esophageal reflux disease without esophagitis; Z87.440 Personal history of urinary (tract) infections; D50.9 Iron deficiency anemia, unspecified
CPT/HCPCS: 36415; 80053; 83605; 85025; 85610; 85652; 85730; 86140; 87070; 87147; 87205; 96360; 96361; 99283; A9270; J7030

== ENCOUNTER 2021-07-12 07:20 | Outpatient (RCR) | payer MEDICARE, SELFPAY ==
[2021-04-19 08:58] VITALS: BMI 47.7
--- NOTE | 2021-04-19 09:46 | WPDWOUNDNOTE ---
Wound Care Note Date/Time: 04/19/21 09:46 Pt feel good overall, still somewhat weak. Has been discharged to home from rehab. Pt does have wound care nurse visiting weekly. cont to do drsg changes BID. Assessment and Plan Assessment and plan (1) Abdominal wall abscess: Code(s): L02.211 - Cutaneous abscess of abdominal wall Status: Acute Assessment and Plan: doing well, stop Dankins' at this point, change to W to D BID c silvergel, f/u 1 mo Review of Systems Review of Systems: All systems reviewed & are unremarkable except as noted in HPI and below Exam Const: General: cooperative, comfortable and no acute distress Nutritional Appearance: obese Orientation/consciousness: patient oriented x3 Resp: Auscultation: clear to auscultation bilaterally Cardio: Rate: regular rate Rhythm: regular rhythm GI: Inspection: normal to inspection and non-distended GI Palp: Yes Soft to palpation and No Tenderness to palpation present (GI) Skin: General skin exam: normal color Other: L flank - 3 open wounds measuring .5x3x.4 (distal), 2x8x2 tracking 14 cm, 1x.7, all wounds c good granulation base, no s/s infection, serous drainage Neuro: General: patient oriented x3
--- NOTE | 2021-05-24 14:10 | P.PNWOUND_ITS ---
Wound Care Note Date/Time: 05/24/21 14:10 feels ok, doing well c wound care, reports increased milky drainage over last few days, denies f/c Assessment and Plan Assessment and plan (1) Abdominal wall abscess: Code(s): L02.211 - Cutaneous abscess of abdominal wall Status: Acute Assessment and Plan: cont local wound care, will restart Bactrim x 10 days, f/u 2 wks Review of Systems Review of Systems: All systems reviewed & are unremarkable except as noted in HPI and below Exam Const: General: cooperative, comfortable and no acute distress O rientation/consciousness: patient oriented x3 Limitations: no limitations Resp: Auscultation: clear to auscultation bilaterally Cardio: Rate: regular rate Rhythm: regular rhythm GI: Inspection: normal to inspection and non-distended GI Palp: Yes Soft to palpation and No Tenderness to palpation present (GI) Skin: Other: L flank wound - opening measures 4x3 cm, good granulation, copious purulent drainage, track extending 15 cm medially, area of redness LLQ measuring 5x6 cm, no loculated fluid noted, good drainage
--- NOTE | 2021-05-29 15:44 | WPDWOUNDNOTE ---
Wound Care Note Date/Time: 05/29/21 15:44 much improved over the weekend, redness improved, drainage decreased, no f/c, more energy and appetite Assessment and Plan Assessment and plan (1) Open abdominal wall wound: Code(s): S31.109A - Unspecified open wound of abdominal wall, unspecified quadrant without penetration into peritoneal cavity, initial encounter Status: Acute Assessment and Plan: much improved, cont local wound care and abx, f/u 2 wks Review of Systems Review of Systems: All systems reviewed & are unremarkable except as noted in HPI and below Exam Const: General: cooperative, comfortable and no acute distress Resp: Auscultation: clear to auscultation bilaterally Cardio: Rate: regular rate Rhythm: regular rhythm GI: Inspection: normal to inspection GI Palp: Yes Soft to palpation, No Tenderness to palpation present (GI), No Guarding due to palpation present (GI) and No Rigid due to palpation Other: L flank wound - tracking 15 cm, opening decreased in size to 1.5 cm drainage much improved, LLQ redness decreased in size c punctate opening draining bloody fluid
--- NOTE | 2021-06-12 14:03 | WPDWOUNDNOTE ---
Wound Care Note Date/Time: 06/12/21 14:03 feels much better, wound c no pain, redness, drainage almost completely resolved, has completed 10 day course of abx Assessment and Plan Assessment and plan (1) Open abdominal wall wound: Code(s): S31.109A - Unspecified open wound of abdominal wall, unspecified quadrant without penetration into peritoneal cavity, initial encounter Status: Acute Assessment and Plan: much improved, cont local wound care, f/u 1 mo Review of Systems Review of Systems: All systems reviewed & are unremarkable except as noted in HPI and below Exam Const: General: cooperative, comfortable and no acute distress Nutritional Appearance: obese Orientation/consciousness: patient oriented x3 Limitations: no limitations Resp: Auscultation: clear to auscultation bilaterally Cardio: Rate: regular rate Rhythm: regular rhythm GI: Inspection: normal to inspection and non-distended GI Palp: Yes Soft to palpation, No Tenderness to palpation present (GI), No Guarding due to palpation present (GI) and No Rigid due to palpation Skin: Other: L abd wound - tracking 8cm, opening 1x2.5 cm, redness resolved, minimal serous drainage
--- NOTE | 2021-06-28 13:26 | WPDWOUNDNOTE ---
Wound Care Note Date/Time: 06/28/21 08:46 Wound history: This is a 70-year-old obese female who is known to our service from a previous hospitalization (03/04/21-04/07/21) for a necrotizing LLQ abdominal wound, sepsis, and she subsequently underwent incision and drainage with debridement by Dr. Calvillo on 03/04/21. After discharge, she has since been followed for a chronic LLQ abdominal wound. She has presented back to the ER a few times and has been on and off antibiotics due to increased purulent drainage, which has all been able to be treated as an outpatient. She was most recently seen in the ER on 06/19/21 and was placed back on Bactrim for cellulitis and purulent drainage from the wound. She is seen in the wound clinic today for a scheduled follow-up visit. She reports having one more day of the antibiotics and has been taking them as prescribed. Her is at the bedside and has been doing her dressing changes at home, packing the wound with kerlex gauze that he cuts in half lengthwise to fit the wound. She denies fevers, chills, or increase in drainage. She reports having the redness and cellulitis that was present before, has completely resolved. Drainage has lessened. No other complaints at this time. Wound approximation: No Wound width: 2 cm Wound length: 1 cm Drainage: minimal cloudy serosanguineous, no significant purulent drainage Surrounding tissue appearance: healthy, no erythema or warmth, no signs of cellulitis Tunnelin.5 cm tunneling medially towards umbilicus Percentage granulation tissue: pink healthy tissue visible at the opening of the wound in the LLQ but unable to visualize any tissue into the depth of tunneling Treatment/Procedures: dressing change Dressings: Switch to 1 iodoform or plain nugauze packing and cover with gauze or ABD pad. Assessment and Plan Assessment and plan (1) Open abdominal wall wound: Code(s): S31.109A - Unspecified open wound of abdominal wall, unspecified quadrant without penetration into peritoneal cavity, initial encounter Status: Acute Assessment and Plan: Improved following outpatient course of oral antibiotics. Instructed to finish this course and then we will stop the antibiotics, no need for a longer course at this time. I feel that the kerlex gauze is making it difficult to pack this adequately to the depth of the area of tunneling, especially considering that the opening to the wound is now only 2 cm x 1 cm. Will switch to 1 iodoform or nugauze packing dressing changes daily. The wound care nurse is sending her home with these supplies. Follow-up with Dr. Calvillo in 2 weeks in the wound clinic. May need to consider taking her back to the OR as an outpatient to open this track up and explore the wound, which would then allow us to start using wound vac therapy as well. Will see how she is progressing again in 2 weeks and plan accordingly. Review of Systems Review of Systems: All systems reviewed & are unremarkable except as noted in HPI and below Integumentary/Breasts: Skin/Breast: Reports system reviewed and no additional complaints, except as docu and Reports as per HPI Exam Const: General: comfortable, no acute distress, alert and awake Nutritional Appearance: obese Orientation/consciousness: patient oriented x3 GI: Inspection: non-distended, obesity and scar (LLQ scaring and divot surrounding the now small open wound) GI Palp: Yes Soft to palpation, No Tenderness to palpation present (GI), No Guarding due to palpation present (GI) and No Rebound tenderness present Percussion: Yes normal to percussion Auscultation: normal bowel sounds Skin: General skin exam: normal color Other: Small open LLQ abdominal wound with tunneling medially about 13.5 cm with minimal cloudy serosanguineous drainage, no surrounding cellulitis Psych: Insight: Good insight present (Psych) Judgement: Good judgement present (Psych)
--- NOTE | 2021-07-12 10:01 | WPDWOUNDNOTE ---
Wound Care Note Date/Time: 07/12/21 10:01 Pt reports she has been feeling weak and fatigued over last few days. She has noted increased drainage from wound but no pain. Pt denies fevers, chills. Assessment and Plan Assessment and plan (1) Abdominal wall abscess: Code(s): L02.211 - Cutaneous abscess of abdominal wall Status: Acute Assessment and Plan: will need further incision and drainage, likely vac placement in OR, will start Bactrim Review of Systems Review of Systems: All systems reviewed & are unremarkable except as noted in HPI and below Exam Const: General: cooperative, comfortable and no acute distress Orientation/consciousness: patient oriented x3 Resp: Auscultation: clear to auscultation bilaterally Cardio: Rate: regular rate Rhythm: regular rhythm GI: Other: LLQ abd wall - indurated area measuring 7.5x15 cm, small opening in L flank that tunnels at least 15 cm, some mod purulent drainage
== END 2021-07-18 23:59 | disposition home or self-care (01) ==
LOC: ANHWOC 07:20
PROVIDERS: PCP Internal Medicine; Visit Provider Surgery
DX: T81.31XD Disruption of external operation (surgical) wound, not elsewhere classified, subsequent encounter (principal); L02.211 Cutaneous abscess of abdominal wall
CPT/HCPCS: 99212; 99213; G0463

== ENCOUNTER 2021-07-14 04:32 | Day surgery (SDC) | payer MEDICARE, SELFPAY ==
[2021-07-12 11:07] VITALS: BMI 38.2
--- NOTE | 2021-07-12 11:31 | PC.NURSE ---
Report to the Outpatient Waiting Room, entrance under the green pavilion located off [facility], at time _11:00AM on date __07/14/21 . OR Time: _1:00PM . - You and your visitor will be asked a series of questions to screen for COVID 19 for your protection. - A mask is required within the hospital. Preoperative COVID Testing Requirements: No COVID Test needed if: (proof is required; if not received patient will have Rapid Test prior to entry) - Patient has received COVID Vaccine at least 14 days prior to procedure date or - Patient has positive COVID test result within last 90 days of surgery date. COVID Test needed if above criteria is not met If not COVID vaccinated a COVID test must be conducted within 72 hours of surgery and patient is asked to isolate self from time of testing until procedure. You will go to the [facility] for your COVID testing. The [facility] is located at the corner of [address] [facility]. You will only be called if COVID results are positive and your surgeon may reschedule your elective surgery date. Patients may have clear liquids (water, carbonated beverages, clear teas, apple juice) until 3 hours prior to surgery with a maximum of 20 ounces. - No food from midnight until time of surgery - Infants may have breast milk until 4 hours before surgery, formula 6 hours prior to surgery. - Children will be allowed to drink immediately following surgery. If applicable, please bring a bottle or sippy cup to assist with drinking. Juice, water, soda, and popsicles are readily available. For infants on formula, please bring formula the day of surgery. Pacifiers are allowed. Take the following medications with a SIP of water the morning of surgery: _CITALOPRAM, LEVOTHYROXINE,BACTRIM Medications to discontinue per physician ___ALL VITAMINS/SUPPLEMENTS STARTING NOW 07/12/21 Date to take last dose___07/12/21 Please no make-up, nail djiboutian, hairspray, perfume, deodorant, or body powder the day of surgery. No jewelry (including any body piercings) or valuables the day of surgery, leave them at home. Please take a shower or bath the night before, or the morning of, surgery with an antibacterial soap. Wear comfortable, loose fitting clothing. Children are encouraged to wear pajamas. - Jewelry must be removed prior to entering the operating room. Rings and piercings that are not removed may be cut off. - The hospital will not accept responsibility for valuables. - Please leave all valuables, including medications, at home the day of surgery. If you are going home after surgery, a licensed pile driver engineer must drive you home. - NO public transportation without another adult. - We recommend that an adult stay with you for 24 hours following discharge. - We also recommend that you do not drive, make important decision, drink alcoholic beverages, or take any drugs that were not prescribed by your health care provider for at least 24 hours after your discharge time. For Pediatric surgeries, we recommend two adults accompany the child home (only one inside the building at this time). One visitor will be allowed to accompany the patient into the hospital. Patients visitor will be instructed to remain with patient at all times or leave the building. We will allow the visitor to come back to the postoperative area when patient is ready. Follow any additional instructions given to you from your surgeon. Telephone instructions given to _PATIENT & ,DOUGTIS and asked if any additional questions and then verbalized understanding. Patient advised to call surgeon office or pre surgery nurse liaison [phone] if any additional questions.
[2021-07-14 10:12] VITALS: BP 99/60; PULSE 90; RESP 18; TEMP 36.4; O2SAT 100
[2021-07-14] MEDS: LACTATED RINGERS 1,000 ML 30 ML IV CONT (10:46)
--- NOTE | 2021-07-14 10:55 | WPDANESEPPF ---
Anes - Initial Pre Proc Eval Procedure: Operation Date: 07/14/21 12:00 Proposed Procedures p Complex Incision and Drainage Left Lower Quadrant Abdominal Wound Abscess, Placement Wound Vac - Leni Calvillo MD Date/Time: 07/14/21 10:55 Surgeon: Leni Calvillo MD Pre Op Diagnosis: LLQ abd wound abscess Patient Data Age: 70 Gender: F Height: 1.5 m Weight: 82.1 kg Last Vital Signs Temp 36.4 C 07/14/21 10:12 Pulse 90 07/14/21 10:12 Resp 18 07/14/21 10:12 BP 99/60 L 07/14/21 10:12 Pulse Ox 100 07/14/21 10:12 Allergies Allergy/AdvReac Type Severity Reaction Status Date / Time cefdinir AdvReac Intermediate DIZZINESS, Verified 07/14/21 10:02 DIARRHEA ciprofloxacin AdvReac Mild Muscle Pain Verified 07/14/21 10:02 propoxyphene AdvReac Mild Nausea Verified 07/14/21 10:02 Home Medications Medication Instructions Recorded Confirmed Type fexofenadine 180 mg tablet 180 mg PO DAILY 03/25/19 07/14/21 History magnesium 250 mg tablet 250 mg PO DAILY 11/24/20 07/14/21 History docusate sodium 100 mg PO Q12HR PRN #30 cap 02/07/21 07/12/21 Rx Eucerin Original 1 applic TOPICAL BID 03/05/21 07/14/21 History calcium carbonate 500 mg PO DAILY 03/05/21 07/14/21 History arginine 7 gram-glutamine 7 1 ea PO DAILY 04/24/21 07/14/21 History gram-calcium HMB 1.5 gram oral powder pack pantoprazole 40 mg tablet,delayed 40 mg PO QAM #30 tablet 04/24/21 07/14/21 Rx release potassium chloride 20 mEq oral 20 meq PO BID #180 ea 04/24/21 07/14/21 Rx packet sodium bicarbonate 650 mg tablet 1,300 mg PO BID 30 Days #120 tablet 06/13/21 07/14/21 Rx acetaminophen [Mapap 650 mg PO BID PRN 07/12/21 07/14/21 History (acetaminophen)] cholecalciferol (vitamin D3) 50 mcg PO DAILY 07/12/21 07/14/21 History citalopram 20 mg PO QAM 07/12/21 07/14/21 History furosemide 40 mg PO QAM 07/12/21 07/14/21 History levothyroxine [Synthroid] 50 mcg PO QAM 07/12/21 07/14/21 History sulfamethoxazole 800 1 tablet PO Q12H #20 tablet 07/12/21 07/14/21 Rx mg-trimethoprim 160 mg tablet Patient hx anesthesia problems: none Family hx anesthesia problems: none Results Review: All pre-operative results and documents have been reviewed as part of the pre-operative evaluation. [facility] Past Medical History Medical History Abnormal mammogram of left breast Anemia Chronic pain of both knees Eosinophilic cystitis Gastro-esophageal reflux disease without esophagitis History of recurrent UTI (urinary tract infection) Hunner's ulcer Hyperglycemia Hypothyroidism Iron deficiency anemia Stage 3b chronic kidney disease Surgical History Surgical History History of abdominal surgery 03/04/21 - Excisional debridement of necrotizing wound infection of the left lower abdomen History of cholecystectomy History of hysterectomy History of meniscectomy of left knee History of meniscectomy of right knee Family History Family History Mother Family history of diabetes mellitus in first degree relative Hypertension Father Family history of respiratory disorder Patient's father is , Onset Age: 93 Congestive heart failure Social History Social History Social History: The patient is and lives with her and her mother who is in her 90s. Her is a durable power defense attorney for healthcare. Patient is a full code. 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 Patient is lifelong nonsmoker. No alcohol marijuana or illicit drugs. Smoking status: Never smoker Second hand tobacco smoke exposure: No Alcohol intake: never Alcohol use details: SOCIAL DRINKER IN PAST Substance use: never Substance use type: does not use Living arrangements: with family Additional living arrangements comme
--- NOTE | 2021-07-14 11:31 | WPDHPUPDATE1 ---
History and Physical Update Update Date/Time: 07/14/21 11:31 History and Physical has been reviewed, including an updated exam of the patient. There are NO changes in the patient's condition. Risks, benefits, and alternatives have been discussed and questions answered. Patient agrees to proceed with procedure.
[2021-07-14] MEDS: ceFAZolin 2 GM/D5W 50 ML 2 GM/50 ML BAG IVPB (12:04)
[2021-07-14 12:55] VITALS: BP 96/47; PULSE 81; RESP 15; TEMP 36.3; O2SAT 99
--- NOTE | 2021-07-14 13:09 | W.PM.PROC2 ---
Procedure Note - Detailed Date of Procedure 07/14/21 Pre-op Diagnosis LLQ abd wound abscess Post-op Diagnosis Same Procedure Performed Complex incision and drainage, debridement, washout of left lower quadrant abdominal wall chronic abscess measuring 24x4 cm, placement of greater than 50 centimeter squared wound VAC Surgeon Leni Calvillo MD Anesthesia General Indications 70 year old female with chronic nonhealing left lower quadrant abdominal wall abscess, wound Findings 24 x 4 cm LLQ wound c epithelialized base Description of Procedure The patient was taken to the operating room and placed in the supine position. After adequate induction of general anesthesia, the patient was prepped and draped in the normal sterile fashion. A time-out was then done to verify patient's identity, as well as the procedure being performed. I began by making an incision over the most fluctuant area of this abscess in the left lower quadrant. Upon getting through the its dermis into the subcutaneous tissue, and abscess cavity, tract was encountered. There was noted to be some murky appearing fluid in this cavity. This cavity was noted to track medially to the umbilicus, and laterally to the left flank. I then generously opened up the incision to about 12 cm to allow adequate drainage. The cavity was noted to be within the subcutaneous tissue and did not involve the underlying fascia or muscle. The base was noted to be epithelialized, and so debridement was done to allow proper healing. This was done by removing the epithelial tissue with excisional debridement. I then copiously washed out the wound. The wound track medially about 4 cm and laterally to the left flank about 8 cm. I then gained hemostasis with the Bovie cautery. A wound VAC was then placed measuring greater than 50 sq cm. The patient tolerated the procedure well and was extubated in the operating room postoperatively. She will be transferred to the recovery room in stable condition. Urine Output -400.0
[2021-07-14 13:10] VITALS: BP 106/53; PULSE 78; RESP 18; O2SAT 100
--- NOTE | 2021-07-14 13:12 | SUR.PHASEI ---
Simple mask removed at 1312.
[2021-07-14 13:25] VITALS: BP 102/52; PULSE 78; RESP 18; O2SAT 92
[2021-07-14 13:40] VITALS: BP 139/59; PULSE 71; RESP 16
[2021-07-14 14:10] VITALS: BP 98/45; PULSE 78; RESP 16
--- NOTE | 2021-07-14 14:37 | SUR.PHASEII ---
1400 WOUND RN HERE TO INSTRUCT PATIENT AND SPOUSE RE: WOUNDVAC. SHE ALSO DELIVERED SUPPLIES. 1420 URINE CATHETER BAG CHANGED TO LEGBAG.
== END 2021-07-14 14:38 | disposition home or self-care (01) ==
PROVIDERS: PCP Internal Medicine; Visit Provider Surgery
PROC: (CPT 11042; principal; 2021-07-14 12:00)
DX: L02.11 Cutaneous abscess of neck (principal); R53.83 Other fatigue; E03.9 Hypothyroidism, unspecified; N30.10 Interstitial cystitis (chronic) without hematuria; D50.0 Iron deficiency anemia secondary to blood loss (chronic); N18.32 Chronic kidney disease, stage 3b; D63.1 Anemia in chronic kidney disease; E66.9 Obesity, unspecified; Z68.36 Body mass index [BMI] 36.0-36.9, adult; Z90.49 Acquired absence of other specified parts of digestive tract; K21.9 Gastro-esophageal reflux disease without esophagitis; R73.9 Hyperglycemia, unspecified
CPT/HCPCS: 11042; 11045 ×4; A9270; J0690; J2370; J2405; J2704; J3010; J7120

== ENCOUNTER 2021-10-11 07:14 | Outpatient (RCR) | payer MEDICARE, SELFPAY ==
[2021-07-19 00:04] VITALS: BMI 47.7
--- NOTE | 2021-07-26 14:09 | WPDWOUNDNOTE ---
Wound Care Note Date/Time: 07/26/21 14:09 feels good, reports no issues, wound seems to be healing well Assessment and Plan Assessment and plan (1) Abdominal wall abscess: Code(s): L02.211 - Cutaneous abscess of abdominal wall Status: Acute Assessment and Plan: doing well, wound significantly improved, cont vac Review of Systems Review of Systems: All systems reviewed & are unremarkable except as noted in HPI and below Exam Const: General: cooperative, comfortable and no acute distress Resp: Auscultation: clear to auscultation bilaterally Cardio: Rate: regular rate Rhythm: regular rhythm GI: Inspection: non-distended GI Palp: Yes Soft to palpation and No Tenderness to palpation present (GI) Other: abd LLQ wound - 1.5x8.8x3.7, good granulation tissue, no s/s infection, no medial tunnel, small tunnel to L flank, L flank opening .3x.3 cm, no drainage
--- NOTE | 2021-08-16 09:24 | WPDWOUNDNOTE ---
Wound Care Note Date/Time: 08/16/21 09:24 Pt reports she is doing well, vac has been removed as wound has gotten significantly smaller. Pt reports L flank wound is completely closed. Pt denies any s/s infection. Assessment and Plan Assessment and plan (1) Abdominal wall abscess: Code(s): L02.211 - Cutaneous abscess of abdominal wall Status: Acute Assessment and Plan: healing well, cont local wound care, f/u 1 mo Review of Systems Review of Systems: All systems reviewed & are unremarkable except as noted in HPI and below Exam Const: General: cooperative, comfortable and no acute distress Resp: Auscultation: clear to auscultation bilaterally Cardio: Rate: regular rate Rhythm: regular rhythm GI: Inspection: normal to inspection GI Palp: No abdominal tenderness, Yes Soft to palpation, No Tenderness to palpation present (GI), No Guarding due to palpation present (GI) and No Rigid due to palpation Skin: Other: L flank wound completely closed L abd wound - 2.5x6.5x3, good granulation tissue, no s/s infection
--- NOTE | 2021-09-13 09:37 | WPDWOUNDNOTE ---
Wound Care Note Date/Time: 09/13/21 09:37 Pt seen and examined. Wound has been healing well. Pt developed redness over lower trunk and has been started on abx. Assessment and Plan Assessment and plan (1) Abdominal wall abscess: Code(s): L02.211 - Cutaneous abscess of abdominal wall Status: Acute Assessment and Plan: healing well, cont local wound care, f/u 1 month, no s/s infection, wound stop abx (2) Yeast infection: Code(s): B37.9 - Candidiasis, unspecified Status: Acute Assessment and Plan: oral diflucan, local care c antifungal powder Review of Systems Review of Systems: All systems reviewed & are unremarkable except as noted in HPI and below Exam Const: General: cooperative, comfortable and no acute distress Nutritional Appearance: obese Orientation/consciousness: patient oriented x3 Resp: Auscultation: clear to auscultation bilaterally Cardio: Rate: regular rate Rhythm: regular rhythm GI: Inspection: normal to inspection GI Palp: Yes Soft to palpation, No Tenderness to palpation present (GI) and No Guarding due to palpation present (GI) Skin: Other: LLQ wound - 1x4x.3, good granulation, no s/s infection diffuse yeast infection over lower abdomen extending to L flank
--- NOTE | 2021-10-11 09:21 | WPDWOUNDNOTE ---
Wound Care Note Date/Time: 10/11/21 09:21 History: Pt reports wound has essentially completely healed. Pt denies any further s/s infection, drainage. Pt reports just small residual opening that is healing over. Assessment and Plan Assessment and plan (1) Open abdominal wall wound: Code(s): S31.109A - Unspecified open wound of abdominal wall, unspecified quadrant without penetration into peritoneal cavity, initial encounter Status: Acute Assessment and Plan: doing well, wound essentially completely healed, no further wound care needed, f/u prn Review of Systems Review of Systems: All systems reviewed & are unremarkable except as noted in HPI and below Exam Const: General: cooperative, comfortable and no acute distress Resp: Auscultation: clear to auscultation bilaterally Cardio: Rate: regular rate Rhythm: regular rhythm GI: GI Palp: No abdominal tenderness and Yes Soft to palpation Skin: Other: L abd wall wound - punctate opening c no drainage, granulating well, no s/s infection
== END 2021-10-24 23:59 | disposition home or self-care (01) ==
LOC: ANHWOC 07:14
PROVIDERS: PCP Internal Medicine; Visit Provider Surgery
DX: Z48.817 Encounter for surgical aftercare following surgery on the skin and subcutaneous tissue (principal); L02.211 Cutaneous abscess of abdominal wall
CPT/HCPCS: 97605; 99212; A9270; G0463

== ENCOUNTER 2022-01-30 10:12 | Outpatient (CLI) | payer MEDICARE, SELFPAY ==
[2022-01-30 11:15] LABS: INR 1.1; Prothrombin Time 13.5 Seconds (11.1-14.7)
[2022-01-30 11:16] LABS: Partial Thromboplastin Time 28.5 SECONDS (22.3-36.8)
[2022-01-30 11:17] LABS: Anion Gap 11 mmol/L (8-16); Blood Urea Nitrogen 35 mg/dL (7-17); Calcium 9.6 mg/dL (8.4-10.2); Carbon Dioxide 23 mmol/L (22-30); Chloride 105 mmol/L (98-107); Estimated Glomerular Filt Rate 32; Glucose 92 mg/dL (65-110); Potassium 4.7 mmol/L (3.4-5.0); Sodium 139 mmol/L (137-145)
== END 2022-01-30 10:13 | disposition home or self-care (01) ==
LOC: ANHSURGERY 10:20
PROVIDERS: Anesthesiology; PCP Internal Medicine; Visit Provider Urology
DX: N30.10 Interstitial cystitis (chronic) without hematuria (principal); N18.32 Chronic kidney disease, stage 3b; Z01.818 Encounter for other preprocedural examination
CPT/HCPCS: 36415; 80048; 85610; 85730; 87086; 87088

== ENCOUNTER → 2022-01-31 10:11 | Outpatient (CLI) | payer MEDICARE, SELFPAY ==
--- NOTE | ~2022-01-31 | XR_ITS ---
XR abdomen/kub 1V 01/31/2022 10:30 INDICATION: Gross hematuria TECHNIQUE: KUB COMPARISON: 10/08/2018 FINDINGS: Bowel gas pattern is normal. There is no evidence of free air, mass, organomegaly, ascites or obstruction. No abnormal calculi are seen. The bones appear intact. There is severe lower thora cic and lumbar spondylosis with dextroscoliosis. There are cholecystectomy clips. IMPRESSION: 1: No acute abdominal abnormality identified. Reviewed, dictated and finalized at location B.
--- NOTE | ~2022-01-31 | CT_ITS ---
EXAMINATION: CT abdomen pelvis wo con DATE: 01/31/2022 11:10 INDICATION: Gross hematuria TECHNIQUE: Computed tomography (CT) of the abdomen and pelvis was performed without intravenous contr ast. The dose-length product (DLP) was 941.84 mGy-cm. Automated exposure control and iterative recons truction technique were employed. COMPARISON: 05/25/2021 FINDINGS: Minimal dependent atelectasis is present in the lung bases. The heart size is normal. The g allbladder is surgically absent. The liver, spleen, pancreas, and left adrenal gland are normal. Ther e is a stable 3 cm adenoma of the right adrenal gland. There is a 2.6 cm cyst of the left kidney. The re is a small volume of gas in the collecting systems of the left kidney, left renal pelvis, left ure ter, and the urinary bladder. There is a 2 mm nonobstructing stone of the right kidney. There is mild bilateral hydroureteronephrosis. No pathologically enlarged abdominal or pelvic lymph nodes are iden tified. There is no free intraperitoneal gas or evidence of bowel obstruction. The appendix is normal . Previously described packing material has been removed from the subcutaneous fat of the left lower/ anterior abdominal wall. There is severe lumbar spondylosis. IMPRESSION: 1. Nonobstructing right nephrolithiasis. 2. Mild bilateral hydroureteronephrosis. 3. Gas in the urinary bladder, left ureter, and left kidney. Correlate for history of recent instrume ntation. Reviewed, dictated and finalized at location A. IMPRESSION: 1. Nonobstructing right nephrolithiasis. 2. Mild bilateral hydroureteronephrosis. 3. Gas in the urinary bladder, left ureter, and left kidney. Correlate for hist ory of recent instrumentation.
[2022-01-31 10:54] LABS: Estimated Glomerular Filt Rate 28
== END ==
PROVIDERS: PCP Internal Medicine; Visit Provider Nurse Practitioner Adult Health
DX: R31.0 Gross hematuria (principal); N20.0 Calculus of kidney
CPT/HCPCS: 74018; 74176

== ENCOUNTER 2022-02-05 01:10 | Day surgery (SDC) | payer MEDICARE, SELFPAY ==
[2022-01-24 13:38] VITALS: BMI 37.3
--- NOTE | 2022-01-24 14:11 | PC.NURSE ---
Report to the Outpatient Waiting Room, entrance under the green pavilion located off [facility], at time __6:00AM on date __02/05/22 . OR Time: _8:00AM . Time changes happen often and if your time is changed the preop area will call you the afternoon before. - You and your visitor will be asked to self-screen and do not enter if you have any COVID symptoms. - Only one visitor and NO children visitors are allowed at this time. - The patient visitor is requested to leave or wait in car when not with patient due to restrictions. - A mask is required within the hospital. Patients may have clear liquids (water, carbonated beverages, clear teas, apple juice) until 3 hours prior to surgery with a maximum of 20 ounces. - No food from midnight until time of surgery Take the following medications with a SIP of water the morning of surgery: _CITALOPRAM, LEVOTHYROXINE Medications to discontinue per physician ____HOLD ALL VITAMINS/SUPPLEMENTS 3 DAYS PRE-OP Date to take last dose___02/02/22 Please no make-up, nail austrian, hairspray, perfume, deodorant, or body powder the day of surgery. No jewelry (including any body piercings) or valuables the day of surgery, leave them at home. Please take a shower or bath the night before, or the morning of, surgery with an antibacterial soap. Wear comfortable, loose fitting clothing. Children are encouraged to wear pajamas. - Jewelry must be removed prior to entering the operating room. Rings and piercings that are not removed may be cut off. - The hospital will not accept responsibility for valuables. - Please leave all valuables, including medications, at home the day of surgery. If you are going home after surgery, a licensed carry all driver must drive you home. - NO public transportation without another adult. - We recommend that an adult stay with you for 24 hours following discharge. - We also recommend that you do not drive, make important decision, drink alcoholic beverages, or take any drugs that were not prescribed by your health care provider for at least 24 hours after your discharge time. Follow any additional instructions given to you from your surgeon. If you or anyone in your household have experienced Covid symptoms in the past week, please notify your surgeon or the nurse liaison at the phone number below for possible testing. Telephone instructions given to __PATIENT and asked if any additional questions and then verbalized understanding. Patient advised to call surgeon office or pre surgery nurse liaison [phone] if any additional questions.
--- NOTE | 2022-01-28 09:04 | PM.IMHP ---
H&P: HPI History of Present Illness Date/Time: 01/28/22 09:04 Chief Complaint: Hunner's ulceration Narrative: this woman has a highly dysfunctional bladder. It is nearing end-stage. She has recurrent Hunner's ulcerations. She would like another attempt at steroid injection. Review of Systems Review of Systems: All systems reviewed & are unremarkable except as noted in HPI and below PMFSH Past Medical History Medical History Abnormal mammogram of left breast Anemia Chronic pain of both knees Eosinophilic cystitis Gastro-esophageal reflux disease without esophagitis History of recurrent UTI (urinary tract infection) Hunner's ulcer Hyperglycemia Hypothyroidism Iron deficiency anemia Stage 3b chronic kidney disease Surgical History Surgical History History of abdominal surgery 03/04/21 - Excisional debridement of necrotizing wound infection of the left lower abdomen History of cholecystectomy History of hysterectomy History of meniscectomy of left knee History of meniscectomy of right knee Family History Family History Mother Family history of diabetes mellitus in first degree relative Hypertension Father Family history of respiratory disorder Patient's father is , Onset Age: 93 Congestive heart failure Social History Social History Social History: The patient is and lives with her and her mother who is in her 90s. Her is a durable power [place] attorney for healthcare. Patient is a full code. 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 Patient is lifelong nonsmoker. No alcohol marijuana or illicit drugs. Smoking status: Never smoker Second hand tobacco smoke exposure: No Alcohol intake: current Drinks per week: 1 Alcohol use details: SOCIAL DRINKER IN PAST Substance use: never Substance use type: does not use Additional living arrangements comments: HUSB Spiritual care concerns: No Meds Home Medications and Allergies Home Medications Medication Instructions Recorded Confirmed Type magnesium 250 mg tablet 250 mg PO DAILY 11/24/20 01/24/22 History docusate sodium 100 mg capsule 100 mg PO Q12HR PRN constipation 02/07/21 01/24/22 Rx #30 caps levothyroxine 50 mcg tablet 50 mcg PO QAM #90 tabs 04/16/22 09/28/22 Rx (Synthroid) pantoprazole 40 mg tablet,delayed 40 mg PO QAM #30 tabs 08/31/21 01/24/22 Rx release citalopram 20 mg tablet 20 mg PO QAM #30 tabs 10/28/21 01/24/22 Rx naproxen 500 mg tablet 500 mg PO DAILY PRN pain #30 tabs 12/10/21 01/24/22 Rx potassium chloride 20 mEq 20 meq PO BID #180 tabs 01/16/22 01/24/22 Rx tablet,extended release furosemide 40 mg tablet 40 mg PO QAM PRN Edema 01/24/22 01/24/22 History multivitamin 1 tablet PO DAILY 01/24/22 01/24/22 History Allergies Allergy/AdvReac Type Severity Reaction Status Date / Time cefdinir AdvReac Intermediate DIZZINESS, Verified 01/24/22 13:30 DIARRHEA ciprofloxacin AdvReac Mild Muscle Pain Verified 01/24/22 13:30 propoxyphene AdvReac Mild Nausea Verified 01/24/22 13:30 Exam Narrative: No acute distress normal breathing alert oriented x3 Assessment and Plan Assessment and plan (1) Eosinophilic cystitis: Code(s): N30.80 - Other cystitis without hematuria; D72.18 - Eosinophilia in diseases classified elsewhere Status: Acute Plan we will plan for cystoscopy, bladder biopsy, and steroid injection. She has a highly dysfunctional bladder. She understands risks of bleeding, infection, lack of efficacy. She agrees to proceed. A lid discuss with her that her bladder is nearing end-stage in the only viable solution may be cystectomy
[2022-02-05 06:29] VITALS: BP 136/72; PULSE 77; RESP 16; TEMP 36; O2SAT 99
--- NOTE | 2022-02-05 07:16 | WPDHPUPDATE1 ---
History and Physical Update Update Date/Time: 02/05/22 07:16 History and Physical has been reviewed, including an updated exam of the patient. There are NO changes in the patient's condition. Risks, benefits, and alternatives have been discussed and questions answered. Patient agrees to proceed with procedure.
--- NOTE | 2022-02-05 07:28 | WPDANESEPPF ---
Anes - Initial Pre Proc Eval Procedure: Operation Date: 02/05/22 08:00 Proposed Procedures p Cystoscopy, Bladder Biopsy, Steroid Injection - Damián Fox MD Date/Time: 02/05/22 07:28 Surgeon: Damián Fox MD Pre Op Diagnosis: hunners ulcer Patient Data Age: 71 Gender: F Height: 1.5 m Weight: 87.9 kg Allergies Allergy/AdvReac Type Severity Reaction Status Date / Time cefdinir AdvReac Intermediate DIZZINESS, Verified 02/05/22 07:03 DIARRHEA ciprofloxacin AdvReac Mild Muscle Pain Verified 02/05/22 07:03 propoxyphene AdvReac Mild Nausea Verified 02/05/22 07:03 Home Medications Medication Instructions Recorded Confirmed Type magnesium 250 mg tablet 250 mg PO DAILY 11/24/20 02/05/22 History docusate sodium 100 mg capsule 100 mg PO Q12HR PRN constipation 02/07/21 02/05/22 Rx #30 caps levothyroxine 50 mcg tablet 50 mcg PO QAM #90 tabs 08/12/21 02/05/22 Rx (Synthroid) pantoprazole 40 mg tablet,delayed 40 mg PO QAM #30 tabs 08/31/21 02/05/22 Rx release naproxen 500 mg tablet 500 mg PO DAILY PRN pain #30 tabs 12/10/21 02/05/22 Rx potassium chloride 20 mEq 20 meq PO BID #180 tabs 01/16/22 02/05/22 Rx tablet,extended release furosemide 40 mg tablet 40 mg PO QAM PRN Edema 01/24/22 02/05/22 History multivitamin 1 tablet PO DAILY 01/24/22 02/05/22 History citalopram 20 mg tablet 20 mg PO QAM #30 tabs 01/29/22 02/05/22 Rx Patient hx anesthesia problems: none Family hx anesthesia problems: none Results Review: All pre-operative results and documents have been reviewed as part of the pre-operative evaluation. [facility] Past Medical History Medical History Abnormal mammogram of left breast Anemia Chronic pain of both knees Eosinophilic cystitis Gastro-esophageal reflux disease without esophagitis History of recurrent UTI (urinary tract infection) Hunner's ulcer Hyperglycemia Hypothyroidism Iron deficiency anemia Stage 3b chronic kidney disease Surgical History Surgical History History of abdominal surgery 03/04/21 - Excisional debridement of necrotizing wound infection of the left lower abdomen History of cholecystectomy History of hysterectomy History of meniscectomy of left knee History of meniscectomy of right knee Family History Family History Mother Family history of diabetes mellitus in first degree relative Hypertension Father Family history of respiratory disorder Patient's father is , Onset Age: 93 Congestive heart failure Social History Social History Social History: The patient is and lives with her and her mother who is in her 90s. Her is a durable power hris administrator for healthcare. Patient is a full code. 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 Patient is lifelong nonsmoker. No alcohol marijuana or illicit drugs. Smoking status: Never smoker Second hand tobacco smoke exposure: No Alcohol intake: current Drinks per week: 1 Alcohol use details: SOCIAL DRINKER IN PAST Substance use: never Substance use type: does not use Living arrangements: with family Additional living arrangements comments: HUSB Spiritual care concerns: No Anes - Eval Final PreProcedure Day of Procedure 02/05/22 07:28 Patient weight: obese Heart: regular rate and rhythm Lungs: clear to auscultation Airway: Mallampati scale class II Neurological: alert and oriented Last oral intake: >/= 8 hours ASA classification: III Emergent: no Anesthetic plan: proceed Anesthesia type and monitoring: general GIVS and standard monitoring Results Review: All pre-operative results and documents have been reviewed as part of the pre-operative evaluation. Informed Consent: The patient's anesthetic plan and its attendant
[2022-02-05] MEDS: LACTATED RINGERS 1,000 ML 30 ML IV CONT (07:34)
[2022-02-05] MEDS: levoFLOXacin 500 MG/D5W 100 ML 500 MG/100 ML BAG 100 MG IVPB (07:54)
[2022-02-05] MEDS: LIDOCAINE HCL 2% GEL UROJET 10 ML PKG MUCOUS MEM (08:18)
[2022-02-05 08:24] VITALS: BP 85/58; PULSE 113; RESP 16; O2SAT 95
[2022-02-05 08:50] VITALS: BP 115/71; PULSE 74; RESP 16
[2022-02-05 09:20] VITALS: BP 129/76; PULSE 75; RESP 20
[2022-02-05 09:30] VITALS: BP 98/56; PULSE 100; RESP 20
--- NOTE | 2022-02-05 10:10 | W.PM.PROC2 ---
Procedure Note - Detailed Date of Procedure 02/05/22 Pre-op Diagnosis Eosinophilic cystitis Bilateral hydronephrosis due to reflux Post-op Diagnosis Same Procedure Performed Cystoscopy with bladder biopsy Surgeon Damián Fox MD Anesthesia MAC Indications This is a woman with biopsy-proven eosinophilic cystitis. She has had recurrent infections. A recent CT scan shows air in the bladder as well as the collecting system consistent with infection and reflux. Concern is for colovesical fistula. Recent urine culture showed polymicrobial growth. 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 Informed consent obtained. She from the operating room. She was given MAC anesthesia. She was placed in dorsal lithotomy position. Pressure points were padded. She was given appropriate perioperative antibiotics. A time-out performed. Cystoscopy revealed a very small capacity bladder. There was trabeculations throughout the bladder. She had a duplicated left collecting system with a wide open ureters consistent with reflux. She had a single right ureter which also looked consistent with reflux. She had areas of inflammation on the back wall and near the dome of her bladder. On the floor the bladder there was another hole which appeared to be a fistula. It was on the floor the bladder in the midline. 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 There was no leakage of irrigation fluid per vagina. Vaginal exam revealed no clear evidence of fistula. She had multiple areas of inflammation in the bladder. Again was a very small capacity bladder. There is an area of inflammation on the back wall far remote from the fistula or the real orifice. I biopsied this area and gently fulgurated the base. There is no bleeding under low insufflation pressures. Her bladder was drained. She was awakened and transferred to the PACU in stable condition. I discussed these findings with her . She will likely need colorectal referral. Note she also has a highly dysfunctional in stage bladder with significant urinary incontinence. Implants None Estimated Blood Loss 1 Packing No Pathology Yes (Bladder biopsy) Complications No immediate complications Condition Stable
== END 2022-02-05 09:45 | disposition home or self-care (01) ==
PROVIDERS: PCP Internal Medicine; Visit Provider Urology
PROC: 0TBB8ZX Excision of Bladder, Via Natural or Artificial Opening Endoscopic, Diagnostic (ICD-10-PCS; CPT 52204; principal; 2022-02-05 08:00)
DX: N30.80 Other cystitis without hematuria (principal); D72.18 Eosinophilia in diseases classified elsewhere; N13.39 Other hydronephrosis; K21.9 Gastro-esophageal reflux disease without esophagitis; E03.9 Hypothyroidism, unspecified; N18.32 Chronic kidney disease, stage 3b; E66.9 Obesity, unspecified; Z68.39 Body mass index [BMI] 39.0-39.9, adult
CPT/HCPCS: 52204; 36415; 80048; 85610; 85730; 87086; 87088; 88305; A9270; J1956; J2250; J2704; J3010; J3301; J7120

== ENCOUNTER 2022-09-18 10:15 | Outpatient (RCR) | payer MEDICARE, SELFPAY ==
--- NOTE | 2022-07-25 15:33 | PTOPEVAL1 ---
Assessment and note entered by Shira Mayen, PT, CLT Evaluation Information Assessment Status Evaluation Diagnosis R and L LE lymphedema, pain R knee Subjective Information has not had lymphedema treatment in the past; is planning to have a R knee replacement after swelling goes down; Reported Pain Level Pain Score Self Report Additional Pain Score Comments pain in both legs, 10- stays about that all time increase pain over past 3-4 weeks, staying hurting all the time; both knees and calves hurt; Assessment PT Clinical Summary Candace has the diagnosis of Bilateral LE lymphedema and pain in R knee. She is planning to have R TKR and needs to get the swelling down before surgery. Her history includes R and L knee menisectomy, necrotizing wound over L abdomen with surgical debridement, wound over R anterior lower leg. With the evaluation, she has skin changes with redness and fibrotic tissue over both lower legs; decreased R and L knee flexion and extension ranges of motion. Skilled PT services are indicated for complete decongestive therapy--manual lymph drainage, intermittent compression pump, compression wraps and education for self care of lymphedema and compression garment for her to obtain. Plan of Care Interventions Intermittent Compression,Lymphedema Compression Pump ,Manual Lymph Drainage,Patient/Caregiver Education, Therapeutic Exercise PT Services Indicated Yes Treatment Frequency and 0-3x/wk for 6 weeks, due to availability of Duration therapist to start treatment These treatments will address the objective and functional deficits as defined above. The patient will be advanced safely and appropriately in order for the patient to progress towards his/her prior level of function. Additional exercises will be introduced and as well as a comprehensive home exercise program upon discharge, if needed, ?to ensure carryover of functional gains achieved in the clinic. This treatment plan has been reviewed and agreement upon by the patient.
--- NOTE | 2022-09-05 16:25 | PTOPPROG ---
Assessment and note entered by Shira Mayen, PT,CLT Evaluation Information Assessment Status Progress Diagnosis R and L LE lymphedema, pain R knee Subjective Information Beau reports: legs are doing good; garments should be here any time; is doing her leg exercises, walking and staying active, doing her self massage; Assessment PT Clinical Summary Beau has received 12 PT sessions. Compared to the initial evaluation: with the circumferential measurements: R leg has decreased by 8.4 cm and L has increased by 6.7 cm---the weather is warm and she reports being more active, walking and working out in the yard; the tissue integrity has improved--does not have any fibrotic tissue over legs and there is only slight redness knee pain has decreased from 6 to 3/10; Education has been completed for self manual lymph drainage, leg exercises, skin care, elevation of legs and compression garments. Candace would benefit from a home intermittent compression pump to assist with managing her R and L LE lymphedema. She is in the process of receiving approval from insurance for a home intermittent compression pump. Plans are for her to have R TKR and the pump would assist with post op edema also. She has ordered compression velcro garments, but not yet received them. The goals were partially achieved. Continue PT treatment for a few more sessions,-- await her compression garments to arrive and assess how she does with them and make sure that they are appropriate for her. Plan of Care Interventions Intermittent Compression,Manual Lymph Drainage, Patient/Caregiver Education,Therapeutic Activities, Therapeutic Exercise PT Services Indicated Yes Treatment Frequency and 0-2x/wk for 3 weeks Duration These treatments will address the objective and functional deficits as defined above. The patient will be advanced safely and appropriately in order for the patient to progress towards his/her prior level of function. Additional exercises will be introduced and as well as a comprehensive home exercise program upon discharge, if needed, ?to ensure carryover of functional gains achieved in the clinic. This treatment plan has been reviewed and agreement upon by the patient.
--- NOTE | 2022-09-07 11:09 | PTOPPROG ---
Assessment and note entered by Shira Mayen, PT Evaluation Information Assessment Status Progress Diagnosis R and L LE lymphedema, pain R knee Subjective Information Beau reports: legs are doing good; garments should be here any time; is doing her leg exercises, walking and staying active, doing her self massage; Assessment PT Clinical Summary Beau has received 12 PT sessions. Compared to the initial evaluation: with the circumferential measurements: R leg has decreased by 8.4 cm and L has increased by 6.7 cm---the weather is warm and she reports being more active, walking and working out in the yard; the tissue integrity has improved--does not have any fibrotic tissue over legs and there is only slight redness ; knee pain has decreased from 6 to 3/10; Education has been completed for self manual lymph drainage, leg exercises, skin care, elevation of legs and compression garments. Candace would benefit from a home intermittent compression pump to assist with managing her R and L LE lymphedema. She is in the process of receiving approval from insurance for a home intermittent compression pump. Plans are for her to have R TKR and the pump would assist with post op edema also. She has ordered compression velcro garments, but not yet received them. The goals were partially achieved. Continue PT treatment for a few more sessions,-- await her compression garments to arrive and assess how she does with them and make sure that they are appropriate for her. Plan of Care Interventions Intermittent Compression,Manual Lymph Drainage, Patient/Caregiver Educati,Therapeutic Activities, Therapeutic Exercise PT Services Indicated Yes Treatment Frequency and 0-2x/wk for 3 weeks Duration These treatments will address the objective and functional deficits as defined above. The patient will be advanced safely and appropriately in order for the patient to progress towards his/her prior level of function. Additional exercises will be introduced and as well as a comprehensive home exercise program upon discharge, if needed, ?to ensure carryover of functional gains achieved in the clinic. This treatment plan has been reviewed and agreement upon by the patient.
--- NOTE | 2022-09-18 11:56 | PTOPDC ---
Assessment and note entered by Shira Mayen, PT, CLT Evaluation Information Assessment Status Discharge - Pt Not Present Diagnosis R and L LE lymphedema, pain R knee Subjective Information Beau reports: legs are doing good; garments should be here any time; is doing her leg exercises, walking and staying active, doing her self massage; Reported Pain Level Pain Score 0: Self Report Assessment PT Clinical Summary Candace has received 14 PT sessions. She has improved since last reeval: with decreased circumferential measurements of both legs: R by 20 cm and L by 14.9 cm; has bilateral lower leg velcro compression garments--circaid juxtafit essentials; education has been completed for self care, garments, skin care, leg exercises elevation of legs. [facility] is working with her insurance to obtain a home intermittent compression pump, to assist with managing her chronic condition. The goals were achieved. Discharge PT services. Plan of Care PT Services Indicated No
== END 2022-09-18 13:48 | disposition home or self-care (01) ==
LOC: ANHPT 10:15
PROVIDERS: PCP Internal Medicine
DX: M25.561 Pain in right knee (principal)
CPT/HCPCS: 29581; 97016; 97140; 97161

== ENCOUNTER 2023-02-18 10:00 | Outpatient (RCR) | payer MEDICARE, SELFPAY ==
--- NOTE | 2023-01-15 14:32 | PTOPEVAL1 ---
Assessment and note entered by Shira Mayen, PT Evaluation Information Assessment Status Evaluation Diagnosis s/p R TKR Onset 11-30-22 Subjective Information had [facility] therapy; doing sitting and lying down exercises at home from them--10 reps; using wheeled walker, is comfortable with getting around the house; is going out into community; plans to have her other knee replaced in February; ACTIVITY: prior to surgery: indep with all activities and self care; have ramp into her home have a basement with bilateral hand rails, but do not generally go down there- but want to; Reported Pain Level Pain Score Self Report Additional Pain Score Comments pain range in past few days 1-6/10; achy pain over knee and numb increase pain: 15 min of activity- stand/walk decrease pain: ice, take naproxen and tylenol sleeping is OK Assessment PT Clinical Summary Candace is s/p R TKR. She has completed [facility] therapy and doing her HEP. She is increasing her activity level, using the walker and going out into the community. With the evaluation, she has 0-105' active knee ROM; 5 reps sit/stand time of 16 seconds with use of both hands; 2 minute walking test distance of 200' and stairs with bilateral hand rails. Skilled PT services are indicated for therapeutic exercises to increase R knee ROM and strength, progress gait training to lesser assistive device and therapeutic activities to increase balance, with education for home exercise progression and gait training. Use of modalities PRN for pain. Plan of Care Interventions Electrical Stimulation,Gait Training,Hot Pack/Cold Pack,Manual Therapy,Neuro Re-education,Patient [id number],Therapeutic Activities, Therapeutic Exercise,Other Other Interventions taping PT Services Indicated Yes Treatment Frequency and 2x/week for 4 weeks Duration These treatments will address the objective and functional deficits as defined above. The patient will be advanced safely and appropriately in order for the patient to progress towards his/her prior level of function. Additional exercises will be introduced and as well as a comprehensive home exercise program upon discharge, if needed,
--- NOTE | 2023-01-15 14:32 | OPREHPOC ---
Outpatient Therapy Plan of Care This is a Multidisciplinary Plan of Care that may contain components documented by all disciplines (PT, OT, and ST.) PT Problem 1 PT Problem #1 Knowledge Deficit PT Goal 1 Goal 1* indep with HEP 2* correct use of assistive device PT Problem 2 PT Problem #2 Pain PT Goal 1 Goal 1* pt report pain rating at worst of 3/10 2* pt report standing/walking activity tolerance of 30 minutes PT Problem 3 PT Problem #3 Impaired Range of Motion PT Goal 1 Goal 1* sitting active R knee flexion of 115' PT Problem 4 PT Problem #4 Impaired Strength PT Goal 1 Goal 1* pt perform 20 reps of supine and standing exercises R LE 2* pt perform side lying hip abduction R to 0' x 10 reps 3* single leg standing R x 10 seconds 4* sit/stand without use of UE x 5 reps PT Problem 5 PT Problem #5 Impaired Functional Mobil PT Goal 1 Goal 1* 5 reps 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
--- NOTE | 2023-01-15 14:33 | PCPTNOTE ---
at evaluation, pt reports she will be out of town from Jan 27 to ;
--- NOTE | 2023-01-21 10:14 | PCPTNOTE ---
pt had shortened treatment time due to being 10 minutes late for appt; she had the wrong time written on her calendar and she apologized.
--- NOTE | 2023-02-18 10:54 | PTOPDC ---
Assessment and note entered by Shira Mayen, PT Evaluation Information Assessment Status Discharge Diagnosis s/p R TKR Onset 11-30-22 Subjective Information is doing exercises at home, going out and doing things, have not been using the cane; to have L TKR on Mar 28; Reported Pain Level Pain Score Self Report Additional Pain Score Comments pain range of 3-5/10 in R knee, dull, achy sore, more pain at end of day; also have pain in L knee reported standing/walking tolerance about 1 hour, varies depend upon time of day--more at end of day; is using ice PRN; take over the counter and naproxen for pain; Assessment PT Clinical Summary Candace has received 8 PT sessions. Sitting active R knee 0'- 115'. Compared to the initial evaluation: pain rating was 1-6/10 and now 3-5/10; reported standing/ walking activity tolerance increased to 1 hour; increase strength of R hip and knee; 2 minute walking distance from 200 to 280'; 5 reps sit/stand time improved by 2 sec and can perform with 1 UE; continues to use the wheeled walker; the goals were partially met. Discharge PT services. She is to continue the HEP and prepare for L TKR in February. Plan of Care PT Services Indicated No
== END 2023-02-18 13:33 | disposition home or self-care (01) ==
LOC: ANHPT 10:00
PROVIDERS: PCP Internal Medicine
DX: Z47.1 Aftercare following joint replacement surgery (principal); M17.11 Unilateral primary osteoarthritis, right knee; Z96.651 Presence of right artificial knee joint
CPT/HCPCS: 97110; 97161; 97530

== ENCOUNTER 2023-06-20 09:15 | Outpatient (RCR) | payer MEDICARE, SELFPAY ==
--- NOTE | 2023-04-01 16:26 | OPREHPOC ---
Outpatient Therapy Plan of Care This is a Multidisciplinary Plan of Care that may contain components documented by all disciplines (PT, OT, and ST.) PT Problem 1 PT Problem #1 Knowledge Deficit PT Goal 1 Goal indep with HEP PT Problem 2 PT Problem #2 Pain PT Goal 1 Goal 1* pain rating at worst of 4/10 PT Problem 3 PT Problem #3 Impaired Flexibility PT Goal 1 Goal improve L knee ROM for transfer and mobility sitting active ROM 1* extension 0' 2* flexion 110' PT Problem 4 PT Problem #4 Impaired Strength PT Goal 1 Goal L knee strength: 1* supine exercises x 20 reps 2* sit to stand from 18 seat without use of UE x 5 reps 3* sit to supine without assist, indep 4* pt report in/out car indep PT Problem 5 PT Problem #5 Impaired Functional Mobil PT Goal 1 Goal 1* 5 reps sit/stand time of 18 seconds 2* 2 minute walking test distance of 300' with assistive device 3* pt ambulate with cane and good gait pattern
--- NOTE | 2023-04-01 16:26 | PTOPEVAL1 ---
Assessment and note entered by Shira Mayen, PT Evaluation Information Assessment Status Evaluation Diagnosis L TKR Onset 03-28-23 Subjective Information since surgery have just been resting around home; have been doing a few exercises; using the wheeled walker for getting around house, have not been out yet- this is first outing since surgery; feel like getting around house OK; ACTIVITY: retired, active and at home with her ; Reported Pain Level Pain Score 2: Self Report Additional Pain Score Comments 2-6/10 ache in L knee; is sleeping OK increase pain with sit/stand and walking decrease pain: ice, percocet every 4 hours; reinforced continue elevation and ice over knee Assessment PT Clinical Summary Candace is s/p L TKR, post op day #4. She had the other knee replaced recently. Prior to surgery, she was active and indep, using a cane for ambulation. Her is supportive. She is motivated. With the evaluation, her sitting active knee ROM is (-15') to 85'; 5 reps sit/stand time is 23 seconds; sit to stand transfer requires use of both UE on arm rest of chair; is using the wheeled walker and WBAT on L LE. She requires assist with her L leg for sit to supine transfer. Skilled PT services are indicated for modalities to decrease pain, therapeutic exercises to increase L knee ROM and strength, progression to lesser assistive device, gait and balance retraining, with education to progress HEP. Plan of Care Interventions Electrical Stimulation,Gait Training,Hot Pack/Cold Pack,Manual Therapy,Neuro Re-education,Patient/ Caregiver Education,Therapeutic Activities, Therapeutic Exercise,Ultrasound,Other Other Interventions taping PT Services Indicated Yes Treatment Frequency and 2x/wk for 4 weeks Duration These treatments will address the objective and functional deficits as defined above. The patient will be advanced safely and appropriately in order for the patient to progress towards his/her prior level of function. Additional exercises will be introduced and as well as a comprehensive home exercise program upon discha
--- NOTE | 2023-04-30 16:11 | OPREHPOC ---
Outpatient Therapy Plan of Care This is a Multidisciplinary Plan of Care that may contain components documented by all disciplines (PT, OT, and ST.) PT Problem 1 PT Problem #1 Knowledge Deficit PT Goal 1 Goal indep with HEP Progress Met Comment 04-30-23 progress met goal continue towards goal PT Problem 2 PT Problem #2 Pain PT Goal 1 Goal 1* pain rating at worst of 4/10 Progress Not Met Comment 04-30-23 progress goal not met, continue towards PT Problem 3 PT Problem #3 Impaired Flexibility PT Goal 1 Goal improve L knee ROM for transfer and mobility sitting active ROM 1* extension 0' 2* flexion 110' Progress Met Comment 04-30-23 progress met goal discontinue ROM goals PT Problem 4 PT Problem #4 Impaired Strength PT Goal 1 Goal L knee strength: 1* supine exercises x 20 reps 2* sit to stand from 18 seat without use of UE x 5 reps 3* sit to supine without assist, indep 4* pt report in/out car indep Progress Not Met Comment 04-30-23 progress improved but goals not met; continue towards goals PT Problem 5 PT Problem #5 Impaired Functional Mobil PT Goal 1 Goal 1* 5 reps sit/stand time of 18 seconds 2* 2 minute walking test distance of 300' with assistive device 3* pt ambulate with cane and good gait pattern Progress Met Comment 04-30-23 progress met goals NEW GOALS: 1* 2 minute walking test with one cane use 250'
--- NOTE | 2023-04-30 16:11 | PTOPPROG ---
Assessment and note entered by Shira Mayen, PT Evaluation Information Assessment Status Progress Diagnosis L TKR Onset 03-28-23 Subjective Information knee is better, but want to continue therapy to work on walking better; sometimes need help getting L leg into the car- lifts it up; want to walk with the cane again; has used the walker for about the past 3 years due to knee issues and want to get back to the cane; Assessment PT Clinical Summary Candace has received 8 PT sessions. She has improved in all areas: pain rating was 2-6/10 and now 1-5/10; active ROM of L knee in sittin-120'; strength increased L LE, but still has weakness hip abduction and knee extension--extension lag with SLR in supine; problems lifting L LE in/out of the car, sometimes has to assist her; sit to stand transfer with use of 1 UE; 2 minute walking time increased from 150' to 310'; 5 reps sit/stand time from 23 to 16 seconds; education for HEP and gait training. The goals were partially met. Continue PT to further increase hip strength and gait skill with cane. Plan of Care Interventions Gait training,Patient Education, Therapeutic Activities,Therapeutic Exercise Other Interventions PT Services Indicated Yes Treatment Frequency and 1x/wk for 5 weeks Duration These treatments will address the objective and functional deficits as defined above. The patient will be advanced safely and appropriately in order for the patient to progress towards his/her prior level of function. Additional exercises will be introduced and as well as a comprehensive home exercise program upon discharge, if needed, ?to ensure carryover of functional gains achieved in the clinic. This treatment plan has been reviewed and agreement upon by the patient.
--- NOTE | 2023-06-05 10:48 | PCPTNOTE ---
pt called and canceled today's reeval due to her being ill/ he provides her transportation.
--- NOTE | 2023-06-20 09:59 | PTOPDC ---
Assessment and note entered by Shira Mayen, PT Discharge Information Assessment Status Discharge Diagnosis L TKR Onset 03-28-23 Subjective Information do not have any pain, have not taken any pain meds in about 3 weeks; trying in the house to walk without anything and doing OK; getting in and out of car without any troubles; Reported Pain Level Pain Score 0: Self Report Assessment PT Clinical Summary Candace has received 13 PT sessions. Compared to the last progress report: improved in all areas: no longer has pain; strength of R and L LE; transfer ability with supine/sit, sit/ stand and in/out car; 2 minute walking test distance from 320' to 385'; with walking, is using the cane or without assistive device with good pattern. Education completed for HEP and assistive device use. The goals were achieved. Discharge PT services. Plan of Care PT Services Indicated No
== END 2023-06-20 10:39 | disposition home or self-care (01) ==
LOC: ANHPT 09:15
PROVIDERS: PCP Internal Medicine
DX: M17.12 Unilateral primary osteoarthritis, left knee (principal)
CPT/HCPCS: 97014; 97016; 97110; 97116; 97140; 97161; 97530; G0283

== ENCOUNTER 2024-02-26 12:46 | Outpatient (CLI) | payer MEDICARE, SELFPAY ==
--- NOTE | ~2024-02-26 | CT_ITS ---
EXAMINATION: CT abdomen wo con DATE: 02/26/2024 13:12 INDICATION: Left-sided abdominal wall mass TECHNIQUE: Computed tomography (CT) of the abdomen and pelvis was performed without intravenous contr ast. Automated exposure control and iterative reconstruction technique were employed. The dose-length product was 663.75 mGy-cm. COMPARISON: None FINDINGS: Cholecystectomy clips the gallbladder fossa. Liver, spleen, pancreas and left adrenal gland are devin l. 2.9 cm low-attenuation right adrenal adenoma. Mild left-sided and mild to moderate right-sided anastasia al atrophy. 3 cm left renal cyst. 2 mm nonobstructing stone at a lower pole calyx of the right kidney . Visualized portions of bowels including the appendix are normal with no wall thickening or obstruct ion. No pathologically enlarged abdominal or upper pelvic lymphadenopathy. Relatively stable appearan ce of linear bands of postoperative scarring in the subcutaneous tissues along the anterior and left anterior abdominal wall with some associated loss of subcutaneous fat thickness. There is mild ventra l diastases. No abnormal masses or fluid collections identified. Mild S-shaped curvature and severe s pondylosis at the lumbar and lower thoracic spine 9 mm anterolisthesis L4 on L5 with severe associate d bilateral facet osteoarthritis. IMPRESSION: 1. Stable appearance of chronic scarring along the central anterior and left anterior abdominal wall. No abnormal masses or fluid collections identified. 2. 2 mm nonobstructing stone at the lower pole of the right kidney. Reviewed, dictated and finalized at location [facility]. IMPRESSION: 1. Stable appearance of chronic scarring along the central anterior and left an terior abdominal wall. No abnormal masses or fluid collections identified. 2. 2 mm nonobstructing stone at the lower pole of the right kidney.
== END 2024-02-26 12:47 | disposition home or self-care (01) ==
LOC: MICIMG 12:46
PROVIDERS: PCP Internal Medicine; Visit Provider Internal Medicine
DX: R22.2 Localized swelling, mass and lump, trunk (principal); N20.0 Calculus of kidney
CPT/HCPCS: 74150

== ENCOUNTER 2024-03-31 14:30 | Outpatient (RCR) | payer MEDICARE, SELFPAY ==
--- NOTE | 2024-03-05 15:17 | OPREHPOC ---
Outpatient Therapy Plan of Care This is a Multidisciplinary Plan of Care that may contain components documented by all disciplines (PT, OT, and ST.) PT Problem 1 PT Problem #1 Knowledge Deficit PT Goal 1 Goal / Goal Update Harris with HEP Target Visit 4 PT Problem 2 PT Problem #2 Impaired Range of Motion PT Goal 1 Goal / Goal Update 1. Improve bentley hip abdcution ROM to 40 degrees to reduce capsular restriction with extension and lateral motion 2. Improve bentley ankle dorsiflexion to 15 degrees to improve terminal stance Target Visit 8 PT Problem 3 PT Problem #3 Impaired Strength PT Goal 1 Goal / Goal Update 1. Improve bentley hip abduction strength to 4/5 to improve lateral stability with gait 2. Improve bentley hip flexion strength to 4+/5 to improve foot clearence Target Visit 8 PT Problem 4 PT Problem #4 Impaired Functional Mobil PT Goal 1 Goal / Goal Update Improve Tinetti score by 5 point to reduce gross fall risk Target Visit 8
--- NOTE | 2024-03-05 15:17 | PTOPEVAL1 ---
Assessment and note entered by Geoffrey King, PT Evaluation Information Assessment Status Evaluation ICD-10 Condition Codes (PT) R26.9,Weakness R53.1 Onset February 2023 Subjective Information Patient reports that she had trouble walking prior to having her knees replaced. 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 Feels she is having trouble with balance, strength, and motion of her hips. She is very dependent on her walker for mobility and would like to be independent. Reported Pain Level Pain Score 0: Self Report Assessment PT Clinical Summary Patient presents with decreased R hip mobility and left hip weakness causing imbalance with standing activity and balance activity. Scores as high fall risk on Tinetti scale and 60+ disability in LEFS score indicating fall risk and apprehension with ADL performance. Patient will benefit form skilled therapy to address these deficits for gross functional improvement and strengthening. Plan of Care Interventions Gait Training,Hot Pack/Cold Pack,Manual Therapy, Neuro Re-education,Therapeutic Activities, Therapeutic Exercise PT Services Indicated Yes Treatment Frequency and 2x/week for 8 visits Duration These treatments will address the objective and functional deficits as defined above. The patient will be advanced safely and appropriately in order for the patient to progress towards his/her prior level of function. Additional exercises will be introduced and as well as a comprehensive home exercise program upon discharge, if needed, ?to ensure carryover of functional gains achieved in the clinic. This treatment plan has been reviewed and agreement upon by the patient.
--- NOTE | 2024-03-31 15:25 | PTOPDC ---
Assessment and note entered by Shira Mayen, PT Discharge Report Assessment Status Discharge ICD-10 Condition Codes (PT) R26.9,Weakness R53.1 Onset February 2023 Subjective Information frustrated because I am not stronger; have not had any falls; am able to do everything at home; using the wheeled walker when go out of the house; sometimes in the house do not use anything; want to be able to use the cane when go places, so do not walk so funny; have been doing the exercises but not any better; want to stop therapy now for the holidays and maybe come back after the first of the year. Reported Pain Level Pain Score 0: Self Report Additional Pain Score Comments have pain sometimes on L mid to lower back- with standing and working in the kitchen; Assessment PT Clinical Summary Candace has received 7 PT sessions. Compared to the initial evaluation: LE functional scale self rating is the same at 65% limitation in activity level; Tinetti balance/gait score improved from 17 to 22/28; increase bilateral ankle DF and hip abduction ROM; increase hip flexion strength; continues to have weakness of bilateral hip abduction- which limits her standing and walking position and ability; education completed for HEP. The goals were partially met. Discharge from PT services. She is to continue with her HEP and walking as tolerated. Plan of Care PT Services Indicated No
== END 2024-04-01 12:18 | disposition home or self-care (01) ==
LOC: ANHPT 14:30
PROVIDERS: PCP Internal Medicine; Visit Provider Internal Medicine
DX: R26.9 Unspecified abnormalities of gait and mobility (principal); R53.1 Weakness
CPT/HCPCS: 97110; 97112; 97161; 97530

== ENCOUNTER 2025-04-06 13:05 | Outpatient (CLI) | payer MEDICARE, SELFPAY ==
--- NOTE | ~2025-04-06 | MM_ITS ---
EXAMINATION: MM screening ceferino BI w vitaly HISTORY: Screening. TECHNIQUE: Craniocaudal and mediolateral oblique 3-D tomosynthesis images were obtained and synthetic 2-D images were generated. CAD analysis was submitted and interpreted. COMPARISON: 2020, 2018, and 2017. BREAST PARENCHYMAL COMPOSITION: Not Dense: There are scattered areas of fibroglandular FINDINGS: There is a biopsy marker on the left. No suspicious masses are seen. There are no suspicious calcifications. No unexplained architectural distortion is seen. There are no skin or nipple abnormalities identified. There is no adenopathy seen on the images submitted. IMPRESSION: No mammographic evidence to suggest malignancy is seen. The patient may return to screening mammography as per ACR guidelines. BI-RADS 1 - Negative. Reviewed, dictated and finalized at location [facility]
== END 2025-04-06 13:06 | disposition home or self-care (01) ==
LOC: MICIMG 13:06
PROVIDERS: PCP Internal Medicine; Visit Provider Internal Medicine
DX: Z12.31 Encounter for screening mammogram for malignant neoplasm of breast (principal)
CPT/HCPCS: 77063; 77067